=== PATIENT | female | born 1955 | race Caucasian/White ===

== ENCOUNTER 2017-11-18 18:42 | Emergency (ER) | payer OTHER, SELFPAY ==
[2017-11-18 18:43] VITALS: BP 147/89; PULSE 94; RESP 20; TEMP 36.5; O2SAT 95; BMI 33.4
[2017-11-18 18:50] VITALS: BP 147/89; PULSE 94; RESP 20; TEMP 36.5; O2SAT 95; BMI 33.4
--- NOTE | 2017-11-18 21:52 | ED_ITS ---
HPI - Headache General Chief Complaint: Headache Stated Complaint: Says Severe Head Ache Time Seen by Provider: 11/18/17 21:51 History of Present Illness HPI Narrative: Patient is a 62-year-old female presenting with left-sided headache ongoing for number weeks. She does have a history of migraine headaches and she is followed by the [facility]. She was started on some new medications which she says is really not helping. She has been dropping things with her left hand since the headache started she feels like she is off-balance she has some blurry vision. No fever that she knows of. She says the headache is quite severe. She also has chronic ongoing back pain which she has a 10s unit for. No other numbness or tingling down her legs. No difficulty speaking. MD Complaint: headache Onset (ago): week(s) Location: left Severity: severe Related Data Home Medications Medication Instructions Recorded Confirmed nortriptyline 50 mg PO HS #0 04/25/17 onabotulinumtoxinA [Botox] #0 08/06/17 Previous Rx's Medication Instructions Recorded ondansetron HCl 4 mg PO Q4HP PRN #15 tab 09/16/16 nystatin 0 unit TOPICAL BID #1 tube 01/10/17 buspirone 0 PO SEE INSTRUCTIONS #120 tab 01/14/17 cyanocobalamin (vitamin B-12) 1,000 mcg PO QDAY #30 tab 05/16/17 potassium chloride [Klor-Con M20] 40 meq PO AMCC #60 tab 05/16/17 duloxetine [Cymbalta] 20 mg PO QAM #30 cap 07/23/17 duloxetine [Cymbalta] 60 mg PO QDAY #30 cap 07/23/17 dihydroergotamine 1 mg SQ SEE INSTRUCTIONS #10 amp 08/06/17 estradiol 1 mg PO QDAY #90 tab 08/23/17 diazepam 10 mg PO HSP PRN #30 tab 08/30/17 furosemide 40 mg PO QDAY #30 tab 09/14/17 acyclovir 800 mg PO TID #21 tab 10/19/17 metoclopramide HCl 10 mg PO Q6HP PRN #15 tab 10/19/17 triamcinolone acetonide 0 gm TOPICAL BID #1 tube 10/19/17 diclofenac potassium 50 mg PO TID #60 tab 10/29/17 zonisamide 100 mg capsule 300 mg PO TID #60 cap 11/14/17 Allergies Allergy/AdvReac Type Severity Reaction Status Date / Time zolpidem [From AMBIEN] AdvReac Intermediate bad dreams Unverified 10/24/17 12:23 Review of Systems Review of Systems All systems reviewed & are unremarkable except as noted in HPI and below Constitutional Reports headache(s) and Reports weight loss Eyes Reports blurry vision (Left eye) ENT Ears, Nose, Mouth, and Throat: Denies vertigo, Denies dizziness and Reports headache(s) Cardiovascular Denies chest pain, Denies syncope and Denies palpitations Respiratory Denies chest congestion and Denies cough Gastrointestinal Gastrointestinal: Reports nausea Musculoskeletal Reports abnormal gait, Denies deformity and Reports muscle weakness (left hand) Neurologic Reports as per HPI, Reports abnormal gait, Denies vertigo, Denies dizziness, Denies syncope, Reports headache(s), Reports other visual disturbances (left eye blurry), Denies sensory deficit and Denies tremor(s) Endocrine Denies palpitations PFSH Medical History Migraine (Acute) Surgical History History of cystoscopy Status post cholecystectomy Status post colonoscopy Status post colonoscopy (08/02/09) Status post endoscopy Status post hemorrhoidectomy Status post hysterectomy with oophorectomy Family History Father Congestive heart failure Tobacco abuse Grandfather Colorectal cancer, Onset Age: 70 Stomach cancer Grandmother Coronary artery disease Mother Congestive heart failure Tobacco abuse Hidradenitis suppurativa Alcoholism Grandfather Diabetes mellitus Grandmother Ovarian cancer Social History Smoking Status: Never smoker Exam Const General: cooperative, in distress (Appears in pain in dark room) and No diaphoretic Orientation: alert, awake and oriented x3 Other: Appears in pain but alert in dark room HENMT Head: normal to inspection and atraumatic Ears: hearing grossly normal bilaterally Eyes General: appearance normal, both eyes and all related structures Visual Noriega: normal visual noriega by confrontation Pupils: PERRL EOM: EOM intact bilaterally Neck Neck: normal visual inspection, full ROM and no meningeal signs Resp Effort & Inspection: normal respiratory effort and able to speak in complete sentences Auscultation: clear to auscultation bilaterally Cardio Rate: regular rate Rhythm: regular rhythm Heart Sounds: S1 normal and S2 normal GI Inspection: normal to inspection Palpation: soft Skin General: no rashes or lesions noted Lesions: no lesions Rashes: no rashes Neuro General: alert, awake, oriented x3 and no meningeal signs Cranial Nerves: facial strength normal (Slight left facial droop) Cognition: normal cognition Speech: speech normal Gait: normal gait Motor: muscle tone normal throughout Sensory Exam: no sensory deficits noted Coordination: [id number] test normal and [id number] test normal Pupils: Normal pupillary reactivity/response: right and left Other: Wheel Press 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 But did not improve with typical migraine cocktail. Headache did start to improve after Dilaudid. She actually was seen multiple times talking with her friend without any distress. His after 2nd dose of narcotic she was able to ambulate to the bathroom. Head CT and blood work within normal limits. She has no meningeal signs. NIH STROKE SCALE: Score=[0] 1a. LOC=0 1b. LOC questions= 0 -->What month is it? How old are you? 1c. LOC commands=0 -->Open and close your eyes. Wheel Press Operator and release your hand 2. Best gaze=0 3. Visual Noriega=0 4. Facial Palsy=0 5. Motor Arm --Right=0 --Left=0 6. Motor Leg --Right=0 --Left=0 7. Limb Ataxia=0 8.Sensory=0 9. Best language=0 10. Dysarthria=0 11.Extinction and Inattention=0 Lab Data Attestation: I reviewed the patient's lab results. Result diagrams: 11/18/17 22:30 11/18/17 22:30 Lab Results 11/18/17 11/18/17 11/18/17 Range/Units 22:30 22:30 22:30 WBC 8.6 (4.5-11.0) X10^3/uL RBC 4.25 (4.0-5.2) X10^6/uL Hgb 12.3 (12.0-16.0) g/dL Hct 36.6 (36-46) % MCV 86.1 (80-100) fL MCH 28.9 (26-34) PG MCHC 33.6 (30-36) % RDW 13.8 (11.6-14.8) % Plt Count 428 H (150-400) X10^3/uL Neut % (Auto) 59.5 (50-75) % Lymph % (Auto) 28.8 (25-40) % [place] % (Auto) 7.2 (3-14) % Eos % (Auto) 3.9 (2-4) % Baso % (Auto) 0.6 (0-2) % Neut # (Auto) 5100 (2922-5440) /uL Sodium 141 (137-145) mmol/L Potassium 3.8 (3.4-5.1) mmol/L Chloride 107.0 (98-107) mmol/L Carbon Dioxide 23.0 (22-32) mmol/L BUN 14.0 (7-17) mg/dL Creatinine 1.00 (0.52-1.04) mg/dL Estimated GFR 56.4 L (>60) mL/min BUN/Creatinine Ratio 14.0 (6-22) Glucose 99 (80-110) mg/dL Lactate (0.7-2.1) mmol/L Calcium 9.5 (8.4-10.2) mg/dL Total Bilirubin 0.4 (0.2-1.3) mg/dL AST 28 (14-36) IU/L ALT 50 (9-52) IU/L Alkaline Phosphatase 89 (38-126) U/L Total Protein 7.4 (6.3-8.2) g/dL Albumin 4.2 (3.5-5.0) g/dL Globulin 3.2 (1.7-4.1) g/dL Albumin/Globulin Ratio 1.3 (1.0-2.8) Procalcitonin < 0.05 (<0.5) ng/mL 11/18/17 Range/Units 22:30 WBC (4.5-11.0) X10^3/uL RBC (4.0-5.2) X10^6/uL Hgb (12.0-16.0) g/dL Hct (36-46) % MCV (80-100) fL MCH (26-34) PG MCHC (30-36) % RDW (11.6-14.8) % Plt Count (150-400) X10^3/uL Neut % (Auto) (50-75) % Lymph % (Auto) (25-40) % [place] % (Auto) (3-14) % Eos % (Auto) (2-4) % Baso % (Auto) (0-2) % Neut # (Auto) (6939-7017) /uL Sodium (137-145) mmol/L Potassium (3.4-5.1) mmol/L Chloride (98-107) mmol/L Carbon Dioxide (22-32) mmol/L BUN (7-17) mg/dL Creatinine (0.52-1.04) mg/dL Estimated GFR (>60) mL/min BUN/Creatinine Ratio (6-22) Glucose (80-110) mg/dL Lactate 1.1 (0.7-2.1) mmol/L Calcium (8.4-10.2) mg/dL Total Bilirubin (0.2-1.3) mg/dL AST (14-36) IU/L ALT (9-52) IU/L Alkaline Phosphatase (38-126) U/L Total Protein (6.3-8.2) g/dL Albumin (3.5-5.0) g/dL Globulin (1.7-4.1) g/dL Albumin/Globulin Ratio (1.0-2.8) Procalcitonin (<0.5) ng/mL Imaging Data CT scan - head: Radiologist's impression: 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 No acute intracranial abnormality.
--- NOTE | 2017-11-18 22:02 | DI.CT.S_ITS ---
PROCEDURE: CT HEAD/BRAIN WO CON INDICATIONS: worsening headache for weeks with left sided weakness TECHNIQUE: Noncontrast 4.5 mm thick angled axial sections acquired from the foramen magnum to the vertex, with coronal and sagittal reformats. For radiation dose reduction, the following was used: automated exposure control, adjustment of mA and/or kV according to patient size. COMPARISON: [facility], CT, HEAD WITHOUT CONTRAST, 04/25/2017, 17:16. FINDINGS: Image quality: Excellent. CSF spaces: Basal cisterns are patent. No extra-axial fluid collections. The ventricles are symmetric in size and shape. Brain: No intracranial bleeds or masses. There is cerebral volume loss for age, with resultant ventricular and sulcal prominence. There are periventricular and deep white matter chronic small vessel ischemic changes. There is intracranial internal carotid artery atherosclerosis. Skull and face: Calvarium and visualized facial bones appear intact, without suspicious lesions. Sinuses: Visualized sinuses and mastoids are clear. IMPRESSION: No acute intracranial process Dictated by: Angel Doll M.D. on 11/19/2017 at 7:07 Approved by: Angel Doll M.D. on 11/19/2017 at 7:09
[2017-11-18 22:34] VITALS: BP 120/61; PULSE 80; RESP 15; O2SAT 100
[2017-11-18 22:44] LABS: Add Manual Diff / Slide Review NO; Basophils Percent Auto 0.6 % (0-2); Eosinophils Percent Auto 3.9 % (2-4); Hematocrit 36.6 % (36-46); Hemoglobin 12.3 g/dL (12.0-16.0); Lymphocytes Percent Auto 28.8 % (25-40); Mean Corpuscular HGB Conc 33.6 % (30-36); Mean Corpuscular Hemoglobin 28.9 PG (26-34); Mean Corpuscular Volume 86.1 fL (80-100); Monocytes Percent Auto 7.2 % (3-14); Neutrophils Absolute Auto 5100 /uL (3000-5900); Neutrophils Percent Auto 59.5 % (50-75); Platelet Count 428 X10^3/uL (150-400); Red Blood Cell Count 4.25 X10^6/uL (4.0-5.2); Red Cell Distribution Width 13.8 % (11.6-14.8); White Blood Cell Count 8.6 X10^3/uL (4.5-11.0)
[2017-11-18 22:47] LABS: Lactate (Lactic Acid) 1.1 mmol/L (0.7-2.1)
[2017-11-18 22:54] LABS: Alanine Aminotransferase 50 IU/L (9-52); Albumin 4.2 g/dL (3.5-5.0); Albumin Globulin Ratio 1.3 (1.0-2.8); Alkaline Phosphatase 89 U/L (38-126); Aspartate Aminotransferase 28 IU/L (14-36); Bilirubin Total 0.4 mg/dL (0.2-1.3); Calcium 9.5 mg/dL (8.4-10.2); Estimated Glomerular Filt Rate 56.4 mL/min (>60); Globulin 3.2 g/dL (1.7-4.1); Glucose 99 mg/dL (80-110); HEMOLYSIS 16 (0-50); Potassium 3.8 mmol/L (3.4-5.1); Sodium 141 mmol/L (137-145); Total Protein 7.4 g/dL (6.3-8.2)
[2017-11-18] MEDS: HYDROCODONE/ACET 5/325 TABLET 2 TAB PO (22:55)
[2017-11-18] MEDS: METOCLOPRAMIDE 10 MG/2 ML INJ IV (22:59)
[2017-11-18] MEDS: KETOROLAC 60 MG/2 ML VIAL 30 MG IV (22:59)
[2017-11-18] MEDS: diphenhydrAMINE 50 MG/ML VIAL 25 MG IV (22:59)
[2017-11-18] MEDS: SODIUM CHLORIDE 0.9% 1,000 ML 1000 ML IV (22:59)
[2017-11-18 23:10] LABS: Procalcitonin < 0.05 ng/mL (<0.5)
--- NOTE | 2017-11-18 23:37 | PC.NURSE ---
pt reports no change in pain level 10/10 s/p medication
[2017-11-18 23:41] VITALS: BP 128/80; PULSE 82; RESP 16
[2017-11-19] MEDS: HYDROMORPHONE 1 MG IV (00:48)
[2017-11-19] MEDS: MORPHINE 10 MG/ML INJ 5 MG IV (01:42)
[2017-11-19 02:20] VITALS: BP 128/80; PULSE 80; RESP 16; O2SAT 98
== END 2017-11-19 02:21 | disposition home or self-care (01) ==
PROVIDERS: Emergency Provider Emergency Medicine; Family Provider Family Medicine; PCP Family Medicine
DX: G43.909 Migraine, unspecified, not intractable, without status migrainosus (principal)
CPT/HCPCS: 36591; 70450; 80053; 83605; 84145; 85025; 96361; 96374; 96375; 99283; 99284; J1170; J1200; J1885; J2270; J2765

== ENCOUNTER → 2018-04-25 16:13 | Outpatient (CLI) | payer OTHER, SELFPAY ==
[2018-04-25 17:15] LABS: BUN Creatinine Ratio 14.3 (6-22); Blood Urea Nitrogen 20 mg/dL (7-17); Carbon Dioxide 21 mmol/L (22-32); Chloride 102 mmol/L (98-107); Estimated Glomerular Filt Rate 38.1 mL/min (>60); Glucose 131 mg/dL (80-110); HEMOLYSIS < 15 (0-50); Sodium 145 mmol/L (137-145)
[2018-04-25 17:37] LABS: Troponin I < 0.012 ng/mL (0.01-0.034)
== END ==
PROVIDERS: PCP Family Medicine; Visit Provider Family Medicine
DX: G43.909 Migraine, unspecified, not intractable, without status migrainosus (principal); I10 Essential (primary) hypertension
CPT/HCPCS: 36415; 80048; 84484

== ENCOUNTER → 2018-05-28 13:55 | Outpatient (CLI) | payer OTHER, SELFPAY ==
[2018-05-28 14:59] LABS: Blood Urea Nitrogen 21 mg/dL (7-17); Calcium 9.8 mg/dL (8.4-10.2); Carbon Dioxide 24 mmol/L (22-32); Chloride 104 mmol/L (98-107); Estimated Glomerular Filt Rate 35.2 mL/min (>60); Glucose 125 mg/dL (80-110); HEMOLYSIS < 15 (0-50); Potassium 3.7 mmol/L (3.4-5.1); Sodium 144 mmol/L (137-145)
== END ==
PROVIDERS: PCP Family Medicine; Visit Provider Family Medicine
DX: N18.2 Chronic kidney disease, stage 2 (mild) (principal)
CPT/HCPCS: 36415; 80048

== ENCOUNTER → 2018-07-04 15:11 | Outpatient (CLI) | payer OTHER, SELFPAY ==
[2018-07-04 16:34] LABS: BUN Creatinine Ratio 11.4 (6-22); Blood Urea Nitrogen 16 mg/dL (7-17); Calcium 9.9 mg/dL (8.4-10.2); Carbon Dioxide 23 mmol/L (22-32); Chloride 104 mmol/L (98-107); Estimated Glomerular Filt Rate 38.1 mL/min (>60); Glucose 103 mg/dL (80-110); HEMOLYSIS < 15 (0-50); Potassium 3.8 mmol/L (3.4-5.1); Sodium 142 mmol/L (137-145)
== END ==
PROVIDERS: Family Provider Family Medicine; PCP Family Medicine; Visit Provider Family Medicine
DX: N18.2 Chronic kidney disease, stage 2 (mild) (principal)
CPT/HCPCS: 36415; 80048

== ENCOUNTER → 2018-07-24 10:03 | Outpatient (CLI) | payer OTHER, SELFPAY ==
[2018-07-24 10:53] LABS: BUN Creatinine Ratio 8.7 (6-22); Blood Urea Nitrogen 13 mg/dL (7-17); Calcium 9.8 mg/dL (8.4-10.2); Carbon Dioxide 25 mmol/L (22-32); Chloride 102 mmol/L (98-107); Estimated Glomerular Filt Rate 35.2 mL/min (>60); Glucose 113 mg/dL (80-110); HEMOLYSIS < 15 (0-50); Potassium 3.5 mmol/L (3.4-5.1); Sodium 142 mmol/L (137-145)
== END ==
PROVIDERS: Family Provider Family Medicine; PCP Family Medicine; Visit Provider Family Medicine
DX: I10 Essential (primary) hypertension (principal)
CPT/HCPCS: 36415; 80048

== ENCOUNTER → 2018-08-16 16:42 | Outpatient (CLI) | payer OTHER, SELFPAY ==
[2018-08-16 17:22] LABS: BUN Creatinine Ratio 8.5 (6-22); Blood Urea Nitrogen 11 mg/dL (7-17); Calcium 9.7 mg/dL (8.4-10.2); Carbon Dioxide 24 mmol/L (22-32); Chloride 105 mmol/L (98-107); Estimated Glomerular Filt Rate 41.5 mL/min (>60); Glucose 100 mg/dL (80-110); HEMOLYSIS 21 (0-50); Potassium 3.6 mmol/L (3.4-5.1); Sodium 141 mmol/L (137-145)
== END ==
PROVIDERS: Family Provider Family Medicine; PCP Family Medicine; Visit Provider Family Medicine
DX: N18.3 Chronic kidney disease, stage 3 (moderate) (principal)
CPT/HCPCS: 36415; 80048

== ENCOUNTER → 2018-10-11 09:39 | Outpatient (CLI) | payer OTHER, SELFPAY ==
[2018-10-11 11:13] LABS: Blood Urea Nitrogen 15 mg/dL (7-17); Calcium 9.8 mg/dL (8.4-10.2); Carbon Dioxide 21 mmol/L (22-32); Chloride 107 mmol/L (98-107); Estimated Glomerular Filt Rate 56.2 mL/min (>60); Glucose 94 mg/dL (80-110); HEMOLYSIS < 15 (0-50); Magnesium 2.1 mg/dL (1.6-2.3); Potassium 4.2 mmol/L (3.4-5.1); Sodium 141 mmol/L (137-145)
== END ==
PROVIDERS: PCP Family Medicine; Visit Provider Family Medicine
DX: N18.3 Chronic kidney disease, stage 3 (moderate) (principal)
CPT/HCPCS: 36415; 80048; 83735

== ENCOUNTER → 2018-10-11 10:03 | Outpatient (CLI) | payer OTHER, SELFPAY ==
--- NOTE | 2018-10-11 10:06 | DI.RAD.S_ITS ---
PROCEDURE: XR LUMBAR SPINE MIN 4V INDICATIONS: back pain TECHNIQUE: 5 views of the lumbar spine were acquired. COMPARISON: None. FINDINGS: Bones: 5 nonrib-bearing vertebrae are present. There is grade 1 anterolisthesis of L4 on L5. No vertebral body compression fractures. Degenerative endplate changes are noted throughout lower thoracic and lumbar spine. No suspicious bony lesions. Soft tissues: Overlying bowel gas pattern is normal. No suspicious soft tissue calcifications. Surgical clips are noted in gallbladder fossa. Oblique images: No pars defects. No significant neuroforaminal narrowing. IMPRESSION: Grade 1 anterolisthesis of L4 on L5. No compression fracture. No gross pars defect. Mild degenerative disc disease in lumbar spine. No significant neuroforaminal narrowing. Dictated by: Alfonso Muller M.D. on 10/11/2018 at 12:43 Approved by: Alfonso Muller M.D. on 10/11/2018 at 12:45
--- NOTE | 2018-10-11 10:06 | DI.RAD.S_ITS ---
PROCEDURE: XR HIP W PEL IF DONE LT MIN 4V INDICATIONS: groin pain bilaterally, L>R TECHNIQUE: AP pelvis with lateral view(s) of the bilateral hip(s). COMPARISON: None. FINDINGS: Bones: No fractures or dislocations. Mild symmetric appearing bilateral hip joint osteoarthritic changes are seen with joint space narrowing and subchondral sclerosis. No evidence of avascular necrosis. Pelvic ring appears intact. No suspicious bony lesions. Soft tissues: The visualized bowel gas pattern is normal. No suspicious soft tissue calcifications. IMPRESSION: Mild symmetric appearing bilateral hip joint osteoarthritis. No fracture or dislocation. No evidence of avascular necrosis. Dictated by: Alfonso Muller M.D. on 10/11/2018 at 12:45 Approved by: Alfonso Muller M.D. on 10/11/2018 at 12:46
== END ==
PROVIDERS: PCP Family Medicine; Visit Provider Family Medicine
DX: M54.9 Dorsalgia, unspecified (principal); N18.3 Chronic kidney disease, stage 3 (moderate); M25.551 Pain in right hip; M25.552 Pain in left hip; M16.0 Bilateral primary osteoarthritis of hip; M43.16 Spondylolisthesis, lumbar region; M51.36 Other intervertebral disc degeneration, lumbar region
CPT/HCPCS: 36415; 72110; 73522; 80048; 83735

== ENCOUNTER → 2018-11-07 09:18 | Outpatient (CLI) | payer OTHER, SELFPAY ==
[2018-11-07 10:04] LABS: Blood Urea Nitrogen 14 mg/dL (7-17); Calcium 9.3 mg/dL (8.4-10.2); Carbon Dioxide 22 mmol/L (22-32); Chloride 108 mmol/L (98-107); Estimated Glomerular Filt Rate 56.2 mL/min (>60); Glucose 103 mg/dL (80-110); HEMOLYSIS < 15 (0-50); Sodium 141 mmol/L (137-145)
== END ==
PROVIDERS: PCP Family Medicine; Visit Provider Family Medicine
DX: N18.3 Chronic kidney disease, stage 3 (moderate) (principal)
CPT/HCPCS: 36415; 80048

== ENCOUNTER → 2018-12-06 10:03 | Outpatient (CLI) | payer OTHER, SELFPAY ==
[2018-12-06 11:11] LABS: Blood Urea Nitrogen 9 mg/dL (7-17); Carbon Dioxide 23 mmol/L (22-32); Chloride 107 mmol/L (98-107); Estimated Glomerular Filt Rate 56.2 mL/min (>60); Glucose 103 mg/dL (80-110); HEMOLYSIS < 15 (0-50); Potassium 4.3 mmol/L (3.4-5.1); Sodium 140 mmol/L (137-145)
== END ==
PROVIDERS: PCP Family Medicine; Visit Provider Family Medicine
DX: N18.3 Chronic kidney disease, stage 3 (moderate) (principal)
CPT/HCPCS: 36415; 80048

== ENCOUNTER → 2018-12-19 08:27 | Outpatient (CLI) | payer OTHER, SELFPAY ==
--- NOTE | 2018-12-19 08:42 | DI.CT.S_ITS ---
PROCEDURE: CT LUMBAR SPINE WO CON INDICATIONS: left hip and pelvic pain TECHNIQUE: Noncontrast 3 mm thick sections acquired from the T12 level to the sacrum. Sagittal and coronal reformats were constructed. For radiation dose reduction, the following was used: automated exposure control. COMPARISON: None. FINDINGS: Image quality: Excellent. Bones: There is minimal anterolisthesis of L4 on L5. No acute vertebral body compression fractures. No suspicious lytic or blastic bony lesions. Central spinal caliber is of normal overall caliber. No pars defects. T12-L1: Degenerative endplate changes are seen with Schmorl's node involving inferior endplate of T12. No significant disc bulge, canal stenosis or neuroforaminal narrowing. L1-L2: Schmorl's node is seen involving inferior endplate of L1. Mild degenerative endplate changes are seen. No significant disc bulge, canal stenosis or neuroforaminal narrowing is seen. L2-L3: Degenerative endplate changes are noted. No significant disc bulge, canal stenosis or neuroforaminal narrowing. L3-L4: Degenerative endplate changes are noted. Right paracentral disc osteophyte complex formation is seen posteriorly causing mild central canal stenosis, no significant neuroforaminal narrowing. L4-L5: There is degenerative endplate changes. Broad-based disc bulge and bilateral facet arthrosis with hypertrophy of ligamentum flavum is noted causing [id number] central canal stenosis and moderate left worse than right bilateral neuroforaminal narrowing. L5-S1: Degenerative endplate changes are seen. Broad-based disc bulge and bilateral facet arthrosis is noted causing mild central canal stenosis and mild to moderate bilateral neuroforaminal narrowing slightly worse on the left side. Soft tissues: No retroperitoneal masses or hematomas. Visualized aorta is normal in caliber. Possible pain management device is seen in right lower back soft tissue with leads seen extending to lower sacral region. IMPRESSION: 1. Minimal anterolisthesis of L4 on L5. No compression fracture. No gross pars defect. 2. Degenerative disc disease throughout lumbar spine. Suggestion a broad-based disc bulge and bilateral facet arthrosis at L4-5 and L5-S1 levels causing mild central canal stenosis and moderate left worse than right bilateral neuroforaminal narrowing. Dictated by: Alfonso Muller M.D. on 12/19/2018 at 8:59 Approved by: Alfonso Muller M.D. on 12/19/2018 at 9:04
--- NOTE | 2018-12-19 08:42 | DI.CT.S_ITS ---
PROCEDURE: CT LE LT W CON INDICATIONS: left hip and pelvic pain TECHNIQUE: Noncontrast 3 mm axial sections acquired through the bony pelvis. Additional 3 mm axial sections acquired through the symptomatic hip joint, with coronal and sagittal reformats. COMPARISON: None. FINDINGS: Image quality: Excellent. Bones: Mild symmetric appearing bilateral hip joint osteoarthritic changes are seen with superior joint space narrowing and subchondral sclerosis. There is no hip fracture or dislocation. No evidence of avascular necrosis of femoral head. No fracture or dislocation is seen no bony pelvis. Pelvic ring is intact. Mild bilateral sacroiliac joint osteophytic changes and symphysis pubis osteoarthritis is seen. Benign appearing bone island is seen in left superior pubic ramus. No suspicious bony lesion. Soft tissues: There is no pelvic free fluid or free air. No bowel obstruction. No abnormal bowel wall thickening. Urinary bladder is within normal limits. Left inguinal hernia containing fat only is seen. No free fluid or free air. There is no left hip muscle or soft tissue abnormality. No significant joint effusion. IMPRESSION: 1. Symmetric appearing bilateral hip joint osteoarthritic changes. Mild osteoarthritis or bony pelvis. No acute hip fracture or dislocation. No evidence of avascular necrosis. 2. No gross left hip or pelvic soft tissue abnormality. Left inguinal hernia containing fat only. Dictated by: Alfonso Muller M.D. on 12/19/2018 at 9:04 Approved by: Alfonso Muller M.D. on 12/19/2018 at 9:08
== END ==
PROVIDERS: PCP Family Medicine; Visit Provider Family Medicine
DX: M25.552 Pain in left hip (principal); R10.2 Pelvic and perineal pain; M51.36 Other intervertebral disc degeneration, lumbar region; M48.061 Spinal stenosis, lumbar region without neurogenic claudication; K40.90 Unilateral inguinal hernia, without obstruction or gangrene, not specified as recurrent; M54.5 Low back pain; M15.9 Polyosteoarthritis, unspecified
CPT/HCPCS: 72131; 73700

== ENCOUNTER → 2019-02-07 16:05 | Outpatient (CLI) | payer OTHER, SELFPAY ==
--- NOTE | 2019-02-07 16:07 | DI.RAD.S_ITS ---
PROCEDURE: XR HIP W PEL IF DONE LT 2V INDICATIONS: fall, left hip pain TECHNIQUE: AP pelvis with lateral view(s) of the left hip(s). COMPARISON: [facility], CR, XR HIP W PEL IF DONE ANATOLY 3TO4V, 10/11/2018, 10:11. FINDINGS: Bones: No fractures or dislocations. Pelvic ring appears intact. No suspicious bony lesions. Soft tissues: The visualized bowel gas pattern is normal. No suspicious soft tissue calcifications. Note is made of a pain control device and lead extending from the right lower abdomen to the left medial hemipelvis area, respectively. IMPRESSION: No trauma found. Pain control device and lead as discussed. Note is made of mild symmetric hip joint osteoarthritis. Dictated by: Raffy Sepulveda M.D. on 02/07/2019 at 16:45 Approved by: Raffy Sepulveda M.D. on 02/07/2019 at 16:46
== END ==
PROVIDERS: PCP Family Medicine; Visit Provider Family Medicine
DX: M25.552 Pain in left hip (principal); M16.12 Unilateral primary osteoarthritis, left hip
CPT/HCPCS: 73502

== ENCOUNTER 2019-02-19 08:45 | Outpatient (RCR) | payer OTHER, SELFPAY ==
--- NOTE | 2018-12-02 12:11 | PT.OIE ---
Current Diagnoses Pain in left hip (12/02/18) Pelvic and perineal pain (12/02/18) Past Medical History (Last Reviewed 06/26/18 @ 09:27 by Martín Almonte PA-C) Chronic diarrhea (Chronic) Depression (Chronic) Endometriosis (Chronic) GERD with stricture (Chronic) Hearing loss (Chronic) Hypertension (Chronic) IBS (irritable bowel syndrome) (Chronic) Interstitial cystitis (Chronic) Migraine (Chronic) Seasonal allergies (Chronic) Urinary incontinence (Chronic) Chickenpox (Resolved) Measles (Resolved) Mumps (Resolved) Past Surgical History (Last Reviewed 06/26/18 @ 09:27 by Martín Almonte PA-C) Esophageal motility disorder (Resolved ~07/14/09) History of cystoscopy Status post cholecystectomy Status post colonoscopy (~2007) Status post colonoscopy (08/02/09) Status post endoscopy (~2008) Status post hemorrhoidectomy (~2010) Status post hysterectomy with oophorectomy (~1985) Provider Visit Care Team Role Provider Type Hattie Cullen DO Attending Provider Physician Primary Care Provider Specialty: [facility] Address: [address] [place] [address] Email: [email or web address] Physical Therapy Initial Evaluation PT-OP-A Visit Information Start: 12/02/18 09:52 Freq: Status: Active Protocol: Document 12/02/18 08:15 (Rec: 12/02/18 10:14 [email or web address]) Out-Patient Physical Therapy Visit Information Visit Information Visit Type Initial Evaluation Visit Note insurance expires 01/12/19 Visit Start Time 08:15 Visit Stop Time 09:00 Total Visit Minutes 45 Visit Number 08/09 Number of DISH MAKER Visits 0 Evaluation Information Evaluation Date 12/02/18 Precautions Precautions High fall risks no iontophoresisno no phonophoresis No heat modalities. PT-OP-B Current Condition Start: 12/02/18 09:52 Freq: Status: Active Protocol: Document 12/02/18 08:15 HH (Rec: 12/02/18 10:14 [email or web address]) Current Condition History of Current Condition Onset Date 3 months ago Current Complaints severe L hip pain, impaired gait and activity tolerance History of Current Condition Pt presents to clinic today with c/o new onset of severe L hip pain since 3 months ago after a possible fall at night . She explained she was not sure about the fall since she often feels unoriented at night because of medications she is taking and constant mirgrain. Pt said her hip pain started since then and x-ray showed negative findings for fx (3 months ago) but with significant L hip OA. However, pt stated her pain never goes away and keeps getting worse which significant challenge her functional mobility. Pt has been falling for the past 3 months since her injury. Pt currently unable to amb more than 100 feet without rest, standing >10-15 mins and climb stairs with step to pattern with railing. She is also using SPC for mobility on RUE to reduced pain and balance. Her sharp Pain basically gets worse with WB/ pressure and radiate to L side of the hip sometimes, and she is unable to sleep on her L side at this point. 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 Pt also states she cannot have a CT scan due to insurance coverage and she has to attempt therapy first to get second opinion first in order to be qualified for CT scan screening. Prior Treatments and Tests PT for neck pain (nerve abiation) x-ray in september showed negative fx for L hip Treatment Goals Patient/Caregiver Goals 1. To be able to walk more than 500 feet without hip pain and SPC 2. To be able to walk her dogs in community 2. to negotiate stairs with step over pattern and without handrails 3. able to stand > 30 mins without pain. Prior Functional Status Baseline Function- ADL's Independent Baseline Function- Mobility Independent Baseline Function- Gait with AD Baseline Function- Recreation/Hobbies able to walk her dogs daily Baseline Function- Other step over pattern without railing for stair climbing able to walk miles with AD Current Functional Impairments (Reported) Functional Limitations- ADL's unable to stand >10 mins unable to perform sit to supine without lifting her LLE with UE support Functional Limitations- Mobility/Gait unable to stand > 10 mins step to for stairs cannot walk > 100 feet without rest. Personal Factors Other Personal Factors That May Effect INSTER STIM for bladder Therapy/Recovery migraines depression multiple falls PT-OP-C Subjective Start: 12/02/18 09:52 Freq: Status: Active Protocol: Document 12/02/18 08:15 (Rec: 12/02/18 10:14 [email or web address]) OP-PT Subjective Patient Comments Patient Comments My left hip pain has been getting really bad Patient Reported Progress Worse Patient Questionnaires Lower Extremity Functional Scale LEFS Score 9 LEFS Impairment 80 to 99% Impaired (Score 1-16 ) OP-PT Pain Assessment Location Left Hip Intensity 8 Scale Used Numeric (1 - 10) Description Pressure Sharp Frequency Constant Pain Aggravating Factors Position Changing Position ADL's Activity Exercise Standing Sitting Walking Stair Climbing Bending Lifting Pain Alleviating Factors None PT-OP-E Functional Tests Start: 12/02/18 09:52 Freq: Status: Active Protocol: Document 12/02/18 08:15 (Rec: 12/02/18 10:14 [email or web address]) Functional Tests 2 Minute Walk Test Distance 188 Device Used none Comments pt uses wall for support and balance PT-OP-G Mobility & Gait Start: 12/02/18 09:52 Freq: Status: Active Protocol: Document 12/02/18 08:15 (Rec: 12/02/18 10:14 [email or web address]) OP Mobility Evaluation Bed Mobility Rolling unable to lay on L side Supine to and from Sit need UE to lift L LE OP Gait Assessment Gait Gait Assistance Required: Independent Distance (Feet) 188 Able to Maintain Weight Bearing Status Yes During Gait Assistive Devices Assistive Device None Gait Deviations General Gait Pattern Antalgic Decreased Stride Length Decreased Feet Clearance Factors Limiting Gait Function Factors Limiting Gait Function Decreased Activity Tolerance Decreased Strength Limited Range of Motion Pain Comments Gait Comments significant L antalgic gait with decreased stance phase on LLE. Needed wall for support/ balance. 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 Stair Climbing Evaluation Evaluation Level of Assist On Stairs Independent Devices Stair Climbing Assistive Devices Left Railing Right Railing Technique/Endurance Stair Climbing Direction Ascend and Descend Stair Climbing Technique Step Over Step PT-OP-J Posture/Palpation/Skin Start: 12/02/18 09:52 Freq: Status: Active Protocol: Document 12/02/18 08:15 HH (Rec: 12/02/18 11:55 [email or web address]) Posture Evaluation Position Standing Evaluation View Anterior Weight Distribution Weight Shifted Right Decreased Wt.Bear on (L) Hip Posture (L) Internally Rotated Knee Posture (L) Genu Valgus (L) Ext. Tibial Torsion PT-OP-K Range of Motion Start: 12/02/18 09:52 Freq: Status: Active Protocol: Document 12/02/18 08:15 (Rec: 12/02/18 11:55 [email or web address]) Hip Goniometric Range of Motion Hip Measured in Degrees Right Passive Hip ROM WFL Yes Testing Position Supine Flexion w/Knee Flexed 105 Extension 10 Abduction 35 Left Passive Hip ROM WFL No Testing Position Supine Flexion w/Knee Flexed 25 Extension 0 Abduction 0 PT-OP-L Special Tests Start: 12/02/18 09:52 Freq: Status: Active Protocol: Document 12/02/18 08:15 (Rec: 12/02/18 11:55 [email or web address]) Special Tests Hip Special Tests Scour Test Comments unable to test due to severe pain and muscle guarding with passive ROM LIAM Comments unable to test due to severe pain and muscle guarding with passive ROM Anterior Labral Test Comments unable to test due to severe pain and muscle guarding with passive ROM PT-OP-M Strength Start: 12/02/18 09:52 Freq: Status: Active Protocol: Document 12/02/18 08:15 (Rec: 12/02/18 11:55 [email or web address]) Hip Strength Hip Manual Muscle Testing Right Flexion (L2) 4+ Good+ Extension (S1) 4+ Good+ Abduction 4+ Good+ Adduction 4+ Good+ Left Flexion (L2) 2- Poor- Extension (S1) 2- Poor- Abduction 2- Poor- Adduction 2- Poor- Knee Strength Knee Manual Muscle Testing Right Flexion (S2) 4+ Good+ Extension (L3) 4+ Good+ Left Flexion (S2) 3+ Fair+ Extension (L3) 3+ Fair+ Ankle/Foot Strength Ankle and Foot Manual Muscle Testing Left Dorsiflexion (L4) 4+ Good+ Plantarflexion (S1) 4+ Good+ Inversion 4+ Good+ Eversion (S1) 4+ Good+ Right Dorsiflexion (L4) 4+ Good+ Plantarflexion (S1) 4+ Good+ Inversion 4+ Good+ Eversion (S1) 4+ Good+ PT-OP-T Assessment and Plan Start: 12/02/18 09:52 Freq: Status: Active Protocol: Document 12/02/18 08:15 (Rec: 12/02/18 11:55 [email or web address]) Physical Therapy Assessment Rehab Potential Rehabilitation Potential Fair Evaluation Complexity Number of Personal Factors/Comorbidities 3 or More Number of Body Systems Impaired 3 Clinical Presentation at Evaluation Evolving Impairments Impairments Activity Tolerance Balance Edema Functional Activities Functional Mobility Gait Pain Posture ROM Sensation Soft Tissue Mobility Strength Tone Transfers Other Concerns Fall Risk high Barriers to Rehabilitation Possible hairline fx migraines, HAT CONDITIONER, depression, high fall risks, bruise easily Goals LEFS Impairment LEFS= 9 (80-99%) Fpc Goal (LTG) pt will be reach < 40-59% impairment on LEFS to improve overall functional mobility. LTG Duration 12 weeks pain during WB position Impairment Severe pain during WB position Fpc Goal (LTG) Pt will report <4/10 pain in WB position such as standing and walking to improve quality of life. LTG Duration 12 weeks Stair negotiation Impairment pt uses step to pattern to climb stairs with railing Tile Setter Apprentice Goal (LTG) Pt will be able to use step over pattern to climb stairs without railing LTG Duration 12 weeks 2 MWT Impairment pt only amb 188 ft under 2MWT Tile Setter Apprentice Goal (LTG) Pt will be able to amb 250 ft within 2MWT without AD LTG Duration 12 weeks Amb distance Impairment unable to amb >100 ft without rest (with spc) Tile Setter Apprentice Goal (LTG) pt will be able to amb 500 ft without rest and assistive device LTG Duration 12 weeks Assessment Summary Assessment pt is a high complexity who presents severe L hip pain 7-9 10 since 3 months due to a possible fall. x-ray from 3 months showed negative for hip fx. However, based on pt's current symptoms, I professionally suspect there's a possible hairline L hip fx since pt cannot tolerate WB movements and passive/active hip movements. Pt cried and has facial grimacing during gentle ROM which makes an accurate objective assessment difficult. Recommended pt to cancel this week appointment to consult with her PCP for a further CT scan/ X-ray assessment to rule out hip fx. If she is negative for fx again, Pt will be a good candidate for skilled therapy to improve her overall flexibility, posture, B LE strength for functional mobility such as stair climbing, daily walking and transfer. Physical Therapy Plan Frequency and Duration Frequency of Treatment 2x/Week Duration of Treatment 12 weeks Plan of Care Start Date 12/02/18 Plan of Care End Date 03/04/19 Therapeutic Interventions Therapeutic Interventions Aquatic Therapy Balance Training Gait Training Home Exercise Program Joint Mobilizations Manual Therapy Neuromuscular Re-education Patient/Caregiver Education Self-Care/Home Management Soft Tissue Mobilization Taping Therapeutic Activities Therapeutic Exercises Modalities Cold Pack/Ice Massage Other Referrals/Consults Referrals/Consults Recommended Recommended pt to cancel this week appointment to consult with her PCP for a further CT scan/ X-ray assessment to rule out hip fx Next Visit Focus/Plan Next Note Type Treatment Note Next Visit Plan reassess pt's symptoms and further assess special test. gentle ROM as delroy
--- NOTE | 2018-12-02 12:11 | PT.OPPOC ---
Current Diagnoses Pain in left hip (12/02/18) Pelvic and perineal pain (12/02/18) Provider Visit Care Team Role Provider Type Hattie Cullen DO Attending Provider Physician Primary Care Provider Specialty: Family Practice Address: [address] [place] [address], [id number] Email: [email or web address] Plan Of Care PT-OP-T Assessment and Plan Start: 12/02/18 09:52 Freq: Status: Active Protocol: Document 12/02/18 08:15 HH (Rec: 12/02/18 11:55 HH [email or web address]) Physical Therapy Assessment Rehab Potential Rehabilitation Potential Fair Evaluation Complexity Number of Personal Factors/Comorbidities 3 or More Number of Body Systems Impaired 3 Clinical Presentation at Evaluation Evolving Impairments Impairments Activity Tolerance Balance Edema Functional Activities Functional Mobility Gait Pain Posture ROM Sensation Soft Tissue Mobility Strength Tone Transfers Other Concerns Fall Risk high Barriers to Rehabilitation Possible hairline fx 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 LTG Duration 12 weeks pain during WB position Impairment Severe pain during WB position Interactive Media Marketing Director Goal (LTG) Pt will report <4/10 pain in WB position such as standing and walking to improve quality of life. LTG Duration 12 weeks Stair negotiation Impairment pt uses step to pattern to climb stairs with railing Senior Living Goal (LTG) Pt will be able to use step over pattern to climb stairs without railing LTG Duration 12 weeks 2 MWT Impairment pt only amb 188 ft under 2MWT Interactive Media Marketing Director Goal (LTG) Pt will be able to amb 250 ft within 2MWT without AD LTG Duration 12 weeks Amb distance Impairment unable to amb >100 ft without rest (with spc) Interactive Media Marketing Director Goal (LTG) pt will be able to amb 500 ft without rest and assistive device LTG Duration 12 weeks Assessment Summary Assessment pt is a high complexity who presents severe L hip pain 7-9 /10 since 3 months due to a possible fall. x-ray from 3 months showed negative for hip fx. However, based on pt's current symptoms, I professionally suspect there's a possible hairline L hip fx since pt cannot tolerate WB movements and passive/active hip movements. Pt cried and has facial grimacing during gentle ROM which makes an accurate objective assessment difficult. Recommended pt to cancel this week appointment to consult with her PCP for a further CT scan/ X-ray assessment to rule out hip fx. If she is negative for fx again, Pt will be a good candidate for skilled therapy to improve her overall flexibility, posture, B LE strength for functional mobility such as stair climbing, daily walking and transfer. Physical Therapy Plan Frequency and Duration Frequency of Treatment 2x/Week Duration of Treatment 12 weeks Plan of Care Start Date 12/02/18 Plan of Care End Date 03/04/19 Therapeutic Interventions Therapeutic Interventions Aquatic Therapy Balance Training Gait Training Home Exercise Program Joint Mobilizations Manual Therapy Neuromuscular Re-education Patient/Caregiver Education Self-Care/Home Management Soft Tissue Mobilization Taping Therapeutic Activities Therapeutic Exercises Modalities Cold Pack/Ice Massage Other Referrals/Consults Referrals/Consults Recommended Recommended pt to cancel this week appointment to consult with her PCP for a further CT scan/ X-ray assessment to rule out hip fx Next Visit Focus/Plan Next Note Type Treatment Note Next Visit Plan reassess pt's symptoms and further assess special test. gentle ROM as delroy Plan of Care Dates Plan of Care Start Date 12/02/18 Plan of Care End Date 03/04/19 Please Sign and Return: I have reviewed this Plan of Care and certify that the skilled therapy services above are required to meet the patient?s needs. Physician Signature Date Printed Name and Credentials Clinical Instructor Signature Printed Name and Credentials
--- NOTE | 2018-12-16 08:15 | PT.OTN ---
Current Diagnoses Pain in left hip (12/16/18) Pelvic and perineal pain (12/16/18) Physical Therapy Treatment Note PT-OP-A Visit Information Start: 12/02/18 09:52 Freq: Status: Active Protocol: Document 12/16/18 08:15 DLM (Rec: 12/16/18 11:37 DLM [id number]) Out-Patient Physical Therapy Visit Information Visit Information Visit Type Treatment Note Visit Note expiration of insurance Visit Start Time 08:15 Visit Stop Time 09:01 Total Visit Minutes 46 Visit Number 09/09 Evaluation Information Evaluation Date 12/02/18 Precautions Precautions High fall risks no iontophoresisno no phonophoresis No heat modalities. She has implanted stimulator for her bladder PT-OP-B Current Condition Start: 12/02/18 09:52 Freq: Status: Active Protocol: Document 12/02/18 08:15 HH (Rec: 12/02/18 10:14 HH [email or web address]) Current Condition History of Current Condition Onset Date 3 months ago Current Complaints severe L hip pain, impaired gait and activity tolerance History of Current Condition Pt presents to clinic today with c/o new onset of severe L hip pain since 3 months ago after a possible fall at night . She explained she was not sure about the fall since she often feels unoriented at night because of medications she is taking and constant mirgrain. Pt said her hip pain started since then and x-ray showed negative findings for fx (3 months ago) but with significant L hip OA. However, pt stated her pain never goes away and keeps getting worse which significant challenge her functional mobility. Pt has been falling for the past 3 months since her injury. Pt currently unable to amb more than 100 feet without rest, standing >10-15 mins and climb stairs with step to pattern with railing. She is also using SPC for mobility on RUE to reduced pain and balance. Her sharp Pain basically gets worse with WB/ pressure and radiate to L side of the hip sometimes, and she is unable to sleep on her L side at this point. Pt notices her knee starts to cave in more and L foot return agent. Pt also states she cannot have a CT scan due to insurance coverage and she has to attempt therapy first to get second opinion first in order to be qualified for CT scan screening. Prior Treatments and Tests PT for neck pain (nerve abiation) x-ray in september showed negative fx for L hip Treatment Goals Patient/Caregiver Goals 1. To be able to walk more than 500 feet without hip pain and SPC 2. To be able to walk her dogs in community 2. to negotiate stairs with step over pattern and without handrails 3. able to stand > 30 mins without pain. Prior Functional Status Baseline Function- ADL's Independent Baseline Function- Mobility Independent Baseline Function- Gait with AD Baseline Function- Recreation/Hobbies able to walk her dogs daily Baseline Function- Other step over pattern without railing for stair climbing able to walk miles with AD Current Functional Impairments (Reported) Functional Limitations- ADL's unable to stand >10 mins unable to perform sit to supine without lifting her LLE with UE support Functional Limitations- Mobility/Gait unable to stand > 10 mins step to for stairs cannot walk > 100 feet without rest. Personal Factors Other Personal Factors That May Effect INSTER STIM for bladder Therapy/Recovery migraines depression multiple falls PT-OP-C Subjective Start: 12/02/18 09:52 Freq: Status: Active Protocol: Document 12/16/18 08:15 DLM (Rec: 12/16/18 11:37 DLM [id number]) OP-PT Subjective Patient Comments Patient Comments Her insurance has authorized a CT of her hip. She is waiting to get it scheduled. Her hip pain is the same. She reports soaking in a warm tub at home has helped but it is too painful to get in/out on her own. She is icing her hip at home. PT-OP-E Functional Tests Start: 12/02/18 09:52 Freq: Status: Active Protocol: Document 12/02/18 08:15 HH (Rec: 12/02/18 10:14 HH [email or web address]) Functional Tests 2 Minute Walk Test Distance 188 Device Used none Comments pt uses wall for support and balance PT-OP-G Mobility & Gait Start: 12/02/18 09:52 Freq: Status: Active Protocol: Document 12/02/18 08:15 HH (Rec: 12/02/18 10:14 HH [email or web address]) OP Mobility Evaluation Bed Mobility Rolling unable to lay on L side Supine to and from Sit need UE to lift L LE OP Gait Assessment Gait Gait Assistance Required: Independent Distance (Feet) 188 Able to Maintain Weight Bearing Status Yes During Gait Assistive Devices Assistive Device None Gait Deviations General Gait Pattern Antalgic Decreased Stride Length Decreased Feet Clearance Factors Limiting Gait Function Factors Limiting Gait Function Decreased Activity Tolerance Decreased Strength Limited Range of Motion Pain Comments Gait Comments significant L antalgic gait with decreased stance phase on LLE. Needed wall for support/ balance. noticeable L knee valgus and L foot return agent. Stair Climbing Evaluation Evaluation Level of Assist On Stairs Independent Devices Stair Climbing Assistive Devices Left Railing Right Railing Technique/Endurance Stair Climbing Direction Ascend and Descend Stair Climbing Technique Step Over Step PT-OP-J Posture/Palpation/Skin Start: 12/02/18 09:52 Freq: Status: Active Protocol: Document 12/02/18 08:15 (Rec: 12/02/18 11:55 [email or web address]) Posture Evaluation Position Standing Evaluation View Anterior Weight Distribution Weight Shifted Right Decreased Wt.Bear on (L) Hip Posture (L) Internally Rotated Knee Posture (L) Genu Valgus (L) Ext. Tibial Torsion PT-OP-K Range of Motion Start: 12/02/18 09:52 Freq: Status: Active Protocol: Document 12/02/18 08:15 (Rec: 12/02/18 11:55 [email or web address]) Hip Goniometric Range of Motion Hip Measured in Degrees Right Passive Hip ROM WFL Yes Testing Position Supine Flexion w/Knee Flexed 105 Extension 10 Abduction 35 Left Passive Hip ROM WFL No Testing Position Supine Flexion w/Knee Flexed 25 Extension 0 Abduction 0 PT-OP-L Special Tests Start: 12/02/18 09:52 Freq: Status: Active Protocol: Document 12/02/18 08:15 (Rec: 12/02/18 11:55 [email or web address]) Special Tests Hip Special Tests Scour Test Comments unable to test due to severe pain and muscle guarding with passive ROM LIAM Comments unable to test due to severe pain and muscle guarding with passive ROM Anterior Labral Test Comments unable to test due to severe pain and muscle guarding with passive ROM PT-OP-M Strength Start: 12/02/18 09:52 Freq: Status: Active Protocol: Document 12/02/18 08:15 (Rec: 12/02/18 11:55 [email or web address]) Hip Strength Hip Manual Muscle Testing Right Flexion (L2) 4+ Good+ Extension (S1) 4+ Good+ Abduction 4+ Good+ Adduction 4+ Good+ Left Flexion (L2) 2- Poor- Extension (S1) 2- Poor- Abduction 2- Poor- Adduction 2- Poor- Knee Strength Knee Manual Muscle Testing Right Flexion (S2) 4+ Good+ Extension (L3) 4+ Good+ Left Flexion (S2) 3+ Fair+ Extension (L3) 3+ Fair+ Ankle/Foot Strength Ankle and Foot Manual Muscle Testing Left Dorsiflexion (L4) 4+ Good+ Plantarflexion (S1) 4+ Good+ Inversion 4+ Good+ Eversion (S1) 4+ Good+ Right Dorsiflexion (L4) 4+ Good+ Plantarflexion (S1) 4+ Good+ Inversion 4+ Good+ Eversion (S1) 4+ Good+ PT-OP-Q Treatments Start: 12/02/18 09:52 Freq: Status: Active Protocol: Document 12/16/18 08:15 DLM (Rec: 12/16/18 11:37 DLM [id number]) Cardio Equipment Recumbent Bicycle Duration (Minutes) 6 Resistance 0 Seat Position 6 Other slow pace with intermittent stopping, c/o pain Therapeutic Exercises Supine Exercises 4 Supine Exercise Name Hooklying hip ADduction Side bilateral Resistance isometric Equipment Used L2 exercise band Reps/Minutes 10 reps 3 Supine Exercise Name Hooklying hip ABduction Side bilateral Resistance isometric Equipment Used ball between knees Reps/Minutes 10 reps 2 Supine Exercise Name Quad sets Side bilateral Resistance isometric Reps/Minutes 5 count hold x 10 reps 1 Supine Exercise Name Glut sets Resistance isometric Reps/Minutes 5 count hold x 10 reps Sitting Exercises 1 Sitting Exercise Name long arc quad Side left Resistance 2# ankle weight Reps/Minutes 10 reps Comments c/o pain Self-Care/Home Management Treatment Education Patient Education Home Exercise Program Pain Management Other Education Pt has and SI belt from her physician. Answered her questions about wear and fit. Educated pt on use of isometric exercises for strengthening with minimal joint stress. Pt questions if she can use her home TENS- requested she get clearance from the physician who implanted her stimulator first . PT-OP-T Assessment and Plan Start: 12/02/18 09:52 Freq: Status: Active Protocol: Document 12/16/18 08:15 DLM (Rec: 12/16/18 11:37 DLM [id number]) Physical Therapy Assessment Goals LEFS Impairment LEFS= 9 (80-99%) Usp Goal (LTG) pt will be reach < 40-59% impairment on LEFS to improve overall functional mobility. LTG Duration 12 weeks pain during WB position Impairment Severe pain during WB position Usp Goal (LTG) Pt will report <4/10 pain in WB position such as standing and walking to improve quality of life. LTG Duration 12 weeks Stair negotiation Impairment pt uses step to pattern to climb stairs with railing Usp Goal (LTG) Pt will be able to use step over pattern to climb stairs without railing LTG Duration 12 weeks 2 MWT Impairment pt only amb 188 ft under 2MWT Microfilm Operator Goal (LTG) Pt will be able to amb 250 ft within 2MWT without AD LTG Duration 12 weeks Amb distance Impairment unable to amb >100 ft without rest (with spc) Usp Goal (LTG) pt will be able to amb 500 ft without rest and assistive device LTG Duration 12 weeks Progress Towards Goals Progress Comments no change in her pain Assessment Summary Assessment Her left hip continues. CT is planned but not scheduled yet. She had pain with all exercises today but was able to complete them. She was intermittently emotional this visit. She was able to get on the mat table independently but needed min assist to get off. She moves very slowly with all functional mobility. She is using a cane for gait. She appears to tolerate the SI belt well this visit but no change in pain. Physical Therapy Plan Frequency and Duration Frequency of Treatment 2x/Week Duration of Treatment 12 weeks Plan of Care Start Date 12/02/18 Plan of Care End Date 03/04/19 Therapeutic Interventions Therapeutic Interventions Aquatic Therapy Balance Training Gait Training Home Exercise Program Joint Mobilizations Manual Therapy Neuromuscular Re-education Patient/Caregiver Education Self-Care/Home Management Soft Tissue Mobilization Taping Therapeutic Activities Therapeutic Exercises Modalities Cold Pack/Ice Massage Next Visit Focus/Plan Next Note Type Treatment Note Next Visit Plan gentle ROM, isometrics
--- NOTE | 2018-12-18 08:15 | PT.OTN ---
Current Diagnoses Pain in left hip (12/18/18) Pelvic and perineal pain (12/18/18) Physical Therapy Treatment Note PT-OP-A Visit Information Start: 12/02/18 09:52 Freq: Status: Active Protocol: Document 12/18/18 08:15 DLM (Rec: 12/18/18 10:36 DLM [id number]) Out-Patient Physical Therapy Visit Information Visit Information Visit Type Treatment Note Visit Note expiration of insurance Visit Start Time 08:20 Visit Stop Time 09:15 Total Visit Minutes 55 Visit Number 10/07 Number of DITCHER OPERATOR Visits 0 Evaluation Information Evaluation Date 12/02/18 Precautions Precautions High fall risks She has implanted stimulator for her bladder- in back PT-OP-B Current Condition Start: 12/02/18 09:52 Freq: Status: Active Protocol: Document 12/02/18 08:15 HH (Rec: 12/02/18 10:14 HH [email or web address]) Current Condition History of Current Condition Onset Date 3 months ago Current Complaints severe L hip pain, impaired gait and activity tolerance History of Current Condition Pt presents to clinic today with c/o new onset of severe L hip pain since 3 months ago after a possible fall at night . She explained she was not sure about the fall since she often feels unoriented at night because of medications she is taking and constant mirgrain. Pt said her hip pain started since then and x-ray showed negative findings for fx (3 months ago) but with significant L hip OA. However, pt stated her pain never goes away and keeps getting worse which significant challenge her functional mobility. Pt has been falling for the past 3 months since her injury. Pt currently unable to amb more than 100 feet without rest, standing >10-15 mins and climb stairs with step to pattern with railing. She is also using SPC for mobility on RUE to reduced pain and balance. Her sharp Pain basically gets worse with WB/ pressure and radiate to L side of the hip sometimes, and she is unable to sleep on her L side at this point. Pt notices her knee starts to cave in more and L foot axle turner. Pt also states she cannot have a CT scan due to insurance coverage and she has to attempt therapy first to get second opinion first in order to be qualified for CT scan screening. Prior Treatments and Tests PT for neck pain (nerve abiation) x-ray in september showed negative fx for L hip Treatment Goals Patient/Caregiver Goals 1. To be able to walk more than 500 feet without hip pain and SPC 2. To be able to walk her dogs in community 2. to negotiate stairs with step over pattern and without handrails 3. able to stand > 30 mins without pain. Prior Functional Status Baseline Function- ADL's Independent Baseline Function- Mobility Independent Baseline Function- Gait with AD Baseline Function- Recreation/Hobbies able to walk her dogs daily Baseline Function- Other step over pattern without railing for stair climbing able to walk miles with AD Current Functional Impairments (Reported) Functional Limitations- ADL's unable to stand >10 mins unable to perform sit to supine without lifting her LLE with UE support Functional Limitations- Mobility/Gait unable to stand > 10 mins step to for stairs cannot walk > 100 feet without rest. Personal Factors Other Personal Factors That May Effect INSTER STIM for bladder Therapy/Recovery migraines depression multiple falls PT-OP-C Subjective Start: 12/02/18 09:52 Freq: Status: Active Protocol: Document 12/18/18 08:15 DLM (Rec: 12/18/18 10:36 DLM [id number]) OP-PT Subjective Patient Comments Patient Comments Her CT is scheduled for tomorrow. She reports her pain was worse yesturday and she does not know why. She has been using heat and ice at home but not much improvement. Patient Reported Progress Worse OP-PT Pain Assessment Location Left Hip Intensity 9 Scale Used Numeric (1 - 10) Description Aching Pressure Sharp Frequency Constant Radiating Location through hip area med/lat, thigh Pain Aggravating Factors Position Changing Position ADL's Activity Exercise Standing Sitting Walking Stair Climbing Bending Lifting Pain Alleviating Factors Heat Comments Pain Comments clarified precautions with pt especially regarding her stimulator, pt believes Estim can be performed on her hip if she turns off her stimulator during the Estim treatment, pt has not called her physician to confirm this, discussed stimulator precautions with Women's health therapist PT-OP-E Functional Tests Start: 12/02/18 09:52 Freq: Status: Active Protocol: Document 12/02/18 08:15 HH (Rec: 12/02/18 10:14 HH [email or web address]) Functional Tests 2 Minute Walk Test Distance 188 Device Used none Comments pt uses wall for support and balance PT-OP-G Mobility & Gait Start: 12/02/18 09:52 Freq: Status: Active Protocol: Document 12/02/18 08:15 (Rec: 12/02/18 10:14 [email or web address]) OP Mobility Evaluation Bed Mobility Rolling unable to lay on L side Supine to and from Sit need UE to lift L LE OP Gait Assessment Gait Gait Assistance Required: Independent Distance (Feet) 188 Able to Maintain Weight Bearing Status Yes During Gait Assistive Devices Assistive Device None Gait Deviations General Gait Pattern Antalgic Decreased Stride Length Decreased Feet Clearance Factors Limiting Gait Function Factors Limiting Gait Function Decreased Activity Tolerance Decreased Strength Limited Range of Motion Pain Comments Gait Comments significant L antalgic gait with decreased stance phase on LLE. Needed wall for support/ balance. noticeable L knee valgus and L foot axle turner. Stair Climbing Evaluation Evaluation Level of Assist On Stairs Independent Devices Stair Climbing Assistive Devices Left Railing Right Railing Technique/Endurance Stair Climbing Direction Ascend and Descend Stair Climbing Technique Step Over Step PT-OP-J Posture/Palpation/Skin Start: 12/02/18 09:52 Freq: Status: Active Protocol: Document 12/02/18 08:15 (Rec: 12/02/18 11:55 [email or web address]) Posture Evaluation Position Standing Evaluation View Anterior Weight Distribution Weight Shifted Right Decreased Wt.Bear on (L) Hip Posture (L) Internally Rotated Knee Posture (L) Genu Valgus (L) Ext. Tibial Torsion PT-OP-K Range of Motion Start: 12/02/18 09:52 Freq: Status: Active Protocol: Document 12/02/18 08:15 (Rec: 12/02/18 11:55 [email or web address]) Hip Goniometric Range of Motion Hip Measured in Degrees Right Passive Hip ROM WFL Yes Testing Position Supine Flexion w/Knee Flexed 105 Extension 10 Abduction 35 Left Passive Hip ROM WFL No Testing Position Supine Flexion w/Knee Flexed 25 Extension 0 Abduction 0 PT-OP-L Special Tests Start: 12/02/18 09:52 Freq: Status: Active Protocol: Document 12/02/18 08:15 (Rec: 12/02/18 11:55 [email or web address]) Special Tests Hip Special Tests Scour Test Comments unable to test due to severe pain and muscle guarding with passive ROM LIAM Comments unable to test due to severe pain and muscle guarding with passive ROM Anterior Labral Test Comments unable to test due to severe pain and muscle guarding with passive ROM PT-OP-M Strength Start: 12/02/18 09:52 Freq: Status: Active Protocol: Document 12/02/18 08:15 HH (Rec: 12/02/18 11:55 HH [email or web address]) Hip Strength Hip Manual Muscle Testing Right Flexion (L2) 4+ Good+ Extension (S1) 4+ Good+ Abduction 4+ Good+ Adduction 4+ Good+ Left Flexion (L2) 2- Poor- Extension (S1) 2- Poor- Abduction 2- Poor- Adduction 2- Poor- Knee Strength Knee Manual Muscle Testing Right Flexion (S2) 4+ Good+ Extension (L3) 4+ Good+ Left Flexion (S2) 3+ Fair+ Extension (L3) 3+ Fair+ Ankle/Foot Strength Ankle and Foot Manual Muscle Testing Left Dorsiflexion (L4) 4+ Good+ Plantarflexion (S1) 4+ Good+ Inversion 4+ Good+ Eversion (S1) 4+ Good+ Right Dorsiflexion (L4) 4+ Good+ Plantarflexion (S1) 4+ Good+ Inversion 4+ Good+ Eversion (S1) 4+ Good+ PT-OP-Q Treatments Start: 12/02/18 09:52 Freq: Status: Active Protocol: Document 12/18/18 08:15 DLM (Rec: 12/18/18 10:36 [facility] [id number]) Therapeutic Exercises Supine Exercises 4 Supine Exercise Name Hooklying hip ADduction Side bilateral Resistance isometric Equipment Used L2 exercise band Reps/Minutes 10 reps 3 Supine Exercise Name Hooklying hip ABduction Side bilateral Resistance isometric Equipment Used ball between knees Reps/Minutes 10 reps 2 Supine Exercise Name Quad sets Side bilateral Resistance isometric Reps/Minutes 5 count hold x 10 reps Comments difficult for her to do on left 1 Supine Exercise Name Glut sets Resistance isometric Reps/Minutes 5 count hold x 10 reps Manual Therapy Treatment Soft Tissue Mobilization 1 Body Location left lateral hip and buttock Mobilization Type Cross-Friction Myofascial Release Rolling Strumming Intensity/Depth Superficial Body Position Sidelying PT-OP-R Modalities Start: 12/02/18 09:52 Freq: Status: Active Protocol: Document 12/18/18 08:15 DLM (Rec: 12/18/18 10:36 [facility] [id number]) Hot Pack/Cold Pack Treatment Hot Pack Location left lateral hip area Patient Position Sidelying Treatment Duration (minutes) 15 Patient Tolerance Good Comments pillow between knees PT-OP-T Assessment and Plan Start: 12/02/18 09:52 Freq: Status: Active Protocol: Document 12/18/18 08:15 DLM (Rec: 12/18/18 10:36 DLM [id number]) Physical Therapy Assessment Goals LEFS Impairment LEFS= 9 (80-99%) Master Ship Goal (LTG) pt will be reach < 40-59% impairment on LEFS to improve overall functional mobility. LTG Duration 12 weeks pain during WB position Impairment Severe pain during WB position Intermediate Goal (LTG) Pt will report <4/10 pain in WB position such as standing and walking to improve quality of life. LTG Duration 12 weeks Stair negotiation Impairment pt uses step to pattern to climb stairs with railing Master Ship Goal (LTG) Pt will be able to use step over pattern to climb stairs without railing LTG Duration 12 weeks 2 MWT Impairment pt only amb 188 ft under 2MWT Intermediate Goal (LTG) Pt will be able to amb 250 ft within 2MWT without AD LTG Duration 12 weeks Amb distance Impairment unable to amb >100 ft without rest (with spc) Master Ship Goal (LTG) pt will be able to amb 500 ft without rest and assistive device LTG Duration 12 weeks Assessment Summary Assessment Sasha reports increased pain yesturday and today but unsure what increased her pain. She is emotional and anxious today . She is encouraged by having CT on hip schduled. She has pain with her exercises but is able to complete them. Unable to advance exercises this visit due to her high pain level. Pt declined to use a FWW for gait to better manage her pain. Physical Therapy Plan Frequency and Duration Frequency of Treatment 2x/Week Duration of Treatment 12 weeks Plan of Care Start Date 12/02/18 Plan of Care End Date 03/04/19 Therapeutic Interventions Therapeutic Interventions Aquatic Therapy Balance Training Gait Training Home Exercise Program Joint Mobilizations Manual Therapy Neuromuscular Re-education Patient/Caregiver Education Self-Care/Home Management Soft Tissue Mobilization Taping Therapeutic Activities Therapeutic Exercises Modalities Cold Pack/Ice Massage Hot Packs Other Therapeutic Interventions keep heat pack off implant on back Next Visit Focus/Plan Next Note Type Treatment Note Next Visit Plan gentle ROM, isometrics, follow up on CT results
--- NOTE | 2018-12-23 08:15 | PT.OTN ---
Current Diagnoses Pain in left hip (12/23/18) Pelvic and perineal pain (12/23/18) Physical Therapy Treatment Note PT-OP-A Visit Information Start: 12/02/18 09:52 Freq: Status: Active Protocol: Document 12/23/18 08:15 DLM (Rec: 12/23/18 16:12 DLM [id number]) Out-Patient Physical Therapy Visit Information Visit Information Visit Type Treatment Note Visit Note expiration of insurance Visit Start Time 08:15 Visit Stop Time 09:15 Total Visit Minutes 60 Visit Number 10/07 Number of HADOOP DEVELOPER Visits 0 Evaluation Information Evaluation Date 12/02/18 Precautions Precautions High fall risks She has implanted stimulator for her bladder- in back PT-OP-B Current Condition Start: 12/02/18 09:52 Freq: Status: Active Protocol: Document 12/02/18 08:15 HH (Rec: 12/02/18 10:14 HH [email or web address]) Current Condition History of Current Condition Onset Date 3 months ago Current Complaints severe L hip pain, impaired gait and activity tolerance History of Current Condition Pt presents to clinic today with c/o new onset of severe L hip pain since 3 months ago after a possible fall at night . She explained she was not sure about the fall since she often feels unoriented at night because of medications she is taking and constant mirgrain. Pt said her hip pain started since then and x-ray showed negative findings for fx (3 months ago) but with significant L hip OA. However, pt stated her pain never goes away and keeps getting worse which significant challenge her functional mobility. Pt has been falling for the past 3 months since her injury. Pt currently unable to amb more than 100 feet without rest, standing >10-15 mins and climb stairs with step to pattern with railing. She is also using SPC for mobility on RUE to reduced pain and balance. Her sharp Pain basically gets worse with WB/ pressure and radiate to L side of the hip sometimes, and she is unable to sleep on her L side at this point. Pt notices her knee starts to cave in more and L foot apple turner. Pt also states she cannot have a CT scan due to insurance coverage and she has to attempt therapy first to get second opinion first in order to be qualified for CT scan screening. Prior Treatments and Tests PT for neck pain (nerve abiation) x-ray in september showed negative fx for L hip Treatment Goals Patient/Caregiver Goals 1. To be able to walk more than 500 feet without hip pain and SPC 2. To be able to walk her dogs in community 2. to negotiate stairs with step over pattern and without handrails 3. able to stand > 30 mins without pain. Prior Functional Status Baseline Function- ADL's Independent Baseline Function- Mobility Independent Baseline Function- Gait with AD Baseline Function- Recreation/Hobbies able to walk her dogs daily Baseline Function- Other step over pattern without railing for stair climbing able to walk miles with AD Current Functional Impairments (Reported) Functional Limitations- ADL's unable to stand >10 mins unable to perform sit to supine without lifting her LLE with UE support Functional Limitations- Mobility/Gait unable to stand > 10 mins step to for stairs cannot walk > 100 feet without rest. Personal Factors Other Personal Factors That May Effect INSTER STIM for bladder Therapy/Recovery migraines depression multiple falls PT-OP-C Subjective Start: 12/02/18 09:52 Freq: Status: Active Protocol: Document 12/23/18 08:15 DLM (Rec: 12/23/18 16:12 DLM [id number]) OP-PT Subjective Patient Comments Patient Comments CT was negative for fx. 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 She has been using her cane to walk. She asks if it is ok to use her recumbent bike at home. The heat helped last visit. ( copy of CT results is in her paper chart) Patient Reported Progress Same PT-OP-E Functional Tests Start: 12/02/18 09:52 Freq: Status: Active Protocol: Document 12/02/18 08:15 HH (Rec: 12/02/18 10:14 HH [email or web address]) Functional Tests 2 Minute Walk Test Distance 188 Device Used none Comments pt uses wall for support and balance PT-OP-G Mobility & Gait Start: 12/02/18 09:52 Freq: Status: Active Protocol: Document 12/02/18 08:15 HH (Rec: 12/02/18 10:14 HH [email or web address]) OP Mobility Evaluation Bed Mobility Rolling unable to lay on L side Supine to and from Sit need UE to lift L LE OP Gait Assessment Gait Gait Assistance Required: Independent Distance (Feet) 188 Able to Maintain Weight Bearing Status Yes During Gait Assistive Devices Assistive Device None Gait Deviations General Gait Pattern Antalgic Decreased Stride Length Decreased Feet Clearance Factors Limiting Gait Function Factors Limiting Gait Function Decreased Activity Tolerance Decreased Strength Limited Range of Motion Pain Comments Gait Comments significant L antalgic gait with decreased stance phase on LLE. Needed wall for support/ balance. noticeable L knee valgus and L foot apple turner. Stair Climbing Evaluation Evaluation Level of Assist On Stairs Independent Devices Stair Climbing Assistive Devices Left Railing Right Railing Technique/Endurance Stair Climbing Direction Ascend and Descend Stair Climbing Technique Step Over Step PT-OP-J Posture/Palpation/Skin Start: 12/02/18 09:52 Freq: Status: Active Protocol: Document 12/02/18 08:15 (Rec: 12/02/18 11:55 [email or web address]) Posture Evaluation Position Standing Evaluation View Anterior Weight Distribution Weight Shifted Right Decreased Wt.Bear on (L) Hip Posture (L) Internally Rotated Knee Posture (L) Genu Valgus (L) Ext. Tibial Torsion PT-OP-K Range of Motion Start: 12/02/18 09:52 Freq: Status: Active Protocol: Document 12/02/18 08:15 (Rec: 12/02/18 11:55 [email or web address]) Hip Goniometric Range of Motion Hip Measured in Degrees Right Passive Hip ROM WFL Yes Testing Position Supine Flexion w/Knee Flexed 105 Extension 10 Abduction 35 Left Passive Hip ROM WFL No Testing Position Supine Flexion w/Knee Flexed 25 Extension 0 Abduction 0 PT-OP-L Special Tests Start: 12/02/18 09:52 Freq: Status: Active Protocol: Document 12/02/18 08:15 (Rec: 12/02/18 11:55 [email or web address]) Special Tests Hip Special Tests Scour Test Comments unable to test due to severe pain and muscle guarding with passive ROM LIAM Comments unable to test due to severe pain and muscle guarding with passive ROM Anterior Labral Test Comments unable to test due to severe pain and muscle guarding with passive ROM PT-OP-M Strength Start: 12/02/18 09:52 Freq: Status: Active Protocol: Document 12/02/18 08:15 (Rec: 12/02/18 11:55 [email or web address]) Hip Strength Hip Manual Muscle Testing Right Flexion (L2) 4+ Good+ Extension (S1) 4+ Good+ Abduction 4+ Good+ Adduction 4+ Good+ Left Flexion (L2) 2- Poor- Extension (S1) 2- Poor- Abduction 2- Poor- Adduction 2- Poor- Knee Strength Knee Manual Muscle Testing Right Flexion (S2) 4+ Good+ Extension (L3) 4+ Good+ Left Flexion (S2) 3+ Fair+ Extension (L3) 3+ Fair+ Ankle/Foot Strength Ankle and Foot Manual Muscle Testing Left Dorsiflexion (L4) 4+ Good+ Plantarflexion (S1) 4+ Good+ Inversion 4+ Good+ Eversion (S1) 4+ Good+ Right Dorsiflexion (L4) 4+ Good+ Plantarflexion (S1) 4+ Good+ Inversion 4+ Good+ Eversion (S1) 4+ Good+ PT-OP-Q Treatments Start: 12/02/18 09:52 Freq: Status: Active Protocol: Document 12/23/18 08:15 DLM (Rec: 12/23/18 16:12 DLM [id number]) Cardio Equipment Recumbent Bicycle Duration (Minutes) 6 Resistance 0 Seat Position 6 Other slow pace, c/o pain Therapeutic Exercises Supine Exercises 4 Supine Exercise Name Hooklying hip ADduction Side bilateral Resistance isometric Equipment Used small ball Reps/Minutes 10 reps 3 Supine Exercise Name Hooklying hip ABduction Side bilateral Resistance isometric Equipment Used L2 exercise band Reps/Minutes 10 reps 2 Supine Exercise Name Quad sets Side bilateral Resistance isometric Reps/Minutes 5 count hold x 10 reps Comments difficult for her to do on left 1 Supine Exercise Name Glut sets Resistance isometric Reps/Minutes 5 count hold x 10 reps Manual Therapy Treatment Soft Tissue Mobilization 1 Body Location left lateral hip and buttock Mobilization Type Cross-Friction Myofascial Release Rolling Strumming Intensity/Depth Superficial Body Position Sidelying PT-OP-R Modalities Start: 12/02/18 09:52 Freq: Status: Active Protocol: Document 12/23/18 08:15 DLM (Rec: 12/23/18 16:12 DLM [id number]) Hot Pack/Cold Pack Treatment Hot Pack Location left lateral hip area Patient Position Sidelying Treatment Duration (minutes) 15 Patient Tolerance Good Comments pillow between knees PT-OP-T Assessment and Plan Start: 12/02/18 09:52 Freq: Status: Active Protocol: Document 12/23/18 08:15 DLM (Rec: 06/10/19 16:12 DLM [id number]) Physical Therapy Assessment Goals LEFS Impairment LEFS= 9 (80-99%) Jail Goal (LTG) pt will be reach < 40-59% impairment on LEFS to improve overall functional mobility. LTG Duration 12 weeks pain during WB position Impairment Severe pain during WB position Jail Goal (LTG) Pt will report <4/10 pain in WB position such as standing and walking to improve quality of life. LTG Duration 12 weeks Stair negotiation Impairment pt uses step to pattern to climb stairs with railing Jail Goal (LTG) Pt will be able to use step over pattern to climb stairs without railing LTG Duration 12 weeks 2 MWT Impairment pt only amb 188 ft under 2MWT Crane Rigger Goal (LTG) Pt will be able to amb 250 ft within 2MWT without AD LTG Duration 12 weeks Amb distance Impairment unable to amb >100 ft without rest (with spc) Crane Rigger Goal (LTG) pt will be able to amb 500 ft without rest and assistive device LTG Duration 12 weeks Progress Towards Goals Progress Comments no change at this time, pt is reassured that she does not have a fx Assessment Summary Assessment Sasha need encouragement to keep doing her exercise while she is talking about her pain. All mobility and exercises are very slow paced with pain reported. She reports the STM helps but she becomes emotional/tearful during this part of the treatment. She agrees to use her cane to walk until her lef thip pain has improved. Physical Therapy Plan Frequency and Duration Frequency of Treatment 2x/Week Duration of Treatment 12 weeks Plan of Care Start Date 12/02/18 Plan of Care End Date 03/04/19 Therapeutic Interventions Therapeutic Interventions Aquatic Therapy Balance Training Gait Training Home Exercise Program Joint Mobilizations Manual Therapy Neuromuscular Re-education Patient/Caregiver Education Self-Care/Home Management Soft Tissue Mobilization Taping Therapeutic Activities Therapeutic Exercises Modalities Cold Pack/Ice Massage Hot Packs Other Therapeutic Interventions keep heat pack off implant on back Next Visit Focus/Plan Next Note Type Treatment Note Next Visit Plan gentle ROM, add core isometrics
--- NOTE | 2018-12-25 08:15 | PT.OTN ---
Current Diagnoses Pain in left hip (12/25/18) Pelvic and perineal pain (12/25/18) Physical Therapy Treatment Note PT-OP-A Visit Information Start: 12/02/18 09:52 Freq: Status: Active Protocol: Document 12/25/18 08:15 DLM (Rec: 12/25/18 14:25 DLM [id number]) Out-Patient Physical Therapy Visit Information Visit Information Visit Type Treatment Note Visit Note insurance authorization expires 01/12/19 Visit Start Time 08:15 Visit Stop Time 09:05 Total Visit Minutes 50 Visit Number 11/07 Number of SLIP COVER OPERATOR Visits 0 Evaluation Information Evaluation Date 12/02/18 Precautions Precautions High fall risks She has implanted stimulator for her bladder- in back PT-OP-B Current Condition Start: 12/02/18 09:52 Freq: Status: Active Protocol: Document 12/02/18 08:15 HH (Rec: 12/02/18 10:14 HH [email or web address]) Current Condition History of Current Condition Onset Date 3 months ago Current Complaints severe L hip pain, impaired gait and activity tolerance History of Current Condition Pt presents to clinic today with c/o new onset of severe L hip pain since 3 months ago after a possible fall at night . She explained she was not sure about the fall since she often feels unoriented at night because of medications she is taking and constant mirgrain. Pt said her hip pain started since then and x-ray showed negative findings for fx (3 months ago) but with significant L hip OA. However, pt stated her pain never goes away and keeps getting worse which significant challenge her functional mobility. Pt has been falling for the past 3 months since her injury. Pt currently unable to amb more than 100 feet without rest, standing >10-15 mins and climb stairs with step to pattern with railing. She is also using SPC for mobility on RUE to reduced pain and balance. Her sharp Pain basically gets worse with WB/ pressure and radiate to L side of the hip sometimes, and she is unable to sleep on her L side at this point. Pt notices her knee starts to cave in more and L foot automatic glove turner and former. Pt also states she cannot have a CT scan due to insurance coverage and she has to attempt therapy first to get second opinion first in order to be qualified for CT scan screening. Prior Treatments and Tests PT for neck pain (nerve abiation) x-ray in september showed negative fx for L hip Treatment Goals Patient/Caregiver Goals 1. To be able to walk more than 500 feet without hip pain and SPC 2. To be able to walk her dogs in community 2. to negotiate stairs with step over pattern and without handrails 3. able to stand > 30 mins without pain. Prior Functional Status Baseline Function- ADL's Independent Baseline Function- Mobility Independent Baseline Function- Gait with AD Baseline Function- Recreation/Hobbies able to walk her dogs daily Baseline Function- Other step over pattern without railing for stair climbing able to walk miles with AD Current Functional Impairments (Reported) Functional Limitations- ADL's unable to stand >10 mins unable to perform sit to supine without lifting her LLE with UE support Functional Limitations- Mobility/Gait unable to stand > 10 mins step to for stairs cannot walk > 100 feet without rest. Personal Factors Other Personal Factors That May Effect INSTER STIM for bladder Therapy/Recovery migraines depression multiple falls PT-OP-C Subjective Start: 12/02/18 09:52 Freq: Status: Active Protocol: Document 12/25/18 08:15 DLM (Rec: 12/25/18 14:25 DLM [id number]) OP-PT Subjective Patient Comments Patient Comments She did not sleep well and has the start of a migraine today . Her left hip is really sore today. She brought in her home TENS unit. She has been walking her dogs at home. Patient Reported Progress Same OP-PT Pain Assessment Location Left Hip Intensity 9 Scale Used Numeric (1 - 10) Description Aching Pressure Sharp Frequency Constant Radiating Location through hip area med/lat, thigh Pain Aggravating Factors Position Changing Position ADL's Activity Exercise Standing Sitting Walking Stair Climbing Bending Lifting Pain Alleviating Factors Cold Heat PT-OP-E Functional Tests Start: 12/02/18 09:52 Freq: Status: Active Protocol: Document 12/02/18 08:15 HH (Rec: 12/02/18 10:14 HH [email or web address]) Functional Tests 2 Minute Walk Test Distance 188 Device Used none Comments pt uses wall for support and balance PT-OP-G Mobility & Gait Start: 12/02/18 09:52 Freq: Status: Active Protocol: Document 12/02/18 08:15 HH (Rec: 12/02/18 10:14 HH [email or web address]) OP Mobility Evaluation Bed Mobility Rolling unable to lay on L side Supine to and from Sit need UE to lift L LE OP Gait Assessment Gait Gait Assistance Required: Independent Distance (Feet) 188 Able to Maintain Weight Bearing Status Yes During Gait Assistive Devices Assistive Device None Gait Deviations General Gait Pattern Antalgic Decreased Stride Length Decreased Feet Clearance Factors Limiting Gait Function Factors Limiting Gait Function Decreased Activity Tolerance Decreased Strength Limited Range of Motion Pain Comments Gait Comments significant L antalgic gait with decreased stance phase on LLE. Needed wall for support/ balance. noticeable L knee valgus and L foot automatic glove turner and former. Stair Climbing Evaluation Evaluation Level of Assist On Stairs Independent Devices Stair Climbing Assistive Devices Left Railing Right Railing Technique/Endurance Stair Climbing Direction Ascend and Descend Stair Climbing Technique Step Over Step PT-OP-J Posture/Palpation/Skin Start: 12/02/18 09:52 Freq: Status: Active Protocol: Document 12/02/18 08:15 (Rec: 12/02/18 11:55 [email or web address]) Posture Evaluation Position Standing Evaluation View Anterior Weight Distribution Weight Shifted Right Decreased Wt.Bear on (L) Hip Posture (L) Internally Rotated Knee Posture (L) Genu Valgus (L) Ext. Tibial Torsion PT-OP-K Range of Motion Start: 12/02/18 09:52 Freq: Status: Active Protocol: Document 12/02/18 08:15 (Rec: 12/02/18 11:55 [email or web address]) Hip Goniometric Range of Motion Hip Measured in Degrees Right Passive Hip ROM WFL Yes Testing Position Supine Flexion w/Knee Flexed 105 Extension 10 Abduction 35 Left Passive Hip ROM WFL No Testing Position Supine Flexion w/Knee Flexed 25 Extension 0 Abduction 0 PT-OP-L Special Tests Start: 12/02/18 09:52 Freq: Status: Active Protocol: Document 12/02/18 08:15 HH (Rec: 12/02/18 11:55 [email or web address]) Special Tests Hip Special Tests Scour Test Comments unable to test due to severe pain and muscle guarding with passive ROM LIAM Comments unable to test due to severe pain and muscle guarding with passive ROM Anterior Labral Test Comments unable to test due to severe pain and muscle guarding with passive ROM PT-OP-M Strength Start: 12/02/18 09:52 Freq: Status: Active Protocol: Document 12/02/18 08:15 HH (Rec: 12/02/18 11:55 HH [email or web address]) Hip Strength Hip Manual Muscle Testing Right Flexion (L2) 4+ Good+ Extension (S1) 4+ Good+ Abduction 4+ Good+ Adduction 4+ Good+ Left Flexion (L2) 2- Poor- Extension (S1) 2- Poor- Abduction 2- Poor- Adduction 2- Poor- Knee Strength Knee Manual Muscle Testing Right Flexion (S2) 4+ Good+ Extension (L3) 4+ Good+ Left Flexion (S2) 3+ Fair+ Extension (L3) 3+ Fair+ Ankle/Foot Strength Ankle and Foot Manual Muscle Testing Left Dorsiflexion (L4) 4+ Good+ Plantarflexion (S1) 4+ Good+ Inversion 4+ Good+ Eversion (S1) 4+ Good+ Right Dorsiflexion (L4) 4+ Good+ Plantarflexion (S1) 4+ Good+ Inversion 4+ Good+ Eversion (S1) 4+ Good+ PT-OP-Q Treatments Start: 12/02/18 09:52 Freq: Status: Active Protocol: Document 12/25/18 08:15 DLM (Rec: 12/25/18 14:25 DLM [id number]) Cardio Equipment Recumbent Bicycle Duration (Minutes) 6 Resistance 0 Seat Position 6 Other slow pace, c/o pain Therapeutic Exercises Supine Exercises 5 Supine Exercise Name TVA Isometric Resistance hooklying Reps/Minutes 10 reps 4 Supine Exercise Name Hooklying hip ADduction Side bilateral Resistance isometric Equipment Used small ball Reps/Minutes 10 reps 3 Supine Exercise Name Hooklying hip ABduction Side bilateral Resistance isometric Equipment Used L2 exercise band Reps/Minutes 10 reps 2 Supine Exercise Name Quad sets Side bilateral Resistance isometric Reps/Minutes 5 count hold x 10 reps Comments difficult for her to do on left 1 Supine Exercise Name Glut sets Resistance isometric Reps/Minutes 5 count hold x 10 reps Other Exercises 2 Other Exercise Name Prayer Stretch Reps/Minutes 8 reps Comments limited motion due to pain 1 Other Exercise Name Cat/Camel Resistance Quadruped Reps/Minutes 10 reps Self-Care/Home Management Treatment Education Other Education Education to use home TENS unit only if implanted stim is off. Keep electrode pads on left lateral hip and buttock area. Her unit appears to be in good working order. Unit set for modulated mode. PT-OP-R Modalities Start: 12/02/18 09:52 Freq: Status: Active Protocol: Document 12/23/18 08:15 DLM (Rec: 12/23/18 16:12 DLM [id number]) Hot Pack/Cold Pack Treatment Hot Pack Location left lateral hip area Patient Position Sidelying Treatment Duration (minutes) 15 Patient Tolerance Good Comments pillow between knees PT-OP-T Assessment and Plan Start: 12/02/18 09:52 Freq: Status: Active Protocol: Document 12/25/18 08:15 DLM (Rec: 12/25/18 14:25 DLM [id number]) Physical Therapy Assessment Goals LEFS Impairment LEFS= 9 (80-99%) Correction Goal (LTG) pt will be reach < 40-59% impairment on LEFS to improve overall functional mobility. LTG Duration 12 weeks pain during WB position Impairment Severe pain during WB position Correction Goal (LTG) Pt will report <4/10 pain in WB position such as standing and walking to improve quality of life. LTG Duration 12 weeks Stair negotiation Impairment pt uses step to pattern to climb stairs with railing Correction Goal (LTG) Pt will be able to use step over pattern to climb stairs without railing LTG Duration 12 weeks 2 MWT Impairment pt only amb 188 ft under 2MWT Event Management Consultant Goal (LTG) Pt will be able to amb 250 ft within 2MWT without AD LTG Duration 12 weeks Amb distance Impairment unable to amb >100 ft without rest (with spc) Event Management Consultant Goal (LTG) pt will be able to amb 500 ft without rest and assistive device LTG Duration 12 weeks Progress Towards Goals Progress Towards Goals Slow Progress due to Activity Tolerance Progress Comments small improvement in exercise tolerance today Assessment Summary Assessment Noted small increase in her pace during her exercises. No stopping today on the bike. Her tolerance for quadruped is only fair. She is motivated to advance her core stab exercises. She is motivated to use her home TENS unit for her left hip pain. She will need to use it with precautions to avoid interfering with implanted stimulator. Sasha verbalized understanding of these precautions. Physical Therapy Plan Frequency and Duration Frequency of Treatment 2x/Week Duration of Treatment 12 weeks Plan of Care Start Date 12/02/18 Plan of Care End Date 03/04/19 Therapeutic Interventions Therapeutic Interventions Aquatic Therapy Balance Training Gait Training Home Exercise Program Joint Mobilizations Manual Therapy Neuromuscular Re-education Patient/Caregiver Education Self-Care/Home Management Soft Tissue Mobilization Taping Therapeutic Activities Therapeutic Exercises Modalities Cold Pack/Ice Massage Hot Packs Other Therapeutic Interventions keep heat pack off implant on back Next Visit Focus/Plan Next Note Type Treatment Note Next Visit Plan slowly advance core stabilization exercises
--- NOTE | 2018-12-30 09:32 | PT.OTN ---
Current Diagnoses Pain in left hip (12/30/18) Pelvic and perineal pain (12/30/18) Physical Therapy Treatment Note PT-OP-A Visit Information Start: 12/02/18 09:52 Freq: Status: Active Protocol: Document 12/30/18 08:11 SAK (Rec: 12/30/18 09:30 SAK [id number]) Out-Patient Physical Therapy Visit Information Visit Information Visit Type Treatment Note Visit Note insurance authorization expires 01/12/19 Visit Start Time 08:15 Visit Number 12/07 Number of TAX COLLECTION COORDINATOR Visits 0 Evaluation Information Evaluation Date 12/02/18 Precautions Precautions High fall risks She has implanted stimulator for her bladder- in back PT-OP-B Current Condition Start: 12/02/18 09:52 Freq: Status: Active Protocol: Document 12/02/18 08:15 HH (Rec: 12/02/18 10:14 HH [email or web address]) Current Condition History of Current Condition Onset Date 3 months ago Current Complaints severe L hip pain, impaired gait and activity tolerance History of Current Condition Pt presents to clinic today with c/o new onset of severe L hip pain since 3 months ago after a possible fall at night . She explained she was not sure about the fall since she often feels unoriented at night because of medications she is taking and constant mirgrain. Pt said her hip pain started since then and x-ray showed negative findings for fx (3 months ago) but with significant L hip OA. However, pt stated her pain never goes away and keeps getting worse which significant challenge her functional mobility. Pt has been falling for the past 3 months since her injury. Pt currently unable to amb more than 100 feet without rest, standing >10-15 mins and climb stairs with step to pattern with railing. She is also using SPC for mobility on RUE to reduced pain and balance. Her sharp Pain basically gets worse with WB/ pressure and radiate to L side of the hip sometimes, and she is unable to sleep on her L side at this point. Pt notices her knee starts to cave in more and L foot turntable man. Pt also states she cannot have a CT scan due to insurance coverage and she has to attempt therapy first to get second opinion first in order to be qualified for CT scan screening. Prior Treatments and Tests PT for neck pain (nerve abiation) x-ray in september showed negative fx for L hip Treatment Goals Patient/Caregiver Goals 1. To be able to walk more than 500 feet without hip pain and SPC 2. To be able to walk her dogs in community 2. to negotiate stairs with step over pattern and without handrails 3. able to stand > 30 mins without pain. Prior Functional Status Baseline Function- ADL's Independent Baseline Function- Mobility Independent Baseline Function- Gait with AD Baseline Function- Recreation/Hobbies able to walk her dogs daily Baseline Function- Other step over pattern without railing for stair climbing able to walk miles with AD Current Functional Impairments (Reported) Functional Limitations- ADL's unable to stand >10 mins unable to perform sit to supine without lifting her LLE with UE support Functional Limitations- Mobility/Gait unable to stand > 10 mins step to for stairs cannot walk > 100 feet without rest. Personal Factors Other Personal Factors That May Effect INSTER STIM for bladder Therapy/Recovery migraines depression multiple falls PT-OP-C Subjective Start: 12/02/18 09:52 Freq: Status: Active Protocol: Document 12/30/18 08:11 SAK (Rec: 12/30/18 09:31 SAK [id number]) OP-PT Subjective Patient Comments Patient Comments Compliant to HEP. Migraines were bad over weekend. PT-OP-E Functional Tests Start: 12/02/18 09:52 Freq: Status: Active Protocol: Document 12/02/18 08:15 (Rec: 12/02/18 10:14 HH [email or web address]) Functional Tests 2 Minute Walk Test Distance 188 Device Used none Comments pt uses wall for support and balance PT-OP-G Mobility & Gait Start: 12/02/18 09:52 Freq: Status: Active Protocol: Document 12/02/18 08:15 (Rec: 12/02/18 10:14 HH [email or web address]) OP Mobility Evaluation Bed Mobility Rolling unable to lay on L side Supine to and from Sit need UE to lift L LE OP Gait Assessment Gait Gait Assistance Required: Independent Distance (Feet) 188 Able to Maintain Weight Bearing Status Yes During Gait Assistive Devices Assistive Device None Gait Deviations General Gait Pattern Antalgic Decreased Stride Length Decreased Feet Clearance Factors Limiting Gait Function Factors Limiting Gait Function Decreased Activity Tolerance Decreased Strength Limited Range of Motion Pain Comments Gait Comments significant L antalgic gait with decreased stance phase on LLE. Needed wall for support/ balance. noticeable L knee valgus and L foot turntable man. Stair Climbing Evaluation Evaluation Level of Assist On Stairs Independent Devices Stair Climbing Assistive Devices Left Railing Right Railing Technique/Endurance Stair Climbing Direction Ascend and Descend Stair Climbing Technique Step Over Step PT-OP-J Posture/Palpation/Skin Start: 12/02/18 09:52 Freq: Status: Active Protocol: Document 12/02/18 08:15 (Rec: 12/02/18 11:55 [email or web address]) Posture Evaluation Position Standing Evaluation View Anterior Weight Distribution Weight Shifted Right Decreased Wt.Bear on (L) Hip Posture (L) Internally Rotated Knee Posture (L) Genu Valgus (L) Ext. Tibial Torsion PT-OP-K Range of Motion Start: 12/02/18 09:52 Freq: Status: Active Protocol: Document 12/02/18 08:15 HH (Rec: 12/02/18 11:55 [email or web address]) Hip Goniometric Range of Motion Hip Right Passive Hip ROM WFL Yes Testing Position Supine Flexion w/Knee Flexed 105 Extension 10 Abduction 35 Left Passive Hip ROM WFL No Testing Position Supine Flexion w/Knee Flexed 25 Extension 0 Abduction 0 PT-OP-L Special Tests Start: 12/02/18 09:52 Freq: Status: Active Protocol: Document 12/02/18 08:15 HH (Rec: 12/02/18 11:55 [email or web address]) Special Tests Hip Special Tests Scour Test Comments unable to test due to severe pain and muscle guarding with passive ROM LIAM Comments unable to test due to severe pain and muscle guarding with passive ROM Anterior Labral Test Comments unable to test due to severe pain and muscle guarding with passive ROM PT-OP-M Strength Start: 12/02/18 09:52 Freq: Status: Active Protocol: Document 12/02/18 08:15 HH (Rec: 12/02/18 11:55 [email or web address]) Hip Strength Hip Manual Muscle Testing Right Flexion (L2) 4+ Good+ Extension (S1) 4+ Good+ Abduction 4+ Good+ Adduction 4+ Good+ Left Flexion (L2) 2- Poor- Extension (S1) 2- Poor- Abduction 2- Poor- Adduction 2- Poor- Knee Strength Knee Manual Muscle Testing Right Flexion (S2) 4+ Good+ Extension (L3) 4+ Good+ Left Flexion (S2) 3+ Fair+ Extension (L3) 3+ Fair+ Ankle/Foot Strength Ankle and Foot Manual Muscle Testing Left Dorsiflexion (L4) 4+ Good+ Plantarflexion (S1) 4+ Good+ Inversion 4+ Good+ Eversion (S1) 4+ Good+ Right Dorsiflexion (L4) 4+ Good+ Plantarflexion (S1) 4+ Good+ Inversion 4+ Good+ Eversion (S1) 4+ Good+ PT-OP-Q Treatments Start: 12/02/18 09:52 Freq: Status: Active Protocol: Document 12/30/18 08:11 [facility] (Rec: 12/30/18 09:30 [facility] [id number]) Cardio Equipment Recumbent Stepper (Sci-Fit) Duration (Minutes) 5 Resistance 1 Seat Position 10 Recumbent Bicycle Duration (Minutes) 3 Resistance 0 Seat Position 6 Other slow pace, c/o pain Gym Equipment Shuttle Recovery Bilateral Squats Resistance 50 Shuttle Recovery Platform Stable Reps/Time 10x Therapeutic Exercises Supine Exercises 5 Supine Exercise Name TVA Isometric Resistance hooklying Reps/Minutes 10 reps 4 Supine Exercise Name Hooklying hip ADduction Side bilateral Resistance isometric Equipment Used small ball Reps/Minutes 10 reps 1 Supine Exercise Name Glut sets Resistance isometric Reps/Minutes 5 count hold x 10 reps Comments perlita then unil with manual cues Standing Exercises pendulum left LE Reps/Minutes 1 min Comments 4 box wt shifts with gluteal activation Reps/Minutes 10x ea Comments verbal and manual cues Manual Therapy Treatment Joint Mobilizations long axis distriction left hip Grade II Reps/Duration 5 min Self-Care/Home Management Treatment Education Patient Education Home Exercise Program Pain Management Caregiver Education Discussed PT recommendation for aquatic exercise. Recommended patient discuss possible referral to orthopedist with her physician . Other Education written HEP for gentle aquatic ex PT-OP-R Modalities Start: 12/02/18 09:52 Freq: Status: Active Protocol: Document 12/30/18 08:11 [facility] (Rec: 12/30/18 09:30 [facility] [id number]) Hot Pack/Cold Pack Treatment Cold Pack Location left hip Treatment Duration (minutes) 10 PT-OP-T Assessment and Plan Start: 12/02/18 09:52 Freq: Status: Active Protocol: Document 12/30/18 08:11 [facility] (Rec: 12/30/18 09:30 [facility] [id number]) Physical Therapy Assessment Goals LEFS Impairment LEFS= 9 (80-99%) Intermediate Goal (LTG) pt will be reach < 40-59% impairment on LEFS to improve overall functional mobility. LTG Duration 12 weeks pain during WB position Impairment Severe pain during WB position [employer] Fighter Goal (LTG) Pt will report <4/10 pain in WB position such as standing and walking to improve quality of life. LTG Duration 12 weeks Stair negotiation Impairment pt uses step to pattern to climb stairs with railing Intermediate Goal (LTG) Pt will be able to use step over pattern to climb stairs without railing LTG Duration 12 weeks 2 MWT Impairment pt only amb 188 ft under 2MWT Intermediate Goal (LTG) Pt will be able to amb 250 ft within 2MWT without AD LTG Duration 12 weeks Amb distance Impairment unable to amb >100 ft without rest (with spc) Intermediate Goal (LTG) pt will be able to amb 500 ft without rest and assistive device LTG Duration 12 weeks Progress Towards Goals Progress Comments Compliant to HEP, reports feeling PT helpful. Assessment Summary Assessment Feel patient may benefit from iontophoresis to left hip, though she has concerns about the fact that iontophoresis uses a magnet as she has been told to stay away from magnets due to her bladder stimulator . Receptive to recommendation for aquatic exercise and may try independently due to waiting list for aquatic PT. Has difficulty activating left gluteals both supine and standing. Decreased use of left LE with shuttle leg press . Physical Therapy Plan Frequency and Duration Frequency of Treatment 2x/Week Duration of Treatment 12 weeks Plan of Care Start Date 12/02/18 Plan of Care End Date 03/04/19 Therapeutic Interventions Therapeutic Interventions Aquatic Therapy Balance Training Gait Training Home Exercise Program Joint Mobilizations Manual Therapy Neuromuscular Re-education Patient/Caregiver Education Self-Care/Home Management Soft Tissue Mobilization Taping Therapeutic Activities Therapeutic Exercises Modalities Cold Pack/Ice Massage Hot Packs Other Therapeutic Interventions keep heat pack off implant on back Next Visit Focus/Plan Next Note Type Treatment Note Next Visit Plan Continue gentle ther ex progression. Add unilateral shuttle leg press.
--- NOTE | 2019-01-01 09:12 | PT.OTN ---
Current Diagnoses Pain in left hip (01/01/19) Pelvic and perineal pain (01/01/19) Physical Therapy Treatment Note PT-OP-A Visit Information Start: 12/02/18 09:52 Freq: Status: Active Protocol: Document 01/01/19 08:15 SAK (Rec: 01/01/19 08:39 SAK [id number]) Out-Patient Physical Therapy Visit Information Visit Information Visit Type Treatment Note Visit Note insurance authorization expires 01/12/19 Visit Start Time 08:15 Visit Stop Time 09:05 Total Visit Minutes 55 Visit Number 01/07 Number of RADIO TIME SALES SUPERVISOR Visits 0 Evaluation Information Evaluation Date 12/02/18 Precautions Precautions High fall risks She has implanted stimulator for her bladder- in back PT-OP-B Current Condition Start: 12/02/18 09:52 Freq: Status: Active Protocol: Document 12/02/18 08:15 HH (Rec: 12/02/18 10:14 HH [email or web address]) Current Condition History of Current Condition Onset Date 3 months ago Current Complaints severe L hip pain, impaired gait and activity tolerance History of Current Condition Pt presents to clinic today with c/o new onset of severe L hip pain since 3 months ago after a possible fall at night . She explained she was not sure about the fall since she often feels unoriented at night because of medications she is taking and constant mirgrain. Pt said her hip pain started since then and x-ray showed negative findings for fx (3 months ago) but with significant L hip OA. However, pt stated her pain never goes away and keeps getting worse which significant challenge her functional mobility. Pt has been falling for the past 3 months since her injury. Pt currently unable to amb more than 100 feet without rest, standing >10-15 mins and climb stairs with step to pattern with railing. She is also using SPC for mobility on RUE to reduced pain and balance. Her sharp Pain basically gets worse with WB/ pressure and radiate to L side of the hip sometimes, and she is unable to sleep on her L side at this point. Pt notices her knee starts to cave in more and L foot fitter and turner. Pt also states she cannot have a CT scan due to insurance coverage and she has to attempt therapy first to get second opinion first in order to be qualified for CT scan screening. Prior Treatments and Tests PT for neck pain (nerve abiation) x-ray in september showed negative fx for L hip Treatment Goals Patient/Caregiver Goals 1. To be able to walk more than 500 feet without hip pain and SPC 2. To be able to walk her dogs in community 2. to negotiate stairs with step over pattern and without handrails 3. able to stand > 30 mins without pain. Prior Functional Status Baseline Function- ADL's Independent Baseline Function- Mobility Independent Baseline Function- Gait with AD Baseline Function- Recreation/Hobbies able to walk her dogs daily Baseline Function- Other step over pattern without railing for stair climbing able to walk miles with AD Current Functional Impairments (Reported) Functional Limitations- ADL's unable to stand >10 mins unable to perform sit to supine without lifting her LLE with UE support Functional Limitations- Mobility/Gait unable to stand > 10 mins step to for stairs cannot walk > 100 feet without rest. Personal Factors Other Personal Factors That May Effect INSTER STIM for bladder Therapy/Recovery migraines depression multiple falls PT-OP-C Subjective Start: 12/02/18 09:52 Freq: Status: Active Protocol: Document 01/01/19 08:15 SAK (Rec: 01/01/19 08:39 SAK [id number]) OP-PT Subjective Patient Comments Patient Comments Severe migraine started last night. Having difficulty activating gluteals. Will talk with urologist about whether ultrasound or iontophoresis ok. Agreeable to trial of kinesiotape today. PT-OP-E Functional Tests Start: 12/02/18 09:52 Freq: Status: Active Protocol: Document 12/02/18 08:15 HH (Rec: 12/02/18 10:14 HH [email or web address]) Functional Tests 2 Minute Walk Test Distance 188 Device Used none Comments pt uses wall for support and balance PT-OP-G Mobility & Gait Start: 12/02/18 09:52 Freq: Status: Active Protocol: Document 12/02/18 08:15 HH (Rec: 12/02/18 10:14 HH [email or web address]) OP Mobility Evaluation Bed Mobility Rolling unable to lay on L side Supine to and from Sit need UE to lift L LE OP Gait Assessment Gait Gait Assistance Required: Independent Distance (Feet) 188 Able to Maintain Weight Bearing Status Yes During Gait Assistive Devices Assistive Device None Gait Deviations General Gait Pattern Antalgic Decreased Stride Length Decreased Feet Clearance Factors Limiting Gait Function Factors Limiting Gait Function Decreased Activity Tolerance Decreased Strength Limited Range of Motion Pain Comments Gait Comments significant L antalgic gait with decreased stance phase on LLE. Needed wall for support/ balance. noticeable L knee valgus and L foot fitter and turner. Stair Climbing Evaluation Evaluation Level of Assist On Stairs Independent Devices Stair Climbing Assistive Devices Left Railing Right Railing Technique/Endurance Stair Climbing Direction Ascend and Descend Stair Climbing Technique Step Over Step PT-OP-J Posture/Palpation/Skin Start: 12/02/18 09:52 Freq: Status: Active Protocol: Document 12/02/18 08:15 (Rec: 12/02/18 11:55 [email or web address]) Posture Evaluation Position Standing Evaluation View Anterior Weight Distribution Weight Shifted Right Decreased Wt.Bear on (L) Hip Posture (L) Internally Rotated Knee Posture (L) Genu Valgus (L) Ext. Tibial Torsion PT-OP-K Range of Motion Start: 12/02/18 09:52 Freq: Status: Active Protocol: Document 12/02/18 08:15 HH (Rec: 12/02/18 11:55 [email or web address]) Hip Goniometric Range of Motion Hip Right Passive Hip ROM WFL Yes Testing Position Supine Flexion w/Knee Flexed 105 Extension 10 Abduction 35 Left Passive Hip ROM WFL No Testing Position Supine Flexion w/Knee Flexed 25 Extension 0 Abduction 0 PT-OP-L Special Tests Start: 12/02/18 09:52 Freq: Status: Active Protocol: Document 12/02/18 08:15 HH (Rec: 12/02/18 11:55 [email or web address]) Special Tests Hip Special Tests Scour Test Comments unable to test due to severe pain and muscle guarding with passive ROM LIAM Comments unable to test due to severe pain and muscle guarding with passive ROM Anterior Labral Test Comments unable to test due to severe pain and muscle guarding with passive ROM PT-OP-M Strength Start: 12/02/18 09:52 Freq: Status: Active Protocol: Document 12/02/18 08:15 HH (Rec: 12/02/18 11:55 [email or web address]) Hip Strength Hip Manual Muscle Testing Right Flexion (L2) 4+ Good+ Extension (S1) 4+ Good+ Abduction 4+ Good+ Adduction 4+ Good+ Left Flexion (L2) 2- Poor- Extension (S1) 2- Poor- Abduction 2- Poor- Adduction 2- Poor- Knee Strength Knee Manual Muscle Testing Right Flexion (S2) 4+ Good+ Extension (L3) 4+ Good+ Left Flexion (S2) 3+ Fair+ Extension (L3) 3+ Fair+ Ankle/Foot Strength Ankle and Foot Manual Muscle Testing Left Dorsiflexion (L4) 4+ Good+ Plantarflexion (S1) 4+ Good+ Inversion 4+ Good+ Eversion (S1) 4+ Good+ Right Dorsiflexion (L4) 4+ Good+ Plantarflexion (S1) 4+ Good+ Inversion 4+ Good+ Eversion (S1) 4+ Good+ PT-OP-Q Treatments Start: 12/02/18 09:52 Freq: Status: Active Protocol: Document 01/01/19 08:15 [facility] (Rec: 01/01/19 08:39 [facility] [id number]) Cardio Equipment Recumbent Stepper (Sci-Fit) Duration (Minutes) 8 Resistance 4 Seat Position 10 Gym Equipment Shuttle Recovery Unilateral Squats Resistance 25 Shuttle Recovery Platform Stable Reps/Time 10x Bilateral Squats Resistance 50 Shuttle Recovery Platform Stable Reps/Time 10x Therapeutic Exercises Standing Exercises balance on foam Standing Exercise Name EO and EC Reps/Minutes 3 min wt shifts with gluteal activation Reps/Minutes 10x ea Comments verbal and manual cues Manual Therapy Treatment Soft Tissue Mobilization 1 Body Location left lateral hip and buttock, ITband Mobilization Type Cross-Friction Myofascial Release Rolling Strumming Intensity/Depth Moderate Body Position Sidelying Taping space correction for pain relief Body Location greater trochanter Treatment Focus pain relief Type of Tape kinesiotape Skin Inspection intact Comments Biofreeze to prepare skin. patient instructed to remove if uncomfortable or increase in symptoms. No longer than 5 days of wear. Self-Care/Home Management Treatment Education Other Education Pt to contact urologist as above, contact pool about available water walking times and do trial. PT-OP-R Modalities Start: 12/02/18 09:52 Freq: Status: Active Protocol: Document 12/30/18 08:11 SAK (Rec: 12/30/18 09:30 [facility] [id number]) Hot Pack/Cold Pack Treatment Cold Pack Location left hip Treatment Duration (minutes) 10 PT-OP-T Assessment and Plan Start: 12/02/18 09:52 Freq: Status: Active Protocol: Document 01/01/19 08:15 [facility] (Rec: 01/01/19 08:39 [facility] [id number]) Physical Therapy Assessment Goals LEFS Impairment LEFS= 9 (80-99%) Snf Goal (LTG) pt will be reach < 40-59% impairment on LEFS to improve overall functional mobility. LTG Duration 12 weeks pain during WB position Impairment Severe pain during WB position Snf Goal (LTG) Pt will report <4/10 pain in WB position such as standing and walking to improve quality of life. LTG Duration 12 weeks Stair negotiation Impairment pt uses step to pattern to climb stairs with railing Insurance Special Agent Goal (LTG) Pt will be able to use step over pattern to climb stairs without railing LTG Duration 12 weeks 2 MWT Impairment pt only amb 188 ft under 2MWT Insurance Special Agent Goal (LTG) Pt will be able to amb 250 ft within 2MWT without AD LTG Duration 12 weeks Amb distance Impairment unable to amb >100 ft without rest (with spc) Snf Goal (LTG) pt will be able to amb 500 ft without rest and assistive device LTG Duration 12 weeks Progress Towards Goals Progress Towards Goals Slow Progress due to Activity Tolerance Assessment Summary Assessment Patient demonstrated improvede tolerance to recumbant elliptical and was able to do single leg on shuttle leg press with very light weight. High pain level persists and complicated by migraines. Physical Therapy Plan Frequency and Duration Frequency of Treatment 2x/Week Duration of Treatment 12 weeks Plan of Care Start Date 12/02/18 Plan of Care End Date 03/04/19 Therapeutic Interventions Therapeutic Interventions Aquatic Therapy Balance Training Gait Training Home Exercise Program Joint Mobilizations Manual Therapy Neuromuscular Re-education Patient/Caregiver Education Self-Care/Home Management Soft Tissue Mobilization Taping Therapeutic Activities Therapeutic Exercises Modalities Cold Pack/Ice Massage Hot Packs Other Therapeutic Interventions keep heat pack off implant on back Other Referrals/Consults Referrals/Consults Recommended Recommended pt to cancel this week appointment to consult with her PCP for a further CT scan/ X-ray assessment to rule out hip fx Next Visit Focus/Plan Next Note Type Treatment Note Next Visit Plan Trial ultrasound and iontophoresis if approved by urologist. Patient to try water walking. Continue gentle ex progression with emphasis on core strengthening , gluteal activation.
--- NOTE | 2019-01-06 14:32 | PT.OTN ---
Current Diagnoses Pain in left hip (01/06/19) Pelvic and perineal pain (01/06/19) Physical Therapy Treatment Note PT-OP-A Visit Information Start: 12/02/18 09:52 Freq: Status: Active Protocol: Document 01/06/19 08:12 SAK (Rec: 01/06/19 08:41 SAK [id number]) Out-Patient Physical Therapy Visit Information Visit Information Visit Type Treatment Note Visit Note insurance authorization expires 01/12/19 Visit Start Time 08:15 Visit Stop Time 09:00 Total Visit Minutes 45 Visit Number 02/06 Number of WELDER GUN Visits 0 Evaluation Information Evaluation Date 12/02/18 Precautions Precautions High fall risks She has implanted stimulator for her bladder- in back PT-OP-B Current Condition Start: 12/02/18 09:52 Freq: Status: Active Protocol: Document 12/02/18 08:15 HH (Rec: 12/02/18 10:14 HH [email or web address]) Current Condition History of Current Condition Onset Date 3 months ago Current Complaints severe L hip pain, impaired gait and activity tolerance History of Current Condition Pt presents to clinic today with c/o new onset of severe L hip pain since 3 months ago after a possible fall at night . She explained she was not sure about the fall since she often feels unoriented at night because of medications she is taking and constant mirgrain. Pt said her hip pain started since then and x-ray showed negative findings for fx (3 months ago) but with significant L hip OA. However, pt stated her pain never goes away and keeps getting worse which significant challenge her functional mobility. Pt has been falling for the past 3 months since her injury. Pt currently unable to amb more than 100 feet without rest, standing >10-15 mins and climb stairs with step to pattern with railing. She is also using SPC for mobility on RUE to reduced pain and balance. Her sharp Pain basically gets worse with WB/ pressure and radiate to L side of the hip sometimes, and she is unable to sleep on her L side at this point. Pt notices her knee starts to cave in more and L foot inspector returned materials. Pt also states she cannot have a CT scan due to insurance coverage and she has to attempt therapy first to get second opinion first in order to be qualified for CT scan screening. Prior Treatments and Tests PT for neck pain (nerve abiation) x-ray in september showed negative fx for L hip Treatment Goals Patient/Caregiver Goals 1. To be able to walk more than 500 feet without hip pain and SPC 2. To be able to walk her dogs in community 2. to negotiate stairs with step over pattern and without handrails 3. able to stand > 30 mins without pain. Prior Functional Status Baseline Function- ADL's Independent Baseline Function- Mobility Independent Baseline Function- Gait with AD Baseline Function- Recreation/Hobbies able to walk her dogs daily Baseline Function- Other step over pattern without railing for stair climbing able to walk miles with AD Current Functional Impairments (Reported) Functional Limitations- ADL's unable to stand >10 mins unable to perform sit to supine without lifting her LLE with UE support Functional Limitations- Mobility/Gait unable to stand > 10 mins step to for stairs cannot walk > 100 feet without rest. Personal Factors Other Personal Factors That May Effect INSTER STIM for bladder Therapy/Recovery migraines depression multiple falls PT-OP-C Subjective Start: 12/02/18 09:52 Freq: Status: Active Protocol: Document 01/06/19 08:12 SAK (Rec: 01/06/19 08:41 SAK [id number]) OP-PT Subjective Patient Comments Patient Comments Migraine persisted over the weekend. Hip a little better though noticing some pain right LB, agrees may be due to compensation. Urologist says no on iontophoresis and yes on ultrasound. Liked kinesiotape. No time for ice or heat due to dental appointment after PT> PT-OP-E Functional Tests Start: 12/02/18 09:52 Freq: Status: Active Protocol: Document 12/02/18 08:15 (Rec: 12/02/18 10:14 [email or web address]) Functional Tests 2 Minute Walk Test Distance 188 Device Used none Comments pt uses wall for support and balance PT-OP-G Mobility & Gait Start: 12/02/18 09:52 Freq: Status: Active Protocol: Document 12/02/18 08:15 (Rec: 12/02/18 10:14 HH [email or web address]) OP Mobility Evaluation Bed Mobility Rolling unable to lay on L side Supine to and from Sit need UE to lift L LE OP Gait Assessment Gait Gait Assistance Required: Independent Distance (Feet) 188 Able to Maintain Weight Bearing Status Yes During Gait Assistive Devices Assistive Device None Gait Deviations General Gait Pattern Antalgic Decreased Stride Length Decreased Feet Clearance Factors Limiting Gait Function Factors Limiting Gait Function Decreased Activity Tolerance Decreased Strength Limited Range of Motion Pain Comments Gait Comments significant L antalgic gait with decreased stance phase on LLE. Needed wall for support/ balance. noticeable L knee valgus and L foot inspector returned materials. Stair Climbing Evaluation Evaluation Level of Assist On Stairs Independent Devices Stair Climbing Assistive Devices Left Railing Right Railing Technique/Endurance Stair Climbing Direction Ascend and Descend Stair Climbing Technique Step Over Step PT-OP-J Posture/Palpation/Skin Start: 12/02/18 09:52 Freq: Status: Active Protocol: Document 12/02/18 08:15 (Rec: 12/02/18 11:55 [email or web address]) Posture Evaluation Position Standing Evaluation View Anterior Weight Distribution Weight Shifted Right Decreased Wt.Bear on (L) Hip Posture (L) Internally Rotated Knee Posture (L) Genu Valgus (L) Ext. Tibial Torsion PT-OP-K Range of Motion Start: 12/02/18 09:52 Freq: Status: Active Protocol: Document 12/02/18 08:15 HH (Rec: 12/02/18 11:55 [email or web address]) Hip Goniometric Range of Motion Hip Right Passive Hip ROM WFL Yes Testing Position Supine Flexion w/Knee Flexed 105 Extension 10 Abduction 35 Left Passive Hip ROM WFL No Testing Position Supine Flexion w/Knee Flexed 25 Extension 0 Abduction 0 PT-OP-L Special Tests Start: 12/02/18 09:52 Freq: Status: Active Protocol: Document 12/02/18 08:15 HH (Rec: 12/02/18 11:55 [email or web address]) Special Tests Hip Special Tests Scour Test Comments unable to test due to severe pain and muscle guarding with passive ROM LIAM Comments unable to test due to severe pain and muscle guarding with passive ROM Anterior Labral Test Comments unable to test due to severe pain and muscle guarding with passive ROM PT-OP-M Strength Start: 12/02/18 09:52 Freq: Status: Active Protocol: Document 12/02/18 08:15 HH (Rec: 12/02/18 11:55 [email or web address]) Hip Strength Hip Manual Muscle Testing Right Flexion (L2) 4+ Good+ Extension (S1) 4+ Good+ Abduction 4+ Good+ Adduction 4+ Good+ Left Flexion (L2) 2- Poor- Extension (S1) 2- Poor- Abduction 2- Poor- Adduction 2- Poor- Knee Strength Knee Manual Muscle Testing Right Flexion (S2) 4+ Good+ Extension (L3) 4+ Good+ Left Flexion (S2) 3+ Fair+ Extension (L3) 3+ Fair+ Ankle/Foot Strength Ankle and Foot Manual Muscle Testing Left Dorsiflexion (L4) 4+ Good+ Plantarflexion (S1) 4+ Good+ Inversion 4+ Good+ Eversion (S1) 4+ Good+ Right Dorsiflexion (L4) 4+ Good+ Plantarflexion (S1) 4+ Good+ Inversion 4+ Good+ Eversion (S1) 4+ Good+ PT-OP-Q Treatments Start: 12/02/18 09:52 Freq: Status: Active Protocol: Document 01/06/19 08:12 [facility] (Rec: 01/06/19 08:41 [facility] [id number]) Cardio Equipment Recumbent Stepper (Sci-Fit) Duration (Minutes) 8 Resistance 4 Seat Position 10 Gym Equipment Shuttle Recovery Unilateral Squats Resistance 25 Shuttle Recovery Platform Stable Reps/Time 10x Bilateral Squats Resistance 50 Shuttle Recovery Platform Stable Reps/Time 10x2 Therapeutic Exercises Standing Exercises wt shifts with gluteal activation Reps/Minutes 10x ea Comments verbal and manual cues Manual Therapy Treatment Soft Tissue Mobilization 1 Body Location left lateral hip and buttock, ITband Mobilization Type Cross-Friction Myofascial Release Rolling Strumming Intensity/Depth Moderate Body Position Sidelying Taping space correction for pain relief Body Location greater trochanter Treatment Focus pain relief Type of Tape kinesiotape Skin Inspection intact Comments Biofreeze to prepare skin. patient instructed to remove if uncomfortable or increase in symptoms. No longer than 5 days of wear. PT-OP-R Modalities Start: 12/02/18 09:52 Freq: Status: Active Protocol: Document 01/06/19 08:12 SAK (Rec: 01/06/19 08:41 [facility] [id number]) Ultrasound Therapy Treatment left lateral hip Treatment Duration (minutes) 8 Patient Position Sidelying Coupling Medium Ultrasound Gel Mode Setting Pulsed Intensity Setting (w/cm2) 1.4 PT-OP-T Assessment and Plan Start: 12/02/18 09:52 Freq: Status: Active Protocol: Document 01/06/19 08:12 SAK (Rec: 01/06/19 08:41 [facility] [id number]) Physical Therapy Assessment Goals LEFS Impairment LEFS= 9 (80-99%) Fdc Goal (LTG) pt will be reach < 40-59% impairment on LEFS to improve overall functional mobility. LTG Duration 12 weeks pain during WB position Impairment Severe pain during WB position Fdc Goal (LTG) Pt will report <4/10 pain in WB position such as standing and walking to improve quality of life. LTG Duration 12 weeks Stair negotiation Impairment pt uses step to pattern to climb stairs with railing Correctional Supervisor Goal (LTG) Pt will be able to use step over pattern to climb stairs without railing LTG Duration 12 weeks 2 MWT Impairment pt only amb 188 ft under 2MWT Fdc Goal (LTG) Pt will be able to amb 250 ft within 2MWT without AD LTG Duration 12 weeks Amb distance Impairment unable to amb >100 ft without rest (with spc) Fdc Goal (LTG) pt will be able to amb 500 ft without rest and assistive device LTG Duration 12 weeks Assessment Summary Assessment Improving exercise tolerance, decreased hip pain though some compensatory pain on right; discussed aquatic PT further as good option for patient. She is agreeable to try. Physical Therapy Plan Frequency and Duration Frequency of Treatment 2x/Week Duration of Treatment 12 weeks Plan of Care Start Date 12/02/18 Plan of Care End Date 03/04/19 Therapeutic Interventions Therapeutic Interventions Aquatic Therapy Balance Training Gait Training Home Exercise Program Joint Mobilizations Manual Therapy Neuromuscular Re-education Patient/Caregiver Education Self-Care/Home Management Soft Tissue Mobilization Taping Therapeutic Activities Therapeutic Exercises Modalities Cold Pack/Ice Massage Hot Packs Other Therapeutic Interventions keep heat pack off implant on back Next Visit Focus/Plan Next Note Type Treatment Note Next Visit Plan Aquatic PT if opening in schedule, otherwise continue land-based PT, encourage patient with water walking on her own until can get scheduled for aquatic PT.
--- NOTE | 2019-01-08 16:07 | PT.OTN ---
Current Diagnoses Pain in left hip (01/08/19) Pelvic and perineal pain (01/08/19) Physical Therapy Treatment Note PT-OP-A Visit Information Start: 12/02/18 09:52 Freq: Status: Active Protocol: Document 01/08/19 08:20 SAK (Rec: 01/08/19 08:42 SAK [id number]) Out-Patient Physical Therapy Visit Information Visit Information Visit Type Treatment Note Visit Start Time 08:15 Visit Stop Time 09:10 Total Visit Minutes 55 Visit Number 03/09 Number of OCCUPATIONAL HEALTH TECHNICIAN Visits 0 Evaluation Information Evaluation Date 12/02/18 Precautions Precautions High fall risks She has implanted stimulator for her bladder- in back PT-OP-B Current Condition Start: 12/02/18 09:52 Freq: Status: Active Protocol: Document 12/02/18 08:15 HH (Rec: 12/02/18 10:14 HH [email or web address]) Current Condition History of Current Condition Onset Date 3 months ago Current Complaints severe L hip pain, impaired gait and activity tolerance History of Current Condition Pt presents to clinic today with c/o new onset of severe L hip pain since 3 months ago after a possible fall at night . She explained she was not sure about the fall since she often feels unoriented at night because of medications she is taking and constant mirgrain. Pt said her hip pain started since then and x-ray showed negative findings for fx (3 months ago) but with significant L hip OA. However, pt stated her pain never goes away and keeps getting worse which significant challenge her functional mobility. Pt has been falling for the past 3 months since her injury. Pt currently unable to amb more than 100 feet without rest, standing >10-15 mins and climb stairs with step to pattern with railing. She is also using SPC for mobility on RUE to reduced pain and balance. Her sharp Pain basically gets worse with WB/ pressure and radiate to L side of the hip sometimes, and she is unable to sleep on her L side at this point. 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 Pt also states she cannot have a CT scan due to insurance coverage and she has to attempt therapy first to get second opinion first in order to be qualified for CT scan screening. Prior Treatments and Tests PT for neck pain (nerve abiation) x-ray in september showed negative fx for L hip Treatment Goals Patient/Caregiver Goals 1. To be able to walk more than 500 feet without hip pain and SPC 2. To be able to walk her dogs in community 2. to negotiate stairs with step over pattern and without handrails 3. able to stand > 30 mins without pain. Prior Functional Status Baseline Function- ADL's Independent Baseline Function- Mobility Independent Baseline Function- Gait with AD Baseline Function- Recreation/Hobbies able to walk her dogs daily Baseline Function- Other step over pattern without railing for stair climbing able to walk miles with AD Current Functional Impairments (Reported) Functional Limitations- ADL's unable to stand >10 mins unable to perform sit to supine without lifting her LLE with UE support Functional Limitations- Mobility/Gait unable to stand > 10 mins step to for stairs cannot walk > 100 feet without rest. Personal Factors Other Personal Factors That May Effect INSTER STIM for bladder Therapy/Recovery migraines depression multiple falls PT-OP-C Subjective Start: 12/02/18 09:52 Freq: Status: Active Protocol: Document 01/08/19 08:20 SAK (Rec: 01/08/19 08:42 SAK [id number]) OP-PT Subjective Patient Comments Patient Comments Reports bad day yesterday, didn't get out of my chair. States she doesn't think it was anything done in PT. Excited for aquatic PT next session PT-OP-E Functional Tests Start: 12/02/18 09:52 Freq: Status: Active Protocol: Document 12/02/18 08:15 HH (Rec: 12/02/18 10:14 HH [email or web address]) Functional Tests 2 Minute Walk Test Distance 188 Device Used none Comments pt uses wall for support and balance PT-OP-G Mobility & Gait Start: 12/02/18 09:52 Freq: Status: Active Protocol: Document 12/02/18 08:15 HH (Rec: 12/02/18 10:14 HH [email or web address]) OP Mobility Evaluation Bed Mobility Rolling unable to lay on L side Supine to and from Sit need UE to lift L LE OP Gait Assessment Gait Gait Assistance Required: Independent Distance (Feet) 188 Able to Maintain Weight Bearing Status Yes During Gait Assistive Devices Assistive Device None Gait Deviations General Gait Pattern Antalgic Decreased Stride Length Decreased Feet Clearance Factors Limiting Gait Function Factors Limiting Gait Function Decreased Activity Tolerance Decreased Strength Limited Range of Motion Pain Comments Gait Comments significant L antalgic gait with decreased stance phase on LLE. Needed wall for support/ balance. noticeable L knee valgus and L foot turntable operator. Stair Climbing Evaluation Evaluation Level of Assist On Stairs Independent Devices Stair Climbing Assistive Devices Left Railing Right Railing Technique/Endurance Stair Climbing Direction Ascend and Descend Stair Climbing Technique Step Over Step PT-OP-J Posture/Palpation/Skin Start: 12/02/18 09:52 Freq: Status: Active Protocol: Document 12/02/18 08:15 (Rec: 12/02/18 11:55 [email or web address]) Posture Evaluation Position Standing Evaluation View Anterior Weight Distribution Weight Shifted Right Decreased Wt.Bear on (L) Hip Posture (L) Internally Rotated Knee Posture (L) Genu Valgus (L) Ext. Tibial Torsion PT-OP-K Range of Motion Start: 12/02/18 09:52 Freq: Status: Active Protocol: Document 12/02/18 08:15 HH (Rec: 12/02/18 11:55 [email or web address]) Hip Goniometric Range of Motion Hip Right Passive Hip ROM WFL Yes Testing Position Supine Flexion w/Knee Flexed 105 Extension 10 Abduction 35 Left Passive Hip ROM WFL No Testing Position Supine Flexion w/Knee Flexed 25 Extension 0 Abduction 0 PT-OP-L Special Tests Start: 12/02/18 09:52 Freq: Status: Active Protocol: Document 12/02/18 08:15 HH (Rec: 12/02/18 11:55 [email or web address]) Special Tests Hip Special Tests Scour Test Comments unable to test due to severe pain and muscle guarding with passive ROM LIAM Comments unable to test due to severe pain and muscle guarding with passive ROM Anterior Labral Test Comments unable to test due to severe pain and muscle guarding with passive ROM PT-OP-M Strength Start: 12/02/18 09:52 Freq: Status: Active Protocol: Document 12/02/18 08:15 HH (Rec: 12/02/18 11:55 [email or web address]) Hip Strength Hip Manual Muscle Testing Right Flexion (L2) 4+ Good+ Extension (S1) 4+ Good+ Abduction 4+ Good+ Adduction 4+ Good+ Left Flexion (L2) 2- Poor- Extension (S1) 2- Poor- Abduction 2- Poor- Adduction 2- Poor- Knee Strength Knee Manual Muscle Testing Right Flexion (S2) 4+ Good+ Extension (L3) 4+ Good+ Left Flexion (S2) 3+ Fair+ Extension (L3) 3+ Fair+ Ankle/Foot Strength Ankle and Foot Manual Muscle Testing Left Dorsiflexion (L4) 4+ Good+ Plantarflexion (S1) 4+ Good+ Inversion 4+ Good+ Eversion (S1) 4+ Good+ Right Dorsiflexion (L4) 4+ Good+ Plantarflexion (S1) 4+ Good+ Inversion 4+ Good+ Eversion (S1) 4+ Good+ PT-OP-Q Treatments Start: 12/02/18 09:52 Freq: Status: Active Protocol: Document 01/08/19 08:20 [facility] (Rec: 01/08/19 08:42 [facility] [id number]) Cardio Equipment Recumbent Stepper (Sci-Fit) Duration (Minutes) 8 Resistance 3 Seat Position 10 Gym Equipment Shuttle Recovery Unilateral Squats Details unable today due to paion Bilateral Squats Resistance 50 Shuttle Recovery Platform Stable Reps/Time 10x2 Therapeutic Exercises Standing Exercises balance on foam Standing Exercise Name EO and EC Reps/Minutes 3 min wt shifts with gluteal activation Reps/Minutes 10x ea Comments verbal and manual cues Manual Therapy Treatment Taping space correction for pain relief Body Location greater trochanter star pattern Treatment Focus pain relief Type of Tape kinesiotape Skin Inspection intact Comments Biofreeze to prepare skin. patient instructed to remove if uncomfortable or increase in symptoms. No longer than 5 days of wear. PT-OP-R Modalities Start: 12/02/18 09:52 Freq: Status: Active Protocol: Document 01/08/19 08:20 [facility] (Rec: 01/08/19 08:42 [facility] [id number]) Hot Pack/Cold Pack Treatment Cold Pack Location left hip Treatment Duration (minutes) 10 Ultrasound Therapy Treatment left lateral hip Treatment Duration (minutes) 8 Patient Position Sidelying Coupling Medium Ultrasound Gel Mode Setting Pulsed Duty Cycle 50% Intensity Setting (w/cm2) 1.2 PT-OP-T Assessment and Plan Start: 12/02/18 09:52 Freq: Status: Active Protocol: Document 01/08/19 08:20 [facility] (Rec: 01/08/19 08:42 [facility] [id number]) Physical Therapy Assessment Goals LEFS Impairment LEFS= 9 (80-99%) Shelter Goal (LTG) pt will be reach < 40-59% impairment on LEFS to improve overall functional mobility. LTG Duration 12 weeks pain during WB position Impairment Severe pain during WB position Shelter Goal (LTG) Pt will report <4/10 pain in WB position such as standing and walking to improve quality of life. LTG Duration 12 weeks Stair negotiation Impairment pt uses step to pattern to climb stairs with railing Party Coordinator Goal (LTG) Pt will be able to use step over pattern to climb stairs without railing LTG Duration 12 weeks 2 MWT Impairment pt only amb 188 ft under 2MWT Party Coordinator Goal (LTG) Pt will be able to amb 250 ft within 2MWT without AD LTG Duration 12 weeks Amb distance Impairment unable to amb >100 ft without rest (with spc) Shelter Goal (LTG) pt will be able to amb 500 ft without rest and assistive device LTG Duration 12 weeks Assessment Summary Assessment Increased pain yesterday and today with decreased activity and exercise tolerance. Decreased intensity of ultrasound today. Will assess response. May need to back of weight-bearing ex if increase in pain persists. Feel she will benefit from aquatic PT next session Physical Therapy Plan Frequency and Duration Frequency of Treatment 2x/Week Duration of Treatment 12 weeks Plan of Care Start Date 12/02/18 Plan of Care End Date 03/04/19 Therapeutic Interventions Therapeutic Interventions Aquatic Therapy Balance Training Gait Training Home Exercise Program Joint Mobilizations Manual Therapy Neuromuscular Re-education Patient/Caregiver Education Self-Care/Home Management Soft Tissue Mobilization Taping Therapeutic Activities Therapeutic Exercises Modalities Cold Pack/Ice Massage Hot Packs Other Therapeutic Interventions keep heat pack off implant on back Next Visit Focus/Plan Next Note Type Treatment Note Next Visit Plan Aquatic PT next session
--- NOTE | 2019-01-10 10:15 | PT.OTN ---
Current Diagnoses Pain in left hip (01/13/19) Pelvic and perineal pain (01/13/19) Physical Therapy Treatment Note PT-OP-A Visit Information Start: 12/02/18 09:52 Freq: Status: Active Protocol: Document 01/13/19 08:17 SAK (Rec: 01/13/19 08:36 SAK [id number]) Out-Patient Physical Therapy Visit Information Visit Information Visit Type Treatment Note Visit Start Time 08:00 Visit Stop Time 08:55 Total Visit Minutes 45 Visit Number 04/09 Number of LAYOUT ARTIST Visits 0 Evaluation Information Evaluation Date 12/02/18 Precautions Precautions High fall risks She has implanted stimulator for her bladder- in back PT-OP-B Current Condition Start: 12/02/18 09:52 Freq: Status: Active Protocol: Document 12/02/18 08:15 HH (Rec: 12/02/18 10:14 HH [email or web address]) Current Condition History of Current Condition Onset Date 3 months ago Current Complaints severe L hip pain, impaired gait and activity tolerance History of Current Condition Pt presents to clinic today with c/o new onset of severe L hip pain since 3 months ago after a possible fall at night . She explained she was not sure about the fall since she often feels unoriented at night because of medications she is taking and constant mirgrain. Pt said her hip pain started since then and x-ray showed negative findings for fx (3 months ago) but with significant L hip OA. However, pt stated her pain never goes away and keeps getting worse which significant challenge her functional mobility. Pt has been falling for the past 3 months since her injury. Pt currently unable to amb more than 100 feet without rest, standing >10-15 mins and climb stairs with step to pattern with railing. She is also using SPC for mobility on RUE to reduced pain and balance. Her sharp Pain basically gets worse with WB/ pressure and radiate to L side of the hip sometimes, and she is unable to sleep on her L side at this point. Pt notices her knee starts to cave in more and L foot axle turner. Pt also states she cannot have a CT scan due to insurance coverage and she has to attempt therapy first to get second opinion first in order to be qualified for CT scan screening. Prior Treatments and Tests PT for neck pain (nerve abiation) x-ray in september showed negative fx for L hip Treatment Goals Patient/Caregiver Goals 1. To be able to walk more than 500 feet without hip pain and SPC 2. To be able to walk her dogs in community 2. to negotiate stairs with step over pattern and without handrails 3. able to stand > 30 mins without pain. Prior Functional Status Baseline Function- ADL's Independent Baseline Function- Mobility Independent Baseline Function- Gait with AD Baseline Function- Recreation/Hobbies able to walk her dogs daily Baseline Function- Other step over pattern without railing for stair climbing able to walk miles with AD Current Functional Impairments (Reported) Functional Limitations- ADL's unable to stand >10 mins unable to perform sit to supine without lifting her LLE with UE support Functional Limitations- Mobility/Gait unable to stand > 10 mins step to for stairs cannot walk > 100 feet without rest. Personal Factors Other Personal Factors That May Effect INSTER STIM for bladder Therapy/Recovery migraines depression multiple falls PT-OP-C Subjective Start: 12/02/18 09:52 Freq: Status: Active Protocol: Document 01/13/19 08:17 SAK (Rec: 01/13/19 08:36 SAK [id number]) OP-PT Subjective Patient Comments Patient Comments Sore after aquatic therapy but I loved it. States she had the best night's sleep she has had in years after aquatic PT session. Planning to go do water walking. PT-OP-E Functional Tests Start: 12/02/18 09:52 Freq: Status: Active Protocol: Document 12/02/18 08:15 HH (Rec: 12/02/18 10:14 HH [email or web address]) Functional Tests 2 Minute Walk Test Distance 188 Device Used none Comments pt uses wall for support and balance PT-OP-G Mobility & Gait Start: 12/02/18 09:52 Freq: Status: Active Protocol: Document 12/02/18 08:15 HH (Rec: 12/02/18 10:14 HH [email or web address]) OP Mobility Evaluation Bed Mobility Rolling unable to lay on L side Supine to and from Sit need UE to lift L LE OP Gait Assessment Gait Gait Assistance Required: Independent Distance (Feet) 188 Able to Maintain Weight Bearing Status Yes During Gait Assistive Devices Assistive Device None Gait Deviations General Gait Pattern Antalgic Decreased Stride Length Decreased Feet Clearance Factors Limiting Gait Function Factors Limiting Gait Function Decreased Activity Tolerance Decreased Strength Limited Range of Motion Pain Comments Gait Comments significant L antalgic gait with decreased stance phase on LLE. Needed wall for support/ balance. noticeable L knee valgus and L foot axle turner. Stair Climbing Evaluation Evaluation Level of Assist On Stairs Independent Devices Stair Climbing Assistive Devices Left Railing Right Railing Technique/Endurance Stair Climbing Direction Ascend and Descend Stair Climbing Technique Step Over Step PT-OP-J Posture/Palpation/Skin Start: 12/02/18 09:52 Freq: Status: Active Protocol: Document 12/02/18 08:15 (Rec: 12/02/18 11:55 [email or web address]) Posture Evaluation Position Standing Evaluation View Anterior Weight Distribution Weight Shifted Right Decreased Wt.Bear on (L) Hip Posture (L) Internally Rotated Knee Posture (L) Genu Valgus (L) Ext. Tibial Torsion PT-OP-K Range of Motion Start: 12/02/18 09:52 Freq: Status: Active Protocol: Document 12/02/18 08:15 HH (Rec: 12/02/18 11:55 [email or web address]) Hip Goniometric Range of Motion Hip Right Passive Hip ROM WFL Yes Testing Position Supine Flexion w/Knee Flexed 105 Extension 10 Abduction 35 Left Passive Hip ROM WFL No Testing Position Supine Flexion w/Knee Flexed 25 Extension 0 Abduction 0 PT-OP-L Special Tests Start: 12/02/18 09:52 Freq: Status: Active Protocol: Document 12/02/18 08:15 HH (Rec: 12/02/18 11:55 [email or web address]) Special Tests Hip Special Tests Scour Test Comments unable to test due to severe pain and muscle guarding with passive ROM LIAM Comments unable to test due to severe pain and muscle guarding with passive ROM Anterior Labral Test Comments unable to test due to severe pain and muscle guarding with passive ROM PT-OP-M Strength Start: 12/02/18 09:52 Freq: Status: Active Protocol: Document 12/02/18 08:15 HH (Rec: 12/02/18 11:55 [email or web address]) Hip Strength Hip Manual Muscle Testing Right Flexion (L2) 4+ Good+ Extension (S1) 4+ Good+ Abduction 4+ Good+ Adduction 4+ Good+ Left Flexion (L2) 2- Poor- Extension (S1) 2- Poor- Abduction 2- Poor- Adduction 2- Poor- Knee Strength Knee Manual Muscle Testing Right Flexion (S2) 4+ Good+ Extension (L3) 4+ Good+ Left Flexion (S2) 3+ Fair+ Extension (L3) 3+ Fair+ Ankle/Foot Strength Ankle and Foot Manual Muscle Testing Left Dorsiflexion (L4) 4+ Good+ Plantarflexion (S1) 4+ Good+ Inversion 4+ Good+ Eversion (S1) 4+ Good+ Right Dorsiflexion (L4) 4+ Good+ Plantarflexion (S1) 4+ Good+ Inversion 4+ Good+ Eversion (S1) 4+ Good+ PT-OP-Q Treatments Start: 12/02/18 09:52 Freq: Status: Active Protocol: Document 01/13/19 08:17 [facility] (Rec: 01/13/19 08:36 [facility] [id number]) Cardio Equipment Recumbent Stepper (Sci-Fit) Duration (Minutes) 8 Resistance 3 Seat Position 10 Therapeutic Exercises Sitting Exercises hip ab/ER Equipment Used L2 TB Reps/Minutes 10x ball squeeze Reps/Minutes 10x march Reps/Minutes 2# right, 1# left LAQ Reps/Minutes 2# right 1# left 1 Sitting Exercise Name long arc quad Side left Resistance 2# right, 1# left Reps/Minutes 10 reps Standing Exercises wt shifts with gluteal activation Reps/Minutes 10x ea Comments verbal and manual cues Manual Therapy Treatment Taping postural correction Body Location between scapulae Treatment Focus postural correction Type of Tape Kinesio Tape Skin Inspection intact SI taping for stabilization Body Location I strip SI joint Treatment Focus pain relief Type of Tape Kinesio Tape Skin Inspection intact Comments due to c/o SI pain and cracking which appears due to compensatory gait from left hip pain space correction for pain relief Body Location greater trochanter star pattern Treatment Focus pain relief Type of Tape kinesiotape Skin Inspection intact Comments Biofreeze to prepare skin. patient instructed to remove if uncomfortable or increase in symptoms. No longer than 5 days of wear. PT-OP-R Modalities Start: 12/02/18 09:52 Freq: Status: Active Protocol: Document 01/13/19 08:17 [facility] (Rec: 01/13/19 08:36 [facility] [id number]) Hot Pack/Cold Pack Treatment Cold Pack Location left hip Treatment Duration (minutes) 10 PT-OP-S Aquatic Treatment Start: 12/02/18 09:52 Freq: Status: Active Protocol: Document 01/10/19 10:15 [facility] (Rec: 01/13/19 10:04 [facility] [id number]) Aquatics Treatment Pool Entry/Exit Pool Entry/Exit Method Stairs Assistance Independent Water Walking september Water Level Chest Level Level of Assistance Verbal Cues sidestepping Water Level Chest Level Level of Assistance Verbal Cues backward Water Level Chest Level Level of Assistance Verbal Cues forward Water Level Chest Level Level of Assistance Verbal Cues Lower Extremity Exercises knee flex/ext Body Position Standing Water Level Chest Level Reps/Duration 10x hip ab/ad Body Position Standing Water Level Chest Level Reps/Duration 10x Comments small amplitude hip circles Body Position Standing Water Level Chest Level Reps/Duration 10x Comments small amplitude hip flex/ext Body Position Standing Water Level Chest Level Reps/Duration 10x Comments small amplitude squats Body Position Standing Water Level Chest Level Reps/Duration 10x heel raise, toe raise Body Position Standing Water Level Chest Level Reps/Duration 10x Lower Extremity Stretches IT band Body Position Standing Water Level Chest Level Equipment Ankle Floats hamstring Body Position Standing Water Level Chest Level Equipment Ankle Floats Reps/Duration 2x [place] Activities [place] Activities Bicycle Other Activities deep water hang at pool edge 1 ' x 3 Equipment [place] float, 2# ankle weights PT-OP-T Assessment and Plan Start: 12/02/18 09:52 Freq: Status: Active Protocol: Document 01/13/19 08:17 [facility] (Rec: 01/13/19 08:36 [facility] [id number]) Physical Therapy Assessment Goals LEFS Impairment LEFS= 9 (80-99%) Detention Goal (LTG) pt will be reach < 40-59% impairment on LEFS to improve overall functional mobility. LTG Duration 12 weeks pain during WB position Impairment Severe pain during WB position Dielectric Machine Operator Goal (LTG) Pt will report <4/10 pain in WB position such as standing and walking to improve quality of life. LTG Duration 12 weeks Stair negotiation Impairment pt uses step to pattern to climb stairs with railing Detention Goal (LTG) Pt will be able to use step over pattern to climb stairs without railing LTG Duration 12 weeks 2 MWT Impairment pt only amb 188 ft under 2MWT Dielectric Machine Operator Goal (LTG) Pt will be able to amb 250 ft within 2MWT without AD LTG Duration 12 weeks Amb distance Impairment unable to amb >100 ft without rest (with spc) Dielectric Machine Operator Goal (LTG) pt will be able to amb 500 ft without rest and assistive device LTG Duration 12 weeks Assessment Summary Assessment Good tolerance for aquatic therapy with improved sleep. Additional kinesiotape today due to SI symptoms from compensatory gait and for postura correction due to protective posturing. Physical Therapy Plan Frequency and Duration Frequency of Treatment 2x/Week Duration of Treatment 12 weeks Plan of Care Start Date 12/02/18 Plan of Care End Date 03/04/19 Therapeutic Interventions Therapeutic Interventions Aquatic Therapy Balance Training Gait Training Home Exercise Program Joint Mobilizations Manual Therapy Neuromuscular Re-education Patient/Caregiver Education Self-Care/Home Management Soft Tissue Mobilization Taping Therapeutic Activities Therapeutic Exercises Modalities Cold Pack/Ice Massage Hot Packs Other Therapeutic Interventions keep heat pack off implant on back Next Visit Focus/Plan Next Note Type Treatment Note
--- NOTE | 2019-01-13 09:57 | PT.OTN ---
Current Diagnoses Pain in left hip (01/13/19) Pelvic and perineal pain (01/13/19) Physical Therapy Treatment Note PT-OP-A Visit Information Start: 12/02/18 09:52 Freq: Status: Active Protocol: Document 01/13/19 08:17 SAK (Rec: 01/13/19 08:36 SAK [id number]) Out-Patient Physical Therapy Visit Information Visit Information Visit Type Treatment Note Visit Start Time 08:00 Visit Stop Time 08:55 Total Visit Minutes 45 Visit Number 04/09 Number of DATA COLLECTION SPECIALIST Visits 0 Evaluation Information Evaluation Date 12/02/18 Precautions Precautions High fall risks She has implanted stimulator for her bladder- in back PT-OP-B Current Condition Start: 12/02/18 09:52 Freq: Status: Active Protocol: Document 12/02/18 08:15 HH (Rec: 12/02/18 10:14 HH [email or web address]) Current Condition History of Current Condition Onset Date 3 months ago Current Complaints severe L hip pain, impaired gait and activity tolerance History of Current Condition Pt presents to clinic today with c/o new onset of severe L hip pain since 3 months ago after a possible fall at night . She explained she was not sure about the fall since she often feels unoriented at night because of medications she is taking and constant mirgrain. Pt said her hip pain started since then and x-ray showed negative findings for fx (3 months ago) but with significant L hip OA. However, pt stated her pain never goes away and keeps getting worse which significant challenge her functional mobility. Pt has been falling for the past 3 months since her injury. Pt currently unable to amb more than 100 feet without rest, standing >10-15 mins and climb stairs with step to pattern with railing. She is also using SPC for mobility on RUE to reduced pain and balance. Her sharp Pain basically gets worse with WB/ pressure and radiate to L side of the hip sometimes, and she is unable to sleep on her L side at this point. 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 Pt also states she cannot have a CT scan due to insurance coverage and she has to attempt therapy first to get second opinion first in order to be qualified for CT scan screening. Prior Treatments and Tests PT for neck pain (nerve abiation) x-ray in september showed negative fx for L hip Treatment Goals Patient/Caregiver Goals 1. To be able to walk more than 500 feet without hip pain and SPC 2. To be able to walk her dogs in community 2. to negotiate stairs with step over pattern and without handrails 3. able to stand > 30 mins without pain. Prior Functional Status Baseline Function- ADL's Independent Baseline Function- Mobility Independent Baseline Function- Gait with AD Baseline Function- Recreation/Hobbies able to walk her dogs daily Baseline Function- Other step over pattern without railing for stair climbing able to walk miles with AD Current Functional Impairments (Reported) Functional Limitations- ADL's unable to stand >10 mins unable to perform sit to supine without lifting her LLE with UE support Functional Limitations- Mobility/Gait unable to stand > 10 mins step to for stairs cannot walk > 100 feet without rest. Personal Factors Other Personal Factors That May Effect INSTER STIM for bladder Therapy/Recovery migraines depression multiple falls PT-OP-C Subjective Start: 12/02/18 09:52 Freq: Status: Active Protocol: Document 01/13/19 08:17 SAK (Rec: 01/13/19 08:36 SAK [id number]) OP-PT Subjective Patient Comments Patient Comments Sore after aquatic therapy but I loved it. States she had the best night's sleep she has had in years after aquatic PT session. Planning to go do water walking. PT-OP-E Functional Tests Start: 12/02/18 09:52 Freq: Status: Active Protocol: Document 12/02/18 08:15 HH (Rec: 12/02/18 10:14 HH [email or web address]) Functional Tests 2 Minute Walk Test Distance 188 Device Used none Comments pt uses wall for support and balance PT-OP-G Mobility & Gait Start: 12/02/18 09:52 Freq: Status: Active Protocol: Document 12/02/18 08:15 HH (Rec: 12/02/18 10:14 HH [email or web address]) OP Mobility Evaluation Bed Mobility Rolling unable to lay on L side Supine to and from Sit need UE to lift L LE OP Gait Assessment Gait Gait Assistance Required: Independent Distance (Feet) 188 Able to Maintain Weight Bearing Status Yes During Gait Assistive Devices Assistive Device None Gait Deviations General Gait Pattern Antalgic Decreased Stride Length Decreased Feet Clearance Factors Limiting Gait Function Factors Limiting Gait Function Decreased Activity Tolerance Decreased Strength Limited Range of Motion Pain Comments Gait Comments significant L antalgic gait with decreased stance phase on LLE. Needed wall for support/ balance. noticeable L knee valgus and L foot returned goods inspector. Stair Climbing Evaluation Evaluation Level of Assist On Stairs Independent Devices Stair Climbing Assistive Devices Left Railing Right Railing Technique/Endurance Stair Climbing Direction Ascend and Descend Stair Climbing Technique Step Over Step PT-OP-J Posture/Palpation/Skin Start: 12/02/18 09:52 Freq: Status: Active Protocol: Document 12/02/18 08:15 (Rec: 12/02/18 11:55 [email or web address]) Posture Evaluation Position Standing Evaluation View Anterior Weight Distribution Weight Shifted Right Decreased Wt.Bear on (L) Hip Posture (L) Internally Rotated Knee Posture (L) Genu Valgus (L) Ext. Tibial Torsion PT-OP-K Range of Motion Start: 12/02/18 09:52 Freq: Status: Active Protocol: Document 12/02/18 08:15 HH (Rec: 12/02/18 11:55 [email or web address]) Hip Goniometric Range of Motion Hip Right Passive Hip ROM WFL Yes Testing Position Supine Flexion w/Knee Flexed 105 Extension 10 Abduction 35 Left Passive Hip ROM WFL No Testing Position Supine Flexion w/Knee Flexed 25 Extension 0 Abduction 0 PT-OP-L Special Tests Start: 12/02/18 09:52 Freq: Status: Active Protocol: Document 12/02/18 08:15 HH (Rec: 12/02/18 11:55 [email or web address]) Special Tests Hip Special Tests Scour Test Comments unable to test due to severe pain and muscle guarding with passive ROM LIAM Comments unable to test due to severe pain and muscle guarding with passive ROM Anterior Labral Test Comments unable to test due to severe pain and muscle guarding with passive ROM PT-OP-M Strength Start: 12/02/18 09:52 Freq: Status: Active Protocol: Document 12/02/18 08:15 HH (Rec: 12/02/18 11:55 [email or web address]) Hip Strength Hip Manual Muscle Testing Right Flexion (L2) 4+ Good+ Extension (S1) 4+ Good+ Abduction 4+ Good+ Adduction 4+ Good+ Left Flexion (L2) 2- Poor- Extension (S1) 2- Poor- Abduction 2- Poor- Adduction 2- Poor- Knee Strength Knee Manual Muscle Testing Right Flexion (S2) 4+ Good+ Extension (L3) 4+ Good+ Left Flexion (S2) 3+ Fair+ Extension (L3) 3+ Fair+ Ankle/Foot Strength Ankle and Foot Manual Muscle Testing Left Dorsiflexion (L4) 4+ Good+ Plantarflexion (S1) 4+ Good+ Inversion 4+ Good+ Eversion (S1) 4+ Good+ Right Dorsiflexion (L4) 4+ Good+ Plantarflexion (S1) 4+ Good+ Inversion 4+ Good+ Eversion (S1) 4+ Good+ PT-OP-Q Treatments Start: 12/02/18 09:52 Freq: Status: Active Protocol: Document 01/13/19 08:17 [facility] (Rec: 01/13/19 08:36 [facility] [id number]) Cardio Equipment Recumbent Stepper (Sci-Fit) Duration (Minutes) 8 Resistance 3 Seat Position 10 Therapeutic Exercises Sitting Exercises hip ab/ER Equipment Used L2 TB Reps/Minutes 10x ball squeeze Reps/Minutes 10x march Reps/Minutes 2# right, 1# left LAQ Reps/Minutes 2# right 1# left 1 Sitting Exercise Name long arc quad Side left Resistance 2# right, 1# left Reps/Minutes 10 reps Standing Exercises wt shifts with gluteal activation Reps/Minutes 10x ea Comments verbal and manual cues Manual Therapy Treatment Taping postural correction Body Location between scapulae Treatment Focus postural correction Type of Tape Kinesio Tape Skin Inspection intact SI taping for stabilization Body Location I strip SI joint Treatment Focus pain relief Type of Tape Kinesio Tape Skin Inspection intact Comments due to c/o SI pain and cracking which appears due to compensatory gait from left hip pain space correction for pain relief Body Location greater trochanter star pattern Treatment Focus pain relief Type of Tape kinesiotape Skin Inspection intact Comments Biofreeze to prepare skin. patient instructed to remove if uncomfortable or increase in symptoms. No longer than 5 days of wear. PT-OP-R Modalities Start: 12/02/18 09:52 Freq: Status: Active Protocol: Document 01/13/19 08:17 [facility] (Rec: 01/13/19 08:36 [facility] [id number]) Hot Pack/Cold Pack Treatment Cold Pack Location left hip Treatment Duration (minutes) 10 PT-OP-T Assessment and Plan Start: 12/02/18 09:52 Freq: Status: Active Protocol: Document 01/13/19 08:17 [facility] (Rec: 01/13/19 08:36 [facility] [id number]) Physical Therapy Assessment Goals LEFS Impairment LEFS= 9 (80-99%) Sand Cutter Goal (LTG) pt will be reach < 40-59% impairment on LEFS to improve overall functional mobility. LTG Duration 12 weeks pain during WB position Impairment Severe pain during WB position Sand Cutter Goal (LTG) Pt will report <4/10 pain in WB position such as standing and walking to improve quality of life. LTG Duration 12 weeks Stair negotiation Impairment pt uses step to pattern to climb stairs with railing Halfway Goal (LTG) Pt will be able to use step over pattern to climb stairs without railing LTG Duration 12 weeks 2 MWT Impairment pt only amb 188 ft under 2MWT Sand Cutter Goal (LTG) Pt will be able to amb 250 ft within 2MWT without AD LTG Duration 12 weeks Amb distance Impairment unable to amb >100 ft without rest (with spc) Halfway Goal (LTG) pt will be able to amb 500 ft without rest and assistive device LTG Duration 12 weeks Assessment Summary Assessment Good tolerance for aquatic therapy with improved sleep. Additional kinesiotape today due to SI symptoms from compensatory gait and for postura correction due to protective posturing. Physical Therapy Plan Frequency and Duration Frequency of Treatment 2x/Week Duration of Treatment 12 weeks Plan of Care Start Date 12/02/18 Plan of Care End Date 03/04/19 Therapeutic Interventions Therapeutic Interventions Aquatic Therapy Balance Training Gait Training Home Exercise Program Joint Mobilizations Manual Therapy Neuromuscular Re-education Patient/Caregiver Education Self-Care/Home Management Soft Tissue Mobilization Taping Therapeutic Activities Therapeutic Exercises Modalities Cold Pack/Ice Massage Hot Packs Other Therapeutic Interventions keep heat pack off implant on back Next Visit Focus/Plan Next Note Type Treatment Note
--- NOTE | 2019-01-15 17:16 | PT.OTN ---
Current Diagnoses Pain in left hip (01/15/19) Pelvic and perineal pain (01/15/19) Physical Therapy Treatment Note PT-OP-A Visit Information Start: 12/02/18 09:52 Freq: Status: Active Protocol: Document 01/15/19 17:08 SAK (Rec: 01/15/19 17:15 SAK [id number]) Out-Patient Physical Therapy Visit Information Visit Information Visit Type Aquatic Treatment Note Visit Start Time 13:00 Visit Stop Time 13:45 Total Visit Minutes 45 Visit Number 05/09 Number of FINGERNAIL SCULPTURER Visits 0 Evaluation Information Evaluation Date 12/02/18 Precautions Precautions High fall risks She has implanted stimulator for her bladder- in back PT-OP-B Current Condition Start: 12/02/18 09:52 Freq: Status: Active Protocol: Document 12/02/18 08:15 HH (Rec: 12/02/18 10:14 HH [email or web address]) Current Condition History of Current Condition Onset Date 3 months ago Current Complaints severe L hip pain, impaired gait and activity tolerance History of Current Condition Pt presents to clinic today with c/o new onset of severe L hip pain since 3 months ago after a possible fall at night . She explained she was not sure about the fall since she often feels unoriented at night because of medications she is taking and constant mirgrain. Pt said her hip pain started since then and x-ray showed negative findings for fx (3 months ago) but with significant L hip OA. However, pt stated her pain never goes away and keeps getting worse which significant challenge her functional mobility. Pt has been falling for the past 3 months since her injury. Pt currently unable to amb more than 100 feet without rest, standing >10-15 mins and climb stairs with step to pattern with railing. She is also using SPC for mobility on RUE to reduced pain and balance. Her sharp Pain basically gets worse with WB/ pressure and radiate to L side of the hip sometimes, and she is unable to sleep on her L side at this point. Pt notices her knee starts to cave in more and L foot board turner. Pt also states she cannot have a CT scan due to insurance coverage and she has to attempt therapy first to get second opinion first in order to be qualified for CT scan screening. Prior Treatments and Tests PT for neck pain (nerve abiation) x-ray in september showed negative fx for L hip Treatment Goals Patient/Caregiver Goals 1. To be able to walk more than 500 feet without hip pain and SPC 2. To be able to walk her dogs in community 2. to negotiate stairs with step over pattern and without handrails 3. able to stand > 30 mins without pain. Prior Functional Status Baseline Function- ADL's Independent Baseline Function- Mobility Independent Baseline Function- Gait with AD Baseline Function- Recreation/Hobbies able to walk her dogs daily Baseline Function- Other step over pattern without railing for stair climbing able to walk miles with AD Current Functional Impairments (Reported) Functional Limitations- ADL's unable to stand >10 mins unable to perform sit to supine without lifting her LLE with UE support Functional Limitations- Mobility/Gait unable to stand > 10 mins step to for stairs cannot walk > 100 feet without rest. Personal Factors Other Personal Factors That May Effect INSTER STIM for bladder Therapy/Recovery migraines depression multiple falls PT-OP-C Subjective Start: 12/02/18 09:52 Freq: Status: Active Protocol: Document 01/15/19 17:08 SAK (Rec: 01/15/19 17:15 SAK [id number]) OP-PT Subjective Patient Comments Patient Comments Pain high level past couple days, I'm not sure what I did . States she is seeing Dr. Cullen 01/17/19. Reports feeling PT is helpful, prefers aquatic PT. PT-OP-E Functional Tests Start: 12/02/18 09:52 Freq: Status: Active Protocol: Document 12/02/18 08:15 (Rec: 12/02/18 10:14 [email or web address]) Functional Tests 2 Minute Walk Test Distance 188 Device Used none Comments pt uses wall for support and balance PT-OP-G Mobility & Gait Start: 12/02/18 09:52 Freq: Status: Active Protocol: Document 12/02/18 08:15 (Rec: 12/02/18 10:14 HH [email or web address]) OP Mobility Evaluation Bed Mobility Rolling unable to lay on L side Supine to and from Sit need UE to lift L LE OP Gait Assessment Gait Gait Assistance Required: Independent Distance (Feet) 188 Able to Maintain Weight Bearing Status Yes During Gait Assistive Devices Assistive Device None Gait Deviations General Gait Pattern Antalgic Decreased Stride Length Decreased Feet Clearance Factors Limiting Gait Function Factors Limiting Gait Function Decreased Activity Tolerance Decreased Strength Limited Range of Motion Pain Comments Gait Comments significant L antalgic gait with decreased stance phase on LLE. Needed wall for support/ balance. noticeable L knee valgus and L foot board turner. Stair Climbing Evaluation Evaluation Level of Assist On Stairs Independent Devices Stair Climbing Assistive Devices Left Railing Right Railing Technique/Endurance Stair Climbing Direction Ascend and Descend Stair Climbing Technique Step Over Step PT-OP-J Posture/Palpation/Skin Start: 12/02/18 09:52 Freq: Status: Active Protocol: Document 12/02/18 08:15 (Rec: 12/02/18 11:55 [email or web address]) Posture Evaluation Position Standing Evaluation View Anterior Weight Distribution Weight Shifted Right Decreased Wt.Bear on (L) Hip Posture (L) Internally Rotated Knee Posture (L) Genu Valgus (L) Ext. Tibial Torsion PT-OP-K Range of Motion Start: 12/02/18 09:52 Freq: Status: Active Protocol: Document 12/02/18 08:15 HH (Rec: 12/02/18 11:55 [email or web address]) Hip Goniometric Range of Motion Hip Right Passive Hip ROM WFL Yes Testing Position Supine Flexion w/Knee Flexed 105 Extension 10 Abduction 35 Left Passive Hip ROM WFL No Testing Position Supine Flexion w/Knee Flexed 25 Extension 0 Abduction 0 PT-OP-L Special Tests Start: 12/02/18 09:52 Freq: Status: Active Protocol: Document 12/02/18 08:15 HH (Rec: 12/02/18 11:55 [email or web address]) Special Tests Hip Special Tests Scour Test Comments unable to test due to severe pain and muscle guarding with passive ROM LIAM Comments unable to test due to severe pain and muscle guarding with passive ROM Anterior Labral Test Comments unable to test due to severe pain and muscle guarding with passive ROM PT-OP-M Strength Start: 12/02/18 09:52 Freq: Status: Active Protocol: Document 12/02/18 08:15 HH (Rec: 12/02/18 11:55 [email or web address]) Hip Strength Hip Manual Muscle Testing Right Flexion (L2) 4+ Good+ Extension (S1) 4+ Good+ Abduction 4+ Good+ Adduction 4+ Good+ Left Flexion (L2) 2- Poor- Extension (S1) 2- Poor- Abduction 2- Poor- Adduction 2- Poor- Knee Strength Knee Manual Muscle Testing Right Flexion (S2) 4+ Good+ Extension (L3) 4+ Good+ Left Flexion (S2) 3+ Fair+ Extension (L3) 3+ Fair+ Ankle/Foot Strength Ankle and Foot Manual Muscle Testing Left Dorsiflexion (L4) 4+ Good+ Plantarflexion (S1) 4+ Good+ Inversion 4+ Good+ Eversion (S1) 4+ Good+ Right Dorsiflexion (L4) 4+ Good+ Plantarflexion (S1) 4+ Good+ Inversion 4+ Good+ Eversion (S1) 4+ Good+ PT-OP-Q Treatments Start: 12/02/18 09:52 Freq: Status: Active Protocol: Document 01/13/19 08:17 [facility] (Rec: 01/13/19 08:36 [facility] [id number]) Cardio Equipment Recumbent Stepper (Sci-Fit) Duration (Minutes) 8 Resistance 3 Seat Position 10 Therapeutic Exercises Sitting Exercises hip ab/ER Equipment Used L2 TB Reps/Minutes 10x ball squeeze Reps/Minutes 10x march Reps/Minutes 2# right, 1# left LAQ Reps/Minutes 2# right 1# left 1 Sitting Exercise Name long arc quad Side left Resistance 2# right, 1# left Reps/Minutes 10 reps Standing Exercises wt shifts with gluteal activation Reps/Minutes 10x ea Comments verbal and manual cues Manual Therapy Treatment Taping postural correction Body Location between scapulae Treatment Focus postural correction Type of Tape Kinesio Tape Skin Inspection intact SI taping for stabilization Body Location I strip SI joint Treatment Focus pain relief Type of Tape Kinesio Tape Skin Inspection intact Comments due to c/o SI pain and cracking which appears due to compensatory gait from left hip pain space correction for pain relief Body Location greater trochanter star pattern Treatment Focus pain relief Type of Tape kinesiotape Skin Inspection intact Comments Biofreeze to prepare skin. patient instructed to remove if uncomfortable or increase in symptoms. No longer than 5 days of wear. PT-OP-R Modalities Start: 12/02/18 09:52 Freq: Status: Active Protocol: Document 01/13/19 08:17 [facility] (Rec: 01/13/19 08:36 [facility] [id number]) Hot Pack/Cold Pack Treatment Cold Pack Location left hip Treatment Duration (minutes) 10 PT-OP-S Aquatic Treatment Start: 12/02/18 09:52 Freq: Status: Active Protocol: Document 01/15/19 17:08 [facility] (Rec: 01/15/19 17:15 [facility] [id number]) Aquatics Treatment Pool Entry/Exit Pool Entry/Exit Method Stairs Assistance Independent Water Walking september Water Level Chest Level Level of Assistance Verbal Cues sidestepping Water Level Chest Level Level of Assistance Verbal Cues backward Water Level Chest Level Level of Assistance Verbal Cues forward Water Level Chest Level Level of Assistance Verbal Cues Lower Extremity Exercises knee flex/ext Body Position Standing Water Level Chest Level Reps/Duration 10x hip ab/ad Body Position Standing Water Level Chest Level Reps/Duration 10x Comments small amplitude hip circles Body Position Standing Water Level Chest Level Reps/Duration 10x Comments small amplitude hip flex/ext Body Position Standing Water Level Chest Level Reps/Duration 10x Comments small amplitude squats Body Position Standing Water Level Chest Level Reps/Duration 10x heel raise, toe raise Body Position Standing Water Level Chest Level Reps/Duration 10x Lower Extremity Stretches IT band Body Position Standing Water Level Chest Level Equipment Ankle Floats hamstring Body Position Standing Water Level Chest Level Equipment Ankle Floats Reps/Duration 2x [place] Activities [place] Activities Bicycle Other Activities deep water hang at pool edge 1 ' x 3 Equipment elem float, 2# ankle weights PT-OP-T Assessment and Plan Start: 12/02/18 09:52 Freq: Status: Active Protocol: Document 01/15/19 17:08 [facility] (Rec: 01/15/19 17:15 [facility] [id number]) Physical Therapy Assessment Goals LEFS Impairment LEFS= 9 (80-99%) [facility] Goal (LTG) pt will be reach < 40-59% impairment on LEFS to improve overall functional mobility. 01/15/19: no significant change LTG Duration 12 weeks pain during WB position Impairment Severe pain during WB position Medical Education Coordinator Goal (LTG) Pt will report <4/10 pain in WB position such as standing and walking to improve quality of life. 01/15/19: minimal pain with deep water walking, mild in shallow water. Still high level on land LTG Duration 12 weeks Stair negotiation Impairment pt uses step to pattern to climb stairs with railing Medical Education Coordinator Goal (LTG) Pt will be able to use step over pattern to climb stairs without railing 01/15/19: no progress, still step-to LTG Duration 12 weeks 2 MWT Impairment pt only amb 188 ft under 2MWT [facility] Goal (LTG) Pt will be able to amb 250 ft within 2MWT without AD 01/15/19: still requires use of assistive device (using cane but due to high pain level I have encouraged use of FWW at this time) LTG Duration 12 weeks Amb distance Impairment unable to amb >100 ft without rest (with spc) Medical Education Coordinator Goal (LTG) pt will be able to amb 500 ft without rest and assistive device 01/15/19: requires use of device as above LTG Duration 12 weeks Assessment Summary Assessment High pain level persists though decreased with unweighting of hip with aquatic PT, best pain reduction in deep water. Overall function at home and community not improved. Patient returning to her physician 01/17/19. Feel further imaging may be required due to persistent, high level pain Physical Therapy Plan Frequency and Duration Frequency of Treatment 2x/Week Duration of Treatment 12 weeks Plan of Care Start Date 12/02/18 Plan of Care End Date 03/04/19 Therapeutic Interventions Therapeutic Interventions Aquatic Therapy Balance Training Gait Training Home Exercise Program Joint Mobilizations Manual Therapy Neuromuscular Re-education Patient/Caregiver Education Self-Care/Home Management Soft Tissue Mobilization Taping Therapeutic Activities Therapeutic Exercises Next Visit Focus/Plan Next Note Type Treatment Note Next Visit Plan Continue PT (aquatic as able) pending any recommendations from Dr. Cullen.
--- NOTE | 2019-01-20 16:13 | PT.OTN ---
Current Diagnoses Pain in left hip (01/20/19) Pelvic and perineal pain (01/20/19) Physical Therapy Treatment Note PT-OP-A Visit Information Start: 12/02/18 09:52 Freq: Status: Active Protocol: Document 01/20/19 16:08 SAK (Rec: 01/20/19 16:13 SAK [id number]) Out-Patient Physical Therapy Visit Information Visit Information Visit Type Aquatic Treatment Note Visit Start Time 13:00 Visit Stop Time 13:45 Total Visit Minutes 45 Visit Number 06/09 Number of NETWORK/TELECOM ENGINEER Visits 0 Evaluation Information Evaluation Date 12/02/18 Precautions Precautions High fall risks She has implanted stimulator for her bladder- in back PT-OP-B Current Condition Start: 12/02/18 09:52 Freq: Status: Active Protocol: Document 12/02/18 08:15 HH (Rec: 12/02/18 10:14 HH [email or web address]) Current Condition History of Current Condition Onset Date 3 months ago Current Complaints severe L hip pain, impaired gait and activity tolerance History of Current Condition Pt presents to clinic today with c/o new onset of severe L hip pain since 3 months ago after a possible fall at night . She explained she was not sure about the fall since she often feels unoriented at night because of medications she is taking and constant mirgrain. Pt said her hip pain started since then and x-ray showed negative findings for fx (3 months ago) but with significant L hip OA. However, pt stated her pain never goes away and keeps getting worse which significant challenge her functional mobility. Pt has been falling for the past 3 months since her injury. Pt currently unable to amb more than 100 feet without rest, standing >10-15 mins and climb stairs with step to pattern with railing. She is also using SPC for mobility on RUE to reduced pain and balance. Her sharp Pain basically gets worse with WB/ pressure and radiate to L side of the hip sometimes, and she is unable to sleep on her L side at this point. Pt notices her knee starts to cave in more and L foot bar turner. Pt also states she cannot have a CT scan due to insurance coverage and she has to attempt therapy first to get second opinion first in order to be qualified for CT scan screening. Prior Treatments and Tests PT for neck pain (nerve abiation) x-ray in september showed negative fx for L hip Treatment Goals Patient/Caregiver Goals 1. To be able to walk more than 500 feet without hip pain and SPC 2. To be able to walk her dogs in community 2. to negotiate stairs with step over pattern and without handrails 3. able to stand > 30 mins without pain. Prior Functional Status Baseline Function- ADL's Independent Baseline Function- Mobility Independent Baseline Function- Gait with AD Baseline Function- Recreation/Hobbies able to walk her dogs daily Baseline Function- Other step over pattern without railing for stair climbing able to walk miles with AD Current Functional Impairments (Reported) Functional Limitations- ADL's unable to stand >10 mins unable to perform sit to supine without lifting her LLE with UE support Functional Limitations- Mobility/Gait unable to stand > 10 mins step to for stairs cannot walk > 100 feet without rest. Personal Factors Other Personal Factors That May Effect INSTER STIM for bladder Therapy/Recovery migraines depression multiple falls PT-OP-C Subjective Start: 12/02/18 09:52 Freq: Status: Active Protocol: Document 01/20/19 16:08 SAK (Rec: 01/20/19 16:13 SAK [id number]) OP-PT Subjective Patient Comments Patient Comments Patient reports she saws her doctor 01/17/19, had injection of Toradol and reports she had a decrease in pain. Being referred to orthopedist. PT-OP-E Functional Tests Start: 12/02/18 09:52 Freq: Status: Active Protocol: Document 12/02/18 08:15 HH (Rec: 12/02/18 10:14 HH [email or web address]) Functional Tests 2 Minute Walk Test Distance 188 Device Used none Comments pt uses wall for support and balance PT-OP-G Mobility & Gait Start: 12/02/18 09:52 Freq: Status: Active Protocol: Document 12/02/18 08:15 HH (Rec: 12/02/18 10:14 HH [email or web address]) OP Mobility Evaluation Bed Mobility Rolling unable to lay on L side Supine to and from Sit need UE to lift L LE OP Gait Assessment Gait Gait Assistance Required: Independent Distance (Feet) 188 Able to Maintain Weight Bearing Status Yes During Gait Assistive Devices Assistive Device None Gait Deviations General Gait Pattern Antalgic Decreased Stride Length Decreased Feet Clearance Factors Limiting Gait Function Factors Limiting Gait Function Decreased Activity Tolerance Decreased Strength Limited Range of Motion Pain Comments Gait Comments significant L antalgic gait with decreased stance phase on LLE. Needed wall for support/ balance. noticeable L knee valgus and L foot bar turner. Stair Climbing Evaluation Evaluation Level of Assist On Stairs Independent Devices Stair Climbing Assistive Devices Left Railing Right Railing Technique/Endurance Stair Climbing Direction Ascend and Descend Stair Climbing Technique Step Over Step PT-OP-J Posture/Palpation/Skin Start: 12/02/18 09:52 Freq: Status: Active Protocol: Document 12/02/18 08:15 (Rec: 12/02/18 11:55 [email or web address]) Posture Evaluation Position Standing Evaluation View Anterior Weight Distribution Weight Shifted Right Decreased Wt.Bear on (L) Hip Posture (L) Internally Rotated Knee Posture (L) Genu Valgus (L) Ext. Tibial Torsion PT-OP-K Range of Motion Start: 12/02/18 09:52 Freq: Status: Active Protocol: Document 12/02/18 08:15 HH (Rec: 12/02/18 11:55 [email or web address]) Hip Goniometric Range of Motion Hip Right Passive Hip ROM WFL Yes Testing Position Supine Flexion w/Knee Flexed 105 Extension 10 Abduction 35 Left Passive Hip ROM WFL No Testing Position Supine Flexion w/Knee Flexed 25 Extension 0 Abduction 0 PT-OP-L Special Tests Start: 12/02/18 09:52 Freq: Status: Active Protocol: Document 12/02/18 08:15 HH (Rec: 12/02/18 11:55 [email or web address]) Special Tests Hip Special Tests Scour Test Comments unable to test due to severe pain and muscle guarding with passive ROM LIAM Comments unable to test due to severe pain and muscle guarding with passive ROM Anterior Labral Test Comments unable to test due to severe pain and muscle guarding with passive ROM PT-OP-M Strength Start: 12/02/18 09:52 Freq: Status: Active Protocol: Document 12/02/18 08:15 HH (Rec: 12/02/18 11:55 [email or web address]) Hip Strength Hip Manual Muscle Testing Right Flexion (L2) 4+ Good+ Extension (S1) 4+ Good+ Abduction 4+ Good+ Adduction 4+ Good+ Left Flexion (L2) 2- Poor- Extension (S1) 2- Poor- Abduction 2- Poor- Adduction 2- Poor- Knee Strength Knee Manual Muscle Testing Right Flexion (S2) 4+ Good+ Extension (L3) 4+ Good+ Left Flexion (S2) 3+ Fair+ Extension (L3) 3+ Fair+ Ankle/Foot Strength Ankle and Foot Manual Muscle Testing Left Dorsiflexion (L4) 4+ Good+ Plantarflexion (S1) 4+ Good+ Inversion 4+ Good+ Eversion (S1) 4+ Good+ Right Dorsiflexion (L4) 4+ Good+ Plantarflexion (S1) 4+ Good+ Inversion 4+ Good+ Eversion (S1) 4+ Good+ PT-OP-Q Treatments Start: 12/02/18 09:52 Freq: Status: Active Protocol: Document 01/13/19 08:17 [facility] (Rec: 01/13/19 08:36 [facility] [id number]) Cardio Equipment Recumbent Stepper (Sci-Fit) Duration (Minutes) 8 Resistance 3 Seat Position 10 Therapeutic Exercises Sitting Exercises hip ab/ER Equipment Used L2 TB Reps/Minutes 10x ball squeeze Reps/Minutes 10x march Reps/Minutes 2# right, 1# left LAQ Reps/Minutes 2# right 1# left 1 Sitting Exercise Name long arc quad Side left Resistance 2# right, 1# left Reps/Minutes 10 reps Standing Exercises wt shifts with gluteal activation Reps/Minutes 10x ea Comments verbal and manual cues Manual Therapy Treatment Taping postural correction Body Location between scapulae Treatment Focus postural correction Type of Tape Kinesio Tape Skin Inspection intact SI taping for stabilization Body Location I strip SI joint Treatment Focus pain relief Type of Tape Kinesio Tape Skin Inspection intact Comments due to c/o SI pain and cracking which appears due to compensatory gait from left hip pain space correction for pain relief Body Location greater trochanter star pattern Treatment Focus pain relief Type of Tape kinesiotape Skin Inspection intact Comments Biofreeze to prepare skin. patient instructed to remove if uncomfortable or increase in symptoms. No longer than 5 days of wear. PT-OP-R Modalities Start: 12/02/18 09:52 Freq: Status: Active Protocol: Document 01/13/19 08:17 [facility] (Rec: 01/13/19 08:36 [facility] [id number]) Hot Pack/Cold Pack Treatment Cold Pack Location left hip Treatment Duration (minutes) 10 PT-OP-S Aquatic Treatment Start: 12/02/18 09:52 Freq: Status: Active Protocol: Document 01/20/19 16:08 [facility] (Rec: 01/20/19 16:13 [facility] [id number]) Aquatics Treatment Pool Entry/Exit Pool Entry/Exit Method Stairs Assistance Independent Water Walking march Water Level Chest Level Level of Assistance Verbal Cues Comments 2 laps sidestepping Comments 2 laps backward Comments 1 lap forward Comments 2 laps Lower Extremity Exercises knee flex/ext Body Position Standing Water Level Chest Level Reps/Duration 10x hip circles Body Position Standing Water Level Chest Level Reps/Duration 10x Comments medium amplitude squats Body Position Standing Water Level Chest Level Reps/Duration 10x [place] Activities [place] Activities Bicycle Other Activities deep water hang at pool edge 1 ' x 3 Equipment [place] float, 4# ankle weights Duration 20 PT-OP-T Assessment and Plan Start: 12/02/18 09:52 Freq: Status: Active Protocol: Document 01/20/19 16:08 [facility] (Rec: 01/20/19 16:13 [facility] [id number]) Physical Therapy Assessment Goals LEFS Impairment LEFS= 9 (80-99%) Snf Goal (LTG) pt will be reach < 40-59% impairment on LEFS to improve overall functional mobility. 01/15/19: no significant change LTG Duration 12 weeks pain during WB position Impairment Severe pain during WB position Snf Goal (LTG) Pt will report <4/10 pain in WB position such as standing and walking to improve quality of life. 01/15/19: minimal pain with deep water walking, mild in shallow water. Still high level on land LTG Duration 12 weeks Stair negotiation Impairment pt uses step to pattern to climb stairs with railing Snf Goal (LTG) Pt will be able to use step over pattern to climb stairs without railing 01/15/19: no progress, still step-to LTG Duration 12 weeks 2 MWT Impairment pt only amb 188 ft under 2MWT Snf Goal (LTG) Pt will be able to amb 250 ft within 2MWT without AD 01/15/19: still requires use of assistive device (using cane but due to high pain level I have encouraged use of FWW at this time) LTG Duration 12 weeks Amb distance Impairment unable to amb >100 ft without rest (with spc) Snf Goal (LTG) pt will be able to amb 500 ft without rest and assistive device 01/15/19: requires use of device as above LTG Duration 12 weeks Assessment Summary Assessment Decreased pain and improved tolerance for aquatic ex today . No manual assit for alignment in deep water required with use of 4# weights on ankles. Physical Therapy Plan Frequency and Duration Frequency of Treatment 2x/Week Duration of Treatment 12 weeks Plan of Care Start Date 12/02/18 Plan of Care End Date 03/04/19 Therapeutic Interventions Therapeutic Interventions Aquatic Therapy Balance Training Gait Training Home Exercise Program Joint Mobilizations Manual Therapy Neuromuscular Re-education Patient/Caregiver Education Self-Care/Home Management Soft Tissue Mobilization Taping Therapeutic Activities Therapeutic Exercises Next Visit Focus/Plan Next Note Type Treatment Note Next Visit Plan Continue PT per POC, increasing resistance as tolerated. Continue to emphasize neutral postural alignment and facilitate correct muscle activation.
--- NOTE | 2019-01-22 16:49 | PT.OTN ---
Current Diagnoses Pain in left hip (01/22/19) Pelvic and perineal pain (01/22/19) Physical Therapy Treatment Note PT-OP-A Visit Information Start: 12/02/18 09:52 Freq: Status: Active Protocol: Document 01/22/19 16:42 SAK (Rec: 01/22/19 16:49 SAK [id number]) Out-Patient Physical Therapy Visit Information Visit Information Visit Type Aquatic Treatment Note Visit Start Time 13:00 Visit Stop Time 13:45 Total Visit Minutes 45 Visit Number 07/09 Number of STRAIGHTENER AND ALIGNER Visits 0 Evaluation Information Evaluation Date 12/02/18 Precautions Precautions High fall risks She has implanted stimulator for her bladder- in back PT-OP-B Current Condition Start: 12/02/18 09:52 Freq: Status: Active Protocol: Document 12/02/18 08:15 HH (Rec: 12/02/18 10:14 HH [email or web address]) Current Condition History of Current Condition Onset Date 3 months ago Current Complaints severe L hip pain, impaired gait and activity tolerance History of Current Condition Pt presents to clinic today with c/o new onset of severe L hip pain since 3 months ago after a possible fall at night . She explained she was not sure about the fall since she often feels unoriented at night because of medications she is taking and constant mirgrain. Pt said her hip pain started since then and x-ray showed negative findings for fx (3 months ago) but with significant L hip OA. However, pt stated her pain never goes away and keeps getting worse which significant challenge her functional mobility. Pt has been falling for the past 3 months since her injury. Pt currently unable to amb more than 100 feet without rest, standing >10-15 mins and climb stairs with step to pattern with railing. She is also using SPC for mobility on RUE to reduced pain and balance. Her sharp Pain basically gets worse with WB/ pressure and radiate to L side of the hip sometimes, and she is unable to sleep on her L side at this point. Pt notices her knee starts to cave in more and L foot sock turner. Pt also states she cannot have a CT scan due to insurance coverage and she has to attempt therapy first to get second opinion first in order to be qualified for CT scan screening. Prior Treatments and Tests PT for neck pain (nerve abiation) x-ray in september showed negative fx for L hip Treatment Goals Patient/Caregiver Goals 1. To be able to walk more than 500 feet without hip pain and SPC 2. To be able to walk her dogs in community 2. to negotiate stairs with step over pattern and without handrails 3. able to stand > 30 mins without pain. Prior Functional Status Baseline Function- ADL's Independent Baseline Function- Mobility Independent Baseline Function- Gait with AD Baseline Function- Recreation/Hobbies able to walk her dogs daily Baseline Function- Other step over pattern without railing for stair climbing able to walk miles with AD Current Functional Impairments (Reported) Functional Limitations- ADL's unable to stand >10 mins unable to perform sit to supine without lifting her LLE with UE support Functional Limitations- Mobility/Gait unable to stand > 10 mins step to for stairs cannot walk > 100 feet without rest. Personal Factors Other Personal Factors That May Effect INSTER STIM for bladder Therapy/Recovery migraines depression multiple falls PT-OP-C Subjective Start: 12/02/18 09:52 Freq: Status: Active Protocol: Document 01/22/19 16:42 SAK (Rec: 01/22/19 16:49 SAK [id number]) OP-PT Subjective Patient Comments Patient Comments Increased pain today, unsure why. States she has slightly better days then horrible days , unpredictable. Doesn't have orthopedic consult scheduled yet; agreed to call her doctor to check and see if referral sent. PT-OP-E Functional Tests Start: 12/02/18 09:52 Freq: Status: Active Protocol: Document 12/02/18 08:15 (Rec: 12/02/18 10:14 [email or web address]) Functional Tests 2 Minute Walk Test Distance 188 Device Used none Comments pt uses wall for support and balance PT-OP-G Mobility & Gait Start: 12/02/18 09:52 Freq: Status: Active Protocol: Document 12/02/18 08:15 (Rec: 12/02/18 10:14 HH [email or web address]) OP Mobility Evaluation Bed Mobility Rolling unable to lay on L side Supine to and from Sit need UE to lift L LE OP Gait Assessment Gait Gait Assistance Required: Independent Distance (Feet) 188 Able to Maintain Weight Bearing Status Yes During Gait Assistive Devices Assistive Device None Gait Deviations General Gait Pattern Antalgic Decreased Stride Length Decreased Feet Clearance Factors Limiting Gait Function Factors Limiting Gait Function Decreased Activity Tolerance Decreased Strength Limited Range of Motion Pain Comments Gait Comments significant L antalgic gait with decreased stance phase on LLE. Needed wall for support/ balance. noticeable L knee valgus and L foot sock turner. Stair Climbing Evaluation Evaluation Level of Assist On Stairs Independent Devices Stair Climbing Assistive Devices Left Railing Right Railing Technique/Endurance Stair Climbing Direction Ascend and Descend Stair Climbing Technique Step Over Step PT-OP-J Posture/Palpation/Skin Start: 12/02/18 09:52 Freq: Status: Active Protocol: Document 12/02/18 08:15 (Rec: 12/02/18 11:55 [email or web address]) Posture Evaluation Position Standing Evaluation View Anterior Weight Distribution Weight Shifted Right Decreased Wt.Bear on (L) Hip Posture (L) Internally Rotated Knee Posture (L) Genu Valgus (L) Ext. Tibial Torsion PT-OP-K Range of Motion Start: 12/02/18 09:52 Freq: Status: Active Protocol: Document 12/02/18 08:15 HH (Rec: 12/02/18 11:55 [email or web address]) Hip Goniometric Range of Motion Hip Right Passive Hip ROM WFL Yes Testing Position Supine Flexion w/Knee Flexed 105 Extension 10 Abduction 35 Left Passive Hip ROM WFL No Testing Position Supine Flexion w/Knee Flexed 25 Extension 0 Abduction 0 PT-OP-L Special Tests Start: 12/02/18 09:52 Freq: Status: Active Protocol: Document 12/02/18 08:15 HH (Rec: 12/02/18 11:55 [email or web address]) Special Tests Hip Special Tests Scour Test Comments unable to test due to severe pain and muscle guarding with passive ROM LIAM Comments unable to test due to severe pain and muscle guarding with passive ROM Anterior Labral Test Comments unable to test due to severe pain and muscle guarding with passive ROM PT-OP-M Strength Start: 12/02/18 09:52 Freq: Status: Active Protocol: Document 12/02/18 08:15 HH (Rec: 12/02/18 11:55 [email or web address]) Hip Strength Hip Manual Muscle Testing Right Flexion (L2) 4+ Good+ Extension (S1) 4+ Good+ Abduction 4+ Good+ Adduction 4+ Good+ Left Flexion (L2) 2- Poor- Extension (S1) 2- Poor- Abduction 2- Poor- Adduction 2- Poor- Knee Strength Knee Manual Muscle Testing Right Flexion (S2) 4+ Good+ Extension (L3) 4+ Good+ Left Flexion (S2) 3+ Fair+ Extension (L3) 3+ Fair+ Ankle/Foot Strength Ankle and Foot Manual Muscle Testing Left Dorsiflexion (L4) 4+ Good+ Plantarflexion (S1) 4+ Good+ Inversion 4+ Good+ Eversion (S1) 4+ Good+ Right Dorsiflexion (L4) 4+ Good+ Plantarflexion (S1) 4+ Good+ Inversion 4+ Good+ Eversion (S1) 4+ Good+ PT-OP-Q Treatments Start: 12/02/18 09:52 Freq: Status: Active Protocol: Document 01/13/19 08:17 [facility] (Rec: 01/13/19 08:36 [facility] [id number]) Cardio Equipment Recumbent Stepper (Sci-Fit) Duration (Minutes) 8 Resistance 3 Seat Position 10 Therapeutic Exercises Sitting Exercises hip ab/ER Equipment Used L2 TB Reps/Minutes 10x ball squeeze Reps/Minutes 10x march Reps/Minutes 2# right, 1# left LAQ Reps/Minutes 2# right 1# left 1 Sitting Exercise Name long arc quad Side left Resistance 2# right, 1# left Reps/Minutes 10 reps Standing Exercises wt shifts with gluteal activation Reps/Minutes 10x ea Comments verbal and manual cues Manual Therapy Treatment Taping postural correction Body Location between scapulae Treatment Focus postural correction Type of Tape Kinesio Tape Skin Inspection intact SI taping for stabilization Body Location I strip SI joint Treatment Focus pain relief Type of Tape Kinesio Tape Skin Inspection intact Comments due to c/o SI pain and cracking which appears due to compensatory gait from left hip pain space correction for pain relief Body Location greater trochanter star pattern Treatment Focus pain relief Type of Tape kinesiotape Skin Inspection intact Comments Biofreeze to prepare skin. patient instructed to remove if uncomfortable or increase in symptoms. No longer than 5 days of wear. PT-OP-R Modalities Start: 12/02/18 09:52 Freq: Status: Active Protocol: Document 01/13/19 08:17 [facility] (Rec: 01/13/19 08:36 [facility] [id number]) Hot Pack/Cold Pack Treatment Cold Pack Location left hip Treatment Duration (minutes) 10 PT-OP-S Aquatic Treatment Start: 12/02/18 09:52 Freq: Status: Active Protocol: Document 01/22/19 16:42 [facility] (Rec: 01/22/19 16:49 [facility] [id number]) Aquatics Treatment Pool Entry/Exit Pool Entry/Exit Method Stairs Assistance Independent Water Walking march Water Level Chest Level Level of Assistance Verbal Cues Comments 2 laps sidestepping Comments 2 laps backward Comments 1 lap forward Comments 2 laps Lower Extremity Exercises knee flex/ext Body Position Standing Water Level Chest Level Reps/Duration 10x hip ab/ad Details holding pool edge Body Position Standing Water Level [place] Reps/Duration 10x Comments small amplitude hip flex/ext Details holding pool edge Body Position Standing Water Level [place] Reps/Duration 10x Comments small amplitude squats Body Position Standing Water Level Chest Level Reps/Duration 10x Comments shallow Lower Extremity Stretches IT band Body Position Standing Water Level Chest Level Equipment Ankle Floats hamstring Body Position Standing Water Level Chest Level Equipment Ankle Floats Reps/Duration 2x Comments low tolerance [place] Activities [place] Activities Bicycle Other Activities deep water hang at pool edge 2 ' x 3 Equipment large noodle, 4# ankle weights Duration 20 Comments frequent rest breaks, cues for smaller amplitude. Patient had more difficulty with alignment. PT-OP-T Assessment and Plan Start: 12/02/18 09:52 Freq: Status: Active Protocol: Document 01/22/19 16:42 [facility] (Rec: 01/22/19 16:49 [facility] [id number]) Physical Therapy Assessment Goals LEFS Impairment LEFS= 9 (80-99%) Storage Specialist Goal (LTG) pt will be reach < 40-59% impairment on LEFS to improve overall functional mobility. 01/15/19: no significant change LTG Duration 12 weeks pain during WB position Impairment Severe pain during WB position Storage Specialist Goal (LTG) Pt will report <4/10 pain in WB position such as standing and walking to improve quality of life. 01/15/19: minimal pain with deep water walking, mild in shallow water. Still high level on land LTG Duration 12 weeks Stair negotiation Impairment pt uses step to pattern to climb stairs with railing Retirement Goal (LTG) Pt will be able to use step over pattern to climb stairs without railing 01/15/19: no progress, still step-to LTG Duration 12 weeks 2 MWT Impairment pt only amb 188 ft under 2MWT Retirement Goal (LTG) Pt will be able to amb 250 ft within 2MWT without AD 01/15/19: still requires use of assistive device (using cane but due to high pain level I have encouraged use of FWW at this time) LTG Duration 12 weeks Amb distance Impairment unable to amb >100 ft without rest (with spc) Storage Specialist Goal (LTG) pt will be able to amb 500 ft without rest and assistive device 01/15/19: requires use of device as above LTG Duration 12 weeks Assessment Summary Assessment Patient's tolerance for PT was very low today, grimacing and guarding due to pain. Recommended she call physician to check on orthopedic referral. Physical Therapy Plan Frequency and Duration Frequency of Treatment 2x/Week Duration of Treatment 12 weeks Plan of Care Start Date 12/02/18 Plan of Care End Date 03/04/19 Therapeutic Interventions Therapeutic Interventions Aquatic Therapy Balance Training Gait Training Home Exercise Program Joint Mobilizations Manual Therapy Neuromuscular Re-education Patient/Caregiver Education Self-Care/Home Management Soft Tissue Mobilization Taping Therapeutic Activities Therapeutic Exercises Next Visit Focus/Plan Next Note Type Treatment Note Next Visit Plan Assess response to last PT session, consider deep water hang with increased weight for hip decompression, manual aquatic therapy techniques if patient receptive.
--- NOTE | 2019-01-27 15:40 | PT.OTN ---
Current Diagnoses Pain in left hip (01/27/19) Pelvic and perineal pain (01/27/19) Physical Therapy Treatment Note PT-OP-A Visit Information Start: 12/02/18 09:52 Freq: Status: Active Protocol: Document 01/27/19 13:00 CLB (Rec: 01/27/19 15:40 CLB [id number]) Out-Patient Physical Therapy Visit Information Visit Information Visit Type Aquatic Treatment Note Visit Start Time 13:00 Visit Stop Time 13:45 Total Visit Minutes 45 Visit Number Number of WEB WORKER Visits 1 PT-OP-B Current Condition Start: 12/02/18 09:52 Freq: Status: Active Protocol: Document 12/02/18 08:15 HH (Rec: 12/02/18 10:14 HH [email or web address]) Current Condition History of Current Condition Onset Date 3 months ago Current Complaints severe L hip pain, impaired gait and activity tolerance History of Current Condition Pt presents to clinic today with c/o new onset of severe L hip pain since 3 months ago after a possible fall at night . She explained she was not sure about the fall since she often feels unoriented at night because of medications she is taking and constant mirgrain. Pt said her hip pain started since then and x-ray showed negative findings for fx (3 months ago) but with significant L hip OA. However, pt stated her pain never goes away and keeps getting worse which significant challenge her functional mobility. Pt has been falling for the past 3 months since her injury. Pt currently unable to amb more than 100 feet without rest, standing >10-15 mins and climb stairs with step to pattern with railing. She is also using SPC for mobility on RUE to reduced pain and balance. Her sharp Pain basically gets worse with WB/ pressure and radiate to L side of the hip sometimes, and she is unable to sleep on her L side at this point. Pt notices her knee starts to cave in more and L foot fitter and turner. Pt also states she cannot have a CT scan due to insurance coverage and she has to attempt therapy first to get second opinion first in order to be qualified for CT scan screening. Prior Treatments and Tests PT for neck pain (nerve abiation) x-ray in september showed negative fx for L hip Treatment Goals Patient/Caregiver Goals 1. To be able to walk more than 500 feet without hip pain and SPC 2. To be able to walk her dogs in community 2. to negotiate stairs with step over pattern and without handrails 3. able to stand > 30 mins without pain. Prior Functional Status Baseline Function- ADL's Independent Baseline Function- Mobility Independent Baseline Function- Gait with AD Baseline Function- Recreation/Hobbies able to walk her dogs daily Baseline Function- Other step over pattern without railing for stair climbing able to walk miles with AD Current Functional Impairments (Reported) Functional Limitations- ADL's unable to stand >10 mins unable to perform sit to supine without lifting her LLE with UE support Functional Limitations- Mobility/Gait unable to stand > 10 mins step to for stairs cannot walk > 100 feet without rest. Personal Factors Other Personal Factors That May Effect INSTER STIM for bladder Therapy/Recovery migraines depression multiple falls PT-OP-C Subjective Start: 12/02/18 09:52 Freq: Status: Active Protocol: Document 01/27/19 13:00 CLB (Rec: 01/27/19 15:40 CLB [id number]) OP-PT Subjective Patient Comments Patient Comments Pt stated she has referral to Orthopedic doctor and is awaiting appt. PT-OP-E Functional Tests Start: 12/02/18 09:52 Freq: Status: Active Protocol: Document 12/02/18 08:15 HH (Rec: 12/02/18 10:14 HH [email or web address]) Functional Tests 2 Minute Walk Test Distance 188 Device Used none Comments pt uses wall for support and balance PT-OP-G Mobility & Gait Start: 12/02/18 09:52 Freq: Status: Active Protocol: Document 12/02/18 08:15 HH (Rec: 12/02/18 10:14 HH [email or web address]) OP Mobility Evaluation Bed Mobility Rolling unable to lay on L side Supine to and from Sit need UE to lift L LE OP Gait Assessment Gait Gait Assistance Required: Independent Distance (Feet) 188 Able to Maintain Weight Bearing Status Yes During Gait Assistive Devices Assistive Device None Gait Deviations General Gait Pattern Antalgic Decreased Stride Length Decreased Feet Clearance Factors Limiting Gait Function Factors Limiting Gait Function Decreased Activity Tolerance Decreased Strength Limited Range of Motion Pain Comments Gait Comments significant L antalgic gait with decreased stance phase on LLE. Needed wall for support/ balance. noticeable L knee valgus and L foot fitter and turner. Stair Climbing Evaluation Evaluation Level of Assist On Stairs Independent Devices Stair Climbing Assistive Devices Left Railing Right Railing Technique/Endurance Stair Climbing Direction Ascend and Descend Stair Climbing Technique Step Over Step PT-OP-J Posture/Palpation/Skin Start: 12/02/18 09:52 Freq: Status: Active Protocol: Document 12/02/18 08:15 (Rec: 12/02/18 11:55 [email or web address]) Posture Evaluation Position Standing Evaluation View Anterior Weight Distribution Weight Shifted Right Decreased Wt.Bear on (L) Hip Posture (L) Internally Rotated Knee Posture (L) Genu Valgus (L) Ext. Tibial Torsion PT-OP-K Range of Motion Start: 12/02/18 09:52 Freq: Status: Active Protocol: Document 12/02/18 08:15 (Rec: 12/02/18 11:55 [email or web address]) Hip Goniometric Range of Motion Hip Right Passive Hip ROM WFL Yes Testing Position Supine Flexion w/Knee Flexed 105 Extension 10 Abduction 35 Left Passive Hip ROM WFL No Testing Position Supine Flexion w/Knee Flexed 25 Extension 0 Abduction 0 PT-OP-L Special Tests Start: 12/02/18 09:52 Freq: Status: Active Protocol: Document 12/02/18 08:15 (Rec: 12/02/18 11:55 [email or web address]) Special Tests Hip Special Tests Scour Test Comments unable to test due to severe pain and muscle guarding with passive ROM LIAM Comments unable to test due to severe pain and muscle guarding with passive ROM Anterior Labral Test Comments unable to test due to severe pain and muscle guarding with passive ROM PT-OP-M Strength Start: 12/02/18 09:52 Freq: Status: Active Protocol: Document 12/02/18 08:15 (Rec: 12/02/18 11:55 [email or web address]) Hip Strength Hip Manual Muscle Testing Right Flexion (L2) 4+ Good+ Extension (S1) 4+ Good+ Abduction 4+ Good+ Adduction 4+ Good+ Left Flexion (L2) 2- Poor- Extension (S1) 2- Poor- Abduction 2- Poor- Adduction 2- Poor- Knee Strength Knee Manual Muscle Testing Right Flexion (S2) 4+ Good+ Extension (L3) 4+ Good+ Left Flexion (S2) 3+ Fair+ Extension (L3) 3+ Fair+ Ankle/Foot Strength Ankle and Foot Manual Muscle Testing Left Dorsiflexion (L4) 4+ Good+ Plantarflexion (S1) 4+ Good+ Inversion 4+ Good+ Eversion (S1) 4+ Good+ Right Dorsiflexion (L4) 4+ Good+ Plantarflexion (S1) 4+ Good+ Inversion 4+ Good+ Eversion (S1) 4+ Good+ PT-OP-Q Treatments Start: 12/02/18 09:52 Freq: Status: Active Protocol: Document 01/13/19 08:17 [facility] (Rec: 01/13/19 08:36 [facility] [id number]) Cardio Equipment Recumbent Stepper (Sci-Fit) Duration (Minutes) 8 Resistance 3 Seat Position 10 Therapeutic Exercises Sitting Exercises hip ab/ER Equipment Used L2 TB Reps/Minutes 10x ball squeeze Reps/Minutes 10x march Reps/Minutes 2# right, 1# left LAQ Reps/Minutes 2# right 1# left 1 Sitting Exercise Name long arc quad Side left Resistance 2# right, 1# left Reps/Minutes 10 reps Standing Exercises wt shifts with gluteal activation Reps/Minutes 10x ea Comments verbal and manual cues Manual Therapy Treatment Taping postural correction Body Location between scapulae Treatment Focus postural correction Type of Tape Kinesio Tape Skin Inspection intact SI taping for stabilization Body Location I strip SI joint Treatment Focus pain relief Type of Tape Kinesio Tape Skin Inspection intact Comments due to c/o SI pain and cracking which appears due to compensatory gait from left hip pain space correction for pain relief Body Location greater trochanter star pattern Treatment Focus pain relief Type of Tape kinesiotape Skin Inspection intact Comments Biofreeze to prepare skin. patient instructed to remove if uncomfortable or increase in symptoms. No longer than 5 days of wear. PT-OP-R Modalities Start: 12/02/18 09:52 Freq: Status: Active Protocol: Document 01/13/19 08:17 [facility] (Rec: 01/13/19 08:36 [facility] [id number]) Hot Pack/Cold Pack Treatment Cold Pack Location left hip Treatment Duration (minutes) 10 PT-OP-S Aquatic Treatment Start: 12/02/18 09:52 Freq: Status: Active Protocol: Document 01/27/19 13:00 CLB (Rec: 01/27/19 15:40 CLB [id number]) Aquatics Treatment Pool Entry/Exit Pool Entry/Exit Method Stairs Assistance Independent Water Walking march Water Level Chest Level Level of Assistance Verbal Cues Comments 2 laps sidestepping Comments 2 laps backward Comments 1 lap forward Comments 2 laps Lower Extremity Exercises knee flex/ext Body Position Standing Water Level Chest Level Reps/Duration 10x hip ab/ad Details holding pool edge Body Position Standing Water Level Lisman Reps/Duration 10x Comments small amplitude hip circles Body Position Standing Water Level Chest Level Reps/Duration 10x Comments medium amplitude hip flex/ext Details holding pool edge Body Position Standing Water Level [place]isman Reps/Duration 10x Comments small amplitude squats Body Position Standing Water Level Chest Level Reps/Duration 10x Comments shallow heel raise, toe raise Body Position Standing Water Level Chest Level Reps/Duration 10x Lower Extremity Stretches IT band Body Position Standing Water Level Chest Level Equipment Ankle Floats hamstring Body Position Standing Water Level Chest Level Equipment Ankle Floats Reps/Duration 2x Comments low tolerance Lisman Activities Lisman Activities Bicycle Other Activities deep water hang at pool edge 2 ' x 3 Equipment large noodle, 4# ankle weights Duration 20 Comments frequent rest breaks, cues for smaller amplitude. Patient had more difficulty with alignment. PT-OP-T Assessment and Plan Start: 12/02/18 09:52 Freq: Status: Active Protocol: Document 01/27/19 13:00 CLB (Rec: 01/27/19 15:40 CLB [id number]) Physical Therapy Assessment Goals LEFS Impairment LEFS= 9 (80-99%) Half-Way Goal (LTG) pt will be reach < 40-59% impairment on LEFS to improve overall functional mobility. 01/15/19: no significant change LTG Duration 12 weeks pain during WB position Impairment Severe pain during WB position Half-Way Goal (LTG) Pt will report <4/10 pain in WB position such as standing and walking to improve quality of life. 01/15/19: minimal pain with deep water walking, mild in shallow water. Still high level on land LTG Duration 12 weeks Stair negotiation Impairment pt uses step to pattern to climb stairs with railing Safety Relief Valve Technician Goal (LTG) Pt will be able to use step over pattern to climb stairs without railing 01/15/19: no progress, still step-to LTG Duration 12 weeks 2 MWT Impairment pt only amb 188 ft under 2MWT Safety Relief Valve Technician Goal (LTG) Pt will be able to amb 250 ft within 2MWT without AD 01/15/19: still requires use of assistive device (using cane but due to high pain level I have encouraged use of FWW at this time) LTG Duration 12 weeks Amb distance Impairment unable to amb >100 ft without rest (with spc) Half-Way Goal (LTG) pt will be able to amb 500 ft without rest and assistive device 01/15/19: requires use of device as above LTG Duration 12 weeks Assessment Summary Assessment Pt had increased pain with therapy today in left hip and groin. Physical Therapy Plan Frequency and Duration Frequency of Treatment 2x/Week Duration of Treatment 12 weeks Plan of Care Start Date 12/02/18 Plan of Care End Date 03/04/19 Next Visit Focus/Plan Next Visit Plan Assess response to last PT session, consider deep water hang with increased weight for hip decompression, manual aquatic therapy techniques if patient receptive.
--- NOTE | 2019-01-31 15:37 | PT.OTN ---
Current Diagnoses Pain in left hip (01/31/19) Pelvic and perineal pain (01/31/19) Physical Therapy Treatment Note PT-OP-A Visit Information Start: 12/02/18 09:52 Freq: Status: Active Protocol: Document 01/31/19 12:15 LJ (Rec: 01/31/19 15:29 LJ [email or web address]) Out-Patient Physical Therapy Visit Information Visit Information Visit Type Aquatic Treatment Note Visit Start Time 12:15 Visit Stop Time 13:00 Total Visit Minutes 45 Visit Number Number of HEEL STAINER Visits 2 PT-OP-B Current Condition Start: 12/02/18 09:52 Freq: Status: Active Protocol: Document 12/02/18 08:15 HH (Rec: 12/02/18 10:14 HH [email or web address]) Current Condition History of Current Condition Onset Date 3 months ago Current Complaints severe L hip pain, impaired gait and activity tolerance History of Current Condition Pt presents to clinic today with c/o new onset of severe L hip pain since 3 months ago after a possible fall at night . She explained she was not sure about the fall since she often feels unoriented at night because of medications she is taking and constant mirgrain. Pt said her hip pain started since then and x-ray showed negative findings for fx (3 months ago) but with significant L hip OA. However, pt stated her pain never goes away and keeps getting worse which significant challenge her functional mobility. Pt has been falling for the past 3 months since her injury. Pt currently unable to amb more than 100 feet without rest, standing >10-15 mins and climb stairs with step to pattern with railing. She is also using SPC for mobility on RUE to reduced pain and balance. Her sharp Pain basically gets worse with WB/ pressure and radiate to L side of the hip sometimes, and she is unable to sleep on her L side at this point. Pt notices her knee starts to cave in more and L foot stock turner. Pt also states she cannot have a CT scan due to insurance coverage and she has to attempt therapy first to get second opinion first in order to be qualified for CT scan screening. Prior Treatments and Tests PT for neck pain (nerve abiation) x-ray in september showed negative fx for L hip Treatment Goals Patient/Caregiver Goals 1. To be able to walk more than 500 feet without hip pain and SPC 2. To be able to walk her dogs in community 2. to negotiate stairs with step over pattern and without handrails 3. able to stand > 30 mins without pain. Prior Functional Status Baseline Function- ADL's Independent Baseline Function- Mobility Independent Baseline Function- Gait with AD Baseline Function- Recreation/Hobbies able to walk her dogs daily Baseline Function- Other step over pattern without railing for stair climbing able to walk miles with AD Current Functional Impairments (Reported) Functional Limitations- ADL's unable to stand >10 mins unable to perform sit to supine without lifting her LLE with UE support Functional Limitations- Mobility/Gait unable to stand > 10 mins step to for stairs cannot walk > 100 feet without rest. Personal Factors Other Personal Factors That May Effect INSTER STIM for bladder Therapy/Recovery migraines depression multiple falls PT-OP-C Subjective Start: 12/02/18 09:52 Freq: Status: Active Protocol: Document 01/31/19 12:15 LJ (Rec: 01/31/19 15:29 LJ [email or web address]) OP-PT Subjective Patient Comments Patient Comments Pt reports falling out of her office chair on Sunday onto her left hip. She is very sore and wants to be careful putting weight on it. PT-OP-E Functional Tests Start: 12/02/18 09:52 Freq: Status: Active Protocol: Document 12/02/18 08:15 HH (Rec: 12/02/18 10:14 HH [email or web address]) Functional Tests 2 Minute Walk Test Distance 188 Device Used none Comments pt uses wall for support and balance PT-OP-G Mobility & Gait Start: 12/02/18 09:52 Freq: Status: Active Protocol: Document 12/02/18 08:15 HH (Rec: 12/02/18 10:14 HH [email or web address]) OP Mobility Evaluation Bed Mobility Rolling unable to lay on L side Supine to and from Sit need UE to lift L LE OP Gait Assessment Gait Gait Assistance Required: Independent Distance (Feet) 188 Able to Maintain Weight Bearing Status Yes During Gait Assistive Devices Assistive Device None Gait Deviations General Gait Pattern Antalgic Decreased Stride Length Decreased Feet Clearance Factors Limiting Gait Function Factors Limiting Gait Function Decreased Activity Tolerance Decreased Strength Limited Range of Motion Pain Comments Gait Comments significant L antalgic gait with decreased stance phase on LLE. Needed wall for support/ balance. noticeable L knee valgus and L foot stock turner. Stair Climbing Evaluation Evaluation Level of Assist On Stairs Independent Devices Stair Climbing Assistive Devices Left Railing Right Railing Technique/Endurance Stair Climbing Direction Ascend and Descend Stair Climbing Technique Step Over Step PT-OP-J Posture/Palpation/Skin Start: 12/02/18 09:52 Freq: Status: Active Protocol: Document 12/02/18 08:15 HH (Rec: 12/02/18 11:55 [email or web address]) Posture Evaluation Position Standing Evaluation View Anterior Weight Distribution Weight Shifted Right Decreased Wt.Bear on (L) Hip Posture (L) Internally Rotated Knee Posture (L) Genu Valgus (L) Ext. Tibial Torsion PT-OP-K Range of Motion Start: 12/02/18 09:52 Freq: Status: Active Protocol: Document 12/02/18 08:15 HH (Rec: 12/02/18 11:55 [email or web address]) Hip Goniometric Range of Motion Hip Right Passive Hip ROM WFL Yes Testing Position Supine Flexion w/Knee Flexed 105 Extension 10 Abduction 35 Left Passive Hip ROM WFL No Testing Position Supine Flexion w/Knee Flexed 25 Extension 0 Abduction 0 PT-OP-L Special Tests Start: 12/02/18 09:52 Freq: Status: Active Protocol: Document 12/02/18 08:15 HH (Rec: 12/02/18 11:55 [email or web address]) Special Tests Hip Special Tests Scour Test Comments unable to test due to severe pain and muscle guarding with passive ROM LIAM Comments unable to test due to severe pain and muscle guarding with passive ROM Anterior Labral Test Comments unable to test due to severe pain and muscle guarding with passive ROM PT-OP-M Strength Start: 12/02/18 09:52 Freq: Status: Active Protocol: Document 12/02/18 08:15 HH (Rec: 12/02/18 11:55 [email or web address]) Hip Strength Hip Manual Muscle Testing Right Flexion (L2) 4+ Good+ Extension (S1) 4+ Good+ Abduction 4+ Good+ Adduction 4+ Good+ Left Flexion (L2) 2- Poor- Extension (S1) 2- Poor- Abduction 2- Poor- Adduction 2- Poor- Knee Strength Knee Manual Muscle Testing Right Flexion (S2) 4+ Good+ Extension (L3) 4+ Good+ Left Flexion (S2) 3+ Fair+ Extension (L3) 3+ Fair+ Ankle/Foot Strength Ankle and Foot Manual Muscle Testing Left Dorsiflexion (L4) 4+ Good+ Plantarflexion (S1) 4+ Good+ Inversion 4+ Good+ Eversion (S1) 4+ Good+ Right Dorsiflexion (L4) 4+ Good+ Plantarflexion (S1) 4+ Good+ Inversion 4+ Good+ Eversion (S1) 4+ Good+ PT-OP-Q Treatments Start: 12/02/18 09:52 Freq: Status: Active Protocol: Document 01/13/19 08:17 [facility] (Rec: 01/13/19 08:36 [facility] [id number]) Cardio Equipment Recumbent Stepper (Sci-Fit) Duration (Minutes) 8 Resistance 3 Seat Position 10 Therapeutic Exercises Sitting Exercises hip ab/ER Equipment Used L2 TB Reps/Minutes 10x ball squeeze Reps/Minutes 10x march Reps/Minutes 2# right, 1# left LAQ Reps/Minutes 2# right 1# left 1 Sitting Exercise Name long arc quad Side left Resistance 2# right, 1# left Reps/Minutes 10 reps Standing Exercises wt shifts with gluteal activation Reps/Minutes 10x ea Comments verbal and manual cues Manual Therapy Treatment Taping postural correction Body Location between scapulae Treatment Focus postural correction Type of Tape Kinesio Tape Skin Inspection intact SI taping for stabilization Body Location I strip SI joint Treatment Focus pain relief Type of Tape Kinesio Tape Skin Inspection intact Comments due to c/o SI pain and cracking which appears due to compensatory gait from left hip pain space correction for pain relief Body Location greater trochanter star pattern Treatment Focus pain relief Type of Tape kinesiotape Skin Inspection intact Comments Biofreeze to prepare skin. patient instructed to remove if uncomfortable or increase in symptoms. No longer than 5 days of wear. PT-OP-R Modalities Start: 12/02/18 09:52 Freq: Status: Active Protocol: Document 01/13/19 08:17 [facility] (Rec: 01/13/19 08:36 [facility] [id number]) Hot Pack/Cold Pack Treatment Cold Pack Location left hip Treatment Duration (minutes) 10 PT-OP-S Aquatic Treatment Start: 12/02/18 09:52 Freq: Status: Active Protocol: Document 01/31/19 15:29 LJ (Rec: 01/31/19 15:30 LJ [email or web address]) Aquatics Treatment Pool Entry/Exit Pool Entry/Exit Method Stairs Assistance Independent Water Walking september Water Level Chest Level Level of Assistance Verbal Cues Comments 2 laps sidestepping Comments 2 laps backward Comments 1 lap forward Comments 2 laps Lower Extremity Stretches IT band Body Position Standing Water Level Chest Level Equipment Ankle Floats Comments attempted but not tolerated hamstring Comments low tolerance [place] Activities [place] Activities Bicycle Other Activities deep water hang at pool edge Equipment large noodle, 4# ankle weights Duration 15 Comments Pt used gentle movements deep water hang for 5 min on tether PT-OP-T Assessment and Plan Start: 12/02/18 09:52 Freq: Status: Active Protocol: Document 01/31/19 15:31 [facility] (Rec: 01/31/19 15:34 LJ [email or web address]) Physical Therapy Assessment Goals LEFS Impairment LEFS= 9 (80-99%) Retail Representative Goal (LTG) pt will be reach < 40-59% impairment on LEFS to improve overall functional mobility. 01/15/19: no significant change LTG Duration 12 weeks pain during WB position Impairment Severe pain during WB position Senior Care Goal (LTG) Pt will report <4/10 pain in WB position such as standing and walking to improve quality of life. 01/15/19: minimal pain with deep water walking, mild in shallow water. Still high level on land LTG Duration 12 weeks Stair negotiation Impairment pt uses step to pattern to climb stairs with railing Senior Care Goal (LTG) Pt will be able to use step over pattern to climb stairs without railing 01/15/19: no progress, still step-to LTG Duration 12 weeks 2 MWT Impairment pt only amb 188 ft under 2MWT Senior Care Goal (LTG) Pt will be able to amb 250 ft within 2MWT without AD 01/15/19: still requires use of assistive device (using cane but due to high pain level I have encouraged use of FWW at this time) LTG Duration 12 weeks Amb distance Impairment unable to amb >100 ft without rest (with spc) Senior Care Goal (LTG) pt will be able to amb 500 ft without rest and assistive device 01/15/19: requires use of device as above LTG Duration 12 weeks Assessment Summary Assessment Pt arrived 15 min early and began walking in chest deep water. Stated she wanted to warm up before treatment. Physical Therapy Plan Frequency and Duration Frequency of Treatment 2x/Week Duration of Treatment 12 weeks Plan of Care Start Date 12/02/18 Plan of Care End Date 03/04/19 Therapeutic Interventions Therapeutic Interventions Aquatic Therapy Balance Training Gait Training Home Exercise Program Joint Mobilizations Manual Therapy Neuromuscular Re-education Patient/Caregiver Education Self-Care/Home Management Soft Tissue Mobilization Taping Therapeutic Activities Therapeutic Exercises Next Visit Focus/Plan Next Note Type Treatment Note Next Visit Plan Assess pt for last session. Increase resistance and intensity gently until left hip pain (due to fall) has decreased.
--- NOTE | 2019-02-05 16:13 | PT.OTN ---
Current Diagnoses Pain in left hip (02/05/19) Pelvic and perineal pain (02/05/19) Physical Therapy Treatment Note PT-OP-A Visit Information Start: 12/02/18 09:52 Freq: Status: Active Protocol: Document 02/05/19 15:15 SAK (Rec: 02/05/19 16:12 SAK [id number]) Out-Patient Physical Therapy Visit Information Visit Information Visit Type Treatment Note Visit Start Time 15:17 Visit Number Number of SOLE CONDITIONER Visits 0 Evaluation Information Evaluation Date 12/02/18 Precautions Precautions High fall risks She has implanted stimulator for her bladder- in back PT-OP-B Current Condition Start: 12/02/18 09:52 Freq: Status: Active Protocol: Document 12/02/18 08:15 HH (Rec: 12/02/18 10:14 HH [email or web address]) Current Condition History of Current Condition Onset Date 3 months ago Current Complaints severe L hip pain, impaired gait and activity tolerance History of Current Condition Pt presents to clinic today with c/o new onset of severe L hip pain since 3 months ago after a possible fall at night . She explained she was not sure about the fall since she often feels unoriented at night because of medications she is taking and constant mirgrain. Pt said her hip pain started since then and x-ray showed negative findings for fx (3 months ago) but with significant L hip OA. However, pt stated her pain never goes away and keeps getting worse which significant challenge her functional mobility. Pt has been falling for the past 3 months since her injury. Pt currently unable to amb more than 100 feet without rest, standing >10-15 mins and climb stairs with step to pattern with railing. She is also using SPC for mobility on RUE to reduced pain and balance. Her sharp Pain basically gets worse with WB/ pressure and radiate to L side of the hip sometimes, and she is unable to sleep on her L side at this point. Pt notices her knee starts to cave in more and L foot field return repairer. Pt also states she cannot have a CT scan due to insurance coverage and she has to attempt therapy first to get second opinion first in order to be qualified for CT scan screening. Prior Treatments and Tests PT for neck pain (nerve abiation) x-ray in september showed negative fx for L hip Treatment Goals Patient/Caregiver Goals 1. To be able to walk more than 500 feet without hip pain and SPC 2. To be able to walk her dogs in community 2. to negotiate stairs with step over pattern and without handrails 3. able to stand > 30 mins without pain. Prior Functional Status Baseline Function- ADL's Independent Baseline Function- Mobility Independent Baseline Function- Gait with AD Baseline Function- Recreation/Hobbies able to walk her dogs daily Baseline Function- Other step over pattern without railing for stair climbing able to walk miles with AD Current Functional Impairments (Reported) Functional Limitations- ADL's unable to stand >10 mins unable to perform sit to supine without lifting her LLE with UE support Functional Limitations- Mobility/Gait unable to stand > 10 mins step to for stairs cannot walk > 100 feet without rest. Personal Factors Other Personal Factors That May Effect INSTER STIM for bladder Therapy/Recovery migraines depression multiple falls PT-OP-C Subjective Start: 12/02/18 09:52 Freq: Status: Active Protocol: Document 02/05/19 15:15 SAK (Rec: 02/05/19 16:12 SAK [id number]) OP-PT Subjective Patient Comments Patient Comments Pain remains increased in left hip. Refuses to go to ER or go to Dr. Cullen prior to her appointment this Sunday. Wants to try to exercise. Will be seeing orthopedist next week for her hip. PT-OP-E Functional Tests Start: 12/02/18 09:52 Freq: Status: Active Protocol: Document 12/02/18 08:15 HH (Rec: 12/02/18 10:14 HH [email or web address]) Functional Tests 2 Minute Walk Test Distance 188 Device Used none Comments pt uses wall for support and balance PT-OP-G Mobility & Gait Start: 12/02/18 09:52 Freq: Status: Active Protocol: Document 12/02/18 08:15 HH (Rec: 12/02/18 10:14 HH [email or web address]) OP Mobility Evaluation Bed Mobility Rolling unable to lay on L side Supine to and from Sit need UE to lift L LE OP Gait Assessment Gait Gait Assistance Required: Independent Distance (Feet) 188 Able to Maintain Weight Bearing Status Yes During Gait Assistive Devices Assistive Device None Gait Deviations General Gait Pattern Antalgic Decreased Stride Length Decreased Feet Clearance Factors Limiting Gait Function Factors Limiting Gait Function Decreased Activity Tolerance Decreased Strength Limited Range of Motion Pain Comments Gait Comments significant L antalgic gait with decreased stance phase on LLE. Needed wall for support/ balance. noticeable L knee valgus and L foot field return repairer. Stair Climbing Evaluation Evaluation Level of Assist On Stairs Independent Devices Stair Climbing Assistive Devices Left Railing Right Railing Technique/Endurance Stair Climbing Direction Ascend and Descend Stair Climbing Technique Step Over Step PT-OP-J Posture/Palpation/Skin Start: 12/02/18 09:52 Freq: Status: Active Protocol: Document 12/02/18 08:15 (Rec: 12/02/18 11:55 [email or web address]) Posture Evaluation Position Standing Evaluation View Anterior Weight Distribution Weight Shifted Right Decreased Wt.Bear on (L) Hip Posture (L) Internally Rotated Knee Posture (L) Genu Valgus (L) Ext. Tibial Torsion PT-OP-K Range of Motion Start: 12/02/18 09:52 Freq: Status: Active Protocol: Document 12/02/18 08:15 HH (Rec: 12/02/18 11:55 [email or web address]) Hip Goniometric Range of Motion Hip Right Passive Hip ROM WFL Yes Testing Position Supine Flexion w/Knee Flexed 105 Extension 10 Abduction 35 Left Passive Hip ROM WFL No Testing Position Supine Flexion w/Knee Flexed 25 Extension 0 Abduction 0 PT-OP-L Special Tests Start: 12/02/18 09:52 Freq: Status: Active Protocol: Document 12/02/18 08:15 (Rec: 12/02/18 11:55 [email or web address]) Special Tests Hip Special Tests Scour Test Comments unable to test due to severe pain and muscle guarding with passive ROM LIAM Comments unable to test due to severe pain and muscle guarding with passive ROM Anterior Labral Test Comments unable to test due to severe pain and muscle guarding with passive ROM PT-OP-M Strength Start: 12/02/18 09:52 Freq: Status: Active Protocol: Document 12/02/18 08:15 HH (Rec: 12/02/18 11:55 [email or web address]) Hip Strength Hip Manual Muscle Testing Right Flexion (L2) 4+ Good+ Extension (S1) 4+ Good+ Abduction 4+ Good+ Adduction 4+ Good+ Left Flexion (L2) 2- Poor- Extension (S1) 2- Poor- Abduction 2- Poor- Adduction 2- Poor- Knee Strength Knee Manual Muscle Testing Right Flexion (S2) 4+ Good+ Extension (L3) 4+ Good+ Left Flexion (S2) 3+ Fair+ Extension (L3) 3+ Fair+ Ankle/Foot Strength Ankle and Foot Manual Muscle Testing Left Dorsiflexion (L4) 4+ Good+ Plantarflexion (S1) 4+ Good+ Inversion 4+ Good+ Eversion (S1) 4+ Good+ Right Dorsiflexion (L4) 4+ Good+ Plantarflexion (S1) 4+ Good+ Inversion 4+ Good+ Eversion (S1) 4+ Good+ PT-OP-Q Treatments Start: 12/02/18 09:52 Freq: Status: Active Protocol: Document 02/05/19 15:15 SAK (Rec: 02/05/19 16:12 SAK [id number]) Cardio Equipment Recumbent Stepper (Sci-Fit) Duration (Minutes) 10 Resistance 2 Seat Position 12 Therapeutic Exercises Supine Exercises 5 Supine Exercise Name TVA Isometric Resistance hooklying Reps/Minutes 10 reps 4 Supine Exercise Name Hooklying hip ADduction Side bilateral Resistance isometric Equipment Used small ball Reps/Minutes 10 reps 3 Supine Exercise Name Hooklying hip ABduction Side bilateral Resistance isometric Equipment Used L2 exercise band Reps/Minutes 10 reps 2 Supine Exercise Name Quad sets Side bilateral Resistance isometric Reps/Minutes 5 count hold x 10 reps Comments difficult for her to do on left 1 Supine Exercise Name Glut sets Resistance isometric Reps/Minutes 5 count hold x 10 reps Comments perlita then unil with manual cues Manual Therapy Treatment Taping postural correction Body Location between scapulae Treatment Focus postural correction Type of Tape Kinesio Tape Skin Inspection intact SI taping for stabilization Body Location I strip SI joint Treatment Focus pain relief Type of Tape Kinesio Tape Skin Inspection intact Comments due to c/o SI pain and cracking which appears due to compensatory gait from left hip pain space correction for pain relief Body Location greater trochanter star pattern Treatment Focus pain relief Type of Tape kinesiotape Skin Inspection intact Comments Biofreeze to prepare skin. patient instructed to remove if uncomfortable or increase in symptoms. No longer than 5 days of wear. PT-OP-R Modalities Start: 12/02/18 09:52 Freq: Status: Active Protocol: Document 02/05/19 15:15 SAK (Rec: 02/05/19 16:12 SAK [id number]) Ultrasound Therapy Treatment left lateral hip Treatment Duration (minutes) 8 Patient Position Sidelying Coupling Medium Ultrasound Gel Mode Setting Pulsed Duty Cycle 50% Intensity Setting (w/cm2) 1.2 PT-OP-S Aquatic Treatment Start: 12/02/18 09:52 Freq: Status: Active Protocol: Document 01/31/19 15:29 LJ (Rec: 01/31/19 15:30 LJ [email or web address]) Aquatics Treatment Pool Entry/Exit Pool Entry/Exit Method Stairs Assistance Independent Water Walking september Water Level Chest Level Level of Assistance Verbal Cues Comments 2 laps sidestepping Comments 2 laps backward Comments 1 lap forward Comments 2 laps Lower Extremity Stretches IT band Body Position Standing Water Level Chest Level Equipment Ankle Floats Comments attempted but not tolerated hamstring Comments low tolerance [place] Activities [place] Activities Bicycle Other Activities deep water hang at pool edge Equipment large noodle, 4# ankle weights Duration 15 Comments Pt used gentle movements deep water hang for 5 min on tether PT-OP-T Assessment and Plan Start: 12/02/18 09:52 Freq: Status: Active Protocol: Document 02/05/19 15:15 SAK (Rec: 02/05/19 16:12 SAK [id number]) Physical Therapy Assessment Goals LEFS Impairment LEFS= 9 (80-99%) [place] [employer] Goal (LTG) pt will be reach < 40-59% impairment on LEFS to improve overall functional mobility. 01/15/19: no significant change LTG Duration 12 weeks pain during WB position Impairment Severe pain during WB position Halfway Goal (LTG) Pt will report <4/10 pain in WB position such as standing and walking to improve quality of life. 01/15/19: minimal pain with deep water walking, mild in shallow water. Still high level on land LTG Duration 12 weeks Stair negotiation Impairment pt uses step to pattern to climb stairs with railing Halfway Goal (LTG) Pt will be able to use step over pattern to climb stairs without railing 01/15/19: no progress, still step-to LTG Duration 12 weeks 2 MWT Impairment pt only amb 188 ft under 2MWT [place] [employer] Goal (LTG) Pt will be able to amb 250 ft within 2MWT without AD 01/15/19: still requires use of assistive device (using cane but due to high pain level I have encouraged use of FWW at this time) LTG Duration 12 weeks Amb distance Impairment unable to amb >100 ft without rest (with spc) [place] [employer] Goal (LTG) pt will be able to amb 500 ft without rest and assistive device 01/15/19: requires use of device as above LTG Duration 12 weeks Assessment Summary Assessment Patient not tolerating much exercise or activity due to recent fall. Sees Dr. Cullen in 2 days. Orthopedist next week. Physical Therapy Plan Frequency and Duration Frequency of Treatment 2x/Week Duration of Treatment 12 weeks Plan of Care Start Date 12/02/18 Plan of Care End Date 03/04/19 Therapeutic Interventions Therapeutic Interventions Aquatic Therapy Balance Training Gait Training Home Exercise Program Joint Mobilizations Manual Therapy Neuromuscular Re-education Patient/Caregiver Education Self-Care/Home Management Soft Tissue Mobilization Taping Therapeutic Activities Therapeutic Exercises Next Visit Focus/Plan Next Note Type Treatment Note Next Visit Plan Continue PT pending recommendation from Dr. Cullen and orthopedist.
--- NOTE | 2019-02-10 12:15 | PT.OTN ---
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 She explained she was not sure about the fall since she often feels unoriented at night because of medications she is taking and constant mirgrain. Pt said her hip pain started since then and x-ray showed negative findings for fx (3 months ago) but with significant L hip OA. However, pt stated her pain never goes away and keeps getting worse which significant challenge her functional mobility. Pt has been falling for the past 3 months since her injury. Pt currently unable to amb more than 100 feet without rest, standing >10-15 mins and climb stairs with step to pattern with railing. She is also using SPC for mobility on RUE to reduced pain and balance. Her sharp Pain basically gets worse with WB/ pressure and radiate to L side of the hip sometimes, and she is unable to sleep on her L side at this point. Pt notices her knee starts to cave in more and L foot steel turner. Pt also states she cannot have a CT scan due to insurance coverage and she has to attempt therapy first to get second opinion first in order to be qualified for CT scan screening. Prior Treatments and Tests PT for neck pain (nerve abiation) x-ray in september showed negative fx for L hip Treatment Goals Patient/Caregiver Goals 1. To be able to walk more than 500 feet without hip pain and SPC 2. To be able to walk her dogs in community 2. to negotiate stairs with step over pattern and without handrails 3. able to stand > 30 mins without pain. Prior Functional Status Baseline Function- ADL's Independent Baseline Function- Mobility Independent Baseline Function- Gait with AD Baseline Function- Recreation/Hobbies able to walk her dogs daily Baseline Function- Other step over pattern without railing for stair climbing able to walk miles with AD Current Functional Impairments (Reported) Functional Limitations- ADL's unable to stand >10 mins unable to perform sit to supine without lifting her LLE with UE support Functional Limitations- Mobility/Gait unable to stand > 10 mins step to for stairs cannot walk > 100 feet without rest. Personal Factors Other Personal Factors That May Effect INSTER STIM for bladder Therapy/Recovery migraines depression multiple falls PT-OP-C Subjective Start: 12/02/18 09:52 Freq: Status: Active Protocol: Document 02/10/19 12:15 SAK (Rec: 02/11/19 08:27 SAK [id number]) OP-PT Subjective Patient Comments Patient Comments Patient reports Dr. Cullen ordered repeat x-ray; no results yet. Was given low dose morphine for pain, slept a lot over weekend. High pain level persists, patient to see orthopedist this week. PT-OP-E Functional Tests Start: 12/02/18 09:52 Freq: Status: Active Protocol: Document 12/02/18 08:15 (Rec: 12/02/18 10:14 HH [email or web address]) Functional Tests 2 Minute Walk Test Distance 188 Device Used none Comments pt uses wall for support and balance PT-OP-G Mobility & Gait Start: 12/02/18 09:52 Freq: Status: Active Protocol: Document 12/02/18 08:15 HH (Rec: 12/02/18 10:14 HH [email or web address]) OP Mobility Evaluation Bed Mobility Rolling unable to lay on L side Supine to and from Sit need UE to lift L LE OP Gait Assessment Gait Gait Assistance Required: Independent Distance (Feet) 188 Able to Maintain Weight Bearing Status Yes During Gait Assistive Devices Assistive Device None Gait Deviations General Gait Pattern Antalgic Decreased Stride Length Decreased Feet Clearance Factors Limiting Gait Function Factors Limiting Gait Function Decreased Activity Tolerance Decreased Strength Limited Range of Motion Pain Comments Gait Comments significant L antalgic gait with decreased stance phase on LLE. Needed wall for support/ balance. noticeable L knee valgus and L foot steel turner. Stair Climbing Evaluation Evaluation Level of Assist On Stairs Independent Devices Stair Climbing Assistive Devices Left Railing Right Railing Technique/Endurance Stair Climbing Direction Ascend and Descend Stair Climbing Technique Step Over Step PT-OP-J Posture/Palpation/Skin Start: 12/02/18 09:52 Freq: Status: Active Protocol: Document 12/02/18 08:15 (Rec: 12/02/18 11:55 [email or web address]) Posture Evaluation Position Standing Evaluation View Anterior Weight Distribution Weight Shifted Right Decreased Wt.Bear on (L) Hip Posture (L) Internally Rotated Knee Posture (L) Genu Valgus (L) Ext. Tibial Torsion PT-OP-K Range of Motion Start: 12/02/18 09:52 Freq: Status: Active Protocol: Document 12/02/18 08:15 HH (Rec: 12/02/18 11:55 [email or web address]) Hip Goniometric Range of Motion Hip Right Passive Hip ROM WFL Yes Testing Position Supine Flexion w/Knee Flexed 105 Extension 10 Abduction 35 Left Passive Hip ROM WFL No Testing Position Supine Flexion w/Knee Flexed 25 Extension 0 Abduction 0 PT-OP-L Special Tests Start: 12/02/18 09:52 Freq: Status: Active Protocol: Document 12/02/18 08:15 HH (Rec: 12/02/18 11:55 [email or web address]) Special Tests Hip Special Tests Scour Test Comments unable to test due to severe pain and muscle guarding with passive ROM LIAM Comments unable to test due to severe pain and muscle guarding with passive ROM Anterior Labral Test Comments unable to test due to severe pain and muscle guarding with passive ROM PT-OP-M Strength Start: 12/02/18 09:52 Freq: Status: Active Protocol: Document 12/02/18 08:15 HH (Rec: 12/02/18 11:55 [email or web address]) Hip Strength Hip Manual Muscle Testing Right Flexion (L2) 4+ Good+ Extension (S1) 4+ Good+ Abduction 4+ Good+ Adduction 4+ Good+ Left Flexion (L2) 2- Poor- Extension (S1) 2- Poor- Abduction 2- Poor- Adduction 2- Poor- Knee Strength Knee Manual Muscle Testing Right Flexion (S2) 4+ Good+ Extension (L3) 4+ Good+ Left Flexion (S2) 3+ Fair+ Extension (L3) 3+ Fair+ Ankle/Foot Strength Ankle and Foot Manual Muscle Testing Left Dorsiflexion (L4) 4+ Good+ Plantarflexion (S1) 4+ Good+ Inversion 4+ Good+ Eversion (S1) 4+ Good+ Right Dorsiflexion (L4) 4+ Good+ Plantarflexion (S1) 4+ Good+ Inversion 4+ Good+ Eversion (S1) 4+ Good+ PT-OP-Q Treatments Start: 12/02/18 09:52 Freq: Status: Active Protocol: Document 02/05/19 15:15 SAK (Rec: 02/05/19 16:12 SAK [id number]) Cardio Equipment Recumbent Stepper (Sci-Fit) Duration (Minutes) 10 Resistance 2 Seat Position 12 Therapeutic Exercises Supine Exercises 5 Supine Exercise Name TVA Isometric Resistance hooklying Reps/Minutes 10 reps 4 Supine Exercise Name Hooklying hip ADduction Side bilateral Resistance isometric Equipment Used small ball Reps/Minutes 10 reps 3 Supine Exercise Name Hooklying hip ABduction Side bilateral Resistance isometric Equipment Used L2 exercise band Reps/Minutes 10 reps 2 Supine Exercise Name Quad sets Side bilateral Resistance isometric Reps/Minutes 5 count hold x 10 reps Comments difficult for her to do on left 1 Supine Exercise Name Glut sets Resistance isometric Reps/Minutes 5 count hold x 10 reps Comments perlita then unil with manual cues Manual Therapy Treatment Taping postural correction Body Location between scapulae Treatment Focus postural correction Type of Tape Kinesio Tape Skin Inspection intact SI taping for stabilization Body Location I strip SI joint Treatment Focus pain relief Type of Tape Kinesio Tape Skin Inspection intact Comments due to c/o SI pain and cracking which appears due to compensatory gait from left hip pain space correction for pain relief Body Location greater trochanter star pattern Treatment Focus pain relief Type of Tape kinesiotape Skin Inspection intact Comments Biofreeze to prepare skin. patient instructed to remove if uncomfortable or increase in symptoms. No longer than 5 days of wear. PT-OP-R Modalities Start: 12/02/18 09:52 Freq: Status: Active Protocol: Document 02/05/19 15:15 SAK (Rec: 02/05/19 16:12 SAK [id number]) Ultrasound Therapy Treatment left lateral hip Treatment Duration (minutes) 10 Patient Position Sidelying Coupling Medium Ultrasound Gel Mode Setting Pulsed Duty Cycle 50% Intensity Setting (w/cm2) 1.2 PT-OP-S Aquatic Treatment Start: 12/02/18 09:52 Freq: Status: Active Protocol: Document 02/10/19 12:15 [facility] (Rec: 02/11/19 08:55 [facility] [id number]) Aquatics Treatment Pool Entry/Exit Pool Entry/Exit Method Stairs Assistance Independent Water Walking march Water Level Chest Level Level of Assistance Verbal Cues Comments 2 laps sidestepping Comments 2 laps backward Comments 1 lap forward Comments 2 laps Lower Extremity Exercises hip ab/ad Details holding pool edge Body Position Standing Water Level [place] Reps/Duration 10x Comments small amplitude hip circles Body Position Standing Water Level Chest Level Reps/Duration 10x Comments small amplitude hip flex/ext Details holding pool edge Body Position Standing Water Level [place] Reps/Duration 10x Comments small amplitude squats Body Position Standing Water Level Chest Level Reps/Duration 10x Comments shallow heel raise, toe raise Body Position Standing Water Level Chest Level Reps/Duration 10x Lower Extremity Stretches IT band Comments not tolerated hamstring Comments not tolerated Upper Extremity Exercises shoulder flex/ext Details perlita and unil Reps/Duration 10x ea Comments emphasis on core stab horizontal ab/ad Details perlita and unil Reps/Duration 10x ea Comments emphasis on core stab [place] Activities [place] Activities Bicycle Other Activities deep water hang at pool edge Equipment [place] float, 4# ankle weights Duration 15 Comments moderate verbal cues for pain- free ROM, deep breathing for relaxation PT-OP-T Assessment and Plan Start: 12/02/18 09:52 Freq: Status: Active Protocol: Document 02/10/19 12:15 [facility] (Rec: 02/11/19 08:27 [facility] [id number]) Physical Therapy Assessment Goals LEFS Impairment LEFS= 9 (80-99%) Mcfp Goal (LTG) pt will be reach < 40-59% impairment on LEFS to improve overall functional mobility. 01/15/19: no significant change LTG Duration 12 weeks pain during WB position Impairment Severe pain during WB position Mcfp Goal (LTG) Pt will report <4/10 pain in WB position such as standing and walking to improve quality of life. 01/15/19: minimal pain with deep water walking, mild in shallow water. Still high level on land LTG Duration 12 weeks Stair negotiation Impairment pt uses step to pattern to climb stairs with railing Mcfp Goal (LTG) Pt will be able to use step over pattern to climb stairs without railing 01/15/19: no progress, still step-to LTG Duration 12 weeks 2 MWT Impairment pt only amb 188 ft under 2MWT Mcfp Goal (LTG) Pt will be able to amb 250 ft within 2MWT without AD 01/15/19: still requires use of assistive device (using cane but due to high pain level I have encouraged use of FWW at this time) LTG Duration 12 weeks Amb distance Impairment unable to amb >100 ft without rest (with spc) Mcfp Goal (LTG) pt will be able to amb 500 ft without rest and assistive device 01/15/19: requires use of device as above LTG Duration 12 weeks Assessment Summary Assessment Low exercise tolerance even for aquatic exercise due to high pain level. If x-ray negative, and pending results from PT visit with orthopedist may need to increase manual therapy focus in PT treatments . Patient agreeable to hold PT until after her PT appointment with orthopedist. Physical Therapy Plan Frequency and Duration Frequency of Treatment 2x/Week Duration of Treatment 12 weeks Plan of Care Start Date 12/02/18 Plan of Care End Date 03/04/19 Therapeutic Interventions Therapeutic Interventions Aquatic Therapy Balance Training Gait Training Home Exercise Program Joint Mobilizations Manual Therapy Neuromuscular Re-education Patient/Caregiver Education Self-Care/Home Management Soft Tissue Mobilization Taping Therapeutic Activities Therapeutic Exercises Next Visit Focus/Plan Next Note Type Treatment Note Next Visit Plan Hold PT until patient gets x- ray results and has appointment with orthopedist.
--- NOTE | 2019-02-17 15:17 | PT.OTN ---
Current Diagnoses Pain in left hip (02/17/19) Pelvic and perineal pain (02/17/19) Physical Therapy Treatment Note PT-OP-A Visit Information Start: 12/02/18 09:52 Freq: Status: Active Protocol: Document 02/17/19 13:00 CLB (Rec: 02/17/19 15:17 CLB [email or web address]) Out-Patient Physical Therapy Visit Information Visit Information Visit Type Aquatic Treatment Note Visit Start Time 13:00 Visit Stop Time 13:45 Total Visit Minutes 45 Visit Number Number of PULMONARY CARE NURSE Visits 1 PT-OP-B Current Condition Start: 12/02/18 09:52 Freq: Status: Active Protocol: Document 12/02/18 08:15 HH (Rec: 12/02/18 10:14 HH [email or web address]) Current Condition History of Current Condition Onset Date 3 months ago Current Complaints severe L hip pain, impaired gait and activity tolerance History of Current Condition Pt presents to clinic today with c/o new onset of severe L hip pain since 3 months ago after a possible fall at night . She explained she was not sure about the fall since she often feels unoriented at night because of medications she is taking and constant mirgrain. Pt said her hip pain started since then and x-ray showed negative findings for fx (3 months ago) but with significant L hip OA. However, pt stated her pain never goes away and keeps getting worse which significant challenge her functional mobility. Pt has been falling for the past 3 months since her injury. Pt currently unable to amb more than 100 feet without rest, standing >10-15 mins and climb stairs with step to pattern with railing. She is also using SPC for mobility on RUE to reduced pain and balance. Her sharp Pain basically gets worse with WB/ pressure and radiate to L side of the hip sometimes, and she is unable to sleep on her L side at this point. 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 Pt also states she cannot have a CT scan due to insurance coverage and she has to attempt therapy first to get second opinion first in order to be qualified for CT scan screening. Prior Treatments and Tests PT for neck pain (nerve abiation) x-ray in september showed negative fx for L hip Treatment Goals Patient/Caregiver Goals 1. To be able to walk more than 500 feet without hip pain and SPC 2. To be able to walk her dogs in community 2. to negotiate stairs with step over pattern and without handrails 3. able to stand > 30 mins without pain. Prior Functional Status Baseline Function- ADL's Independent Baseline Function- Mobility Independent Baseline Function- Gait with AD Baseline Function- Recreation/Hobbies able to walk her dogs daily Baseline Function- Other step over pattern without railing for stair climbing able to walk miles with AD Current Functional Impairments (Reported) Functional Limitations- ADL's unable to stand >10 mins unable to perform sit to supine without lifting her LLE with UE support Functional Limitations- Mobility/Gait unable to stand > 10 mins step to for stairs cannot walk > 100 feet without rest. Personal Factors Other Personal Factors That May Effect INSTER STIM for bladder Therapy/Recovery migraines depression multiple falls PT-OP-C Subjective Start: 12/02/18 09:52 Freq: Status: Active Protocol: Document 02/17/19 13:00 CLB (Rec: 02/17/19 15:17 CLB [email or web address]) OP-PT Subjective Patient Comments Patient Comments Pt states she got injection in her hip but said she couldn't remember what day it was due to her memory. Pt stated she will be referred to doctor for back pain. PT-OP-E Functional Tests Start: 12/02/18 09:52 Freq: Status: Active Protocol: Document 12/02/18 08:15 HH (Rec: 12/02/18 10:14 HH [email or web address]) Functional Tests 2 Minute Walk Test Distance 188 Device Used none Comments pt uses wall for support and balance PT-OP-G Mobility & Gait Start: 12/02/18 09:52 Freq: Status: Active Protocol: Document 12/02/18 08:15 HH (Rec: 12/02/18 10:14 HH [email or web address]) OP Mobility Evaluation Bed Mobility Rolling unable to lay on L side Supine to and from Sit need UE to lift L LE OP Gait Assessment Gait Gait Assistance Required: Independent Distance (Feet) 188 Able to Maintain Weight Bearing Status Yes During Gait Assistive Devices Assistive Device None Gait Deviations General Gait Pattern Antalgic Decreased Stride Length Decreased Feet Clearance Factors Limiting Gait Function Factors Limiting Gait Function Decreased Activity Tolerance Decreased Strength Limited Range of Motion Pain Comments Gait Comments significant L antalgic gait with decreased stance phase on LLE. Needed wall for support/ balance. 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 Stair Climbing Evaluation Evaluation Level of Assist On Stairs Independent Devices Stair Climbing Assistive Devices Left Railing Right Railing Technique/Endurance Stair Climbing Direction Ascend and Descend Stair Climbing Technique Step Over Step PT-OP-J Posture/Palpation/Skin Start: 12/02/18 09:52 Freq: Status: Active Protocol: Document 12/02/18 08:15 (Rec: 12/02/18 11:55 [email or web address]) Posture Evaluation Position Standing Evaluation View Anterior Weight Distribution Weight Shifted Right Decreased Wt.Bear on (L) Hip Posture (L) Internally Rotated Knee Posture (L) Genu Valgus (L) Ext. Tibial Torsion PT-OP-K Range of Motion Start: 12/02/18 09:52 Freq: Status: Active Protocol: Document 12/02/18 08:15 HH (Rec: 12/02/18 11:55 [email or web address]) Hip Goniometric Range of Motion Hip Right Passive Hip ROM WFL Yes Testing Position Supine Flexion w/Knee Flexed 105 Extension 10 Abduction 35 Left Passive Hip ROM WFL No Testing Position Supine Flexion w/Knee Flexed 25 Extension 0 Abduction 0 PT-OP-L Special Tests Start: 12/02/18 09:52 Freq: Status: Active Protocol: Document 12/02/18 08:15 HH (Rec: 12/02/18 11:55 [email or web address]) Special Tests Hip Special Tests Scour Test Comments unable to test due to severe pain and muscle guarding with passive ROM LIAM Comments unable to test due to severe pain and muscle guarding with passive ROM Anterior Labral Test Comments unable to test due to severe pain and muscle guarding with passive ROM PT-OP-M Strength Start: 12/02/18 09:52 Freq: Status: Active Protocol: Document 12/02/18 08:15 HH (Rec: 12/02/18 11:55 [email or web address]) Hip Strength Hip Manual Muscle Testing Right Flexion (L2) 4+ Good+ Extension (S1) 4+ Good+ Abduction 4+ Good+ Adduction 4+ Good+ Left Flexion (L2) 2- Poor- Extension (S1) 2- Poor- Abduction 2- Poor- Adduction 2- Poor- Knee Strength Knee Manual Muscle Testing Right Flexion (S2) 4+ Good+ Extension (L3) 4+ Good+ Left Flexion (S2) 3+ Fair+ Extension (L3) 3+ Fair+ Ankle/Foot Strength Ankle and Foot Manual Muscle Testing Left Dorsiflexion (L4) 4+ Good+ Plantarflexion (S1) 4+ Good+ Inversion 4+ Good+ Eversion (S1) 4+ Good+ Right Dorsiflexion (L4) 4+ Good+ Plantarflexion (S1) 4+ Good+ Inversion 4+ Good+ Eversion (S1) 4+ Good+ PT-OP-Q Treatments Start: 12/02/18 09:52 Freq: Status: Active Protocol: Document 02/05/19 15:15 [facility] (Rec: 02/05/19 16:12 [facility] [id number]) Cardio Equipment Recumbent Stepper (Sci-Fit) Duration (Minutes) 10 Resistance 2 Seat Position 12 Therapeutic Exercises Supine Exercises 5 Supine Exercise Name TVA Isometric Resistance hooklying Reps/Minutes 10 reps 4 Supine Exercise Name Hooklying hip ADduction Side bilateral Resistance isometric Equipment Used small ball Reps/Minutes 10 reps 3 Supine Exercise Name Hooklying hip ABduction Side bilateral Resistance isometric Equipment Used L2 exercise band Reps/Minutes 10 reps 2 Supine Exercise Name Quad sets Side bilateral Resistance isometric Reps/Minutes 5 count hold x 10 reps Comments difficult for her to do on left 1 Supine Exercise Name Glut sets Resistance isometric Reps/Minutes 5 count hold x 10 reps Comments perlita then unil with manual cues Manual Therapy Treatment Taping postural correction Body Location between scapulae Treatment Focus postural correction Type of Tape Kinesio Tape Skin Inspection intact SI taping for stabilization Body Location I strip SI joint Treatment Focus pain relief Type of Tape Kinesio Tape Skin Inspection intact Comments due to c/o SI pain and cracking which appears due to compensatory gait from left hip pain space correction for pain relief Body Location greater trochanter star pattern Treatment Focus pain relief Type of Tape kinesiotape Skin Inspection intact Comments Biofreeze to prepare skin. patient instructed to remove if uncomfortable or increase in symptoms. No longer than 5 days of wear. PT-OP-R Modalities Start: 12/02/18 09:52 Freq: Status: Active Protocol: Document 02/05/19 15:15 [facility] (Rec: 02/05/19 16:12 [facility] [id number]) Ultrasound Therapy Treatment left lateral hip Treatment Duration (minutes) 10 Patient Position Sidelying Coupling Medium Ultrasound Gel Mode Setting Pulsed Duty Cycle 50% Intensity Setting (w/cm2) 1.2 PT-OP-S Aquatic Treatment Start: 12/02/18 09:52 Freq: Status: Active Protocol: Document 02/17/19 13:00 CLB (Rec: 02/17/19 15:17 CLB [email or web address]) Aquatics Treatment Pool Entry/Exit Pool Entry/Exit Method Stairs Assistance Independent Water Walking march Water Level Chest Level Level of Assistance Verbal Cues Comments 2 laps sidestepping Comments 2 laps backward Comments 1/2 lap due to increase in pain. forward Comments 2 laps Lower Extremity Exercises knee flex/ext Body Position Standing Water Level Chest Level Reps/Duration 10x hip ab/ad Details holding pool edge Body Position Standing Water Level [place] Reps/Duration 10x Comments small amplitude hip circles Body Position Standing Water Level Chest Level Reps/Duration 10x Comments small amplitude hip flex/ext Details holding pool edge Body Position Standing Water Level [place] Reps/Duration 10x Comments small amplitude squats Body Position Standing Water Level Chest Level Reps/Duration 10x Comments shallow heel raise, toe raise Body Position Standing Water Level Chest Level Reps/Duration 10x Upper Extremity Exercises shoulder flex/ext Details perlita and unil Reps/Duration 10x ea Comments emphasis on core stab horizontal ab/ad Details perlita and unil Reps/Duration 10x ea Comments emphasis on core stab Grapevine Activities Grapevine Activities Bicycle Other Activities deep water hang at pool edge Equipment grand traverse float, 4# ankle weights Duration 15 Comments moderate verbal cues for pain- free ROM, deep breathing for relaxation PT-OP-T Assessment and Plan Start: 12/02/18 09:52 Freq: Status: Active Protocol: Document 02/17/19 13:00 CLB (Rec: 02/17/19 15:17 CLB [email or web address]) Physical Therapy Assessment Goals LEFS Impairment LEFS= 9 (80-99%) Systems Qa Analyst Goal (LTG) pt will be reach < 40-59% impairment on LEFS to improve overall functional mobility. 01/15/19: no significant change LTG Duration 12 weeks pain during WB position Impairment Severe pain during WB position Systems Qa Analyst Goal (LTG) Pt will report <4/10 pain in WB position such as standing and walking to improve quality of life. 01/15/19: minimal pain with deep water walking, mild in shallow water. Still high level on land LTG Duration 12 weeks Stair negotiation Impairment pt uses step to pattern to climb stairs with railing Group Home Goal (LTG) Pt will be able to use step over pattern to climb stairs without railing 01/15/19: no progress, still step-to LTG Duration 12 weeks 2 MWT Impairment pt only amb 188 ft under 2MWT Group Home Goal (LTG) Pt will be able to amb 250 ft within 2MWT without AD 01/15/19: still requires use of assistive device (using cane but due to high pain level I have encouraged use of FWW at this time) LTG Duration 12 weeks Amb distance Impairment unable to amb >100 ft without rest (with spc) Systems Qa Analyst Goal (LTG) pt will be able to amb 500 ft without rest and assistive device 01/15/19: requires use of device as above LTG Duration 12 weeks Assessment Summary Assessment Pt tolerated aquatic therapy today and was able to perform all hip exercises within pain free range. Physical Therapy Plan Frequency and Duration Frequency of Treatment 2x/Week Duration of Treatment 12 weeks Plan of Care Start Date 12/02/18 Plan of Care End Date 03/04/19 Therapeutic Interventions Therapeutic Interventions Aquatic Therapy Balance Training Gait Training Home Exercise Program Joint Mobilizations Manual Therapy Neuromuscular Re-education Patient/Caregiver Education Self-Care/Home Management Soft Tissue Mobilization Taping Therapeutic Activities Therapeutic Exercises Next Visit Focus/Plan Next Note Type Treatment Note Next Visit Plan Progress aquatic therapy exercises as pt tolerates per POC.
--- NOTE | 2019-02-19 11:40 | PT.OTN ---
Current Diagnoses Pain in left hip (02/19/19) Pelvic and perineal pain (02/19/19) Physical Therapy Treatment Note PT-OP-A Visit Information Start: 12/02/18 09:52 Freq: Status: Active Protocol: Document 02/19/19 08:55 SAK (Rec: 02/19/19 09:28 SAK [id number]) Out-Patient Physical Therapy Visit Information Visit Information Visit Type Treatment Note Visit Start Time 08:45 Visit Stop Time 09:45 Total Visit Minutes 60 Visit Number Number of [employer] Visits 0 Evaluation Information Evaluation Date 12/02/18 Precautions Precautions High fall risks She has implanted stimulator for her bladder- in back PT-OP-B Current Condition Start: 12/02/18 09:52 Freq: Status: Active Protocol: Document 12/02/18 08:15 HH (Rec: 12/02/18 10:14 HH [email or web address]) Current Condition History of Current Condition Onset Date 3 months ago Current Complaints severe L hip pain, impaired gait and activity tolerance History of Current Condition Pt presents to clinic today with c/o new onset of severe L hip pain since 3 months ago after a possible fall at night . She explained she was not sure about the fall since she often feels unoriented at night because of medications she is taking and constant mirgrain. Pt said her hip pain started since then and x-ray showed negative findings for fx (3 months ago) but with significant L hip OA. However, pt stated her pain never goes away and keeps getting worse which significant challenge her functional mobility. Pt has been falling for the past 3 months since her injury. Pt currently unable to amb more than 100 feet without rest, standing >10-15 mins and climb stairs with step to pattern with railing. She is also using SPC for mobility on RUE to reduced pain and balance. Her sharp Pain basically gets worse with WB/ pressure and radiate to L side of the hip sometimes, and she is unable to sleep on her L side at this point. Pt notices her knee starts to cave in more and L foot bottom turning lathe tender. Pt also states she cannot have a CT scan due to insurance coverage and she has to attempt therapy first to get second opinion first in order to be qualified for CT scan screening. Prior Treatments and Tests PT for neck pain (nerve abiation) x-ray in september showed negative fx for L hip Treatment Goals Patient/Caregiver Goals 1. To be able to walk more than 500 feet without hip pain and SPC 2. To be able to walk her dogs in community 2. to negotiate stairs with step over pattern and without handrails 3. able to stand > 30 mins without pain. Prior Functional Status Baseline Function- ADL's Independent Baseline Function- Mobility Independent Baseline Function- Gait with AD Baseline Function- Recreation/Hobbies able to walk her dogs daily Baseline Function- Other step over pattern without railing for stair climbing able to walk miles with AD Current Functional Impairments (Reported) Functional Limitations- ADL's unable to stand >10 mins unable to perform sit to supine without lifting her LLE with UE support Functional Limitations- Mobility/Gait unable to stand > 10 mins step to for stairs cannot walk > 100 feet without rest. Personal Factors Other Personal Factors That May Effect INSTER STIM for bladder Therapy/Recovery migraines depression multiple falls PT-OP-C Subjective Start: 12/02/18 09:52 Freq: Status: Active Protocol: Document 02/19/19 08:55 SAK (Rec: 02/19/19 09:28 SAK [id number]) OP-PT Subjective Patient Comments Patient Comments Patient emotionally labile this am talking about home situation, ex- currently staying with her. Awaiting appt. with Dr. Beth for injection to low back and left hip. Pain persists at high level. Best tolerance for aquatic exercise, likes kinesiotape. PT-OP-E Functional Tests Start: 12/02/18 09:52 Freq: Status: Active Protocol: Document 12/02/18 08:15 (Rec: 12/02/18 10:14 HH [email or web address]) Functional Tests 2 Minute Walk Test Distance 188 Device Used none Comments pt uses wall for support and balance PT-OP-G Mobility & Gait Start: 12/02/18 09:52 Freq: Status: Active Protocol: Document 12/02/18 08:15 HH (Rec: 12/02/18 10:14 HH [email or web address]) OP Mobility Evaluation Bed Mobility Rolling unable to lay on L side Supine to and from Sit need UE to lift L LE OP Gait Assessment Gait Gait Assistance Required: Independent Distance (Feet) 188 Able to Maintain Weight Bearing Status Yes During Gait Assistive Devices Assistive Device None Gait Deviations General Gait Pattern Antalgic Decreased Stride Length Decreased Feet Clearance Factors Limiting Gait Function Factors Limiting Gait Function Decreased Activity Tolerance Decreased Strength Limited Range of Motion Pain Comments Gait Comments significant L antalgic gait with decreased stance phase on LLE. Needed wall for support/ balance. noticeable L knee valgus and L foot bottom turning lathe tender. Stair Climbing Evaluation Evaluation Level of Assist On Stairs Independent Devices Stair Climbing Assistive Devices Left Railing Right Railing Technique/Endurance Stair Climbing Direction Ascend and Descend Stair Climbing Technique Step Over Step PT-OP-J Posture/Palpation/Skin Start: 12/02/18 09:52 Freq: Status: Active Protocol: Document 12/02/18 08:15 (Rec: 12/02/18 11:55 [email or web address]) Posture Evaluation Position Standing Evaluation View Anterior Weight Distribution Weight Shifted Right Decreased Wt.Bear on (L) Hip Posture (L) Internally Rotated Knee Posture (L) Genu Valgus (L) Ext. Tibial Torsion PT-OP-K Range of Motion Start: 12/02/18 09:52 Freq: Status: Active Protocol: Document 12/02/18 08:15 HH (Rec: 12/02/18 11:55 [email or web address]) Hip Goniometric Range of Motion Hip Right Passive Hip ROM WFL Yes Testing Position Supine Flexion w/Knee Flexed 105 Extension 10 Abduction 35 Left Passive Hip ROM WFL No Testing Position Supine Flexion w/Knee Flexed 25 Extension 0 Abduction 0 PT-OP-L Special Tests Start: 12/02/18 09:52 Freq: Status: Active Protocol: Document 12/02/18 08:15 HH (Rec: 12/02/18 11:55 [email or web address]) Special Tests Hip Special Tests Scour Test Comments unable to test due to severe pain and muscle guarding with passive ROM LIAM Comments unable to test due to severe pain and muscle guarding with passive ROM Anterior Labral Test Comments unable to test due to severe pain and muscle guarding with passive ROM PT-OP-M Strength Start: 12/02/18 09:52 Freq: Status: Active Protocol: Document 12/02/18 08:15 HH (Rec: 12/02/18 11:55 [email or web address]) Hip Strength Hip Manual Muscle Testing Right Flexion (L2) 4+ Good+ Extension (S1) 4+ Good+ Abduction 4+ Good+ Adduction 4+ Good+ Left Flexion (L2) 2- Poor- Extension (S1) 2- Poor- Abduction 2- Poor- Adduction 2- Poor- Knee Strength Knee Manual Muscle Testing Right Flexion (S2) 4+ Good+ Extension (L3) 4+ Good+ Left Flexion (S2) 3+ Fair+ Extension (L3) 3+ Fair+ Ankle/Foot Strength Ankle and Foot Manual Muscle Testing Left Dorsiflexion (L4) 4+ Good+ Plantarflexion (S1) 4+ Good+ Inversion 4+ Good+ Eversion (S1) 4+ Good+ Right Dorsiflexion (L4) 4+ Good+ Plantarflexion (S1) 4+ Good+ Inversion 4+ Good+ Eversion (S1) 4+ Good+ PT-OP-Q Treatments Start: 12/02/18 09:52 Freq: Status: Active Protocol: Document 02/19/19 08:55 [facility] (Rec: 02/19/19 09:28 [facility] [id number]) Cardio Equipment Recumbent Stepper (Sci-Fit) Duration (Minutes) 10 Resistance 2 Seat Position 12 Therapeutic Exercises Supine Exercises 5 Supine Exercise Name TVA Isometric Resistance hooklying Reps/Minutes 10 reps 4 Supine Exercise Name Hooklying hip ADduction Side bilateral Resistance isometric Equipment Used small ball Reps/Minutes 10 reps 3 Supine Exercise Name Hooklying hip ABduction Side bilateral Resistance isometric Equipment Used L2 exercise band Reps/Minutes 10 reps 2 Supine Exercise Name Quad sets Side bilateral Resistance isometric Reps/Minutes 5 count hold x 10 reps Comments difficult for her to do on left 1 Supine Exercise Name Glut sets Resistance isometric Reps/Minutes 5 count hold x 10 reps Comments perlita then unil with manual cues Manual Therapy Treatment Taping postural correction Body Location between scapulae Treatment Focus postural correction Type of Tape Kinesio Tape Skin Inspection intact SI taping for stabilization Comments due to c/o SI pain and cracking which appears due to compensatory gait from left hip pain space correction for pain relief Body Location greater trochanter star pattern Treatment Focus pain relief Type of Tape kinesiotape Skin Inspection intact Comments Biofreeze to prepare skin. patient instructed to remove if uncomfortable or increase in symptoms. No longer than 5 days of wear. PT-OP-R Modalities Start: 12/02/18 09:52 Freq: Status: Active Protocol: Document 02/19/19 08:55 [facility] (Rec: 02/19/19 09:28 [facility] [id number]) Ultrasound Therapy Treatment left lateral hip Treatment Duration (minutes) 10 Patient Position Sidelying Coupling Medium Ultrasound Gel Mode Setting Pulsed Duty Cycle 50% Intensity Setting (w/cm2) 1.2 PT-OP-S Aquatic Treatment Start: 12/02/18 09:52 Freq: Status: Active Protocol: Document 02/17/19 13:00 CLB (Rec: 02/17/19 15:17 CLB [email or web address]) Aquatics Treatment Pool Entry/Exit Pool Entry/Exit Method Stairs Assistance Independent Water Walking march Water Level Chest Level Level of Assistance Verbal Cues Comments 2 laps sidestepping Comments 2 laps backward Comments 1/2 lap due to increase in pain. forward Comments 2 laps Lower Extremity Exercises knee flex/ext Body Position Standing Water Level Chest Level Reps/Duration 10x hip ab/ad Details holding pool edge Body Position Standing Water Level [place] Reps/Duration 10x Comments small amplitude hip circles Body Position Standing Water Level Chest Level Reps/Duration 10x Comments small amplitude hip flex/ext Details holding pool edge Body Position Standing Water Level [place] Reps/Duration 10x Comments small amplitude squats Body Position Standing Water Level Chest Level Reps/Duration 10x Comments shallow heel raise, toe raise Body Position Standing Water Level Chest Level Reps/Duration 10x Upper Extremity Exercises shoulder flex/ext Details perlita and unil Reps/Duration 10x ea Comments emphasis on core stab horizontal ab/ad Details perlita and unil Reps/Duration 10x ea Comments emphasis on core stab [place] Activities [place] Activities Bicycle Other Activities deep water hang at pool edge Equipment [place] float, 4# ankle weights Duration 15 Comments moderate verbal cues for pain- free ROM, deep breathing for relaxation PT-OP-T Assessment and Plan Start: 12/02/18 09:52 Freq: Status: Active Protocol: Document 02/19/19 08:55 SAK (Rec: 02/19/19 09:28 SAK [id number]) Physical Therapy Assessment Goals LEFS Impairment LEFS= 9 (80-99%) Outsole Compressor Goal (LTG) pt will be reach < 40-59% impairment on LEFS to improve overall functional mobility. 01/15/19: no significant change LTG Duration 12 weeks pain during WB position Impairment Severe pain during WB position Outsole Compressor Goal (LTG) Pt will report <4/10 pain in WB position such as standing and walking to improve quality of life. 01/15/19: minimal pain with deep water walking, mild in shallow water. Still high level on land LTG Duration 12 weeks Stair negotiation Impairment pt uses step to pattern to climb stairs with railing Halfway Goal (LTG) Pt will be able to use step over pattern to climb stairs without railing 01/15/19: no progress, still step-to LTG Duration 12 weeks 2 MWT Impairment pt only amb 188 ft under 2MWT Halfway Goal (LTG) Pt will be able to amb 250 ft within 2MWT without AD 01/15/19: still requires use of assistive device (using cane but due to high pain level I have encouraged use of FWW at this time) LTG Duration 12 weeks Amb distance Impairment unable to amb >100 ft without rest (with spc) Halfway Goal (LTG) pt will be able to amb 500 ft without rest and assistive device 01/15/19: requires use of device as above LTG Duration 12 weeks Physical Therapy Plan Frequency and Duration Frequency of Treatment 2x/Week Duration of Treatment 12 weeks Plan of Care Start Date 12/02/18 Plan of Care End Date 03/04/19 Therapeutic Interventions Therapeutic Interventions Aquatic Therapy Balance Training Gait Training Home Exercise Program Joint Mobilizations Manual Therapy Neuromuscular Re-education Patient/Caregiver Education Self-Care/Home Management Soft Tissue Mobilization Taping Therapeutic Activities Therapeutic Exercises Hold Physical Therapy Reason For Hold Hold until after injection. Patient to continue with HEP and aquatic exercises. Next Visit Focus/Plan Next Note Type Re-Evaluation
--- NOTE | 2019-06-04 11:09 | PT.OPDS ---
Current Diagnoses Pain in left hip (02/19/19) Pelvic and perineal pain (02/19/19) Visit Care Team Role Provider Type Hattie Cullen DO Attending Provider Physician Primary Care Provider Specialty: Family Practice Address: [address] [place] [address], [address], [address] Email: [email or web address] Visit Number Visit Number Discharge Summary PT-OP-B Current Condition Start: 12/02/18 09:52 Freq: Status: Active Protocol: Document 12/02/18 08:15 HH (Rec: 12/02/18 10:14 [email or web address]) Current Condition History of Current Condition Onset Date 3 months ago Current Complaints severe L hip pain, impaired gait and activity tolerance History of Current Condition Pt presents to clinic today with c/o new onset of severe L hip pain since 3 months ago after a possible fall at night . She explained she was not sure about the fall since she often feels unoriented at night because of medications she is taking and constant mirgrain. Pt said her hip pain started since then and x-ray showed negative findings for fx (3 months ago) but with significant L hip OA. However, pt stated her pain never goes away and keeps getting worse which significant challenge her functional mobility. Pt has been falling for the past 3 months since her injury. Pt currently unable to amb more than 100 feet without rest, standing >10-15 mins and climb stairs with step to pattern with railing. She is also using SPC for mobility on RUE to reduced pain and balance. Her sharp Pain basically gets worse with WB/ pressure and radiate to L side of the hip sometimes, and she is unable to sleep on her L side at this point. Pt notices her knee starts to cave in more and L foot rubber turner. Pt also states she cannot have a CT scan due to insurance coverage and she has to attempt therapy first to get second opinion first in order to be qualified for CT scan screening. Prior Treatments and Tests PT for neck pain (nerve abiation) x-ray in september showed negative fx for L hip Treatment Goals Patient/Caregiver Goals 1. To be able to walk more than 500 feet without hip pain and SPC 2. To be able to walk her dogs in community 2. to negotiate stairs with step over pattern and without handrails 3. able to stand > 30 mins without pain. Prior Functional Status Baseline Function- ADL's Independent Baseline Function- Mobility Independent Baseline Function- Gait with AD Baseline Function- Recreation/Hobbies able to walk her dogs daily Baseline Function- Other step over pattern without railing for stair climbing able to walk miles with AD Current Functional Impairments (Reported) Functional Limitations- ADL's unable to stand >10 mins unable to perform sit to supine without lifting her LLE with UE support Functional Limitations- Mobility/Gait unable to stand > 10 mins step to for stairs cannot walk > 100 feet without rest. Personal Factors Other Personal Factors That May Effect INSTER STIM for bladder Therapy/Recovery migraines depression multiple falls PT-OP-C Subjective Start: 12/02/18 09:52 Freq: Status: Active Protocol: Document 02/19/19 08:55 SAK (Rec: 02/19/19 09:28 SAK [id number]) OP-PT Subjective Patient Comments Patient Comments Patient emotionally labile this am talking about home situation, ex- currently staying with her. Awaiting appt. with Dr. Beth for injection to low back and left hip. Pain persists at high level. Best tolerance for aquatic exercise, likes kinesiotape. PT-OP-E Functional Tests Start: 12/02/18 09:52 Freq: Status: Active Protocol: Document 12/02/18 08:15 (Rec: 12/02/18 10:14 [email or web address]) Functional Tests 2 Minute Walk Test Distance 188 Device Used none Comments pt uses wall for support and balance PT-OP-G Mobility & Gait Start: 12/02/18 09:52 Freq: Status: Active Protocol: Document 12/02/18 08:15 (Rec: 12/02/18 10:14 [email or web address]) OP Mobility Evaluation Bed Mobility Rolling unable to lay on L side Supine to and from Sit need UE to lift L LE OP Gait Assessment Gait Gait Assistance Required: Independent Distance (Feet) 188 Able to Maintain Weight Bearing Status Yes During Gait Assistive Devices Assistive Device None Gait Deviations General Gait Pattern Antalgic,Decreased Stride Length,Decreased Feet Clearance Factors Limiting Gait Function Factors Limiting Gait Function Decreased Activity Tolerance, Decreased Strength,Limited Range of Motion,Pain Comments Gait Comments significant L antalgic gait with decreased stance phase on LLE. Needed wall for support/ balance. noticeable L knee valgus and L foot rubber turner. Stair Climbing Evaluation Evaluation Level of Assist On Stairs Independent Devices Stair Climbing Assistive Devices Left Railing,Right Railing Technique/Endurance Stair Climbing Direction Ascend and Descend Stair Climbing Technique Step Over Step PT-OP-J Posture/Palpation/Skin Start: 12/02/18 09:52 Freq: Status: Active Protocol: Document 12/02/18 08:15 HH (Rec: 12/02/18 11:55 [email or web address]) Posture Evaluation Position Standing Evaluation View Anterior Weight Distribution Weight Shifted Right,Decreased Wt.Bear on (L) Hip Posture (L) Internally Rotated Knee Posture (L) Genu Valgus,(L) Ext. Tibial Torsion PT-OP-K Range of Motion Start: 12/02/18 09:52 Freq: Status: Active Protocol: Document 12/02/18 08:15 HH (Rec: 12/02/18 11:55 [email or web address]) Hip Goniometric Range of Motion Hip Right Passive Hip ROM WFL Yes Testing Position Supine Flexion w/Knee Flexed 105 Extension 10 Abduction 35 Left Passive Hip ROM WFL No Testing Position Supine Flexion w/Knee Flexed 25 Extension 0 Abduction 0 PT-OP-L Special Tests Start: 12/02/18 09:52 Freq: Status: Active Protocol: Document 12/02/18 08:15 HH (Rec: 12/02/18 11:55 [email or web address]) Special Tests Hip Special Tests Scour Test Comments unable to test due to severe pain and muscle guarding with passive ROM LIAM Comments unable to test due to severe pain and muscle guarding with passive ROM Anterior Labral Test Comments unable to test due to severe pain and muscle guarding with passive ROM PT-OP-M Strength Start: 12/02/18 09:52 Freq: Status: Active Protocol: Document 12/02/18 08:15 HH (Rec: 12/02/18 11:55 [email or web address]) Hip Strength Hip Manual Muscle Testing Right Flexion (L2) 4+ Good+ Extension (S1) 4+ Good+ Abduction 4+ Good+ Adduction 4+ Good+ Left Flexion (L2) 2- Poor- Extension (S1) 2- Poor- Abduction 2- Poor- Adduction 2- Poor- Knee Strength Knee Manual Muscle Testing Right Flexion (S2) 4+ Good+ Extension (L3) 4+ Good+ Left Flexion (S2) 3+ Fair+ Extension (L3) 3+ Fair+ Ankle/Foot Strength Ankle and Foot Manual Muscle Testing Left Dorsiflexion (L4) 4+ Good+ Plantarflexion (S1) 4+ Good+ Inversion 4+ Good+ Eversion (S1) 4+ Good+ Right Dorsiflexion (L4) 4+ Good+ Plantarflexion (S1) 4+ Good+ Inversion 4+ Good+ Eversion (S1) 4+ Good+ PT-OP-T Assessment and Plan Start: 12/02/18 09:52 Freq: Status: Active Protocol: Document 06/04/19 11:08 ZENA (Rec: 06/04/19 11:09 ZENA [id number]) Physical Therapy Plan Discharge Physical Therapy Discharge Reasons No Longer Attending PT
== END 2019-06-05 08:21 ==
LOC: PHYS 08:45
PROVIDERS: PCP Family Medicine; Visit Provider Family Medicine
DX: M25.552 Pain in left hip (principal); R10.2 Pelvic and perineal pain
CPT/HCPCS: 97010; 97035; 97110; 97113; 97140; 97163; 97535

== ENCOUNTER → 2019-03-24 10:13 | Outpatient (CLI) | payer OTHER, SELFPAY ==
[2019-03-24 11:11] LABS: Blood Urea Nitrogen 12 mg/dL (7-17); Calcium 9.3 mg/dL (8.4-10.2); Carbon Dioxide 24 mmol/L (22-32); Chloride 106 mmol/L (98-107); Estimated Glomerular Filt Rate > 60.0 mL/min (>60); Glucose 101 mg/dL (80-110); HEMOLYSIS < 15 (0-50); Potassium 3.9 mmol/L (3.4-5.1); Sodium 140 mmol/L (137-145)
== END ==
PROVIDERS: PCP Family Medicine; Visit Provider Family Medicine
DX: G43.909 Migraine, unspecified, not intractable, without status migrainosus (principal)
CPT/HCPCS: 36415; 80048

== ENCOUNTER → 2019-05-08 11:11 | Outpatient (CLI) | payer OTHER, SELFPAY ==
[2019-05-08 11:59] LABS: Blood Urea Nitrogen 12 mg/dL (7-17); Calcium 9.2 mg/dL (8.4-10.2); Carbon Dioxide 21 mmol/L (22-32); Chloride 107 mmol/L (98-107); Estimated Glomerular Filt Rate > 60.0 mL/min (>60); Glucose 110 mg/dL (80-110); HEMOLYSIS < 15 (0-50); Potassium 4.2 mmol/L (3.4-5.1); Sodium 139 mmol/L (137-145)
== END ==
PROVIDERS: PCP Family Medicine; Visit Provider Family Medicine
DX: M51.36 Other intervertebral disc degeneration, lumbar region (principal)
CPT/HCPCS: 36415; 80048

== ENCOUNTER 2019-05-27 08:59 | Outpatient (CLI) | payer OTHER, SELFPAY ==
[2019-05-27] VITALS (10 sets, daily range): BP systolic 106–146; BP diastolic 66–85; PULSE 67–88; RESP 16–18; TEMP 36.8; O2SAT 95–100
--- NOTE | 2019-05-27 09:01 | DI.RAD.S_ITS ---
PROCEDURE: PAIN L/SI FACET INJ/BLK 1STL INDICATIONS: SPONDYLOSIS FINDINGS: Fluoroscopic spot filming was performed to verify placement of spinal needles at the L4-L5, L5-S1 level(s), as labeled on the films. Appropriate location(s) of the needle tip(s) was confirmed by injection of iodinated contrast. Dictated by: Angel Doll M.D. on 05/27/2019 at 10:55 Approved by: Angel Doll M.D. on 05/27/2019 at 11:02
[2019-05-27] MEDS: fentaNYL 100 MCG/2 ML INJ 50 MCG IV (10:18)
[2019-05-27] MEDS: MIDAZOLAM 5 MG/5 ML VIAL IV (10:18)
--- NOTE | 2019-05-27 10:42 | P.PCN_ITS ---
Procedures Date/Time Date of procedure: 05/27/19 Time of procedure: 10:42 General Procedure description: PREOP DIAGNOSIS 1. FACET ARTHROPATHY, 2. AXIAL LBP, 3. MULTILEVEL DDD, POST OP DIAGNOSIS 1. FACET ARTHROPATHY, 2. AXIAL LBP, 3. MULTILEVEL DDD, PROCEDURES 1. FLUORSCOPICALLY GUIDED CONTRAST CONTROLLED FACET JOINT INJECTIONS LEFT L4/5, L5/S1 SURGEON: Geoff Beth, DO INDICATIONS Sasha is referred by Dr. Cullen for treatment of Axial LBP FINDINGS Multilevel Facet Arthropathy with Clinically significant axial LBP DESCRIPTION OF PROCEDURE Fluoroscopically guided, contrast-controlled left L4/5, L5/S1 facet joint in jections. Following review of allergy and review of potential side effects and complications, including, but not necessarily limited to, infection, allergic reaction, local tissue breakdown, stroke, temporary or permanent nerve injury, paralysis, and possible , the patient indicated that the patient understood and agreed to proceed. An informed consent document was signed by the patient, witnessed by a nurse, and placed in the patient's chart. Additionally, other treatment options including medications, modalities, and physical therapy were reviewed with the patient. After review of previous anaesthesic history and IV conscious sedation the patient was deemed safe to proceed with todays procedure with IV conscious sedation as ASA class II designation. Safety time-out was performed to confirm patient ID, procedure to be performed and site of procedure. IV sedation was accomplished with a combination of 5mg of Versed and 50mcg of Fentanyl was administered by the RN after DO order, titrated to patient comfort during the course of the procedure while the patient remained responsive to all verbal commands. In the prone position, following sterile prep and drape of the lumbar region, the posterior aspect of the left L4/5, L5/S1 facet joints were identified fluoroscopically. The skin was anesthetized via a 25-gauge 1.5-inch needle with 1% lidocaine solution into the corresponding facet joints. At this point, a 22- gauge 3.5-inch spinal needle was atraumatically introduced and advanced under fluoroscopic guidance into the corresponding facet joints. Following negative aspiration, injections of approximately 0.2-cc of Isovue 200 confirmed interarticular placement without vascular uptake. Radiological data, including multiple fluoroscopic views of the lumbosacral spine, reveal a spinal needle at the left L4/5, L5/S1 facet joints. Subsequent views show flow of contrast material both superiorly and inferiorly within the joint space without vascular or intrathecal uptake. At this point, a total of 0.5cc including a mixture of 0.25cc Marcaine and 0.25cc betamethasone was injected without complication into each of the corresponding facet joints. The procedure tolerated the procedure well without signs or symptoms of complications prior to transfer to the recovery area continued monitoring without incident. The patient was then transferred to the recovery area where they were observed for an appropriate period of time after the injection. The patient reported a VAS score of 7 prior to the procedure and a post-procedure VAS of 0. Total Fluoroscopy Time: 12.7 seconds Total Conscious Sedation Time: 24min POST OP INSTRUCTIONS The patient was provided a Pain Log to continue to record their response to the target-specific procedure prior to follow-up visit with their referring physician. Additionally, specific post-injection care instructions and a contact number to our office were provided if concerns arise regarding possible complic ations associated with the procedure are suspected. Geoff Beth DO Complications: none
--- NOTE | 2019-05-27 10:46 | PC.NURSE ---
ACCEPTED CARE OF PT IN POST PROC AREA IN STABLE CONDITION.
[2019-05-27] MEDS: BETAMETHASONE 30 MG/5 ML MDV 12 MG INJ (10:47)
[2019-05-27] MEDS: LIDOCAINE 1% 20 ML 10 ML INJ (10:47)
[2019-05-27] MEDS: BUPIVACAINE 0.5% (PF) VIAL 2 ML INJ (10:47)
[2019-05-27] MEDS: IOPAMIDOL 15 ML VIAL 3 ML INJ (10:48)
--- NOTE | 2019-05-27 17:39 | PC.NURSE ---
Post procedure note: Late entry...VSS and O2 Sat WNL on 2 L throughout procedure. tolerated procedure well. Able to transfer from table to w/c without difficulties. Handoff report given to Agustin Stevens at 1100
--- NOTE | 2019-05-27 17:41 | PC.NURSE ---
Addie--Handoff report given at 1039 to Agustin Stevens
== END 2019-05-27 11:10 | disposition home or self-care (01) ==
PROVIDERS: Family Provider Family Medicine; PCP Family Medicine; Visit Provider Physical Medicine & Rehabilitation
DX: M47.817 Spondylosis without myelopathy or radiculopathy, lumbosacral region (principal); M47.816 Spondylosis without myelopathy or radiculopathy, lumbar region; M54.5 Low back pain; M51.36 Other intervertebral disc degeneration, lumbar region; M51.37 Other intervertebral disc degeneration, lumbosacral region
CPT/HCPCS: 64493; 64494; 99152; J0702; J2250; J3010

== ENCOUNTER → 2019-06-09 13:38 | Outpatient (CLI) | payer OTHER, SELFPAY ==
[2019-06-09 14:38] LABS: Add Manual Diff / Slide Review NO; Basophils Absolute Auto 100 /uL (0-100); Basophils Percent Auto 0.9 % (0-2); Eosinophils Absolute Auto 300 /uL (0-450); Eosinophils Percent Auto 3.6 % (2-4); Hematocrit 38.6 % (36-46); Hemoglobin 12.8 g/dL (12.0-16.0); Lymphocytes Absolute Auto 2100 /uL (1100-4500); Lymphocytes Percent Auto 25.8 % (25-40); Mean Corpuscular HGB Conc 33.2 % (30-36); Mean Corpuscular Volume 84.5 fL (80-100); Monocytes Absolute Auto 600 /uL (0-900); Monocytes Percent Auto 7.8 % (3-14); Neutrophils Absolute Auto 5100 /uL (1500-7000); Neutrophils Percent Auto 61.9 % (50-75); Platelet Count 375 X10^3/uL (150-400); Red Blood Cell Count 4.57 X10^6/uL (4.0-5.2); Red Cell Distribution Width 14.5 % (11.6-14.8); White Blood Cell Count 8.3 X10^3/uL (4.5-11.0)
[2019-06-09 14:50] LABS: Alanine Aminotransferase 21 IU/L (<35); Albumin 4.3 g/dL (3.5-5.0); Albumin Globulin Ratio 1.5 (1.0-2.8); Alkaline Phosphatase 111 U/L (38-126); Aspartate Aminotransferase 21 IU/L (14-36); BUN Creatinine Ratio 11.1 (6-22); Bilirubin Total 0.7 mg/dL (0.2-1.3); Blood Urea Nitrogen 10 mg/dL (7-17); Calcium 9.5 mg/dL (8.4-10.2); Carbon Dioxide 24 mmol/L (22-32); Chloride 108 mmol/L (98-107); Cholesterol 261 mg/dL (140-199); Estimated Glomerular Filt Rate > 60.0 mL/min (>60); Globulin 2.9 g/dL (1.7-4.1); Glucose 105 mg/dL (80-110); HDL Cholesterol 58 mg/dL (40-60); HEMOLYSIS < 15 (0-50); LDL Cholesterol Calculated 166 mg/dL (<100); Sodium 141 mmol/L (137-145); Total Protein 7.2 g/dL (6.3-8.2); Triglycerides 186 mg/dL (35-150)
[2019-06-09 16:01] LABS: TSH w/ Reflex to FT4 0.95 uIU/mL (0.47-4.68)
== END ==
PROVIDERS: PCP Family Medicine; Visit Provider Family Medicine
DX: B37.2 Candidiasis of skin and nail (principal); E66.9 Obesity, unspecified; E78.5 Hyperlipidemia, unspecified; I10 Essential (primary) hypertension; K58.0 Irritable bowel syndrome with diarrhea; N18.2 Chronic kidney disease, stage 2 (mild); R60.0 Localized edema
CPT/HCPCS: 36415; 80053; 80061; 83735; 84443; 85025

== ENCOUNTER → 2019-07-07 10:53 | Outpatient (CLI) | payer OTHER, SELFPAY | PROVIDERS: PCP Family Medicine; Visit Provider Family Medicine | DX: N39.0 Urinary tract infection, site not specified (principal) | CPT/HCPCS: 87077; 87086; 87186 ==

== ENCOUNTER 2019-07-17 07:22 | Outpatient (CLI) | payer OTHER, SELFPAY ==
[2019-07-17] VITALS (12 sets, daily range): BP systolic 97–135; BP diastolic 59–89; PULSE 78–92; RESP 16; TEMP 36.7; O2SAT 93–100
--- NOTE | 2019-07-17 07:24 | DI.RAD.S_ITS ---
PROCEDURE: PAIN L/S TRANSFORAMINAL INJECT INDICATIONS: SPINAL STENOSIS FINDINGS: Fluoroscopic spot filming was performed to verify placement of spinal needles at the L4-L5 level(s), as labeled on the films. Appropriate location(s) of the needle tip(s) was confirmed by injection of iodinated contrast. IMPRESSION: Fluoroscopy for pain management. Dictated by: Selma Edward M.D. on 07/17/2019 at 10:30 Approved by: Selma Edward M.D. on 07/17/2019 at 10:31
[2019-07-17] MEDS: fentaNYL 100 MCG/2 ML INJ 50 MCG IV (09:11)
[2019-07-17] MEDS: MIDAZOLAM 5 MG/5 ML VIAL IV (09:11)
[2019-07-17] MEDS: BUPIVACAINE 0.25% (PF) VIAL 2 ML INJ (09:16)
[2019-07-17] MEDS: BETAMETHASONE 30 MG/5 ML MDV 6 MG INJ (09:16)
[2019-07-17] MEDS: IOPAMIDOL 15 ML VIAL 3 ML INJ (09:16)
[2019-07-17] MEDS: DEXAMETHASONE 10 MG/ML VIAL 20 MG INJ (09:17)
--- NOTE | 2019-07-17 09:20 | PC.NURSE ---
ASSISTING PT OFF TABLE AND TRANSPORTING TO POST PROC AREA IN STABLE CONDITION. PASSING RN CARE OF PT OFF TO DAVIDE Rouse RN.
--- NOTE | 2019-07-17 09:26 | P.PCN_ITS ---
Procedures Date/Time Date of procedure: 07/17/19 Time of procedure: 09:26 General Procedure description: PREOP DIAGNOSIS 1. FORMAINAL STENOSIS WITH LE SYMPTOMS POST OP DIAGNOSIS 1. FORMAINAL STENOSIS WITH LE SYMPTOMS PROCEDURES 1. FLUOROSCOPICALLY GUIDED CONTRAST CONTROLLED TRANSFORAMINAL EPIDURAL STEROID INJECTION - LEFT L4/5 PHYSICIAN: Geoff Beth DO INDICATIONS: Sasha is referred by for treatment of Foraminal Stenosis with Left LE Symptoms FINDINGS Foraminal Nerve Root Compression secondary to disc disease and facet hypertrophy DESCRIPTION OF PROCEDURE: Following review of allergy and review of potential side effects and complications, including, but not necessarily limited to, infection, allergic reaction, local tissue breakdown, stroke, temporary or permanent nerve injury, paralysis, and possible , the patient indicated that the patient understood and agreed to proceed. An informed consent document was signed by the patient, witnessed by a nurse, and placed in the patient's chart. Additionally, other treatment options including medications, modalities, and physical therapy were reviewed with the patient. After review of previous anaesthesic history and IV conscious sedation the patie nt was deemed safe to proceed with todays procedure with IV conscious sedation as ASA class II designation. Safety time-out was performed to confirm patient ID, procedure to be performed and site of procedure. IV sedation was accomplished with a combination of 4mg of Versed and 50mcg of Fentanyl administered by the RN after DO order, titrated to patient comfort during the course of the procedure while the patient remained responsive to all verbal commands In the prone position following sterile prep and drape of the lumbar region, the left L4/5 posterior neuroforamen was identified fluoroscopically. The skin was anesthetized via a 25-gauge 1.5-inch needle with 1% lidocaine solution. At this point, a 25-gauge 3.5-inch spinal needle was atraumatically introduced and advanced under fluoroscopic guidance through the posterior left L4/5 neuroforamen to approximately the anterior aspect of the canal. Depth was confirmed on lateral view. Following negative aspiration, injection of appr oximately 1.5 cc of Isovue 200 under live fluoroscopy in the AP view confirmed excellent flow along the nerve root, into the epidural space without vascular or intrathecal uptake observed Radiological data, including multiple fluoroscopic views of the lumbosacral spine, reveal a spinal needle at the left L4/5 posterior neuroforamen. Subsequent views show flow of contrast material flowing superiorly and inferiorly along the nerve root confirming epidural flow. Subsequently, a test dose of 1.5 cc of 1% lidocaine solution was administered and patient was observed for two minutes for signs or symptoms of complications, including abdominal pain, shortness of breath, bilateral upper or lower extremity weakness, nausea and vomiting, prior to steroid injection. At this point, a total of 3cc or 20mg of dexamethasone and 6mg of betamethasone was injected without incident. The procedure tolerated the procedure well without signs or symptoms of complications prior to transfer to the recovery area continued monitoring without incident. The patient was then transferred to the recovery area where they were observed for an appropriate time after the injection. The patient reported a VAS score of 7 prior to the procedure and a post- procedure VAS of 0. Total Fluoroscopy Time: 20.9 seconds Total Conscious Sedation Time: 24min POST OP INSTRUCTIONS The patient was provided a Pain Log to continue to record their response to the target-specific procedure prior to follow-up visit with their referring physician. Additionally, specific post-injection care instructions and a contact number to our office were provided if concerns arise regarding possible complications associated with the procedure are suspected. Geoff Beth, Complications: none
--- NOTE | 2019-07-17 09:53 | PC.NURSE ---
Post procedure note: Patient arrived for post procedure monitoring at 0931. VSS on arrival at 0933. Patient able to stand and transfer to recliner from wheelchair with 2 stand by assist. Patient complained of pain to left 4-5/10, achy discomfort. Attempted to stand at 0950. Patient had difficulty raising knees individually while standing secondary to pain. Patient stated Left hip pain improved to 3/10.
== END 2019-07-17 10:08 | disposition home or self-care (01) ==
LOC: RAD 07:23
PROVIDERS: PCP Family Medicine; Visit Provider Physical Medicine & Rehabilitation
DX: M48.061 Spinal stenosis, lumbar region without neurogenic claudication (principal); M51.16 Intervertebral disc disorders with radiculopathy, lumbar region
CPT/HCPCS: 64483; 99152; J0702; J1100; J2250; J3010

== ENCOUNTER 2019-11-07 16:34 | Emergency (ER) | payer OTHER, SELFPAY ==
[2019-11-07 17:18] VITALS: BP 137/82; PULSE 88; RESP 16; TEMP 37.4; O2SAT 96; BMI 33.9
--- NOTE | 2019-11-07 17:30 | DI.CT.S_ITS ---
PROCEDURE: CT HEAD/BRAIN WO CON INDICATIONS: migraine x5 days TECHNIQUE: Noncontrast 4.5 mm thick angled axial sections acquired from the foramen magnum to the vertex, with coronal and sagittal reformats. For radiation dose reduction, the following was used: automated exposure control, adjustment of mA and/or kV according to patient size. COMPARISON: [facility], CT, CT HEAD/BRAIN WO CON, 11/18/2017, 22:02. FINDINGS: Image quality: Excellent. CSF spaces: Basal cisterns are patent. No extra-axial fluid collections. The ventricles are symmetric in size and shape. Brain: No intracranial bleeds or masses. There is cerebral volume loss for age, with resultant ventricular and sulcal prominence. There are periventricular and deep white matter chronic small vessel ischemic changes. There is intracranial internal carotid artery and vertebral artery atherosclerosis. Skull and face: Calvarium and visualized facial bones appear intact, without suspicious lesions. Sinuses: Visualized sinuses and mastoids are clear. IMPRESSION: No acute intracranial disease process. Dictated by: Sydnee Montesinos MD, PhD on 11/07/2019 at 18:01 Approved by: Sydnee Montesinos MD, PhD on 11/07/2019 at 18:02
--- NOTE | 2019-11-07 18:09 | DI.RAD.S_ITS ---
PROCEDURE: XR CHEST 1V INDICATIONS: intermittent chest pain TECHNIQUE: One view of the chest was acquired. COMPARISON: [facility], CR, CHEST 2 VIEW, 10/30/2013, 13:58. [facility], CT, CT HEAD/BRAIN WO CON, 11/07/2019, 17:31. [facility], CR, CHEST 1 VIEW, 02/21/2017, 10:57. FINDINGS: Surgical changes and devices: None. Lungs and pleura: Lungs are clear. No pleural effusions or pneumothorax. Mediastinum: The cardiac contours are within normal limits. The aorta demonstrates calcification and tortuosity. Bones and chest wall: No suspicious bony lesions. Age-appropriate bony degenerative changes are seen. Overlying soft tissues appear unremarkable. IMPRESSION: Unremarkable portable chest for age. Dictated by: Jeff Ly M.D. on 11/07/2019 at 17:23 Approved by: Jeff Ly M.D. on 11/07/2019 at 17:24
[2019-11-07 18:23] LABS: Add Manual Diff / Slide Review NO; Basophils Absolute Auto 0 /uL (0-100); Basophils Percent Auto 0.7 % (0-2); Eosinophils Absolute Auto 300 /uL (0-450); Eosinophils Percent Auto 5.3 % (2-4); Hematocrit 38.5 % (36-46); Hemoglobin 12.7 g/dL (12.0-16.0); Lymphocytes Absolute Auto 2100 /uL (1100-4500); Lymphocytes Percent Auto 32.2 % (25-40); Mean Corpuscular Hemoglobin 28.4 PG (26-34); Mean Corpuscular Volume 86.1 fL (80-100); Monocytes Absolute Auto 600 /uL (0-900); Monocytes Percent Auto 9.1 % (3-14); Neutrophils Absolute Auto 3400 /uL (1500-7000); Neutrophils Percent Auto 52.7 % (50-75); Platelet Count 350 X10^3/uL (150-400); Red Blood Cell Count 4.47 X10^6/uL (4.0-5.2); Red Cell Distribution Width 14.3 % (11.6-14.8); White Blood Cell Count 6.4 X10^3/uL (4.5-11.0)
[2019-11-07 18:29] VITALS: BP 118/64; PULSE 74; O2SAT 95
[2019-11-07] MEDS: KETOROLAC 60 MG/2 ML VIAL 30 MG IV (18:33)
[2019-11-07 18:34] LABS: Creatine Kinase 59 U/L (30-135)
[2019-11-07] MEDS: METOCLOPRAMIDE 10 MG/2 ML INJ IV (18:34)
[2019-11-07] MEDS: methylPREDNISolone 125 MG/2 ML VIAL IV (18:34)
[2019-11-07 18:35] LABS: BUN Creatinine Ratio 14.6 (6-22); Blood Urea Nitrogen 14 mg/dL (7-17); Calcium 9.2 mg/dL (8.4-10.2); Carbon Dioxide 26 mmol/L (22-32); Chloride 106 mmol/L (98-107); Estimated Glomerular Filt Rate 58.7 mL/min (>60); Glucose 121 mg/dL (80-110); HEMOLYSIS < 15 (0-50); Potassium 4.2 mmol/L (3.4-5.1); Sodium 140 mmol/L (137-145)
[2019-11-07] MEDS: diphenhydrAMINE 50 MG/ML VIAL 25 MG IV (18:35)
[2019-11-07 18:42] LABS: Erythrocyte Sedimentation Rate 15 MM/HR (0-20)
[2019-11-07 18:47] LABS: Troponin I < 0.012 ng/mL (0.01-0.034)
[2019-11-07 19:30] VITALS: BP 105/57; PULSE 75; O2SAT 92
--- NOTE | 2019-11-07 19:39 | ED_ITS ---
HPI - Headache <Shanti Edwards GEAR STRAIGHTENER - Last Filed: 11/07/19 21:56> General Chief Complaint: Headache Stated Complaint: migraine sent by Dr Cullen Time Seen by Provider: 11/07/19 18:00 Mode of arrival: Wheelchair Limitations: no limitations History of Present Illness HPI Narrative: 64-year-old female with a history of CKD, HTN, IBS, cervical radiculopathy, migraine w/aura presents to the emergency department complaining of a left sided migraine that has worsened over the past 5 days. She states the migraine originally started behind her left eye (which is usual for her migraines), but the pain then extended down to her neck. She states ?it has been a long time since I had a migraine in my neck?, but reports this has happened a few years ago. Patient was seen by primary care provider in given DHE and morphine which did not relieve the pain. She also reports blurry vision in left eye (consistent with other migraine). However, she reports some dizziness and balance issues which are unusual with migraines. Patient reports an episode of chest pain about a week ago which that same slowly resolved after a few minutes. She denies any fevers, chills, shortness of breath, nausea, vomiting, diarrhea, limb weakness, abdominal pain, or any other concerns. Patient denies any history of strokes or cardiac issues. Patient is seen at the pain clinic for chronic back pain per patient report. She was seen in the ED on 11/19/2017 for similar symptoms--left-sided migraine that radiated to neck with gait disturbances, patient had negative CT at this time, headache did not improve with migraine cocktail but did improve after Dilaudid administration at that time. Related Data Home Medications Medication Instructions Recorded Confirmed Respironics Dreamstation CPAP #1 ea 10/17/18 11/07/19 fluticasone propionate 50 2 spray NASAL DAILY 08/06/19 11/07/19 mcg/actuation nasal spray,suspension Previous Rx's Medication Instructions Recorded omeprazole 40 mg capsule,delayed 40 mg PO DAILY #30 cap 04/01/18 release duloxetine 60 mg capsule,delayed 120 mg PO QDAY #180 cap 08/30/18 release SI Brace #1 ea 11/08/18 nortriptyline 25 mg capsule 25 mg PO BEDTIME #30 cap 01/30/19 nystatin 100,000 unit/gram topical 1 applictn TOP BID #30 gram 03/24/19 cream buspirone 15 mg tablet See Rx Instructions .ROUTE 04/21/19 .COMPLEX #120 tablet gythjdbidt-vgdynvjisqyvp-cglcnaep 1 cap PO Q6H PRN #14 cap 04/21/19 50 mg-325 mg-40 mg capsule galcanezumab-gnlm 120 mg/mL 120 mg SUBCUT QMONTH #1 ml 04/21/19 subcutaneous pen injector gabapentin 300 mg capsule 600 mg PO BEDTIME #60 cap 06/09/19 diclofenac potassium 50 mg tablet 50 mg PO BID #20 tab 07/07/19 dihydroergotamine 1 mg/mL 1 mg IM ONCE #5 ml 07/22/19 injection solution meloxicam 7.5 mg tablet 15 mg PO DAILY #30 tab MDD 15mg 08/05/19 metoclopramide HCl 10 mg tablet 10 mg PO Q6HP PRN #15 tab 08/06/19 diazepam 10 mg tablet 10 mg PO HSP PRN #30 tab 08/07/19 furosemide 40 mg tablet 20 mg PO DAILY #10 tab 09/05/19 sumatriptan succinate 100 mg tablet See Rx Instructions PO .COMPLEX 10/01/19 #10 tab alprazolam 1 mg tablet 1 mg PO TID PRN #15 tab 10/20/19 oxycodone-acetaminophen 5 mg-325 2 tab PO BEDTIME #60 tab 10/21/19 mg tablet hydromorphone 4 mg tablet 4 mg PO ONCE PRN #6 tab 11/05/19 metoclopramide HCl [Reglan] 10 mg PO DAILY PRN #20 tab 11/07/19 Allergies Allergy/AdvReac Type Severity Reaction Status Date / Time zolpidem [From AMBIEN] AdvReac Intermediate bad dreams Verified 11/07/19 17:22 Review of Systems <GISEL Zamorano - Last Filed: 11/07/19 21:56> Review of Systems Narrative: REVIEW OF SYSTEMS: GENERAL: Denies fever or chills. HENT: Reports migraine headache, see HPI. EYES: No loss of vision, double vision, eye pain, or irritation. Reports blurry vision and light sensitivity, see HPI. NECK: Reports neck pain, see HPI. CARDIOVASCULAR: No chest pain or syncope. RESPIRATORY: No shortness of breath or cough. GASTROINTESTINAL: No nausea, vomiting, diarrhea, or constipation. GENITOURINARY: No flank pain or dysuria. MUSCULOSKELETAL: No pain, weakness, or deformities. INTEGUMENTARY: No rash, lesions, or pruritus. NEURO: No numbness, tingling, memory loss, or confusion. Reports some worsening balance is, see HPI. PSYCH: No behavior or mood changes. Patient History <GISEL Zamorano - Last Filed: 11/07/19 21:56> Medical History Chickenpox (Resolved) Chronic diarrhea (Chronic) Depression (Chronic) Endometriosis (Chronic) Foraminal stenosis of lumbar region (Chronic) GERD with stricture (Chronic) Greater trochanteric bursitis of left hip (Acute) Hearing loss (Chronic) Hearing loss in left ear (Chronic) Hypertension (Chronic) IBS (irritable bowel syndrome) (Chronic) Insomnia (Chronic 05/20/14) Interstitial cystitis (Chronic) Left inguinal hernia (Acute) Lumbar degenerative disc disease (Chronic) Lumbosacral spondylosis with radiculopathy (Chronic) Measles (Resolved) Migraine (Chronic) Mumps (Resolved) Obesity with body mass index (BMI) of 30.0 to 39.9 (Chronic 01/25/17) Seasonal allergies (Chronic) Severe obstructive sleep apnea-hypopnea syndrome (Chronic 04/20/16) Spondylolisthesis at L4-L5 level (Chronic) Urinary incontinence (Chronic) Surgical History Esophageal motility disorder (Resolved ~07/14/09) History of cystoscopy Status post cholecystectomy Status post colonoscopy (~2007) Status post colonoscopy (08/02/09) Status post endoscopy (~2008) Status post hemorrhoidectomy (~2010) Status post hysterectomy with oophorectomy (~1985) Family History Father Congestive heart failure Tobacco abuse Grandfather Colorectal cancer Stomach cancer Grandmother Coronary artery disease Mother Congestive heart failure Tobacco abuse Hidradenitis suppurativa Alcoholism Grandfather Diabetes mellitus Grandmother Ovarian cancer Social History Smoking Status: Never smoker alcohol intake: never substance use type: does not use Smoking Status: Never smoker alcohol intake frequency: 0-2 drinks per day Substance Use Type: does not use Exam <Shanti GISEL Edwards - Last Filed: 11/07/19 21:56> Initial Vital Signs Initial Vital Signs: Vital Signs Temperature 99.4 F 11/07/19 17:18 Pulse Rate 88 11/07/19 17:18 Respiratory Rate 16 11/07/19 17:18 Blood Pressure 137/82 11/07/19 17:18 Pulse Oximetry 96 11/07/19 17:18 PHYSICAL EXAMINATION: GENERAL: Well groomed, alert, and cooperative. Answers questions promptly and appropriately. Vital signs noted. HENT: Normocephalic, atraumatic. Ear canals patent. Oral mucosa is pink and moist. EYES: PERRLA, EOMIs, Conjunctiva pink, sclera white, no periorbital swelling. Appears to have some light sensitivity. NECK: Trapezius and paraspinal vertebral tenderness with palpation especially on the left. No spinal tenderness or deformities. Negative meningeal signs. CHEST: Normal to inspection and without deformities. CARDIOVASCULAR: S1 and S2 sounds normal. Regular rate and rhythm, no murmurs, clicks, or bruits. No pedal edema. RESPIRATORY: Normal respiratory rate, trachea midline, airway patent. No stridor, nasal flaring or accessory muscle use. Lungs are clear in all noriega without wheeze, rhonchi, or crackles. GASTROINTESTINAL: Bowel sounds normoactive. Abdomen is soft and non-tender. No organomegaly. MUSCULOSKELETAL: Equal cavalry scout strength bilaterally, equal lower extremity strength bilaterally. No ataxia. Normal gait and coordination. Equal tone and mass bilaterally. EXTREMITIES: CMS intact. Moves all extremities. SKIN: Warm, dry, soft, appropriate color for ethnicity. No lesions, rashes, or wounds. NEURO: Alert and Oriented X 3. Good coordination. No ataxia, or sensory deficits, or cognitive issues. Patient was able to ambulate after administration of pain medication. PSYCH: Appropriate affect and mood. <Dom Banegas DO - Last Filed: 11/07/19 22:14> Initial Vital Signs Initial Vital Signs: Vital Signs Temperature 99.4 F 11/07/19 17:18 Pulse Rate 88 11/07/19 17:18 Respiratory Rate 16 11/07/19 17:18 Blood Pressure 137/82 04/24/20 17:18 Pulse Oximetry 96 11/07/19 17:18 Scores <Shanti GISEL Edwards - Last Filed: 11/07/19 21:56> HEART Score Heart Score history: Slightly Suspicious Heart Score EKG: Normal Heart Score Age: 45-64 years old Heart Score risk factors: 1-2 risk factors Heart Score troponin: < or = to normal limit Heart Score Total: 2 NIH Stroke Scale Level of Conciousness: Alert, keenly responsive Ask month/age: Answers both questions correctly. Open/close eyes, close hand: Performs both tasks correctly Best gaze horizontal: Normal Visual noriega: No visual loss Facial palsy: Normal symetrical movement Left arm drift: No drift for full 10 sec Right arm drift: No drift for full 10 sec Left leg drift: No drift for full 10 sec Right leg drift: No drift for full 10 sec Limb ataxia: Absent Sensory on face/arms/legs: Normal, no sensory loss Best language: No aphasia, normal Dysarthria: Normal Extinction or inattention: No abnormality Total NIH Stroke scale score: 0 Course <GISEL Zamornao - Last Filed: 11/07/19 21:56> Course Course Narrative: Patient reported decreased pain after migraine cocktail of 7/10 states the pain is still unbearable. Patient was given Dilaudid which decreased pain to 6/10. Patient was given another dose of Dilaudid which decreased pain to 4/10, patient was able to ambulate without difficulty. Reports resolving symptoms, reports she still has some light sensitivity but is starting to feel better. Orders Ordered: ED Orders 11/07/19 17:30 CT head/brain wo con Stat 11/07/19 18:09 XR chest 1V Stat EKG-12 Lead Stat 11/07/19 18:12 BMP [Basic Metabolic Panel] Stat C-Reactive Protein Quant Stat Complete Blood Count AUTO DIFF Stat Erythrocyte Sedimentation Rate Stat Troponin & CK Cardiac Panel Stat Discontinued Medications Diphenhydramine HCl (Benadryl) 25 mg IV NOW ONE Stop: 11/07/19 17:32 Last Admin: 11/07/19 18:35 Dose: 25 mg Documented by: SANJAY Hydromorphone HCl (Dilaudid) 0.5 mg IV NOW ONE Stop: 11/07/19 20:14 Last Admin: 11/07/19 20:28 Dose: 0.5 mg Documented by: COLBY Hydromorphone HCl (Dilaudid) 1 mg IV NOW ONE Stop: 11/07/19 21:01 Last Admin: 11/07/19 21:12 Dose: 1 mg Documented by: COLBY Sodium Chloride (Normal Saline 0.9%) 1,000 mls @ 1,000 mls/hr IV BOLUS ONE Stop: 11/07/19 19:35 Last Admin: 11/07/19 20:28 Dose: 1,000 mls/hr Documented by: COLBY Ketorolac Tromethamine (Toradol) 30 mg IV NOW ONE Stop: 11/07/19 17:31 Last Admin: 11/07/19 18:33 Dose: 30 mg Documented by: SANJAY Methylprednisolone (Solu-Medrol 125 Mg Vial) 125 mg IV NOW ONE Stop: 11/07/19 17:32 Last Admin: 11/07/19 18:34 Dose: 125 mg Documented by: SANJAY Metoclopramide HCl (Reglan) 10 mg IV NOW ONE Stop: 11/07/19 17:32 Last Admin: 11/07/19 18:34 Dose: 10 mg Documented by: SANJAY Consultations Consultation #1: [id number] Banegas discussed CT results, medications, and plan of care. Discussed discharge and pain medications. Vital Signs Vital signs: Vital Signs - 8 hr 11/07/19 17:18 11/07/19 18:29 11/07/19 19:30 Temperature 99.4 F Pulse Rate 88 74 75 Respiratory Rate 16 Blood Pressure 137/82 Blood Pressure [Left Arm] 118/64 105/57 L Pulse Oximetry 96 95 92 11/07/19 21:13 11/07/19 21:49 Temperature 98.6 F Pulse Rate 78 Respiratory Rate 18 Blood Pressure Blood Pressure [Left Arm] 119/65 Pulse Oximetry 98 <Dom Banegas, DO - Last Filed: 11/07/19 22:14> Orders Ordered: ED Orders 11/07/19 17:30 CT head/brain wo con Stat 11/07/19 18:09 XR chest 1V Stat EKG-12 Lead Stat 11/07/19 18:12 BMP [Basic Metabolic Panel] Stat C-Reactive Protein Quant Stat Complete Blood Count AUTO DIFF Stat Erythrocyte Sedimentation Rate Stat Troponin & CK Cardiac Panel Stat Discontinued Medications Diphenhydramine HCl (Benadryl) 25 mg IV NOW ONE Stop: 11/07/19 17:32 Last Admin: 11/07/19 18:35 Dose: 25 mg Documented by: SANJAY Hydromorphone HCl (Dilaudid) 0.5 mg IV NOW ONE Stop: 11/07/19 20:14 Last Admin: 11/07/19 20:28 Dose: 0.5 mg Documented by: COLBY Hydromorphone HCl (Dilaudid) 1 mg IV NOW ONE Stop: 11/07/19 21:01 Last Admin: 11/07/19 21:12 Dose: 1 mg Documented by: COLBY Sodium Chloride (Normal Saline 0.9%) 1,000 mls @ 1,000 mls/hr IV BOLUS ONE Stop: 11/07/19 19:35 Last Admin: 11/07/19 20:28 Dose: 1,000 mls/hr Documented by: COLBY Ketorolac Tromethamine (Toradol) 30 mg IV NOW ONE Stop: 11/07/19 17:31 Last Admin: 11/07/19 18:33 Dose: 30 mg Documented by: SANJAY Methylprednisolone (Solu-Medrol 125 Mg Vial) 125 mg IV NOW ONE Stop: 11/07/19 17:32 Last Admin: 11/07/19 18:34 Dose: 125 mg Documented by: SANJAY Metoclopramide HCl (Reglan) 10 mg IV NOW ONE Stop: 11/07/19 17:32 Last Admin: 11/07/19 18:34 Dose: 10 mg Documented by: SANJAY Vital Signs Vital signs: Vital Signs - 8 hr 11/07/19 17:18 11/07/19 18:29 11/07/19 19:30 Temperature 99.4 F Pulse Rate 88 74 75 Respiratory Rate 16 Blood Pressure 137/82 Blood Pressure [Left Arm] 118/64 105/57 L Pulse Oximetry 96 95 92 11/07/19 21:13 11/07/19 21:49 Temperature 98.6 F Pulse Rate 78 Respiratory Rate 18 Blood Pressure Blood Pressure [Left Arm] 119/65 Pulse Oximetry 98 MDM - Headache <GISEL Zamorano - Last Filed: 11/07/19 21:56> Medical Records Attestation: I reviewed the patient's medical records. Lab Data Attestation: I reviewed the patient's lab results. Result diagrams: 11/07/19 18:12 11/07/19 18:12 Labs: Lab Results 11/07/19 11/07/19 11/07/19 Range/Units 18:12 18:12 18:12 WBC 6.4 (4.5-11.0) X10^3/uL RBC 4.47 (4.0-5.2) X10^6/uL Hgb 12.7 (12.0-16.0) g/dL Hct 38.5 (36-46) % MCV 86.1 (80-100) fL MCH 28.4 (26-34) PG MCHC 33.0 (30-36) % RDW 14.3 (11.6-14.8) % Plt Count 350 (150-400) X10^3/uL Neut % (Auto) 52.7 (50-75) % Lymph % (Auto) 32.2 (25-40) % Cavalier % (Auto) 9.1 (3-14) % Eos % (Auto) 5.3 H (2-4) % Baso % (Auto) 0.7 (0-2) % Neut # (Auto) 3400 (0362-4114) /uL Lymph # (Auto) 2100 (9146-2996) /uL Cavalier # (Auto) 600 (0-900) /uL Eos # (Auto) 300 (0-450) /uL Baso # (Auto) 0 (0-100) /uL ESR 15 (0-20) MM/HR Sodium 140 (137-145) mmol/L Potassium 4.2 (3.4-5.1) mmol/L Chloride 106 (98-107) mmol/L Carbon Dioxide 26 (22-32) mmol/L BUN 14 (7-17) mg/dL Creatinine 0.96 (0.52-1.04) mg/dL Estimated GFR 58.7 L (>60) mL/min BUN/Creatinine Ratio 14.6 (6-22) Glucose 121 H (80-110) mg/dL Calcium 9.2 (8.4-10.2) mg/dL Total Creatine Kinase (30-135) U/L CK-MB (CK-2) CK-MB (CK-2) Rel Index Troponin I (0.01-0.034) ng/mL C-Reactive Protein (<1.0) mg/dL 11/07/19 11/07/19 Range/Units 18:12 18:12 WBC (4.5-11.0) X10^3/uL RBC (4.0-5.2) X10^6/uL Hgb (12.0-16.0) g/dL Hct (36-46) % MCV (80-100) fL MCH (26-34) PG MCHC (30-36) % RDW (11.6-14.8) % Plt Count (150-400) X10^3/uL Neut % (Auto) (50-75) % Lymph % (Auto) (25-40) % Cavalier % (Auto) (3-14) % Eos % (Auto) (2-4) % Baso % (Auto) (0-2) % Neut # (Auto) (5699-3569) /uL Lymph # (Auto) (0274-5837) /uL Cavalier # (Auto) (0-900) /uL Eos # (Auto) (0-450) /uL Baso # (Auto) (0-100) /uL ESR (0-20) MM/HR Sodium (137-145) mmol/L Potassium (3.4-5.1) mmol/L Chloride (98-107) mmol/L Carbon Dioxide (22-32) mmol/L BUN (7-17) mg/dL Creatinine (0.52-1.04) mg/dL Estimated GFR (>60) mL/min BUN/Creatinine Ratio (6-22) Glucose (80-110) mg/dL Calcium (8.4-10.2) mg/dL Total Creatine Kinase 59 (30-135) U/L CK-MB (CK-2) TNP CK-MB (CK-2) Rel Index TNP Troponin I < 0.012 (0.01-0.034) ng/mL C-Reactive Protein < 0.5 (<1.0) mg/dL Imaging Data CT scan - head: Radiologist's Impression: [address] [address] [address] Scan Report Signed Patient: Sasha Hagan LMR#: [id number] : 6Acct:[id number] Age/Sex: 64 / FDate of Service: 11/07/19 Loc: ED Accession Number: [id number] Procedure: CT head/brain wo con Ordering Provider: Ricci Thompson MD PROCEDURE: CT HEAD/BRAIN WO CON INDICATIONS: migraine x5 days TECHNIQUE: Noncontrast 4.5 mm thick angled axial sections acquired from the foramen magnum to the vertex, with coronal and sagittal reformats. For radiation dose reduction, the following was used: automated exposure control, adjustment of mA and/or kV according to patient size. COMPARISON: [facility], CT, CT HEAD/BRAIN WO CON, 11/18/2017, 22:02. FINDINGS: Image quality: Excellent. CSF spaces: Basal cisterns are patent. No extra-axial fluid collections. The ventricles are symmetric in size and shape. Brain: No intracranial bleeds or masses. There is cerebral volume loss for age, with resultant ventricular and sulcal prominence. There are periventricular and deep white matter chronic small vessel ischemic changes. There is intracranial internal carotid artery and vertebral artery atherosclerosis. Skull and face: Calvarium and visualized facial bones appear intact, without suspicious lesions. Sinuses: Visualized sinuses and mastoids are clear. IMPRESSION: No acute intracranial disease process. Dictated by: Sydnee Montesinos MD, PhD on 11/07/2019 at 18:01 Approved by: Sydnee Montesinos MD, PhD on 11/07/2019 at 18:02 Chest x-ray: Radiologist's Impression: [address] [address] XRay Report Signed Patient: Sasha Hagan LMR#: [id number] : 6Acct:[id number] Age/Sex: 64 / FDate of Service: 11/07/19 Loc: ED Accession Number: [id number] Procedure: XR chest 1V Ordering Provider: Shanti Edwards PROCEDURE: XR CHEST 1V INDICATIONS: intermittent chest pain TECHNIQUE: One view of the chest was acquired. COMPARISON: [facility], CR, CHEST 2 VIEW, 10/30/2013, 13:58. [facility], CT, CT HEAD/BRAIN WO CON, 11/07/2019, 17:31. [facility], , CHEST 1 VIEW, 02/21/2017, 10:57. FINDINGS: Surgical changes and devices: None. Lungs and pleura: Lungs are clear. No pleural effusions or pneumothorax. Mediastinum: The cardiac contours are within normal limits. The aorta demonstrates calcification and tortuosity. Bones and chest wall: No suspicious bony lesions. Age-appropriate bony degenerative changes are seen. Overlying soft tissues appear unremarkable. IMPRESSION: Unremarkable portable chest for age. Dictated by: Jeff Ly M.D. on 11/07/2019 at 17:23 Approved by: eJff Ly M.D. on 11/07/2019 at 17:24 ECG Data Interpretation: Normal sinus rhythm, no ST elevation or ST depression. No T- wave abnormality. No ectopy. EKG also viewed by Dr. Thompson per protocol. [facility] Narrative Medical decision making narrative: This is a 64-year-old female with a history of migraines presenting to the emergency department with a migraine that originally presented leg her normal migraines but has continued with significant pain. She did state that she has had some films issues with this, and 2018 she had a similar episode with balance issues since later stated she occasionally does developed this with her migraines. Head CT was negative, NIH score of 0, less concern for intracranial etiology such as cranial bleed or stroke. Patient had some improvement with initial migraine cocktail but had the most improvement with Dilaudid, this was consistent with her past migraines in 2018 which did not significantly improved with migraine cocktail but improved with Dilaudid. She was able to ambulate without difficulty after pain control was established. Less concern for meningitis due to paraspinal vertebral muscle tenderness, negative meningeal sign, and lack of systemic symptoms of infection such as cough, shortness of breath, fevers, or chills. Patient did report an episode of intermittent chest pain which was sharp stabbing and was non concerning about cardiac involvement upon description of pain. Furthermore, chest x-ray, EKG, and troponins were non-remarkable. This episode happened over a week ago and has not returned. Heart score of 2 places her at low risk. Less concern for other infectious etiology such as coronavirus due to lack of other symptoms such as fever or cough. Patient was referred to a neurologist to discuss further management of migraines. She was given strict ED return precautions for new or worsening symptoms. Patient agreed to plan of care verbalized understanding. <Dom Banegas, DO - Last Filed: 11/07/19 22:14> Lab Data Labs: Lab Results 11/07/19 11/07/19 11/07/19 Range/Units 18:12 18:12 18:12 WBC 6.4 (4.5-11.0) X10^3/uL RBC 4.47 (4.0-5.2) X10^6/uL Hgb 12.7 (12.0-16.0) g/dL Hct 38.5 (36-46) % MCV 86.1 (80-100) fL MCH 28.4 (26-34) PG MCHC 33.0 (30-36) % RDW 14.3 (11.6-14.8) % Plt Count 350 (150-400) X10^3/uL Neut % (Auto) 52.7 (50-75) % Lymph % (Auto) 32.2 (25-40) % Cavalier % (Auto) 9.1 (3-14) % Eos % (Auto) 5.3 H (2-4) % Baso % (Auto) 0.7 (0-2) % Neut # (Auto) 3400 (8463-6367) /uL Lymph # (Auto) 2100 (7999-6294) /uL Cavalier # (Auto) 600 (0-900) /uL Eos # (Auto) 300 (0-450) /uL Baso # (Auto) 0 (0-100) /uL ESR 15 (0-20) MM/HR Sodium 140 (137-145) mmol/L Potassium 4.2 (3.4-5.1) mmol/L Chloride 106 (98-107) mmol/L Carbon Dioxide 26 (22-32) mmol/L BUN 14 (7-17) mg/dL Creatinine 0.96 (0.52-1.04) mg/dL Estimated GFR 58.7 L (>60) mL/min BUN/Creatinine Ratio 14.6 (6-22) Glucose 121 H (80-110) mg/dL Calcium 9.2 (8.4-10.2) mg/dL Total Creatine Kinase (30-135) U/L CK-MB (CK-2) CK-MB (CK-2) Rel Index Troponin I (0.01-0.034) ng/mL C-Reactive Protein (<1.0) mg/dL 11/07/19 11/07/19 Range/Units 18:12 18:12 WBC (4.5-11.0) X10^3/uL RBC (4.0-5.2) X10^6/uL Hgb (12.0-16.0) g/dL Hct (36-46) % MCV (80-100) fL MCH (26-34) PG MCHC (30-36) % RDW (11.6-14.8) % Plt Count (150-400) X10^3/uL Neut % (Auto) (50-75) % Lymph % (Auto) (25-40) % Cavalier % (Auto) (3-14) % Eos % (Auto) (2-4) % Baso % (Auto) (0-2) % Neut # (Auto) (5390-9710) /uL Lymph # (Auto) (0276-3170) /uL Cavalier # (Auto) (0-900) /uL Eos # (Auto) (0-450) /uL Baso # (Auto) (0-100) /uL ESR (0-20) MM/HR Sodium (137-145) mmol/L Potassium (3.4-5.1) mmol/L Chloride (98-107) mmol/L Carbon Dioxide (22-32) mmol/L BUN (7-17) mg/dL Creatinine (0.52-1.04) mg/dL Estimated GFR (>60) mL/min BUN/Creatinine Ratio (6-22) Glucose (80-110) mg/dL Calcium (8.4-10.2) mg/dL Total Creatine Kinase 59 (30-135) U/L CK-MB (CK-2) TNP CK-MB (CK-2) Rel Index TNP Troponin I < 0.012 (0.01-0.034) ng/mL C-Reactive Protein < 0.5 (<1.0) mg/dL Discharge Plan Departure Patient Disposition: Home Clinical Impression: Migraine Qualifiers: Migraine type: without aura Status migrainosus presence: with status migrainosus Intractability: not intractable Qualified Code(s): G43.001 - Migraine without aura, not intractable, with status migrainosus Instructions: DI for Migraine Activity Restrictions/Additional Instructions: Thank you for entrusting me with your care today. As discussed, your head CT and laboratory work are non-concerning findings. I suspect her symptoms are most likely caused by migraine. I recommend following up with your primary care provider more the referred neurologist for further discussion and management of your migraines. Please return emergency department for any new or worsening sy mptoms such as vision changes, worsening pain, high fevers, uncontrollable vomiting, or any other concerns. I prescribed you a medication that helps with nausea and migraines as well. Prescriptions: New metoclopramide HCl [Reglan] 10 mg tablet 10 mg PO DAILY PRN (Reason: nausea and vomiting/ migraine) Qty: 20 RF: 0 No Action duloxetine [Cymbalta] 60 mg capsule,delayed release(DR/EC) 120 mg PO QDAY Qty: 180 RF: 2 buspirone 15 mg tablet See Rx Instructions .ROUTE .COMPLEX Qty: 120 RF: 0 dihydroergotamine 1 mg/mL solution 1 mg IM ONCE Qty: 5 RF: 1 diazepam 10 mg tablet 10 mg PO HSP PRN (Reason: sleep) Qty: 30 RF: 5 sumatriptan succinate 100 mg tablet See Rx Instructions PO .COMPLEX Qty: 10 RF: 1 alprazolam 1 mg tablet 1 mg PO TID PRN (Reason: anxiety) Qty: 15 RF: 0 oxycodone-acetaminophen 5-325 mg tablet 2 tab PO BEDTIME Qty: 60 RF: 0 hydromorphone 4 mg tablet 4 mg PO ONCE PRN (Reason: pain) Qty: 6 RF: 0 nystatin 100,000 unit/gram cream 1 applictn TOP BID Qty: 30 RF: 0 fluticasone propionate 50 mcg/actuation spray,suspension 2 spray NASAL DAILY RF: 0 metoclopramide HCl 10 mg tablet 10 mg PO Q6HP PRN (Reason: nausea and vomiting) Qty: 15 RF: 1 furosemide 40 mg tablet 20 mg PO DAILY Qty: 10 RF: 0 omeprazole 40 mg capsule,delayed release(DR/EC) 40 mg PO DAILY Qty: 30 RF: 1 (DME) SI Brace medium Qty: 1 RF: 0 diclofenac potassium 50 mg tablet 50 mg PO BID Qty: 20 RF: 0 Hold Instructions: med change nortriptyline 25 mg capsule 25 mg PO BEDTIME Qty: 30 RF: 2 Emgality Pen 120 mg/mL pen injector 120 mg SUBCUT QMONTH Qty: 1 RF: 12 jajfntdsod-mijzkuaxcolki-utsj 50-325-40 mg capsule 1 cap PO Q6H PRN (Reason: pain) Qty: 14 RF: 0 gabapentin 300 mg capsule 600 mg PO BEDTIME Qty: 60 RF: 3 meloxicam 7.5 mg tablet 15 mg PO DAILY MDD 15mg Qty: 30 RF: 5 Hold Instructions: diclofenac (DME) Respironics Dreamstation CPAP Qty: 1 RF: 0 Referrals: Meño Burrell MD [Non-Staff] - (migraine ) Hattie Cullen DO [Primary Care Provider] - <Dom Banegas DO - Last Filed: 11/07/19 22:14> Cosign ED Attending Cosignature Attestation: Dr Banegas Co-Sign Statement: I was available for consultation during this patient's emergency department visit. This chart is signed by myself for administrative purposes only. I did not have direct contact with this patient during this visit. They were seen independently by the APC.
[2019-11-07 20:05] LABS: C-Reactive Protein Quant < 0.5 mg/dL (<1.0)
[2019-11-07] MEDS: SODIUM CHLORIDE 0.9% 1,000 ML 1000 ML IV (20:28)
[2019-11-07] MEDS: HYDROMORPHONE 0.5 MG INJ IV (20:28)
[2019-11-07] MEDS: HYDROMORPHONE 1 MG INJ IV (21:12)
[2019-11-07 21:13] VITALS: BP 119/65; PULSE 78; RESP 18; O2SAT 98
[2019-11-07 21:49] VITALS: TEMP 37
[2019-11-07 22:24] VITALS: BP 129/70; PULSE 78; RESP 20; O2SAT 93
== END 2019-11-07 22:44 | disposition home or self-care (01) ==
PROVIDERS: Emergency Medicine; Emergency Provider Nurse Practitioner; PCP Family Medicine
DX: G43.001 Migraine without aura, not intractable, with status migrainosus (principal); R07.9 Chest pain, unspecified; I12.9 Hypertensive chronic kidney disease with stage 1 through stage 4 chronic kidney disease, or unspecified chronic kidney disease; N18.9 Chronic kidney disease, unspecified
CPT/HCPCS: 36415; 70450; 71045; 80048; 82550; 84484; 85025; 85651; 86140; 93005; 93010; 96361; 96374; 96375; 96376; 99284; J1170; J1200; J1885; J2765; J2930

== ENCOUNTER 2019-11-09 20:45 | Emergency (ER) | payer OTHER, SELFPAY ==
[2019-11-09 21:11] VITALS: BP 162/85; PULSE 84; RESP 16; TEMP 36.8; O2SAT 98; BMI 34.9
--- NOTE | 2019-11-09 22:06 | ED_ITS ---
HPI - Headache General Chief Complaint: Headache Stated Complaint: migraine Time Seen by Provider: 11/09/19 21:40 Source: patient Mode of arrival: Ambulatory Limitations: no limitations History of Present Illness HPI Narrative: 64-year-old female nonsmoker with history of migraine headaches returns for the 2nd time since Sunday. She complains of a generalized 10/10 headache which has been gradually worsening. She complains of worsening symptoms with bright lights and loud noise as well as exertion. She has nausea but denies any vomiting. She states this is very similar in presentation to prior migraine headaches and is affecting only the left side of her head, which is typical for her. She has no fever chills and denies any recent injuries. She has no focal neurologic findings such as numbness, tingling or weakness. On Sunday her pain started at a 10/10 and improved to a 7/10, she had normal head CT and was given various medications. She states her pain never went away completely and started worsening again about 12 hours ago. MD Complaint: headache and migraine Onset (ago): hour(s) Onset description: gradual Location: left and frontal Severity: severe Severity scale (1-10): 10 Quality: aching and throbbing Relieving factors: dark room Exacerbating factors: exertion, light and noise Context: occurred at rest Associated symptoms: nausea, photophobia and sensitivity to sound Treatments prior to arrival: migraine medication Related Data Home Medications Medication Instructions Recorded Confirmed Respironics Dreamstation CPAP #1 ea 10/17/18 11/07/19 fluticasone propionate 50 2 spray NASAL DAILY 08/06/19 11/07/19 mcg/actuation nasal spray,suspension Previous Rx's Medication Instructions Recorded omeprazole 40 mg capsule,delayed 40 mg PO DAILY #30 cap 04/01/18 release duloxetine 60 mg capsule,delayed 120 mg PO QDAY #180 cap 08/30/18 release SI Brace #1 ea 11/08/18 nortriptyline 25 mg capsule 25 mg PO BEDTIME #30 cap 01/30/19 nystatin 100,000 unit/gram topical 1 applictn TOP BID #30 gram 03/24/19 cream buspirone 15 mg tablet See Rx Instructions .ROUTE 04/21/19 .COMPLEX #120 tablet mqyzcjljmk-sahddhhkaoffu-wjkesuhz 1 cap PO Q6H PRN #14 cap 04/21/19 50 mg-325 mg-40 mg capsule galcanezumab-gnlm 120 mg/mL 120 mg SUBCUT QMONTH #1 ml 04/21/19 subcutaneous pen injector gabapentin 300 mg capsule 600 mg PO BEDTIME #60 cap 06/09/19 diclofenac potassium 50 mg tablet 50 mg PO BID #20 tab 07/07/19 dihydroergotamine 1 mg/mL 1 mg IM ONCE #5 ml 07/22/19 injection solution meloxicam 7.5 mg tablet 15 mg PO DAILY #30 tab MDD 15mg 08/05/19 metoclopramide HCl 10 mg tablet 10 mg PO Q6HP PRN #15 tab 08/06/19 diazepam 10 mg tablet 10 mg PO HSP PRN #30 tab 08/07/19 furosemide 40 mg tablet 20 mg PO DAILY #10 tab 09/05/19 sumatriptan succinate 100 mg tablet See Rx Instructions PO .COMPLEX 10/01/19 #10 tab alprazolam 1 mg tablet 1 mg PO TID PRN #15 tab 10/20/19 oxycodone-acetaminophen 5 mg-325 2 tab PO BEDTIME #60 tab 10/21/19 mg tablet hydromorphone 4 mg tablet 4 mg PO ONCE PRN #6 tab 11/05/19 metoclopramide HCl [Reglan] 10 mg PO DAILY PRN #20 tab 11/07/19 Allergies Allergy/AdvReac Type Severity Reaction Status Date / Time zolpidem [From AMBIEN] AdvReac Intermediate bad dreams Verified 11/07/19 17:22 Review of Systems Constitutional Constitutional: Denies chills, Denies fatigue, Denies fever(s), Denies frequent falls, Reports headache(s), Denies lethargy and Denies weakness Eyes Eyes: Denies change in vision, Denies eye discharge, Denies irritation and Denies loss of vision ENT Ears, Nose, Mouth, and Throat: Denies change in voice, Denies dizziness, Reports headache(s), Denies neck pain, Denies sore throat and Denies throat swelling Cardiovascular Cardiovascular: Denies chest pain, Denies irregular heart rhythm, Denies lightheadedness, Denies palpitations, Denies dyspnea, Denies dyspnea on exertion and Denies orthopnea Respiratory Respiratory: Denies cough, Denies dyspnea, Denies dyspnea on exertion and Denies wheezing Gastrointestinal Gastrointestinal: Denies abdominal pain, Denies change in bowel habits, Denies diarrhea, Denies nausea and Denies vomiting Genitourinary Genitourinary: Denies hematuria, Denies flank pain, Denies urinary incontinence and Denies urinary urgency Musculoskeletal Musculoskeletal: Denies back pain, Denies muscle weakness, Denies neck pain, Denies numbness and Denies tingling Integumentary/Breasts Skin/Breast: Denies pruritus, Denies erythema, Denies rash and Denies wounds Neurologic Neurologic: Denies behavioral changes, Denies confusion, Denies dizziness, Denies frequent falls, Reports headache(s), Denies loss of vision, Denies numbness, Denies tingling and Denies weakness Psychiatric Psychiatric: Denies anxiety, Denies behavioral changes, Denies confusion, Denies depression, Denies homicidal ideation and Denies suicidal ideation Endocrine Endocrine: Denies fatigue, Denies flushing and Denies palpitations Hematologic/Lymphatic Hematologic/Lymphatic: Denies easy bruising Allergic/Immunologic Allergic/Immunologic: Denies urticaria, Denies throat swelling and Denies wheezing Patient History Medical History Chickenpox (Resolved) Chronic diarrhea (Chronic) Depression (Chronic) Endometriosis (Chronic) Foraminal stenosis of lumbar region (Chronic) GERD with stricture (Chronic) Greater trochanteric bursitis of left hip (Acute) Hearing loss (Chronic) Hearing loss in left ear (Chronic) Hypertension (Chronic) IBS (irritable bowel syndrome) (Chronic) Insomnia (Chronic 05/20/14) Interstitial cystitis (Chronic) Left inguinal hernia (Acute) Lumbar degenerative disc disease (Chronic) Lumbosacral spondylosis with radiculopathy (Chronic) Measles (Resolved) Migraine (Chronic) Mumps (Resolved) Obesity with body mass index (BMI) of 30.0 to 39.9 (Chronic 01/25/17) Seasonal allergies (Chronic) Severe obstructive sleep apnea-hypopnea syndrome (Chronic 04/20/16) Spondylolisthesis at L4-L5 level (Chronic) Urinary incontinence (Chronic) Surgical History Esophageal motility disorder (Resolved ~07/14/09) History of cystoscopy Status post cholecystectomy Status post colonoscopy (~2007) Status post colonoscopy (08/02/09) Status post endoscopy (~2008) Status post hemorrhoidectomy (~2010) Status post hysterectomy with oophorectomy (~1985) Family History Father Congestive heart failure Tobacco abuse Grandfather Colorectal cancer Stomach cancer Grandmother Coronary artery disease Mother Congestive heart failure Tobacco abuse Hidradenitis suppurativa Alcoholism Grandfather Diabetes mellitus Grandmother Ovarian cancer Social History Smoking Status: Never smoker alcohol intake: never substance use type: does not use Smoking Status: Never smoker alcohol intake frequency: 0-2 drinks per day Substance Use Type: does not use Exam Narrative Exam Narrative: GENERAL: [64] year old patient appears stated age. Well- nourished, well-developed patient, in moderate distress, sitting in dark room, covering her eyes, massaging her head. HEAD: Atraumatic. Normocephalic. EYES: Pupils equal round and reactive. Extraocular motions intact. No scleral icterus. No injection or drainage. ENT: Nose without bleeding, purulent drainage. Throat without erythema, tonsillar hypertrophy or exudate. Airway patent. NECK: Trachea midline. Non tender CARDIOVASCULAR: Regular rate and rhythm without murmurs, gallops, or rubs. RESPIRATORY: Clear to auscultation. Breath sounds equal bilaterally. No wheezes, rales, or rhonchi. GASTROINTESTINAL: Abdomen soft, non-tender, nondistended. EXTREMITIES: No edema or joint tenderness. BACK: Nontender without deformity or crepitance. No flank tenderness. NEURO: AOx3. SKIN: No rash or erythema of visible areas NIH Stroke Scale 1a. LOC: Patient is alert and keenly responsive (0) 1b. LOC Questions: Patient answers both LOC questions accurately (0) 1c. LOC Commands: Patient performs both tasks correctly (0) 2. Best Gaze: Normal (0) 3. Visual: No visual loss (0) 4. Facial palsy: Normal symmetrical movements (0) 5. Motor arm: No drift (0) 6. Motor leg: No drift (0) 7. Limb ataxia: Absent (0) 8. Sensory: Normal (0) 9. Best language: No aphasia; normal (0) 10. Dysarthria: Normal (0) 11. Extinction and inattention: No abnormality (0) NIHSS: 0 Initial Vital Signs Initial Vital Signs: Vital Signs Temperature 98.2 F 11/09/19 21:11 Pulse Rate 84 11/09/19 21:11 Respiratory Rate 16 11/09/19 21:11 Blood Pressure 162/85 H 11/09/19 21:11 Pulse Oximetry 98 11/09/19 21:11 Course Orders Ordered: Discontinued Medications Dexamethasone (Decadron) 10 mg IV NOW ONE Stop: 11/09/19 22:14 Last Admin: 11/09/19 22:28 Dose: 10 mg Documented by: JESS Dihydroergotamine Mesylate (Dhe 45) 1 mg IV NOW ONE Stop: 11/09/19 22:14 Last Admin: 11/09/19 22:28 Dose: 1 mg Documented by: JESS Diphenhydramine HCl (Benadryl) 25 mg IV NOW ONE Stop: 11/09/19 22:14 Last Admin: 11/09/19 22:27 Dose: 25 mg Documented by: JESS Hydromorphone HCl (Dilaudid) 1 mg IV NOW ONE Stop: 11/09/19 23:26 Last Admin: 11/10/19 00:18 Dose: 1 mg Documented by: MARIAM Sodium Chloride (Normal Saline 0.9%) 1,000 mls @ 1,000 mls/hr IV BOLUS ONE Stop: 11/09/19 23:12 Last Infusion: 11/09/19 23:30 Dose: 0 mls/hr Documented by: Admin: 11/09/19 22:26 Dose: 1,000 mls/hr Documented by: JESS Metoclopramide HCl (Reglan) 10 mg IV NOW ONE Stop: 11/09/19 22:14 Last Admin: 11/09/19 22:28 Dose: 10 mg Documented by: JESS Reevaluation(s) Reevaluation #1: minimal if any change after first round of medications significant improvement after use of dilaudid Vital Signs Vital signs: Vital Signs - 8 hr 11/09/19 21:11 11/10/19 01:22 Temperature 98.2 F Pulse Rate 84 78 Respiratory Rate 16 16 Blood Pressure 162/85 H 149/87 H Pulse Oximetry 98 97 MDM - Headache Lab Data Labs: Point of Care Testing Glucose POC 97 Discharge Plan Departure Patient Disposition: Home Clinical Impression: Migraine Qualifiers: Migraine type: unspecified Status migrainosus presence: without status migraino sara Intractability: not intractable Qualified Code(s): G43.909 - Migraine, unspecified, not intractable, without status migrainosus Discharge Date/Time: 11/10/19 01:27 Instructions: DI for Headache Activity Restrictions/Additional Instructions: *You have been diagnosed with [acute migraine type headache] *What to do: *Take medications as directed *Follow up with your primary care provider in 2-3 days, call for an appointment. Let them know you were seen in the Emergency Department and that we ask that you be seen in follow up *Return to ER if you should have any new, worsening or concerning symptoms Prescriptions: No Action duloxetine [Cymbalta] 60 mg capsule,delayed release(DR/EC) 120 mg PO QDAY Qty: 180 RF: 2 buspirone 15 mg tablet See Rx Instructions .ROUTE .COMPLEX Qty: 120 RF: 0 dihydroergotamine 1 mg/mL solution 1 mg IM ONCE Qty: 5 RF: 1 diazepam 10 mg tablet 10 mg PO HSP PRN (Reason: sleep) Qty: 30 RF: 5 sumatriptan succinate 100 mg tablet See Rx Instructions PO .COMPLEX Qty: 10 RF: 1 alprazolam 1 mg tablet 1 mg PO TID PRN (Reason: anxiety) Qty: 15 RF: 0 oxycodone-acetaminophen 5-325 mg tablet 2 tab PO BEDTIME Qty: 60 RF: 0 hydromorphone 4 mg tablet 4 mg PO ONCE PRN (Reason: pain) Qty: 6 RF: 0 nystatin 100,000 unit/gram cream 1 applictn TOP BID Qty: 30 RF: 0 fluticasone propionate 50 mcg/actuation spray,suspension 2 spray NASAL DAILY RF: 0 metoclopramide HCl 10 mg tablet 10 mg PO Q6HP PRN (Reason: nausea and vomiting) Qty: 15 RF: 1 furosemide 40 mg tablet 20 mg PO DAILY Qty: 10 RF: 0 omeprazole 40 mg capsule,delayed release(DR/EC) 40 mg PO DAILY Qty: 30 RF: 1 (DME) SI Brace medium Qty: 1 RF: 0 diclofenac potassium 50 mg tablet 50 mg PO BID Qty: 20 RF: 0 Hold Instructions: med change metoclopramide HCl [Reglan] 10 mg tablet 10 mg PO DAILY PRN (Reason: nausea and vomiting/ migraine) Qty: 20 RF: 0 nortriptyline 25 mg capsule 25 mg PO BEDTIME Qty: 30 RF: 2 Emgality Pen 120 mg/mL pen injector 120 mg SUBCUT QMONTH Qty: 1 RF: 12 omggpbwswz-widqoqiuwqlmq-svff 50-325-40 mg capsule 1 cap PO Q6H PRN (Reason: pain) Qty: 14 RF: 0 gabapentin 300 mg capsule 600 mg PO BEDTIME Qty: 60 RF: 3 meloxicam 7.5 mg tablet 15 mg PO DAILY MDD 15mg Qty: 30 RF: 5 Hold Instructions: diclofenac (DME) Respironics Dreamstation CPAP Qty: 1 RF: 0 Referrals: Hattie Cullen DO [Primary Care Provider] -
[2019-11-09] MEDS: SODIUM CHLORIDE 0.9% 1,000 ML 1000 ML IV (22:26)
[2019-11-09] MEDS: diphenhydrAMINE 50 MG/ML VIAL 25 MG IV (22:27)
[2019-11-09] MEDS: METOCLOPRAMIDE 10 MG/2 ML INJ IV (22:28)
[2019-11-09] MEDS: DIHYDROERGOTAMINE 1 MG/ML AMPUL IV (22:28)
[2019-11-09] MEDS: DEXAMETHASONE 10 MG/ML VIAL IV (22:28)
[2019-11-10] MEDS: HYDROMORPHONE 1 MG INJ IV (00:18)
[2019-11-10 01:22] VITALS: BP 149/87; PULSE 78; RESP 16; O2SAT 97
== END 2019-11-10 01:27 | disposition home or self-care (01) ==
PROVIDERS: Emergency Provider Emergency Medicine; PCP Family Medicine
DX: G43.909 Migraine, unspecified, not intractable, without status migrainosus (principal)
CPT/HCPCS: 82962; 96361; 96374; 96375; 99284; J1100; J1110; J1170; J1200; J2765

== ENCOUNTER → 2019-12-29 10:04 | Outpatient (CLI) | payer OTHER, SELFPAY ==
[2019-12-29 23:36] LABS: COVID19 Sendout Not Detected (Not Detect)
== END ==
PROVIDERS: PCP Family Medicine; Visit Provider Physician Assistant
DX: Z01.812 Encounter for preprocedural laboratory examination (principal)
CPT/HCPCS: 87635

== ENCOUNTER 2020-01-01 08:45 | Outpatient (CLI) | payer OTHER, SELFPAY ==
[2020-01-01] VITALS (8 sets, daily range): BP systolic 110–130; BP diastolic 58–95; PULSE 74–102; RESP 14–18; TEMP 36.6; O2SAT 91–100
--- NOTE | 2020-01-01 08:48 | DI.RAD.S_ITS ---
PROCEDURE: PAIN L/SI FACET INJ/BLK 1STL INDICATIONS: SPONDYLOSIS FINDINGS: Fluoroscopic spot filming was performed to verify placement of spinal needles at the L3, L4, L5 level(s), as labeled on the films. Appropriate location(s) of the needle tip(s) was confirmed by injection of iodinated contrast. Dictated by: Angel Doll M.D. on 01/01/2020 at 11:32 Approved by: Angel Doll M.D. on 01/01/2020 at 11:32
[2020-01-01] MEDS: MIDAZOLAM 5 MG/5 ML VIAL IV (09:45)
[2020-01-01] MEDS: IOPAMIDOL 15 ML VIAL 3 ML INJ (09:45)
[2020-01-01] MEDS: fentaNYL 100 MCG/2 ML INJ 50 MCG IV (09:45)
--- NOTE | 2020-01-01 10:00 | PM.PROC.1 ---
Procedures Date/Time Date of procedure: 01/01/20 Time of procedure: 10:00 General Procedure description: POST OP DIAGNOSIS 1. FACET ARTHROPATHY PROCEDURES 1. Left L4, L5 and S1 MB BLOCKS PHYSICIAN: DO MYA Naranjo Sasha is referred by for treatment of Left Axial LBP. DESCRIPTION OF PROCEDURE Fluoroscopically guided, contrast-controlled left L4, L5 and S1 medial branch blocks with 0.5cc of 0.5% Marcaine. Following review of allergy and review of potential side effects and complications, including, but not necessarily limited to, infection, allergic reaction, local tissue breakdown, nerve injury, paralysis, stroke and possible , the patient indicated that the patient understood and agreed to proceed. An informed consent document was signed by the patient, witnessed by a nurse, and placed in the patient's chart. After review of previous anaesthesic history and IV conscious sedation the patient was deemed safe to proceed with todays procedure with IV conscious sedation as ASA class II designation. Safety time-out was performed to confirm patient ID, procedure to be performed and site of procedure. IV sedation was accomplished with a combination of 3mg of Versed and 50mcg of Fentanyl was administered by the RN after DO order, titrated to patient comfort during the course of the procedure while the patient remained responsive to all verbal commands. In the prone position, following sterile prep and drape of the lumbar region, the left L4, L5 and S1 anatomical location of the medial branch of the dorsal ramus was identified fluoroscopically. Subsequently an anesthetic skin wheal using 1% lidocaine solution was initiated at each of the anatomical spots. Subsequently then a 22-gauge 5-inch spinal needle was atraumatically introduced and advanced under fluoroscopic guidance at each of the corresponding sites at the left L4, L5 and S1 MB. After negative aspiration, 0.2 cc of Isovue 200 was injected, confirming placement without vascular or intrathecal uptake. Subsequently then 0.5 cc of 0.5% Marcaine solution was injected at each of the corresponding sites at the left L4, L5 and S1 medial branch locations. The patient tolerated the procedure well without signs or symptoms of complications. The patient tolerated the procedure well without signs or symptoms of complications prior to transfer to the recovery area continued monitoring without incident. Post-procedure, the patient was monitored initiating provocative activities to measure the amount of relief from block of the facetogenic pain. The patient reported a VAS of 7 prior to the procedure and a post-procedure VAS of 1. It has been a pleasure to assist in the diagnostic and therapeutic care of your patient. Total Fluoroscopy Time: 8 seconds Total Conscious Sedation Time: 24min POST OP INSTRUCTIONS The patient was provided with a Pain Log to complete over the next several hours and subsequent days prior to the patient's follow up with the ordering physician. If the patient has queen producer relief to the solution applied, then they may be a candidate for medial branch rhizotomy. The patient is aware, was provided, once again, with a Pain Log and will follow up with the referring physician for review and clinical correlation Geoff Beth DO Complications: none
[2020-01-01] MEDS: LIDOCAINE 1% 20 ML INJ (10:11)
[2020-01-01] MEDS: BUPIVACAINE 0.25% (PF) VIAL 1 ML INJ (10:12)
--- NOTE | 2020-01-01 11:38 | PC.NURSE ---
pt returned to preproc room via , 2PA to transfer from wc to chair, Monitoring resumed by Annamaria
== END 2020-01-01 10:27 | disposition home or self-care (01) ==
LOC: RAD 08:46
PROVIDERS: PCP Family Medicine; Referring Provider Physical Medicine & Rehabilitation; Visit Provider Physical Medicine & Rehabilitation
DX: M47.816 Spondylosis without myelopathy or radiculopathy, lumbar region (principal); M54.5 Low back pain
CPT/HCPCS: 64493; 64494; 99152; J2250; J3010

== ENCOUNTER → 2020-03-25 09:03 | Outpatient (CLI) | payer OTHER, SELFPAY ==
[2020-03-25 10:15] LABS: BUN Creatinine Ratio 13.8 (6-22); Blood Urea Nitrogen 13 mg/dL (7-17); Calcium 10.1 mg/dL (8.4-10.2); Carbon Dioxide 25 mmol/L (22-32); Chloride 105 mmol/L (98-107); Glucose 97 mg/dL (80-110); HEMOLYSIS < 15 (0-50); Sodium 137 mmol/L (137-145)
== END ==
PROVIDERS: PCP Family Medicine; Referring Provider Family Medicine; Visit Provider Family Medicine
DX: I10 Essential (primary) hypertension (principal); N18.2 Chronic kidney disease, stage 2 (mild)
CPT/HCPCS: 36415; 80048

== ENCOUNTER → 2020-06-04 09:17 | Outpatient (CLI) | payer OTHER, SELFPAY ==
[2020-06-04 10:14] LABS: BUN Creatinine Ratio 14.3 (6-22); Blood Urea Nitrogen 16 mg/dL (7-17); Calcium 9.5 mg/dL (8.4-10.2); Carbon Dioxide 31 mmol/L (22-32); Chloride 100 mmol/L (98-107); Glucose 116 mg/dL (80-110); HEMOLYSIS < 15 (0-50); Sodium 138 mmol/L (137-145)
== END ==
PROVIDERS: PCP Family Medicine; Referring Provider Family Medicine; Visit Provider Family Medicine
DX: G43.709 Chronic migraine without aura, not intractable, without status migrainosus (principal); I10 Essential (primary) hypertension; N18.2 Chronic kidney disease, stage 2 (mild)
CPT/HCPCS: 36415; 80048; 83735

== ENCOUNTER 2020-06-21 10:52 | Emergency (ER) | payer OTHER, SELFPAY ==
[2020-06-21] VITALS (22 sets, daily range): BP systolic 108–169; BP diastolic 59–75; PULSE 85–108; RESP 12–38; TEMP 36.9; O2SAT 92–99; BMI 36.1
[2020-06-21 11:49] LABS: Add Manual Diff / Slide Review NO; Basophils Absolute Auto 0 /uL (0-100); Basophils Percent Auto 0.4 % (0-2); Eosinophils Absolute Auto 100 /uL (0-450); Eosinophils Percent Auto 1.1 % (2-4); Hematocrit 39.5 % (36-46); Hemoglobin 12.9 g/dL (12.0-16.0); Lymphocytes Absolute Auto 1400 /uL (1100-4500); Lymphocytes Percent Auto 14.8 % (25-40); Mean Corpuscular HGB Conc 32.6 % (30-36); Mean Corpuscular Hemoglobin 27.9 PG (26-34); Mean Corpuscular Volume 85.7 fL (80-100); Monocytes Absolute Auto 800 /uL (0-900); Monocytes Percent Auto 8.8 % (3-14); Neutrophils Absolute Auto 7000 /uL (1500-7000); Neutrophils Percent Auto 74.9 % (50-75); Platelet Count 382 X10^3/uL (150-400); Red Blood Cell Count 4.61 X10^6/uL (4.0-5.2); Red Cell Distribution Width 14.5 % (11.6-14.8); White Blood Cell Count 9.3 X10^3/uL (4.5-11.0)
[2020-06-21 11:55] LABS: Prothrombin Time 11.6 SECONDS (10.1-12.7)
[2020-06-21 11:58] LABS: PTT Partial Thromboplastin Tim 31 SECONDS (26.4-36.2)
[2020-06-21 12:00] LABS: Alanine Aminotransferase 37 IU/L (<35); Albumin 4.4 g/dL (3.5-5.0); Albumin Globulin Ratio 1.2 (1.0-2.8); Alkaline Phosphatase 109 U/L (38-126); Aspartate Aminotransferase 34 IU/L (14-36); BUN Creatinine Ratio 21.4 (6-22); Bilirubin Total 0.7 mg/dL (0.2-1.3); Blood Urea Nitrogen 18 mg/dL (7-17); Calcium 10.1 mg/dL (8.4-10.2); Carbon Dioxide 27 mmol/L (22-32); Chloride 101 mmol/L (98-107); Estimated Glomerular Filt Rate > 60.0 mL/min (>60); Globulin 3.7 g/dL (1.7-4.1); Glucose 123 mg/dL (80-110); HEMOLYSIS 18 (0-50); Lipase 61 U/L (23-300); Potassium 3.5 mmol/L (3.4-5.1); Sodium 134 mmol/L (137-145); Total Protein 8.1 g/dL (6.3-8.2)
--- NOTE | 2020-06-21 13:19 | DI.CT.S_ITS ---
PROCEDURE: CT ABDOMEN PELVIS W CON INDICATIONS: lower abd pain, loose stools TECHNIQUE: After the administration of intravenous contrast, 5 mm thick sections acquired from the diaphragm to the symphysis. 5 mm coronal and sagittal reformats were acquired. For radiation dose reduction, the following was used: automated exposure control, adjustment of mA and/or kV according to patient size. COMPARISON: None. FINDINGS: Image quality: Excellent. ABDOMEN: Lung bases: Bibasilar dependent atelectasis is seen. Heart size is normal. Solid organs: Liver is normal in size . Mild hepatic steatosis is seen. Gallbladder is surgically absent. There is no intrahepatic biliary ductal dilatation. Prominent common bile duct is seen measures up to 1 centimeter in diameter which is in the upper limits of normal for patient's age and post cholecystectomy history. Pancreas enhances normally. Spleen is normal in size and enhancement. No adrenal nodules. Kidneys demonstrate normal size and enhancement, without hydronephrosis. Peritoneum and bowel: There is no bowel obstruction. Appendix is visualized in right lower quadrant abdomen and is normal in size and appearance. A 4 millimeter appendicular is is noted at most proximal appendix. There is suggestion of mild ascending colon wall thickness concerning for low-grade colitis versus under distension. Similar questionable wall thickening involving distal descending colon and sigmoid colon is also likely present. Sigmoid diverticulosis is seen, no evidence of acute diverticulitis. No free fluid or free air. No abscess collection. Nodes and vessels: No retroperitoneal or mesenteric adenopathy by size criteria. Aorta and inferior vena cava are normal in size. Miscellaneous: No ventral hernias. PELVIS: Genitourinary: Bladder wall thickness is normal. Miscellaneous: No inguinal adenopathy. Bilateral fat containing inguinal hernia is seen more prominent on the left side. Bones: No suspicious bony lesions. No vertebral body compression fractures. IMPRESSION: 1. Finding is concerning for low-grade colitis involving ascending colon, distal descending colon and sigmoid colon. Normal appearing appendix with suggestion of a 4 millimeter appendicular. No bowel obstruction. No free fluid or free air. 2. No renal stone or hydronephrosis. 3. Hepatic steatosis. Prior cholecystectomy. Dictated by: Alfonso Muller M.D. on 06/21/2020 at 13:04 Approved by: Alfonso Muller M.D. on 06/21/2020 at 13:08
[2020-06-21] MEDS: SODIUM CHLORIDE 0.9% 1,000 ML 1000 ML IV ×2 (13:29→16:00)
[2020-06-21] MEDS: ONDANSETRON 4 MG/2 ML INJ IV (13:29)
[2020-06-21 14:03] LABS: COVID19 -Nasal RAPID Negative (Negative)
[2020-06-21] MEDS: methylPREDNISolone 125 MG/2 ML VIAL IV (15:59)
[2020-06-21] MEDS: METOCLOPRAMIDE 10 MG/2 ML INJ IV (15:59)
[2020-06-21] MEDS: MORPHINE 4 MG/ML INJ IV (16:00)
[2020-06-21] MEDS: OXYCODONE/ACETAMINOPHEN 5/325 TABLET 1 TAB PO (18:25)
--- NOTE | 2020-06-21 18:59 | ED.ABDPAIN ---
HPI - Abdominal Pain <Barbara Mccray MANAGER CARE MANAGEMENT-BC - Last Filed: 06/21/20 19:30> General Chief Complaint: Abdominal Pain Stated Complaint: dehydration x1 day Time Seen by Provider: 06/21/20 12:43 Source: patient Mode of arrival: Wheelchair Limitations: no limitations History of Present Illness HPI narrative: The patient is a 65-year-old female nonsmoker with a complicated medical history including irritable bowel syndrome, migraines, interstitial cystitis as well as a history of chest pain, and hyperlipidemia who presents with a chief complaint of abdominal pain, cramping liquid stool since 3:00 a.m.. She complains of liquid diarrhea that has transition to yellow every 20 minutes since then. She complains of nausea with no vomiting. She denies any different or abnormal foods recently. She denies any muscle aches or chills other than during her episodes of diarrhea. She has a history of interstitial cystitis, does complain of bladder pain and spasm but denies any dysuria urgency or frequency. She states that she saw her primary care provider this morning who referred her to the emergency department. She denies any known coronavirus exposures. She states that her abdominal surgical history includes a full hysterectomy, and was well as a cholecystectomy. Please surgeries both occurred in the 80s. She does have a history of chronic kidney disease for which she avoids NSAIDs. Related Data Home Medications Medication Instructions Recorded Confirmed Respironics Dreamstation CPAP #1 ea 10/17/18 06/21/20 fluticasone propionate 50 2 spray NASAL DAILY 08/06/19 06/21/20 mcg/actuation nasal spray,suspension Previous Rx's Medication Instructions Recorded SI Brace #1 ea 11/08/18 nystatin 100,000 unit/gram topical 1 applictn TOP BID #30 gram 03/24/19 cream galcanezumab-gnlm 120 mg/mL 120 mg SUBCUT QMONTH #1 ml 04/21/19 subcutaneous pen injector dihydroergotamine 1 mg/mL 1 mg IM ONCE #5 ml 07/22/19 injection solution sumatriptan succinate 100 mg tablet See Rx Instructions PO .COMPLEX 10/01/19 #10 tab gabapentin 300 mg capsule 600 mg PO BEDTIME #60 cap 11/17/19 nortriptyline 50 mg capsule 50 mg PO BEDTIME #60 cap 11/17/19 omeprazole 40 mg capsule,delayed 40 mg PO DAILY PRN #30 cap 11/17/19 release naratriptan 2.5 mg tablet See Rx Instructions PO .COMPLEX 12/19/19 #10 tab metoclopramide HCl 10 mg tablet 10 mg PO Q6HP PRN #30 tab 03/24/20 verapamil 120 mg 24 hr 240 mg PO DAILY #60 cap 04/19/20 capsule,extended release escitalopram oxalate 10 mg tablet 10 mg PO DAILY #90 tab 05/05/20 albuterol sulfate 90 mcg/actuation See Rx Instructions .ROUTE 05/13/20 aerosol inhaler .COMPLEX #36 gram alprazolam 1 mg tablet 1 mg PO TID PRN #30 tab 05/31/20 diazepam 10 mg tablet 10 mg PO HSP PRN #30 tab 05/31/20 furosemide 40 mg tablet 40 mg PO DAILY #30 tab 05/31/20 hydroxyzine pamoate 25 mg capsule See Rx Instructions PO .COMPLEX 05/31/20 PRN #60 cap oxycodone-acetaminophen 5 mg-325 2 tab PO BEDTIME #60 tab 05/31/20 mg tablet metoclopramide HCl 10 mg PO Q6H PRN #14 tab 06/21/20 ondansetron 4 mg PO Q6H PRN #14 tab 06/21/20 prednisone 40 mg PO DAILY 5 Days #10 tab 06/21/20 Allergies Allergy/AdvReac Type Severity Reaction Status Date / Time zolpidem [From AMBIEN] AdvReac Intermediate bad dreams Verified 06/21/20 09:55 Review of Systems <MELODY Alonzo-BC - Last Filed: 06/21/20 19:30> Review of Systems Narrative: GENERAL: See HPI HEENT: Denies sinus pain, ear pain, sore throat, difficulty swallowing, dizziness. RESPIRATORY: Denies dyspnea, cough, wheezing, hemoptysis, sputum. CARDIOVASCULAR: Denies chest pain, palpitations, orthopnea, edema, GASTROINTESTINAL: See HPI : Denies dysuria, frequency, incontinence, hematuria, urinary retention. MUSCULOSKELETAL: denies weakness, joint pain, or bony pain SKIN: Denies rash, skin lesions, or other NEUROLOGIC: Denies weakness, headache, numbness, change in speech, confusion, seizures, incoordination. PSYCHIATRIC: No concerning psychosocial issues. 12 point review of systems is negative except for those stated above Patient History <EDGAR Alonzo - Last Filed: 06/21/20 19:30> Medical History Anxiety Chickenpox Chronic diarrhea Depression Endometriosis Environmental allergies Facet arthritis of lumbar region Foraminal stenosis of lumbar region GERD with stricture Greater trochanteric bursitis of left hip Hearing loss Hearing loss in left ear Hypertension IBS (irritable bowel syndrome) Insomnia (05/20/14) Interstitial cystitis Left inguinal hernia Lumbar degenerative disc disease Lumbosacral spondylosis with radiculopathy Measles Migraine Mumps Obesity with body mass index (BMI) of 30.0 to 39.9 (01/25/17) Ptosis Seasonal allergies Severe obstructive sleep apnea-hypopnea syndrome (04/20/16) Spondylolisthesis at L4-L5 level Urinary incontinence Surgical History Esophageal motility disorder (~07/14/09) History of cystoscopy Status post cholecystectomy Status post colonoscopy (~2007) Status post colonoscopy (08/02/09) Status post endoscopy (~2008) Status post hemorrhoidectomy (~2010) Status post hysterectomy with oophorectomy (~1985) Family History Father Congestive heart failure Tobacco abuse Grandfather Colorectal cancer Stomach cancer Grandmother Coronary artery disease Mother Congestive heart failure Tobacco abuse Hidradenitis suppurativa Alcoholism Grandfather Diabetes mellitus Grandmother Ovarian cancer Social History Smoking Status: Never smoker alcohol intake: never substance use type: does not use Smoking Status: Never smoker alcohol intake frequency: 0-2 drinks per day Substance Use Type: does not use Exam <EDGAR Alonzo - Last Filed: 06/21/20 19:30> Narrative Exam Narrative: GENERAL: This is a well-nourished, well-developed patient, in appears uncomfortable HEAD: Atraumatic. Normocephalic. No temporal or scalp tenderness. EYES: Pupils equal round and reactive. Extraocular motions intact. No scleral icterus. No injection or drainage. ENT: Nose without bleeding, purulent drainage or septal hematoma. Throat without erythema, tonsillar hypertrophy or exudate. Uvula midline. Airway patent. Dry mucous membranes noted. NECK: Trachea midline. No JVD or lymphadenopathy. Supple, nontender, no meningeal signs. CARDIOVASCULAR: Regular rate and rhythm RESPIRATORY: Clear to auscultation. Breath sounds equal bilaterally. No wheezes, rales, or rhonchi. No cough. No increased respiratory effort. No accessory muscle use. GASTROINTESTINAL: Abdomen soft, non-tender, suprapubic tenderness palpation, right lower quadrant tenderness to palpation. No hepato-splenomegaly, or palpable masses. No guarding. Active bowel sounds all 4 quadrants EXTREMITIES: No clubbing, cyanosis, or edema. No joint tenderness, effusion, or edema noted. BACK: Nontender without deformity or crepitance. No flank tenderness. NEURO: AOx3. SKIN: No rash or erythema on visible skin Initial Vital Signs Initial Vital Signs: Vital Signs Temperature 98.4 F 06/21/20 11:03 Pulse Rate 108 H 06/21/20 11:03 Respiratory Rate 16 06/21/20 11:03 Blood Pressure 140/69 06/21/20 11:03 Pulse Oximetry 94 06/21/20 11:03 <Barbara Hansen DO - Last Filed: 06/21/20 19:34> Initial Vital Signs Initial Vital Signs: Vital Signs Temperature 98.4 F 06/21/20 11:03 Pulse Rate 108 H 06/21/20 11:03 Respiratory Rate 16 06/21/20 11:03 Blood Pressure 140/69 06/21/20 11:03 Pulse Oximetry 94 06/21/20 11:03 Scores <EDGAR Alonzo - Last Filed: 06/21/20 19:30> GCS Zack[place] coma scale eye opening: Spontaneous [place] coma scale verbal response: Orientated [place] coma scale motor response: Obey commands [place] coma scale total score: 15 Course <EDGAR Alonzo - Last Filed: 06/21/20 19:30> Orders Ordered: ED Orders 06/21/20 11:35 Complete Blood Count AUTO DIFF Stat Comprehensive Metabolic Panel Stat Lipase Stat Partial Thromboplastin Time Stat Prothrombin Time INR Stat 06/21/20 11:40 EKG-12 Lead Stat 06/21/20 13:19 CT abdomen pelvis w con Stat 06/21/20 13:22 COVID19 Stat 06/21/20 18:49 Urine Microscopic Stat Discontinued Medications Sodium Chloride (Normal Saline 0.9%) 1,000 mls @ 1,000 mls/hr IV BOLUS ONE Stop: 06/21/20 14:18 Last Admin: 06/21/20 13:29 Dose: 1,000 mls/hr Documented by: RICO Sodium Chloride (Normal Saline 0.9%) 1,000 mls @ 1,000 mls/hr IV BOLUS ONE Stop: 06/21/20 16:02 Last Admin: 06/21/20 16:00 Dose: 1,000 mls/hr Documented by: RICO Methylprednisolone (Methylprednisolone 125 Mg/2 Ml Vial) 125 mg IV NOW ONE Stop: 06/21/20 15:04 Last Admin: 06/21/20 15:59 Dose: 125 mg Documented by: RICO Metoclopramide HCl (Metoclopramide 10 Mg/2 Ml Inj) 10 mg IV NOW ONE Stop: 06/21/20 15:04 Last Admin: 06/21/20 15:59 Dose: 10 mg Documented by: RICO Morphine Sulfate (Morphine 4 Mg/Ml Inj) 4 mg IV NOW ONE Stop: 06/21/20 15:04 Last Admin: 06/21/20 16:00 Dose: 4 mg Documented by: RICO Ondansetron HCl (Ondansetron 4 Mg/2 Ml Inj) 4 mg IV NOW ONE Stop: 06/21/20 13:20 Last Admin: 06/21/20 13:29 Dose: 4 mg Documented by: RICO Oxycodone/Acetaminophen (Oxycodone/Acetaminophen 5/325 Tablet) 1 tab PO NOW ONE Stop: 06/21/20 17:48 Last Admin: 06/21/20 18:25 Dose: 1 tab Documented by: RICO Vital Signs Vital signs: Vital Signs - 8 hr 06/21/20 11:55 06/21/20 12:00 06/21/20 12:30 Pulse Rate 96 H 96 H 95 H Respiratory Rate 29 H 24 17 Blood Pressure 119/69 118/63 Pulse Oximetry 96 92 95 06/21/20 12:31 06/21/20 13:00 06/21/20 13:30 Pulse Rate 93 H 93 H 91 H Respiratory Rate 23 15 15 Blood Pressure 134/68 133/71 Pulse Oximetry 98 96 97 06/21/20 13:31 06/21/20 13:53 06/21/20 14:00 Pulse Rate 91 H 92 H 91 H Respiratory Rate 18 17 20 Blood Pressure 116/61 144/59 H Pulse Oximetry 99 98 98 06/21/20 14:01 06/21/20 14:30 06/21/20 15:00 Pulse Rate 91 H 94 H 91 H Respiratory Rate 23 28 H 38 H Blood Pressure 169/75 H Pulse Oximetry 97 95 97 06/21/20 15:01 06/21/20 15:30 06/21/20 16:00 Pulse Rate 92 H 90 88 Respiratory Rate 38 H 30 H 19 Blood Pressure 132/65 108/63 Pulse Oximetry 96 98 97 06/21/20 16:30 06/21/20 17:00 06/21/20 17:30 Pulse Rate 85 85 90 Respiratory Rate 16 17 22 Blood Pressure Pulse Oximetry 93 97 97 06/21/20 18:00 Pulse Rate 91 H Respiratory Rate 23 Blood Pressure Pulse Oximetry 97 <Barbara Hansen, - Last Filed: 06/21/20 19:34> Orders Ordered: ED Orders 06/21/20 11:35 Complete Blood Count AUTO DIFF Stat Comprehensive Metabolic Panel Stat Lipase Stat Partial Thromboplastin Time Stat Prothrombin Time INR Stat 06/21/20 11:40 EKG-12 Lead Stat 06/21/20 13:19 CT abdomen pelvis w con Stat 06/21/20 13:22 COVID19 Stat 06/21/20 18:49 Urine Microscopic Stat Discontinued Medications Sodium Chloride (Normal Saline 0.9%) 1,000 mls @ 1,000 mls/hr IV BOLUS ONE Stop: 06/21/20 14:18 Last Admin: 06/21/20 13:29 Dose: 1,000 mls/hr Documented by: RICO Sodium Chloride (Normal Saline 0.9%) 1,000 mls @ 1,000 mls/hr IV BOLUS ONE Stop: 06/21/20 16:02 Last Admin: 06/21/20 16:00 Dose: 1,000 mls/hr Documented by: RICO Methylprednisolone (Methylprednisolone 125 Mg/2 Ml Vial) 125 mg IV NOW ONE Stop: 06/21/20 15:04 Last Admin: 06/21/20 15:59 Dose: 125 mg Documented by: RICO Metoclopramide HCl (Metoclopramide 10 Mg/2 Ml Inj) 10 mg IV NOW ONE Stop: 06/21/20 15:04 Last Admin: 06/21/20 15:59 Dose: 10 mg Documented by: RICO Morphine Sulfate (Morphine 4 Mg/Ml Inj) 4 mg IV NOW ONE Stop: 06/21/20 15:04 Last Admin: 06/21/20 16:00 Dose: 4 mg Documented by: RICO Ondansetron HCl (Ondansetron 4 Mg/2 Ml Inj) 4 mg IV NOW ONE Stop: 06/21/20 13:20 Last Admin: 06/21/20 13:29 Dose: 4 mg Documented by: RICO Oxycodone/Acetaminophen (Oxycodone/Acetaminophen 5/325 Tablet) 1 tab PO NOW ONE Stop: 06/21/20 17:48 Last Admin: 06/21/20 18:25 Dose: 1 tab Documented by: RICO Vital Signs Vital signs: Vital Signs - 8 hr 06/21/20 11:55 06/21/20 12:00 06/21/20 12:30 Pulse Rate 96 H 96 H 95 H Respiratory Rate 29 H 24 17 Blood Pressure 119/69 118/63 Pulse Oximetry 96 92 95 06/21/20 12:31 06/21/20 13:00 06/21/20 13:30 Pulse Rate 93 H 93 H 91 H Respiratory Rate 23 15 15 Blood Pressure 134/68 133/71 Pulse Oximetry 98 96 97 06/21/20 13:31 06/21/20 13:53 06/21/20 14:00 Pulse Rate 91 H 92 H 91 H Respiratory Rate 18 17 20 Blood Pressure 116/61 144/59 H Pulse Oximetry 99 98 98 06/21/20 14:01 06/21/20 14:30 06/21/20 15:00 Pulse Rate 91 H 94 H 91 H Respiratory Rate 23 28 H 38 H Blood Pressure 169/75 H Pulse Oximetry 97 95 97 06/21/20 15:01 06/21/20 15:30 06/21/20 16:00 Pulse Rate 92 H 90 88 Respiratory Rate 38 H 30 H 19 Blood Pressure 132/65 108/63 Pulse Oximetry 96 98 97 06/21/20 16:30 06/21/20 17:00 06/21/20 17:30 Pulse Rate 85 85 90 Respiratory Rate 16 17 22 Blood Pressure Pulse Oximetry 93 97 97 06/21/20 18:00 Pulse Rate 91 H Respiratory Rate 23 Blood Pressure Pulse Oximetry 97 MDM - Abdominal Pain <Barbara Langfordmer, MANAGER CARE MANAGEMENT- - Last Filed: 06/21/20 19:30> Lab Data Attestation: I reviewed the patient's lab results. Result diagrams: 06/21/20 11:35 06/21/20 11:35 Labs: Lab Results 06/21/20 06/21/20 06/21/20 Range/Units 11:35 11:35 11:35 WBC 9.3 (4.5-11.0) X10^3/uL RBC 4.61 (4.0-5.2) X10^6/uL Hgb 12.9 (12.0-16.0) g/dL Hct 39.5 (36-46) % MCV 85.7 (80-100) fL MCH 27.9 (26-34) PG MCHC 32.6 (30-36) % RDW 14.5 (11.6-14.8) % Plt Count 382 (150-400) X10^3/uL Neut % (Auto) 74.9 (50-75) % Lymph % (Auto) 14.8 L (25-40) % Wirt % (Auto) 8.8 (3-14) % Eos % (Auto) 1.1 L (2-4) % Baso % (Auto) 0.4 (0-2) % Neut # (Auto) 7000 (1427-9270) /uL Lymph # (Auto) 1400 (4671-9250) /uL Wirt # (Auto) 800 (0-900) /uL Eos # (Auto) 100 (0-450) /uL Baso # (Auto) 0 (0-100) /uL PT 11.6 (10.1-12.7) SECONDS INR 1.0 (0.9-1.3) APTT 31 (26.4-36.2) SECONDS Sodium 134 L (137-145) mmol/L Potassium 3.5 (3.4-5.1) mmol/L Chloride 101 (98-107) mmol/L Carbon Dioxide 27 (22-32) mmol/L BUN 18 H (7-17) mg/dL Creatinine 0.84 (0.52-1.04) mg/dL Estimated GFR > 60.0 (>60) mL/min BUN/Creatinine Ratio 21.4 (6-22) Glucose 123 H (80-110) mg/dL Calcium 10.1 (8.4-10.2) mg/dL Total Bilirubin 0.7 (0.2-1.3) mg/dL AST 34 (14-36) IU/L ALT 37 H (<35) IU/L Alkaline Phosphatase 109 (38-126) U/L Total Protein 8.1 (6.3-8.2) g/dL Albumin 4.4 (3.5-5.0) g/dL Globulin 3.7 (1.7-4.1) g/dL Albumin/Globulin Ratio 1.2 (1.0-2.8) Lipase 61 (23-300) U/L COVID-19 PCR (Negative) 06/21/20 Range/Units 13:22 WBC (4.5-11.0) X10^3/uL RBC (4.0-5.2) X10^6/uL Hgb (12.0-16.0) g/dL Hct (36-46) % MCV (80-100) fL MCH (26-34) PG MCHC (30-36) % RDW (11.6-14.8) % Plt Count (150-400) X10^3/uL Neut % (Auto) (50-75) % Lymph % (Auto) (25-40) % Wirt % (Auto) (3-14) % Eos % (Auto) (2-4) % Baso % (Auto) (0-2) % Neut # (Auto) (3244-2550) /uL Lymph # (Auto) (6896-6653) /uL Wirt # (Auto) (0-900) /uL Eos # (Auto) (0-450) /uL Baso # (Auto) (0-100) /uL PT (10.1-12.7) SECONDS INR (0.9-1.3) APTT (26.4-36.2) SECONDS Sodium (137-145) mmol/L Potassium (3.4-5.1) mmol/L Chloride (98-107) mmol/L Carbon Dioxide (22-32) mmol/L BUN (7-17) mg/dL Creatinine (0.52-1.04) mg/dL Estimated GFR (>60) mL/min BUN/Creatinine Ratio (6-22) Glucose (80-110) mg/dL Calcium (8.4-10.2) mg/dL Total Bilirubin (0.2-1.3) mg/dL AST (14-36) IU/L ALT (<35) IU/L Alkaline Phosphatase (38-126) U/L Total Protein (6.3-8.2) g/dL Albumin (3.5-5.0) g/dL Globulin (1.7-4.1) g/dL Albumin/Globulin Ratio (1.0-2.8) Lipase (23-300) U/L COVID-19 PCR Negative (Negative) Point of care testing: Urine Dip Bedside Urine Glucose Negative Bedside Urine Bilirubin - Negative Bedside Urine Ketone - Negative Urine Specific [place] 1.010 Bedside Urine Occult Blood - Negative Bedside Urine pH 6.0 Bedside Urine Protein - Negative Bedside Urine Urobilinogen - Negative Bedside Urine Nitrite - Negative Bedside Urine Leukocytes - Negative Esterase Imaging Data CT scan - abdomen/pelvis: Radiologist's Impression: [address] [place] [id number] Scan ReportSigned Patient: Sasha Hagan LMR#: [id number]: 6Acct:[id number]/Sex: 65 / FDate of Service: 06/21/20Loc: EDAccession Number: [id number] Procedure: CT abdomen pelvis w con Ordering Provider: Barbara Mccray [facility] PROCEDURE: CT ABDOMEN PELVIS W CON INDICATIONS: lower abd pain, loose stools TECHNIQUE: After the administration of intravenous contrast, 5 mm thick sections acquired from the diaphragm to the symphysis. 5 mm coronal and sagittal reformats were acquired. For radiation dose reduction, the following was used: automated exposure control, adjustment of mA and/or kV according to patient size. COMPARISON: None. FINDINGS: Image quality: Excellent. ABDOMEN: Lung bases: Bibasilar dependent atelectasis is seen. Heart size is normal. Solid organs: Liver is normal in size . Mild hepatic steatosis is seen. Gallbladder is surgically absent. There is no intrahepatic biliary ductal dilatation. Prominent common bile duct is seen measures up to 1 centimeter in diameter which is in the upper limits of normal for patient's age and post cholecystectomy history. Pancreas enhances normally. Spleen is normal in size and enhancement. No adrenal nodules. Kidneys demonstrate normal size and enhancement, without hydronephrosis. Peritoneum and bowel: There is no bowel obstruction. Appendix is visualized in right lower quadrant abdomen and is normal in size and appearance. A 4 millimeter appendicular is is noted at most proximal appendix. There is suggestion of mild ascending colon wall thickness concerning for low-grade colitis versus under distension. Similar questionable wall thickening involving distal descending colon and sigmoid colon is also likely present. Sigmoid diverticulosis is seen, no evidence of acute diverticulitis. No free fluid or free air. No abscess collection. Nodes and vessels: No retroperitoneal or mesenteric adenopathy by size criteria. Aorta and inferior vena cava are normal in size. Miscellaneous: No ventral hernias. PELVIS: Genitourinary: Bladder wall thickness is normal. Miscellaneous: No inguinal adenopathy. Bilateral fat containing inguinal hernia is seen more prominent on the left side. Bones: No suspicious bony lesions. No vertebral body compression fractures. IMPRESSION: 1. Finding is concerning for low-grade colitis involving ascending colon, distal descending colon and sigmoid colon. Normal appearing appendix with suggestion of a 4 millimeter appendicular. No bowel obstruction. No free fluid or free air. 2. No renal stone or hydronephrosis. 3. Hepatic steatosis. Prior cholecystectomy. Dictated by: Alfonso Muller M.D. on 06/21/2020 at 13:04 Approved by: Alfonso Muller M.D. on 06/21/2020 at 13:08 [facility] Narrative Medical decision making narrative: The patient is a 65-year-old female with a complicated medical history presents with a chief complaint of lower abdominal pain, multiple episodes of diarrhea overnight. She is dry and exam, dry mucous membranes, so she received 2 L of IV fluid during her emergency department stay. Given her pain to palpation and significant loose stools, CT was obtained which shows low-grade colitis involving the ascending colon, distal Descending colon as well as her sigmoid colon. Her appendix appears normal. Her lab work is overall reassuring, no leukocytosis. Given her reported watery episodes of diarrhea that were very frequent, we tried to obtain a GI panel. However she was unable to produce any stools during her multiple our emergency department stay. Given that she has no leukocytosis, no fever, we elected to treat her colitis as inflammatory rather than infectious. She was given steroids in the emergency department felt much improved. Thus I placed her on a burst of steroids, give her prescriptions of nausea medicine. Discussed course and treatment with Dr Hansen. This patient has on a pain management agreement, so we treated her pain in the emergency department and I encouraged her to follow up with primary care provider in the next few days. Discussed at length coming back to the ER for acute concerns such as inability keep down fluids etcetera. Patient is able to tolerate p.o. trial prior to discharge, keeping down fluids and crackers. Patient has no questions or concerns upon discharge and states understanding of return precautions as well as follow-up care. <Barbara Hansen, DO - Last Filed: 06/21/20 19:34> Lab Data Attestation: I reviewed the patient's lab results. Labs: Lab Results 06/21/20 06/21/20 06/21/20 Range/Units 11:35 11:35 11:35 WBC 9.3 (4.5-11.0) X10^3/uL RBC 4.61 (4.0-5.2) X10^6/uL Hgb 12.9 (12.0-16.0) g/dL Hct 39.5 (36-46) % MCV 85.7 (80-100) fL MCH 27.9 (26-34) PG MCHC 32.6 (30-36) % RDW 14.5 (11.6-14.8) % Plt Count 382 (150-400) X10^3/uL Neut % (Auto) 74.9 (50-75) % Lymph % (Auto) 14.8 L (25-40) % Wirt % (Auto) 8.8 (3-14) % Eos % (Auto) 1.1 L (2-4) % Baso % (Auto) 0.4 (0-2) % Neut # (Auto) 7000 (9155-3391) /uL Lymph # (Auto) 1400 (7390-0854) /uL Wirt # (Auto) 800 (0-900) /uL Eos # (Auto) 100 (0-450) /uL Baso # (Auto) 0 (0-100) /uL PT 11.6 (10.1-12.7) SECONDS INR 1.0 (0.9-1.3) APTT 31 (26.4-36.2) SECONDS Sodium 134 L (137-145) mmol/L Potassium 3.5 (3.4-5.1) mmol/L Chloride 101 (98-107) mmol/L Carbon Dioxide 27 (22-32) mmol/L BUN 18 H (7-17) mg/dL Creatinine 0.84 (0.52-1.04) mg/dL Estimated GFR > 60.0 (>60) mL/min BUN/Creatinine Ratio 21.4 (6-22) Glucose 123 H (80-110) mg/dL Calcium 10.1 (8.4-10.2) mg/dL Total Bilirubin 0.7 (0.2-1.3) mg/dL AST 34 (14-36) IU/L ALT 37 H (<35) IU/L Alkaline Phosphatase 109 (38-126) U/L Total Protein 8.1 (6.3-8.2) g/dL Albumin 4.4 (3.5-5.0) g/dL Globulin 3.7 (1.7-4.1) g/dL Albumin/Globulin Ratio 1.2 (1.0-2.8) Lipase 61 (23-300) U/L COVID-19 PCR (Negative) 06/21/20 Range/Units 13:22 WBC (4.5-11.0) X10^3/uL RBC (4.0-5.2) X10^6/uL Hgb (12.0-16.0) g/dL Hct (36-46) % MCV (80-100) fL MCH (26-34) PG MCHC (30-36) % RDW (11.6-14.8) % Plt Count (150-400) X10^3/uL Neut % (Auto) (50-75) % Lymph % (Auto) (25-40) % Wirt % (Auto) (3-14) % Eos % (Auto) (2-4) % Baso % (Auto) (0-2) % Neut # (Auto) (7397-4214) /uL Lymph # (Auto) (4715-7636) /uL Wirt # (Auto) (0-900) /uL Eos # (Auto) (0-450) /uL Baso # (Auto) (0-100) /uL PT (10.1-12.7) SECONDS INR (0.9-1.3) APTT (26.4-36.2) SECONDS Sodium (137-145) mmol/L Potassium (3.4-5.1) mmol/L Chloride (98-107) mmol/L Carbon Dioxide (22-32) mmol/L BUN (7-17) mg/dL Creatinine (0.52-1.04) mg/dL Estimated GFR (>60) mL/min BUN/Creatinine Ratio (6-22) Glucose (80-110) mg/dL Calcium (8.4-10.2) mg/dL Total Bilirubin (0.2-1.3) mg/dL AST (14-36) IU/L ALT (<35) IU/L Alkaline Phosphatase (38-126) U/L Total Protein (6.3-8.2) g/dL Albumin (3.5-5.0) g/dL Globulin (1.7-4.1) g/dL Albumin/Globulin Ratio (1.0-2.8) Lipase (23-300) U/L COVID-19 PCR Negative (Negative) Point of care testing: Urine Dip Bedside Urine Glucose Negative Bedside Urine Bilirubin - Negative Bedside Urine Ketone - Negative Urine Specific [place] 1.010 Bedside Urine Occult Blood - Negative Bedside Urine pH 6.0 Bedside Urine Protein - Negative Bedside Urine Urobilinogen - Negative Bedside Urine Nitrite - Negative Bedside Urine Leukocytes - Negative Esterase ECG Data Attestation: I personally reviewed and interpreted this ECG as follows: Prior ECG tracings: available for review Interpretation: Sinus rhythm rate of 95, P are 160, QRS of 90 and QTC 310. Non specific change. Similar to prior from 02/2017. Discharge Plan Departure Patient Disposition: Home Clinical Impression: Colitis, Nausea, Dehydration Instructions: DI for Dehydration -- Adult, DI for Nausea -- Adult, DI for Colitis Activity Restrictions/Additional Instructions: Thank you for trusting us with your care today. As discussed, your CT is concerning for colitis. We have elected to treat this colitis as inflammatory with steroids. I sent a prescription of prednisone to Bishnu. He can start this tomorrow since we gave you IV steroids in the ER. I also sent a prescription of nausea medications. Please follow-up with primary care provider in the next few days. Please push fluids, avoid any spicy foods, deep fried fatty foods and try for a light diet over the next few days. Please come back to the ER for acute concerns. Prescriptions: New prednisone 20 mg tablet 40 mg PO DAILY 5 Days Qty: 10 RF: 0 ondansetron 4 mg tablet,disintegrating 4 mg PO Q6H PRN (Reason: nausea and vomiting) Qty: 14 RF: 0 metoclopramide HCl 10 mg tablet 10 mg PO Q6H PRN (Reason: nausea and vomiting) Qty: 14 RF: 0 No Action escitalopram oxalate 10 mg tablet 10 mg PO DAILY Qty: 90 RF: 0 dihydroergotamine 1 mg/mL solution 1 mg IM ONCE Qty: 5 RF: 1 sumatriptan succinate 100 mg tablet See Rx Instructions PO .COMPLEX Qty: 10 RF: 1 albuterol sulfate 90 mcg/actuation HFA aerosol inhaler See Rx Instructions .ROUTE .COMPLEX Qty: 36 RF: 0 furosemide 40 mg tablet 40 mg PO DAILY Qty: 30 RF: 0 hydroxyzine pamoate 25 mg capsule See Rx Instructions PO .COMPLEX PRN (Reason: sleep) Qty: 60 RF: 0 nystatin 100,000 unit/gram cream 1 applictn TOP BID Qty: 30 RF: 0 fluticasone propionate 50 mcg/actuation spray,suspension 2 spray NASAL DAILY RF: 0 naratriptan 2.5 mg tablet See Rx Instructions PO .COMPLEX Qty: 10 RF: 0 metoclopramide HCl 10 mg tablet 10 mg PO Q6HP PRN (Reason: nausea and vomiting) Qty: 30 RF: 1 (DME) SI Brace medium Qty: 1 RF: 0 verapamil 120 mg capsule,ext rel. pellets 24 hr 240 mg PO DAILY Qty: 60 RF: 1 alprazolam 1 mg tablet 1 mg PO TID PRN (Reason: anxiety) Qty: 30 RF: 0 diazepam 10 mg tablet 10 mg PO HSP PRN (Reason: sleep) Qty: 30 RF: 0 oxycodone-acetaminophen 5-325 mg tablet 2 tab PO BEDTIME Qty: 60 RF: 0 nortriptyline 50 mg capsule 50 mg PO BEDTIME Qty: 60 RF: 2 omeprazole 40 mg capsule,delayed release(DR/EC) 40 mg PO DAILY PRN (Reason: GI) Qty: 30 RF: 1 gabapentin 300 mg capsule 600 mg PO BEDTIME Qty: 60 RF: 3 Emgality Pen 120 mg/mL pen injector 120 mg SUBCUT QMONTH Qty: 1 RF: 12 (DME) Respironics Dreamstation CPAP Qty: 1 RF: 0 Referrals: Hatite Cullen DO [Primary Care Provider] - <Barbara Hansen DO - Last Filed: 06/21/20 19:34> Cosign ED Attending Cosignature Attestation: I was immediately available in the department for consultation. This documentation has been reviewed and I agree with assessment and plan, case was discussed with myself. Patient has colitis throughout colon, lab work is reassuring ad started on steroids for inflammatory colitis. Supervised by Barbara Hansen DO
--- NOTE | 2020-07-31 16:45 | PC.NURSE ---
Late entry: IV NS 1000 mL bolus infused 1700 hrs.
--- NOTE | 2020-08-09 08:29 | PC.NURSE ---
Late entry: The IV NS bolus which began at 1319 hrs completed infusing at 1419 hrs. The IV NS bolus which began at 1600 hrs completed infusing at 1700 hrs.
== END 2020-06-21 19:00 | disposition home or self-care (01) ==
PROVIDERS: Emergency Medicine; Emergency Provider Nurse Practitioner Family; PCP Family Medicine
DX: K52.9 Noninfective gastroenteritis and colitis, unspecified (principal); R11.0 Nausea; E86.0 Dehydration; G43.909 Migraine, unspecified, not intractable, without status migrainosus; E78.5 Hyperlipidemia, unspecified; Z87.448 Personal history of other diseases of urinary system; R39.89 Other symptoms and signs involving the genitourinary system; Z90.710 Acquired absence of both cervix and uterus; N18.9 Chronic kidney disease, unspecified
CPT/HCPCS: 36415; 74177; 80053; 81003; 83690; 85025; 85610; 85730; 87635; 93005; 96361; 96374; 96375; 99284; J2270; J2405; J2765; J2930; Q9967

== ENCOUNTER → 2020-09-01 12:14 | Outpatient (CLI) | payer OTHER, SELFPAY ==
[2020-09-02 09:54] LABS: Immunoglobulin A 184 mg/dL (87-352)
[2020-09-02 18:04] LABS: Tissue Transglutaminase IgG 8 U/mL (0-5)
== END ==
PROVIDERS: PCP Family Medicine; Referring Provider Nurse Practitioner Family; Visit Provider Nurse Practitioner Family
DX: R93.5 Abnormal findings on diagnostic imaging of other abdominal regions, including retroperitoneum (principal); R10.31 Right lower quadrant pain; R19.7 Diarrhea, unspecified; R13.10 Dysphagia, unspecified; K21.9 Gastro-esophageal reflux disease without esophagitis
CPT/HCPCS: 36415; 82784; 83516

== ENCOUNTER → 2020-09-23 11:35 | Outpatient (CLI) | payer OTHER, SELFPAY ==
[2020-09-24 18:36] LABS: Tissue Transglutaminase IgA <2 U/mL (0-3)
== END ==
PROVIDERS: PCP Family Medicine; Referring Provider Nurse Practitioner Family; Visit Provider Nurse Practitioner Family
DX: R10.31 Right lower quadrant pain (principal); R93.5 Abnormal findings on diagnostic imaging of other abdominal regions, including retroperitoneum; R19.7 Diarrhea, unspecified; K21.9 Gastro-esophageal reflux disease without esophagitis; R13.10 Dysphagia, unspecified
CPT/HCPCS: 36415; 83516; 87045; 87177; 87493; 87899

== ENCOUNTER → 2020-11-08 10:31 | Outpatient (CLI) | payer OTHER, SELFPAY ==
[2020-11-08 11:27] LABS: COVID19 -Nasal RAPID Negative (Negative)
== END ==
PROVIDERS: PCP Family Medicine; Visit Provider Surgery
DX: Z20.822 Contact with and (suspected) exposure to COVID-19 (principal)
CPT/HCPCS: 87635; C9803

== ENCOUNTER 2020-11-09 08:10 | Day surgery (SDC) | payer OTHER, SELFPAY ==
[2020-11-08 09:06] VITALS: BMI 35.4
[2020-11-09] VITALS (17 sets, daily range): BP systolic 92–134; BP diastolic 41–102; PULSE 68–91; RESP 8–23; TEMP 36.3–36.9; O2SAT 91–100; BMI 35.7
--- NOTE | 2020-11-09 | PATH_ITS ---
[facility] Accession Number: [id number] . 01 Material submitted: . appendix - APPENDIX . 02 Diagnosis: Appendix, Appendectomy: Acute appendicitis. Negative for dysplasia and malignancy. [facility] 11/16/2020 1511 Local . 02 Electronically signed: . Nadira Richmond MD, Pathologist NPI- [id number] . 01 Gross description: . The specimen is received in formalin, labeled appendix and consists of a 6.5 cm in length by up to 1.5 cm in diameter vermiform appendix with attached ramirez-yellow lobulated mesoappendix measuring 5.0 x 3.0 x 2.0 cm. The serosa is ramirez-pink and smooth with focal fibrinous adhesions. Sectioning reveals a ramirez mucosa and a lumen measuring up to 0.7 cm in diameter. There is a 2.0 x 1.0 x 0.6 cm firm ramirez fecalith within the proximal portion of the appendix, located 0.2 cm from the margin. [employer] Hand sections are submitted to include the margin (blue), central cross-sections and bisected tip in cassettes A1-A2. ([id number]) /MRV 11/11/2020 1046 Local . 02 Pathologist provided ICD-10: K35.80 . 02 CPT . 382539 Performed at: 01 [facility] [address] [facility], [place], [place] [id number] MD Jovany Andrew MD Phone: [phone] Performed at: 02 [facility] [place] [address] [place], [place] [id number] MD Nadira Richmond MD Phone: [phone]
[2020-11-09] MEDS: ACETAMINOPHEN 325 MG TABLET 975 MG PO (08:24)
[2020-11-09] MEDS: LACTATED RINGERS 1,000 ML 42 ML IV ×2 (08:24→12:06)
--- NOTE | 2020-11-09 09:45 | PM.PREOP ---
Pre-operative Note Interval Note History & Physical reviewed/Exam performed by Physician: Yes Changes to H&P: No
[2020-11-09] MEDS: PIPERACILLIN-TAZO 3.375 GM/50 ML FROZ.PIGGY IV (10:03)
[2020-11-09] MEDS: BUPIVACAINE 0.25% (PF) VIAL 30 ML INJ (10:35)
--- NOTE | 2020-11-09 10:37 | SUR.OPER ---
Supine on padded OR bed, head on pillow, safety belt at thigh, left arm padded and tucked at side. Right arm secured on padded arm oard <90 degrees abduction. Legs uncrossed. Tape over blanket to secure lower legs.
--- NOTE | 2020-11-09 11:14 | PM.OP.1 ---
Operative Date/Time/Diagnoses Date of procedure: 11/09/20 Time of procedure: 11:14 Pre-op diagnosis: Chronic appendicitis Post-op diagnosis: same Procedure & Clinicians Procedure: Laparoscopic appendectomy Same procedure as scheduled: Yes Indications: Chronic abdominal pain CT demonstrates fecalith in the appendix Surgeon: Ze Hancock Anesthesia Type: General Operative Notes Findings: chronic appendicitis Specimen(s): other (appendix) Estimated Blood Loss (mL): 20 Procedure in detail: Patient was brought to the operating room placed supine on the table. Bilateral lower extremity compression devices were applied. Anesthesia was induced and they intubated with an endotracheal tube. They received 3.375 g of Zosyn prior to skin incision. The left arm was tucked and appropriately padded. They were prepped and draped in sterile fashion. Time-out was performed. An infraumbilical incision was made the umbilical stalk was grasped and elevated and incision was made and the abdomen was entered atraumatically. A 12 mm balloon trocar was then placed through the incision and pneumoperitoneum of 14 mm Hg was established. The scope was then inserted and the abdomen inspected, there was no evidence of injury upon entry. Two 5 mm ports were placed under direct visualization, one in the left lower quadrant and second in the lower midline. A thorough laparoscopic evaluation was performed inspecting all four quadrants. The patient was then tilted right side up. The small bowel was then swept to the upper aspect of the abdomen. There were flimsy adhesions in the pelvis from prior hysterectomy which were lysed to expose the cecum. The tenie were followed to the base of the cecum where the appendix was identified. It was partially retrocecal and I mobilized the cecum medially in order to completely expose it by incising the white line of Toldt. The appendix was was mobilized from its lateral attachments. The appendix was not perforated it appeared chronically inflamed. The appendix was grasped and a window within the mesentery was made at the base of the appendix using the [place] dissector with care to avoid injuring the cecum. The mesoappendix was then divided using the endo-stapler with a staple length of 2.5 mm-white load. The mesenteric staple line was inspected for hemostasis. The appendix was then amputated flush at the cecum using the endo-stapler blue load. The specimen was retrieved using a endoscopic retrieval bad through the 10 mm infra-umbilical port. The right paracolic gutter and the pouch of Jarred were irrigated The 5 mm ports were then removed under direct visualization. The umbilical fascial incision was closed with 0 Vicryl in a figure-eight fashion. The skin wounds were irrigated and closed with 4-0 Monocryl followed by the application of Dermabond. Sponge instrument count at the end of the operation was correct. The patient tolerated procedure well was extubated and transferred to the postoperative care unit in stable condition. Complications: none Post-operative Condition: stable Disposition: same day surgery
[2020-11-09] MEDS: LORazepam 2 MG/ML INJ 0.25 MG IV ×2 (11:40→12:00)
[2020-11-09] MEDS: METOCLOPRAMIDE 10 MG/2 ML INJ IV (11:40)
[2020-11-09] MEDS: hydrOXYzine 50 MG/ML INJ 25 MG IM (11:40)
[2020-11-09] MEDS: ONDANSETRON 4 MG/2 ML INJ IV (11:40)
[2020-11-09] MEDS: HYDROMORPHONE 2 MG INJ IV ×2 (11:46→11:59)
[2020-11-09] MEDS: OXYCODONE IR 5 MG TABLET PO ×2 (12:14→12:47)
[2020-11-09] MEDS: SUMAtriptan 25 MG TABLET 100 MG PO (12:54)
--- NOTE | 2020-11-09 16:24 | SUR.PHASEII ---
pt arrived from phase I. states pain in abd and also had a migraine. Order obtained for pt's home dose of sumatriptan which was given to pt. She Rested and stated her pain in abd was down to 5/10 and migraine was improved. Asked pt if she was ready to go home and she stated she was not able to stand up at this time. Checked again periodically and she stated she was still not ready. She had water, juiice and a cheese stick. No nausea. pt stayed in bed and slept. around 1510 stated she was ready and was able to get dressed with assistance. D/c instructions provided to pt and Rx was sent to pharmacy. w/c to car with her ride.
== END 2020-11-09 15:30 | disposition home or self-care (01) ==
PROVIDERS: PCP Family Medicine; Referring Provider Family Medicine; Visit Provider Surgery
PROC: 0DTJ4ZZ Resection of Appendix, Percutaneous Endoscopic Approach (ICD-10-PCS; CPT 44970; principal; 2020-11-09 09:15)
DX: K35.80 Unspecified acute appendicitis (principal); G47.33 Obstructive sleep apnea (adult) (pediatric); K21.9 Gastro-esophageal reflux disease without esophagitis; J45.909 Unspecified asthma, uncomplicated; E66.9 Obesity, unspecified; Z68.36 Body mass index [BMI] 36.0-36.9, adult
CPT/HCPCS: 44970; 82962; J0330; J1100; J1170; J1885; J2060; J2250; J2405; J2543; J2704; J2765; J3010; J3410

== ENCOUNTER → 2020-12-08 14:23 | Outpatient (CLI) | payer OTHER, SELFPAY ==
[2020-12-08] MEDS: COVID-19 VACC, Ad26(JANSSEN)/PF 0.5 ML IM (14:34)
== END ==
PROVIDERS: PCP Family Medicine; Visit Provider Internal Medicine
DX: Z23 Encounter for immunization (principal)
CPT/HCPCS: 0031A; 91303

== ENCOUNTER → 2020-12-17 12:49 | Outpatient (CLI) | payer OTHER, SELFPAY ==
[2020-12-17 13:22] LABS: Add Manual Diff / Slide Review NO; Basophils Absolute Auto 0 /uL (0-100); Basophils Percent Auto 0.5 % (0-2); Eosinophils Absolute Auto 100 /uL (0-450); Eosinophils Percent Auto 1.3 % (2-4); Hematocrit 41.6 % (36-46); Hemoglobin 13.5 g/dL (12.0-16.0); Lymphocytes Absolute Auto 1800 /uL (1100-4500); Mean Corpuscular HGB Conc 32.6 % (30-36); Mean Corpuscular Hemoglobin 28.1 PG (26-34); Mean Corpuscular Volume 86.3 fL (80-100); Monocytes Absolute Auto 600 /uL (0-900); Monocytes Percent Auto 8.2 % (3-14); Neutrophils Absolute Auto 4800 /uL (1500-7000); Platelet Count 389 X10^3/uL (150-400); Red Blood Cell Count 4.82 X10^6/uL (4.0-5.2); Red Cell Distribution Width 13.7 % (11.6-14.8); White Blood Cell Count 7.3 X10^3/uL (4.5-11.0)
[2020-12-17 13:43] LABS: Hemoglobin A1C% w Est Avg Glu 5.8 % (4.0-6.0)
[2020-12-17 13:44] LABS: Alanine Aminotransferase 29 IU/L (<35); Albumin 4.5 g/dL (3.5-5.0); Albumin Globulin Ratio 1.2 (1.0-2.8); Alkaline Phosphatase 130 U/L (38-126); Aspartate Aminotransferase 29 IU/L (14-36); BUN Creatinine Ratio 19.3 (6-22); Bilirubin Total 0.6 mg/dL (0.2-1.3); Blood Urea Nitrogen 17 mg/dL (7-17); Calcium 9.9 mg/dL (8.4-10.2); Carbon Dioxide 21 mmol/L (22-32); Chloride 105 mmol/L (98-107); Cholesterol 266 mg/dL (140-199); Estimated Glomerular Filt Rate > 60.0 mL/min (>60); Globulin 3.7 g/dL (1.7-4.1); Glucose 118 mg/dL (80-110); HDL Cholesterol 74 mg/dL (40-60); HEMOLYSIS < 15 (0-50); LDL Cholesterol Calculated 136 mg/dL (<100); Sodium 138 mmol/L (137-145); Total Protein 8.2 g/dL (6.3-8.2); Triglycerides 282 mg/dL (35-150)
[2020-12-17 14:19] LABS: Creatinine Urine Random 42.1 mg/dL
[2020-12-17 14:24] LABS: Microalbumin Urine Random < 0.6 mg/dL (0-1.6)
== END ==
PROVIDERS: PCP Family Medicine; Referring Provider Surgery; Visit Provider Surgery
DX: R10.9 Unspecified abdominal pain (principal); E78.5 Hyperlipidemia, unspecified; I10 Essential (primary) hypertension; N18.2 Chronic kidney disease, stage 2 (mild)
CPT/HCPCS: 36415; 80053; 80061; 82043; 82570; 83036; 85025

== ENCOUNTER → 2021-11-09 09:25 | Outpatient (CLI) | payer MEDICARE, SELFPAY ==
[2021-11-09 10:25] LABS: Appearance Urine UA CLEAR; Bilirubin Urine UA NEGATIVE (NEGATIVE); Color Urine UA YELLOW; Glucose Urine UA NEGATIVE (Negative); Ketones Urine UA NEGATIVE (NEGATIVE); Leukocyte Esterase Urine UA NEGATIVE (NEGATIVE); Nitrite Urine UA NEGATIVE (Negative); Occult Blood Urine UA NEGATIVE (Negative); Protein Urine UA NEGATIVE (Negative); Specific Gravity Urine UA <=1.005 (1.000-1.035); Urobilinogen Urine UA 0.2 E.U./dL (0.2)
[2021-11-09 10:32] LABS: pH Urine UA 5.5 (4.5-8.0)
[2021-11-09 11:01] LABS: Bacteria Urine None Seen; Culture Indicated Urine Cult Not Indicated; RBC Urine 0-1/HPF (0-5/HPF); Squamous Epithelial Cell Urine 1-5 /HPF (0-5/HPF); WBC Urine 0-1/HPF (0-5/HPF)
== END ==
PROVIDERS: PCP Family Medicine; Referring Provider Urology; Visit Provider Urology
DX: R39.9 Unspecified symptoms and signs involving the genitourinary system (principal)
CPT/HCPCS: 36415; 81001

== ENCOUNTER 2022-10-11 09:40 | Emergency (ER) | payer MEDICARE, SELFPAY ==
[2022-10-11] VITALS (20 sets, daily range): BP systolic 101–135; BP diastolic 60–87; PULSE 70–101; RESP 13–35; TEMP 37.2; O2SAT 92–96; BMI 33.7
--- NOTE | 2022-10-11 09:51 | ED_ITS ---
HPI - Chest Pain General Chief Complaint: Chest Pain Stated Complaint: sent by DR shanthi blum/SOB Time Seen by Provider: 10/11/22 09:41 Source: patient, RN notes reviewed and old records reviewed Mode of arrival: Family Vehicle Limitations: no limitations History of Present Illness HPI narrative: This is a 67-year-old female with history of interstitial cystitis, migraines and bladder stimulator who presents with complaint of substernal chest pain radiating towards her back that started yesterday she states her arms feel like lead. She states started while she was walking around. She took her dog for a walk but got significantly worse. Patient also appreciates quite a bit of shortness of breath she states she feels short of breath but also has some pleuritic pain and noticed over time she started have some right upper abdominal/rib pain. Patient states it feels very similar in the right upper quadrant to when she had her gallbladder issues. She is had a cholecystectomy. She states it will subside nothing seems to exacerbate it she is tried moving around, lying flat, being seated. Nothing seems to alleviate it. Seems to come and go intermittently. She denies fevers or chills, no cold cough or congestion. She states she does have seasonal allergies. She is chronic diarrhea baseline. No new black or bloody stools. She is had nausea intermittently no vomiting. She has got diaphoretic intermittently. Patient states she noticed a little bit of mild swelling in her lower extremities. She also noted that her stimulator she turned off 2 days ago it was placed last November but she is having some discomfort down her legs and hip pain so she stopped this. Did seem to be helpful. Patient states she takes diazepam nightly, hydrocodone as needed she is not had any lately, cholestyramine as needed for diarrhea, she denies any aspirin or thinners. She denies medications for hypertension, dyslipidemia, diabetes. She states prior cholecystectomy, hysterectomy, appendectomy 2 years ago bladder stimulator. Patient states she is allergic to zolpidem. She states her maternal grandmother had cardiac issues, she states her mom for cardiac issues and cancer. She states her paternal grandfather had cardiac issues. She denies any embolic history for vascular history her family. No tobacco, alcohol or illicit. Related Data Home Medications Medication Instructions Recorded Confirmed Respironics Dreamstation CPAP #1 ea 10/17/18 10/11/22 nystatin 100,000 unit/gram topical 1 applictn topical BID PRN Yeast 11/08/20 10/11/22 cream infection docusate sodium 100 mg capsule 100 mg PO BID PRN 05/17/21 10/11/22 (Colace) ibuprofen 200 mg tablet 400 mg PO Q6H PRN 05/17/21 10/11/22 dihydroergotamine 1 mg/mL 1 mg IM ONCE PRN 07/05/21 10/11/22 injection solution furosemide 40 mg tablet See Rx Instructions .Route 07/05/21 10/11/22 .COMPLEX PRN Previous Rx's Medication Instructions Recorded SI Brace #1 ea 11/08/18 albuterol sulfate 90 mcg/actuation See Rx Instructions .Route 05/13/20 aerosol inhaler .COMPLEX #36 grams acetaminophen 325 mg capsule 650 mg PO QID PRN pain #60 caps 11/09/20 (Tylenol) bupropion HCl 300 mg 24 hr tablet, 300 mg PO QAM #90 tabs 05/17/21 extended release escitalopram oxalate 10 mg tablet 20 mg PO DAILY 90 days #180 tabs 05/17/21 sumatriptan succinate 100 mg tablet See Rx Instructions PO .COMPLEX 05/30/21 #10 tabs omeprazole 40 mg capsule,delayed 40 mg PO BID GI #30 caps 12/16/21 release metoclopramide HCl 10 mg tablet 10 mg PO .Q6HP #30 tabs 04/18/22 alprazolam 0.5 mg tablet 0.5 mg PO .COMPLEX #10 tabs 04/26/22 sumatriptan 20 mg/actuation nasal 20 mg intranasal Q2H PRN migraine 05/05/22 spray headache #6 ea diazepam 10 mg tablet See Rx Instructions .Route 10/11/22 .COMPLEX #90 tabs hydrocodone 5 mg-acetaminophen 325 1 tab PO Q6H PRN pain #7 tabs 10/11/22 mg tablet oxycodone-acetaminophen 5 mg-325 1 tab PO BEDTIME hip pain #30 tabs 10/11/22 mg tablet Allergies Allergy/AdvReac Type Severity Reaction Status Date / Time zolpidem [From AMBIEN] AdvReac Intermediate bad dreams Verified 10/11/22 09:01 Review of Systems Review of Systems ROS Unobtainable: All systems reviewed & are unremarkable except as noted in HPI and below Patient History Medical History Anxiety Appendicolith Candidal intertrigo Cervical radiculopathy Chickenpox Chronic appendicitis Chronic diarrhea Chronic interstitial cystitis (09/16/12) Chronic kidney disease (CKD) stage G2/A1, mildly decreased glomerular filtration rate (GFR) between 60-89 mL/min/1.73 square meter and albuminuria creatinine ratio less than 30 mg/g (09/28/17) Colitis Degenerative arthritis of cervical spine Depression Diarrhea Duodenal ulcer (~11/2020) Endometriosis Environmental allergies Facet arthritis of lumbar region GERD with stricture Greater trochanteric bursitis of left hip Hearing loss in left ear History of esophageal dilatation Hypertension IBS (irritable bowel syndrome) Insomnia (05/20/14) Interstitial cystitis Irritable bowel syndrome with diarrhea (09/16/12) Left inguinal hernia Lumbosacral spondylosis with radiculopathy Measles Migraine Mumps Obesity with body mass index (BMI) of 30.0 to 39.9 (01/25/17) Presence of device (~2014) Ptosis Seasonal allergies Serrated adenoma of colon (~09/2020) Severe obstructive sleep apnea-hypopnea syndrome (04/20/16) Spondylolisthesis at L4-L5 level Stercoral ulcer of rectum Urinary incontinence Surgical History Esophageal motility disorder (~07/14/09) History of appendectomy History of back surgery History of cystoscopy History of esophagogastroduodenoscopy (EGD) (~11/2020) Status post cholecystectomy Status post colonoscopy (~2007) Status post colonoscopy (08/02/09) Status post endoscopy (~2008) Status post hemorrhoidectomy (~2010) Status post hysterectomy with oophorectomy (~1985) Family History Father Congestive heart failure Tobacco abuse Grandfather Colorectal cancer Stomach cancer Grandmother Coronary artery disease Mother Congestive heart failure Tobacco abuse Hidradenitis suppurativa Alcoholism Grandfather Diabetes mellitus Grandmother Ovarian cancer Other Family history of alcoholism in mother Social History marital status: unknown household members: family and other occupational status: previously employed Smoking Status: Never smoker alcohol intake: never substance use type: does not use Smoking Status: Never smoker alcohol intake frequency: 0-2 drinks per day Substance Use Type: does not use Exam Narrative Exam Narrative: GENERAL: Alert and oriented x three, obese female in moderate distress. HEENT: Head normocephalic, atraumatic, EOMI, pupils reactive, face symmetric, moist mucous membranes NECK: Supple, full range of motion CARDIOVASCULAR: Regular rate and rhythm without murmurs, rubs or gallops. No JVD. No swelling bilateral lower extremities. RESPIRATORY: Breath sounds equal bilaterally, no wheezes rales or rhonchi. No tachypnea accessory muscle use. ABDOMEN: Soft, nontender. Normoactive bowel sounds all 4 quadrants. No guard ing or rebound, rigidity, no mass. No bruits her pulsatile mass. : No CVA tenderness EXTREMITIES: Normal range of motion, no clubbing or edema, 2+ pulses bilaterally.. Neurovascularly intact NEUROLOGICAL: Cranial nerves II through XII grossly intact. Moving all extremities SKIN: Warm, dry, no petechiae, no rashes or lesions. Initial Vital Signs Initial Vital Signs: Vital Signs Temperature 98.9 F 10/11/22 09:48 Pulse Rate 99 H 10/11/22 09:48 Respiratory Rate 22 10/11/22 09:48 Blood Pressure 135/87 10/11/22 09:48 Pulse Oximetry 96 10/11/22 09:48 Oxygen Delivery Method Room Air 10/11/22 09:48 Course Orders Ordered: ED Orders 10/11/22 09:53 XR chest 1V Stat 10/11/22 09:55 BNP [NT-proBNP (BNP-Adult 18+)] Stat Complete Blood Count AUTO DIFF Stat Comprehensive Metabolic Panel Stat Lipase Stat Magnesium Stat PTT Partial Thromboplastin Kvng Stat Prothrombin Time INR Stat Respiratory Panel (Film Array) Stat Troponin & CK Cardiac Panel Stat 10/11/22 11:36 US abdomen limited Stat 10/11/22 12:12 Trop I [Troponin I] Stat Discontinued Medications Aspirin (Aspirin 81 Mg Chew Tab) 324 mg PO NOW ONE Stop: 10/11/22 09:54 Last Admin: 10/11/22 10:22 Dose: 324 mg Documented By: BRANDO Morphine Sulfate (Morphine 4 Mg/Ml Inj) 4 mg IV NOW ONE Stop: 10/11/22 10:39 Last Admin: 10/11/22 10:42 Dose: 4 mg Documented By: BRANDO Morphine Sulfate (Morphine 4 Mg/Ml Inj) 4 mg IV NOW ONE Stop: 10/11/22 11:37 Last Admin: 10/11/22 11:41 Dose: 4 mg Documented By: BRANDO Nitroglycerin (Nitroglycerin 0.4 Mg Sl Tab) 0.4 mg SL [id number] PRN PRN Reason: Chest Pain Last Admin: 10/11/22 10:23 Dose: 0.4 mg Documented By: BRANDO Ondansetron HCl (Ondansetron 4 Mg/2 Ml Inj) 4 mg IV Q6HR PRN PRN Reason: Nausea And Vomiting Last Admin: 10/11/22 10:43 Dose: 4 mg Documented By: BRANDO Vital Signs Vital signs: Vital Signs - 8 hr 10/11/22 10:45 10/11/22 10:45 10/11/22 11:00 Pulse Rate 97 H Respiratory Rate 28 H Blood Pressure 125/74 120/76 Pulse Oximetry 96 Oxygen Delivery Method 10/11/22 11:00 10/11/22 11:15 10/11/22 11:15 Pulse Rate 92 H 77 Respiratory Rate 26 H 14 Blood Pressure 116/73 Pulse Oximetry 94 95 Oxygen Delivery Method 10/11/22 11:30 10/11/22 11:30 10/11/22 11:45 Pulse Rate 79 Respiratory Rate 19 Blood Pressure 114/68 117/66 Pulse Oximetry 94 Oxygen Delivery Method 10/11/22 11:45 10/11/22 12:00 10/11/22 12:00 Pulse Rate 79 70 Respiratory Rate 22 30 H Blood Pressure 101/60 Pulse Oximetry 95 92 Oxygen Delivery Method Room Air 10/11/22 12:15 10/11/22 12:30 10/11/22 12:45 Pulse Rate 75 76 74 Respiratory Rate 23 28 H 13 Blood Pressure Pulse Oximetry 94 96 93 Oxygen Delivery Method 10/11/22 13:00 10/11/22 13:15 Pulse Rate 86 79 Respiratory Rate 23 16 Blood Pressure Pulse Oximetry 94 93 Oxygen Delivery Method MDM - Chest Pain Lab Data 10/11/22 09:55 10/11/22 09:55 Labs: Lab Results 10/11/22 10/11/22 10/11/22 Range/Units 09:55 09:55 09:55 WBC 6.3 (4.5-11.0) X10^3/uL RBC 4.60 (4.0-5.2) X10^6/uL Hgb 13.6 (12.0-16.0) g/dL Hct 40.2 (36-46) % MCV 87.4 (80-100) fL MCH 29.6 (26-34) PG MCHC 33.9 (30-36) % RDW 13.5 (11.6-14.8) % Plt Count 349 (150-400) X10^3/uL Neut % (Auto) 64.5 (50-75) % Lymph % (Auto) 25.6 (25-40) % [place] % (Auto) 7.8 (3-14) % Eos % (Auto) 1.4 L (2-4) % Baso % (Auto) 0.7 (0-2) % Neut # (Auto) 4100 (0706-5206) /uL Lymph # (Auto) 1600 (4117-9511) /uL [place] # (Auto) 500 (0-900) /uL Eos # (Auto) 100 (0-450) /uL Baso # (Auto) 0 (0-100) /uL PT 11.3 (10.1-12.7) SECONDS INR 1.0 (0.9-1.3) APTT 29 (26-36) SECONDS Sodium 136 L (137-145) mmol/L Potassium 3.9 (3.4-5.1) mmol/L Chloride 104 (98-107) mmol/L Carbon Dioxide 21 L (22-32) mmol/L BUN 22 H (7-17) mg/dL Creatinine 1.27 H (0.52-1.04) mg/dL Estimated GFR 47 L (>60) mL/min BUN/Creatinine Ratio 17.3 (6-22) Glucose 131 H (80-110) mg/dL Calcium 9.7 (8.4-10.2) mg/dL Magnesium 1.7 (1.6-2.3) mg/dL Total Bilirubin 0.9 (0.2-1.3) mg/dL AST 35 (14-36) IU/L ALT 56 H (<35) IU/L Alkaline Phosphatase 102 (38-126) U/L Total Creatine Kinase 282 H (30-135) U/L CK-MB (CK-2) 2.46 H (<2.37) ng/mL CK-MB (CK-2) Rel Index 0.9 L (1.5-5.0) % Troponin I < 0.012 (0.01-0.034) ng/mL NT-Pro-B Natriuret Pep (<125) pg/mL Total Protein 8.3 H (6.3-8.2) g/dL Albumin 4.5 (3.5-5.0) g/dL Globulin 3.8 (1.7-4.1) g/dL Albumin/Globulin Ratio 1.2 (1.0-2.8) Lipase 69 (23-300) U/L Chlamy pneumoniae PCR (Not Detect) Adenovirus (PCR) (Not Detect) B. pertussis DNA (PCR) (Not Detecte) B.parapertussis DNA PCR (Not Detecte) Coronavirus OC43 (PCR) (Not Detect) Coronavirus HKU1 (PCR) (Not Detect) Coronavirus 229E (PCR) (Not Detect) SARS-CoV-2 (PCR) (Not Detecte) Coronavirus NL63 (PCR) (Not Detect) Human Metapneumovir PCR (Not Detect) Influenza Type A (PCR) (Not Detect) Influenza Type B (PCR) (Not Detect) M. pneumoniae (PCR) (Not Detect) Parainfluenza 1 (PCR) (Not Detect) Parainfluenza 2 (PCR) (Not Detect) Parainfluenza 3 (PCR) (Not Detect) Parainfluenza 4 (PCR) (Not Detect) RSV (PCR) (Not Detect) Entero/Rhino (PCR) (Not Detect) 10/11/22 10/11/22 10/11/22 Range/Units 09:55 09:55 12:12 WBC (4.5-11.0) X10^3/uL RBC (4.0-5.2) X10^6/uL Hgb (12.0-16.0) g/dL Hct (36-46) % MCV (80-100) fL MCH (26-34) PG MCHC (30-36) % RDW (11.6-14.8) % Plt Count (150-400) X10^3/uL Neut % (Auto) (50-75) % Lymph % (Auto) (25-40) % [place] % (Auto) (3-14) % Eos % (Auto) (2-4) % Baso % (Auto) (0-2) % Neut # (Auto) (5933-1148) /uL Lymph # (Auto) (4325-1906) /uL [place] # (Auto) (0-900) /uL Eos # (Auto) (0-450) /uL Baso # (Auto) (0-100) /uL PT (10.1-12.7) SECONDS INR (0.9-1.3) APTT (26-36) SECONDS Sodium (137-145) mmol/L Potassium (3.4-5.1) mmol/L Chloride (98-107) mmol/L Carbon Dioxide (22-32) mmol/L BUN (7-17) mg/dL Creatinine (0.52-1.04) mg/dL Estimated GFR (>60) mL/min BUN/Creatinine Ratio (6-22) Glucose (80-110) mg/dL Calcium (8.4-10.2) mg/dL Magnesium (1.6-2.3) mg/dL Total Bilirubin (0.2-1.3) mg/dL AST (14-36) IU/L ALT (<35) IU/L Alkaline Phosphatase (38-126) U/L Total Creatine Kinase (30-135) U/L CK-MB (CK-2) (<2.37) ng/mL CK-MB (CK-2) Rel Index (1.5-5.0) % Troponin I < 0.012 (0.01-0.034) ng/mL NT-Pro-B Natriuret Pep 71 (<125) pg/mL Total Protein (6.3-8.2) g/dL Albumin (3.5-5.0) g/dL Globulin (1.7-4.1) g/dL Albumin/Globulin Ratio (1.0-2.8) Lipase (23-300) U/L Chlamy pneumoniae PCR Not detected (Not Detect) Adenovirus (PCR) Not detected (Not Detect) B. pertussis DNA (PCR) Not detected (Not Detecte) B.parapertussis DNA PCR Not detected (Not Detecte) Coronavirus OC43 (PCR) Not detected (Not Detect) Coronavirus HKU1 (PCR) Not detected (Not Detect) Coronavirus 229E (PCR) Not detected (Not Detect) SARS-CoV-2 (PCR) Not detected (Not Detecte) Coronavirus NL63 (PCR) Not detected (Not Detect) Human Metapneumovir PCR Not detected (Not Detect) Influenza Type A (PCR) Not detected (Not Detect) Influenza Type B (PCR) Not detected (Not Detect) M. pneumoniae (PCR) Not detected (Not Detect) Parainfluenza 1 (PCR) Not detected (Not Detect) Parainfluenza 2 (PCR) Not detected (Not Detect) Parainfluenza 3 (PCR) Not detected (Not Detect) Parainfluenza 4 (PCR) Not detected (Not Detect) RSV (PCR) Not detected (Not Detect) Entero/Rhino (PCR) Not detected (Not Detect) Imaging Data Chest x-ray: Radiologist's Impression: [address] [address] XRay Report Signed Patient: Sasha Hagan MR#: [id number] : 1955 Acct:[id number] Age/Sex: 67 / F Date of Service: 10/11/22 Loc: ED Accession Number: [id number] ?? Procedure: XR chest 1V Ordering Provider: Barbara Hansen D.O. PROCEDURE:? XR CHEST 1V ? INDICATIONS:? chest pain ? TECHNIQUE:? One view of the chest was acquired.? ? COMPARISON:? [facility], , XR CHEST 1V, 11/07/2019, 18:11. ? FINDINGS:? ? Surgical changes and devices:? None.? ? Lungs and pleura:? Lungs are clear.? No pleural effusions or pneumothorax.? ? Mediastinum:? Mediastinal contours appear normal.? Heart size is normal.? ? Bones and chest wall:? No suspicious bony lesions.? Overlying soft tissues appear unremarkable.? ? IMPRESSION:? No acute cardiopulmonary pathology. ? ? Dictated by: Alfonso Muller M.D. on 10/11/2022 at 10:11 ? ? Approved by: Alfonso Muller M.D. on 10/11/2022 at 10:11? ECG Data Attestation: I personally reviewed and interpreted this ECG as follows: Interpretation: Sinus rhythm rate of 95 VA 140 QRS is 74 QTC of 424. No acute ST elevation or depression patient has a prior from 06/21/2020 which appears similar. Patient does have some nonspecific ST changes in lateral leads 2 3 and AVF from EKG as outpatient earlier today no ST elevation. There does appear to be some motion artifact. EKG 2. Patient has sinus rhythm rate of 79 VA 120 QRS is 76 QTC 4 4. Nonspecific change no elevation. No depression. Does not appear similar to 1st from here but does appear similar to 1st from outpatient. MDM Narrative Medical decision making narrative: This is a 67-year-old female with a complaint of chest pressure and shortness of breath as well so my upper quadrant pain that has been present starting yesterday she states her arms feel like lead patient has not taken anything for pain. She was seen at her primary care physician for a regular follow-up check discussed her findings and was sent here. She does look uncomfortable EKGs do not show clear ST changes, no ST elevation. Patient had CBC, CMP, lipase, troponin obtained do not show a clear change. Chest x-ray is negative. Patient's pain was improved with morphine but not resolved. On repeat exam she is little bit more tender in her right upper quadrant she was not initially. Plan for ultrasound that area, repeat troponin is negative. Ultrasound shows common bile duct enlargement recommends possible MRCP. Patient states she can not have this done because of stimulator. She is much more tender on right upper quadrant evaluation with physical exam. She states this does feel similar to when she had gallbladder issues. We reviewed her LFTs are negative her troponin so far negative EKGs are equivocal. Discussed with patient she would like to discharge home. We discussed CT her would require ship and return but patient does not wish to do this today. Patient discussed return precautions she needs to follow-up CT imaging and I would actually recommend cardiac workup as well. Patient elects to discharge home. Discussed she should have a low th reshold to return. Discharge Plan Departure Patient Disposition: Home Clinical Impression: Atypical chest pain, Common bile duct dilation Activity Restrictions/Additional Instructions: Please follow up with recheck I do think you need further workup, I do have concerns about cardiac cause of your symptoms talk with your physician about further workup. Talk with your physician about having CT imaging of your abdomen to evaluate for the common bile duct enlargement that can cause the pain in your right upper abdomen, your abdominal labs today are reassuring but that does not mean you can have a blockage or obstruction. You can take medical indication 1 tablet every 6 hours as needed. This medication can make you sleepy do not drive, perform hazardous activities or make any major decisions while taking it. This medication will make you constipated please take a stool softener once to twice daily until stools are soft and regular. Prescription sent to Please return for fevers persistent chest pain or shortness of breath, lightheadedness or passing out, getting sweaty,% nausea or vomiting new or worsening abdominal back or flank pain or other new or concerning changes. Prescriptions: New hydrocodone-acetaminophen 5-325 mg tablet 1 tab PO Q6H PRN (Reason: pain) Qty: 7 0RF No Action dihydroergotamine 1 mg/mL solution 1 mg IM ONCE PRN Rx Instructions: Take early when symptoms are mild for migraine headaches. Do not mix with sumatriptan. furosemide 40 mg tablet See Rx Instructions .ROUTE .COMPLEX PRN Dose Instruction: TAKE 1 TABLET BY MOUTH DAILY Rx Instructions: TAKE 1 TABLET BY MOUTH DAILY PRN; ibuprofen 200 mg tablet 400 mg PO Q6H PRN docusate sodium [Colace] 100 mg capsule 100 mg PO BID PRN bupropion HCl 300 mg tablet extended release 24 hr 300 mg PO QAM Qty: 90 1RF Rx Instructions: Replaces bupropion XL 150 mg X2 Hold until requested. escitalopram oxalate 10 mg tablet 20 mg PO DAILY 90 Days Qty: 180 1RF Rx Instructions: Hold until requested. albuterol sulfate 90 mcg/actuation HFA aerosol inhaler See Rx Instructions .ROUTE .COMPLEX Qty: 36 0RF Dose Instruction: INHALE 2 PUFFS BY MOUTH EVERY 4 HOURS NEEDED FOR SHORTNESS OF BREATH OR WHEEZE Rx Instructions: INHALE 2 PUFFS BY MOUTH EVERY 4 HOURS NEEDED FOR SHORTNESS OF BREATH OR WHEEZE omeprazole 40 mg capsule,delayed release(DR/EC) 40 mg PO BID Qty: 30 1RF metoclopramide HCl 10 mg tablet 10 mg PO .Q6HP Qty: 30 1RF sumatriptan 20 mg/actuation spray,non-aerosol 20 mg intranasal Q2H PRN (Reason: migraine headache) Qty: 6 0RF Rx Instructions: administer into one nostril as a single dose; if 2nd dose needed,administer into other nostril after at least 2 hrs, NTE 2 doses (40 mg) per episode alprazolam 0.5 mg tablet 0.5 mg PO .COMPLEX Qty: 10 0RF Rx Instructions: 0.5 mg orally once per flight; (DME) SI Brace medium Qty: 1 0RF Dose Instruction: As directed Rx Instructions: As directed sumatriptan succinate 100 mg tablet See Rx Instructions PO .COMPLEX Qty: 10 1RF Dose Instruction: take 1 tab at onset of headache; if no relief may repeat 1 tab in 2hr; max = 2 tabs/24 hrs PO Rx Instructions: take 1 tab at onset of headache; if no relief may repeat 1 tab in 2hr; max = 2 tabs/24 hrs PO do not use with dihydroergotamine. diazepam 10 mg tablet See Rx Instructions .ROUTE .COMPLEX Qty: 90 0RF Rx Instructions: Take 1/2-1 tablet by mouth every evening as needed for insomnia oxycodone-acetaminophen 5-325 mg tablet 1 tab PO BEDTIME Qty: 30 0RF nystatin 100,000 unit/gram cream 1 applictn TOP BID PRN (Reason: Yeast infection) acetaminophen [Tylenol] 325 mg capsule 650 mg PO QID PRN (Reason: pain) Qty: 60 0RF (DME) Respironics Dreamstation CPAP Qty: 1 Dose Instruction: As directed Patient Comments: Pressure: 7-14 cmH2O DME: [employer] Rx Instructions: As directed Referrals: Erna Doe DO [Primary Care Provider] - Stand Alone Forms: Patient Portal/API
--- NOTE | 2022-10-11 09:53 | DI.RAD.S_ITS ---
PROCEDURE: XR CHEST 1V INDICATIONS: chest pain TECHNIQUE: One view of the chest was acquired. COMPARISON: [facility], CR, XR CHEST 1V, 11/07/2019, 18:11. FINDINGS: Surgical changes and devices: None. Lungs and pleura: Lungs are clear. No pleural effusions or pneumothorax. Mediastinum: Mediastinal contours appear normal. Heart size is normal. Bones and chest wall: No suspicious bony lesions. Overlying soft tissues appear unremarkable. IMPRESSION: No acute cardiopulmonary pathology. Dictated by: Alfonso Muller M.D. on 10/11/2022 at 10:11 Approved by: Alfonso Muller M.D. on 10/11/2022 at 10:11
[2022-10-11 10:05] LABS: Add Manual Diff / Slide Review NO; Basophils Absolute Auto 0 /uL (0-100); Basophils Percent Auto 0.7 % (0-2); Eosinophils Absolute Auto 100 /uL (0-450); Eosinophils Percent Auto 1.4 % (2-4); Hematocrit 40.2 % (36-46); Hemoglobin 13.6 g/dL (12.0-16.0); Lymphocytes Absolute Auto 1600 /uL (1100-4500); Lymphocytes Percent Auto 25.6 % (25-40); Mean Corpuscular HGB Conc 33.9 % (30-36); Mean Corpuscular Hemoglobin 29.6 PG (26-34); Mean Corpuscular Volume 87.4 fL (80-100); Monocytes Absolute Auto 500 /uL (0-900); Monocytes Percent Auto 7.8 % (3-14); Neutrophils Absolute Auto 4100 /uL (1500-7000); Neutrophils Percent Auto 64.5 % (50-75); Platelet Count 349 X10^3/uL (150-400); Red Cell Distribution Width 13.5 % (11.6-14.8); White Blood Cell Count 6.3 X10^3/uL (4.5-11.0)
[2022-10-11 10:14] LABS: Prothrombin Time 11.3 SECONDS (10.1-12.7)
[2022-10-11 10:17] LABS: Alanine Aminotransferase 56 IU/L (<35); Albumin 4.5 g/dL (3.5-5.0); Albumin Globulin Ratio 1.2 (1.0-2.8); Alkaline Phosphatase 102 U/L (38-126); Aspartate Aminotransferase 35 IU/L (14-36); BUN Creatinine Ratio 17.3 (6-22); Bilirubin Total 0.9 mg/dL (0.2-1.3); Blood Urea Nitrogen 22 mg/dL (7-17); Calcium 9.7 mg/dL (8.4-10.2); Carbon Dioxide 21 mmol/L (22-32); Chloride 104 mmol/L (98-107); Creatine Kinase 282 U/L (30-135); Estimated Glomerular Filt Rate 47 mL/min (>60); Globulin 3.8 g/dL (1.7-4.1); Glucose 131 mg/dL (80-110); HEMOLYSIS < 15 (0-50); Lipase 69 U/L (23-300); Magnesium 1.7 mg/dL (1.6-2.3); PTT Partial Thromboplastin Tim 29 SECONDS (26-36); Potassium 3.9 mmol/L (3.4-5.1); Sodium 136 mmol/L (137-145); Total Protein 8.3 g/dL (6.3-8.2)
[2022-10-11] MEDS: ASPIRIN 81 MG CHEW TAB 324 MG PO (10:22)
[2022-10-11] MEDS: NITROGLYCERIN 0.4 MG SL TAB SL (10:23)
[2022-10-11 10:26] LABS: NT-proBNP (BNP-Adult 18+) 71 pg/mL (<125)
[2022-10-11 10:28] LABS: Troponin I < 0.012 ng/mL (0.01-0.034)
[2022-10-11 10:31] LABS: CKMB % Relative Index 0.9 % (1.5-5.0); Creatine Kinase MB 2.46 ng/mL (<2.37)
[2022-10-11] MEDS: MORPHINE 4 MG/ML INJ IV ×2 (10:42→11:41)
[2022-10-11] MEDS: ONDANSETRON 4 MG/2 ML INJ IV (10:43)
[2022-10-11 11:01] LABS: Adenovirus Not Detected (Not Detect); B. parapertussis Not Detected (Not Detecte); Bordetella pertussis Not Detected (Not Detecte); Chlamydophila pneumoniae Not Detected (Not Detect); Coronavirus 229E Not Detected (Not Detect); Coronavirus HKU1 Not Detected (Not Detect); Coronavirus NL 63 Not Detected (Not Detect); Coronavirus OC43 Not Detected (Not Detect); Human Metapneumovirus Not Detected (Not Detect); Human Rhinovirus/Enterovirus Not Detected (Not Detect); Influenza A Not Detected (Not Detect); Influenza B Not Detected (Not Detect); Mycoplasma pneumoniae Not Detected (Not Detect); Parainfluenza Virus 1 Not Detected (Not Detect); Parainfluenza Virus 2 Not Detected (Not Detect); Parainfluenza Virus 3 Not Detected (Not Detect); Parainfluenza Virus 4 Not Detected (Not Detect); Respiratory Syncytial Virus Not Detected (Not Detect); SARS- CoV-2 Not Detected (Not Detecte)
--- NOTE | 2022-10-11 11:36 | DI.US.S_ITS ---
PROCEDURE: US ABDOMEN LIMITED INDICATIONS: RUQ/CHEST PAIN TECHNIQUE: Real-time focused scanning was performed of the abdomen, with image documentation. COMPARISON: [facility], US, ABDOMEN COMPLETE, 06/30/2016, 14:44. [facility], CT, CT ABDOMEN PELVIS W CON, 06/21/2020, 13:40. FINDINGS: The liver is enlarged and demonstrates normal overall echotexture. No focal liver lesion is seen. Status post cholecystectomy. The common bile duct is enlarged, measuring 1.4 cm. A cause of biliary obstruction is not seen. No significant pancreatic abnormality is seen on these images. IMPRESSION: Status post cholecystectomy. The common bile duct is mildly enlarged at 1.4 cm, which is increased in prominence compared to the prior CT. No cause of obstruction can be seen. If clinically appropriate, an MRCP could be considered for further evaluation (assuming that there is no contraindication to MRI). Dictated by: Jeff Ly M.D. on 10/11/2022 at 11:32 Approved by: Jeff Ly M.D. on 10/11/2022 at 11:35
[2022-10-11 12:49] LABS: Troponin I < 0.012 ng/mL (0.01-0.034)
== END 2022-10-11 14:40 | disposition home or self-care (01) ==
PROVIDERS: Emergency Provider Emergency Medicine; PCP Family Medicine
DX: R07.89 Other chest pain (principal); K83.8 Other specified diseases of biliary tract; R10.11 Right upper quadrant pain; Z79.899 Other long term (current) drug therapy
CPT/HCPCS: 36415; 71045; 76705; 80053; 82550; 82553; 83690; 83735; 83880; 84484; 85025; 85610; 85730; 87633; 93005; 96374; 96375; 96376; 99284; J2270; J2405

== ENCOUNTER → 2022-11-02 15:04 | Outpatient (CLI) | payer MEDICARE, SELFPAY ==
--- NOTE | 2022-11-03 02:20 | DI.NM.S_ITS ---
DATE OF SERVICE: 11/02/2022 PROCEDURE: Exercise treadmill stress test without imaging. ORDERING PROVIDER: Erna Doe M.D. INDICATIONS: The patient is a 67-year-old female with known esophageal disease and recent ER evaluation for chest pain. FINDINGS: 1. The patient was able to exercise for 4 minutes, 29 seconds on a standard Emanuel protocol suggesting moderately reduced exercise capacity with an JACLYN of +26%, achieving 4.6 METs. 2. She had a normal heart rate and blood pressure response to exercise, achieving a maximum heart rate of 156 BPM (101% of her predicted maximum). 3. She developed 2/6 chest discomfort at 3 minutes of exercise that escalated to 6/10 at peak exercise, radiating into her back and then slowly resolving in recovery. 4. Her resting ECG shows sinus rhythm with normal ST segments. With exercise and during her episodes of chest pain, there were no obvious ST-segment shifts, although there was mild motion artifact; yet, the immediate resting recovery tracings showed no concerning ST depression. There were no arrhythmias. IMPRESSION: 1. Probable normal exercise treadmill study for ischemia. 2. Moderately reduced exercise capacity with provocation of chest pain but without associated ST-segment shifts or arrhythmias. If there is a high degree of clinical concern for underlying coronary disease, consider a stress test with imaging for further ischemic evaluation. Sasha Hagan - JUDE/maranda/colt doc#: [id number]/job#: [id number] dd: 11/02/2022 17:28:00 dt: 11/03/2022 02:13:00 DICTATING MD/COPIES TO: Geoff Delgado MD; Erna Doe M.D. COPIES MNE: LUIS FELIPE;
== END ==
PROVIDERS: PCP Family Medicine; Referring Provider Family Medicine; Visit Provider Family Medicine
DX: R07.89 Other chest pain (principal); K22.9 Disease of esophagus, unspecified
CPT/HCPCS: 93017

== ENCOUNTER → 2024-07-01 08:52 | Outpatient (CLI) | payer MEDICARE, SELFPAY ==
[2024-07-01 10:31] LABS: HEMOLYSIS < 15 (0-50); Iron 122 ug/dL (37-170)
[2024-07-01 10:42] LABS: Percent Iron Saturation 44 % (15-50); Total Iron Binding Capacity 276 ug/dL (265-497); Transferrin 283 mg/dL (206-381)
== END ==
PROVIDERS: PCP Family Medicine; Referring Provider Nurse Practitioner; Visit Provider Nurse Practitioner
DX: G25.81 Restless legs syndrome (principal); E83.10 Disorder of iron metabolism, unspecified
CPT/HCPCS: 36415; 83540; 83550

== ENCOUNTER → 2025-01-27 08:26 | Outpatient (CLI) | payer MEDICARE, SELFPAY ==
--- NOTE | 2025-01-27 08:27 | DI.MG.S_ITS ---
MM screening mammo BI: 01/27/2025. BI-RADS: 1 CLINICAL: 69-year old female for bilateral screening mammogram. Tyrer-Cuzick lifetime risk of 4.0%. No personal or first-degree family history of breast cancer. PRIOR EXAMS 11/15/2017. MAMMOGRAPHY TECHNIQUE: 2D and 3D (tomosynthesis) digital mammographic views obtained, with additional images as needed for full coverage. Current study was also evaluated with a Computer Aided Detection (CAD) system. DENSITY C. The breasts are heterogeneously dense, which may obscure small masses. MAMMOGRAPHY FINDINGS Bilateral: No suspicious mass, asymmetry, microcalcification, or other abnormality seen. IMPRESSION: * No evidence of malignancy. RECOMMENDATIONS Bilateral * Annual screening mammography. OVERALL ASSESSMENT CATEGORY BI-RADS-1: Negative. [employer] recommends annual screening mammography beginning at age 40 for women with average risk of breast cancer. ELECTRONICALLY SIGNED: Kimberly Roa M.D. on 02/06/2025 at 09:35:58 AM PT Interpreting Station ID: [id number]
== END ==
LOC: MAMMO 08:26
PROVIDERS: PCP Family Medicine; Referring Provider Family Medicine; Visit Provider Family Medicine
DX: Z12.31 Encounter for screening mammogram for malignant neoplasm of breast (principal); R92.333 Mammographic heterogeneous density, bilateral breasts
CPT/HCPCS: 77063; 77067